=== PATIENT | male | born 1935 | race Asian ===

== ENCOUNTER 2017-01-09 18:43 | Inpatient (IN) | payer MEDICARE, MEDICAID ==
[2017-01-09 19:15] LABS: HEMATOCRIT 25.3 % (39.0-49.0); HEMOGLOBIN 8.5 gm/dL (12.6-17.4); MEAN CELL VOLUME 102.9 fl (80-99); MEAN CORPUSCULAR HEMOGLOBIN 34.5 pg (27.0-31.0); MEAN CORPUSCULAR HGB CONC 33.5 pg (28.0-36.0); MEAN PLATELET VOLUME 5.9 fl; PLATELET COUNT 219 Th/cmm (150-400); RED BLOOD COUNT 2.46 Mil/cmm (3.80-5.80); RED CELL DISTRIBUTION WIDTH 12.3 % (11.5-20.0); WHITE BLOOD COUNT 8.8 Th/cmm (4.8-10.8)
--- NOTE | 2017-01-09 19:21 | ED Physician Chart ---
Chief Complaint/HPI - Patient Information Date Seen:: 01/09/17 Time Seen:: 19:00 Chief Complaint:: PSYCHOSIS History of Present Illness:: THIS IS AN 82 YO MALE SENT HERE FROM [facility] FOR A PSYCH EVALUATION BECAUSE HE HAS BEEN TRYING TO LEAVE THE FACILITY. HE HAS HYPERTENSION,ANEMIA, GOUT AND DIABETES MELLITUS. Allergies:: Allergies Allergy/AdvReac Type Severity Reaction Status Date / Time clams Allergy Verified 01/09/17 18:54 cod liver oil Allergy Verified 01/09/17 18:54 corn Allergy Verified 01/09/17 18:53 egg Allergy Verified 01/09/17 18:48 milk Allergy Verified 01/09/17 18:48 peanut Allergy Verified 01/09/17 18:48 sesame seed Allergy Verified 01/09/17 18:53 shrimp Allergy Verified 01/09/17 18:49 soybean Allergy Verified 01/09/17 18:48 walnut Allergy Verified 01/09/17 18:52 wheat Allergy Verified 01/09/17 18:53 Vitals:: Vital Signs - 8 hr 01/09/17 18:58 Temp 98.5 F HR 85 RR 16 BP 126/68 O2 Sat % 98 Historian:: EMS, Medical Records Review:: Nurse's Note Reviewed, Transfer documents Reviewed, Patient unable to respond Review of Systems - Review of Systems General/Constitutional: No fever, No chills, No weight loss, No weakness, No diaphoresis, No edema, No loss of appetite, Other (PATIENT CANNOT GIVE A REVIEW OF SYSTEMS.) Skin: No skin lesions, No rash, No bruising Head: No headache, No light-headedness Eyes: No loss of vision, No pain, No diplopia ENT: No earache, No nasal drainage, No sore throat, No tinnitus Neck: No neck pain, No swelling, No thyromegaly, No stiffness, No mass noted Cardio Vascular: No chest pain, No palpitations, No PND, No orthopnea, No edema Pulmonary: No SOB, No cough, No sputum, No wheezing GI: No nausea, No vomiting, No diarrhea, No pain, No melena, No hematochezia, No constipation, No hematemesis G/U: No dysuria, No frequency, No hematuria Musculoskeletal: No bone or joint pain, No back pain, No muscle pain Endocrine: No polyuria, No polydipsia Psychiatric: No prior psych history, No depression, No anxiety, No suicidal ideation Hematopoietic: No bruising, No lymphadenopathy Allergic/Immuno: No urticaria, No angioedema Neurological: No syncope, No focal symptoms, No weakness, No paresthesia, No headache, No seizure, No dizziness, Confusion, No vertigo Past Medical History - Past Medical History Obtainable: Yes Past Medical History: HTN, DM, CAD, Dyslipidemia, Arthritis, Dementia Family History: None Social History: Non Smoker, No Alcohol, No Drug Use, Care Facility Surgical History: None Psychiatricy History: Schizophrenia Family Medical History - Family Member Mother History Unknown: Yes Physical Exam - Physical Examination General/Constitutional: Awake, Well-developed, well-nourished, Alert, No distress, GCS 15, Non-toxic appearing, Ambulatory Other Gen/Cons comments:: CONFUSED Head: Atraumatic Eyes: Lids, conjuctiva normal, PERRL, EOMI Skin: Nl inspection, No rash, No skin lesions, No ecchymosis, Well hydrated, No lymphadenopathy ENMT: External ears, nose nl, Nasal exam nl, Lips, teeth, gums nl Neck: Nontender, Full ROM w/o pain, No JVD, No nuchal rigidity, No bruit, No mass, No stridor Respiratory: Nl effort/Exclusion, Clear to Auscultation, No Wheeze/Rhonchi/Rales Cardio Vascular: RRR, No murmur, gallop, rubs, NL S1 S2 GI: No tenderness/rebounding/guarding, No organomegaly, No hernia, Normal BS's, Nondistended, No mass/bruits, No McBurney tenderness : No CVA tenderness Extremities: No tenderness or effusion, Full ROM, normal strength in all extremities, No edema, Normal digits & nails Neuro/Psych: Alert/oriented, DTR's symmetric, Normal sensory exam, Normal motor strength, Normal gait, No focal deficits Other Neuro/Psych comments:: THIS PATIENT IS CONFUSED AND RESTLESS WITH DISORIENTATION. Misc: normal gait, Normal back, No paraspinal tenderness Labs/Radiology/EKG Results - EKG Interpretations EKG Time:: 18:58 Rate & Rhythm: RATE=85, SINUS [place]: RIGHT AXIS Assessment - Assessment General Assessment: PSYCHOSIS ED Septic Shock - . Is Septic Shock (SBP<90, OR Lactate>4 mmol\L) present?: No - <6hrs of presentation: Vital Signs: Vital Signs - 8 hr 01/09/17 18:58 Temp 98.5 F HR 85 RR 16 BP 126/68 O2 Sat % 98 Reassessment (Disposition) - Reassessment Reassessment Condition:: Unchanged - Diagnosis Diagnosis:: PSYCHOSIS - Patient Disposition Discharge/Transfer:: Acute Care w/in this hosp Admitting Medical Physician:: Renee Ballard Admitting Psych Physician:: [place] Condition at Disposition:: Unchanged ED Discharge Plan - Patient Disposition Admit/Discharge/Transfer: Acute Care w/in this hosp Condition at Disposition: Unchanged Instructions: Psychosis
[2017-01-09 19:29] LABS: INR 0.88 (0.5-1.4)
[2017-01-09 19:31] LABS: ALB/GLOB RATIO 1.2 (1.0-1.8); ALKALINE PHOSPHATASE 51 U/L (34-104); BILIRUBIN,TOTAL 0.3 mg/dL (0.3-1.0); BUN - UREA NITROGEN 56 mg/dL (7-25); BUN/CREATININE RATIO 18.1; CALCIUM SERUM 9.2 mg/dL (8.6-10.3); CARBON DIOXIDE 24.1 mEq/L (21.0-31.0); CHLORIDE 108 mEq/L (98-107); CREATININE - SERUM 3.1 mg/dL (0.7-1.3); GLUCOSE 132 mg/dL (70-105); POTASSIUM SERUM 5.1 mEq/L (3.5-5.1); SGOT 23 U/L (13-39); SGPT/ALT 11 U/L (7-52); SODIUM SERUM 135 mEq/L (136-145)
[2017-01-09 19:32] LABS: CHOLESTEROL 126 mg/dL (<200); TRIGLYCERIDES 99 mg/dL (<150)
[2017-01-09 20:20] LABS: BASOPHIL 3 % (0-3); EOSINOPHIL 37 % (0-5); NEUTROPHILS 45 % (40-80); TOTAL CELLS COUNTED 100
[2017-01-09 20:21] LABS: PLATELET ESTIMATE ADEQUATE (NORMAL); PLATELET MORPHOLOGY NORMAL (NORMAL)
[2017-01-09] MEDS ORDERED: Fleet Enema 135 mL RC PRN (20:57)
[2017-01-09] MEDS ORDERED: Magnesium Hydroxide (MOM) 30 mL UDC PO PRN (20:57)
[2017-01-09] MEDS ORDERED: DIMETHICONE TP SCH (21:00)
[2017-01-09 21:18] VITALS: BP 154/75
[2017-01-10] MEDS ORDERED: Non-Formulary Item 1 EA (Amino Acids/Protein Hydrolys [Pro-Stat Sugar Free Liquid] 30 ML) PO SCH (09:00)
[2017-01-10] MEDS ORDERED: FEBUXOSTAT 40 MG PO SCH (09:00)
--- NOTE | 2017-01-10 09:38 | Diagnostic Imaging Report ---
Portable chest x-ray Time: 1853 History: Shortness of breath Allowing for portable technique the heart size is normal. No focal pulmonary parenchymal processes. No hilar or mediastinal abnormalities. COPD changes are noted bilaterally. Bony thorax remarkable for degenerative osteopenia. Aortic arch calcified. Impression: No acute abnormalities.
[2017-01-10] MEDS: INSULIN HUMAN REGULAR 100 UNITS/ML UNIT SUBQ SCH (09:58)
--- NOTE | 2017-01-10 10:44 | Psychosocial Evaluation ---
DATE OF SERVICE: 01/10/2017 JUSTIFICATION FOR HOSPITALIZATION: Agitation, striking out, aggressive behaviors at the [facility], trying to leave. CHIEF COMPLAINT: "I don't know why I am here." HISTORY OF PRESENT ILLNESS: An 82-year-old male brought in from a [facility], does not know why he is here, generally confused, disoriented, agitated, trying to leave the facility, states that he is confused as to why he is here. PAST PSYCHIATRIC HISTORY: It is unclear if he has a diagnosis of dementia or not. FAMILY HISTORY: Unknown. SOCIAL HISTORY: Born in the [facility]. He states he is . He has 2 children who are adults. No alcohol, drugs, or tobacco. Nonsmoker. MEDICATIONS: Noted. MENTAL STATUS EXAMINATION: Stated age. Fair eye contact. Speech within normal limits. Mood "okay." Affect flat. Thought processes were somewhat disoriented. No overt SI or HI. No overt psychotic symptoms, poor insight, poor judgment, poor impulse control. PROVISIONAL DIAGNOSES: Rule out dementia, also mood, unspecified; anxiety, unspecified. MEDICAL: Please see full H and P. ESTIMATED LENGTH OF STAY: 5-7 days. ASSESSMENT: The patient requiring inpatient hospitalization, agitated, striking out behaviors, unable to be cared for at a lower level of care. PLAN: We will restart medications. Treatment plan includes group, as well as milieu therapy. CONDITIONS FOR DISCHARGE: Improved mood, improved affect, cessation of any SI or HI, better control of his mood symptoms and agitation. [facility]# [id number]
--- NOTE | 2017-01-10 16:21 | History & Physical ---
ADMIT DATE: 01/10/2017 CHIEF COMPLAINT: Confusion and wandering. HISTORY OF PRESENT ILLNESS: An 82-year-old male with past medical history significant for diabetes and hypertension, [facility] from [facility] after being noted to be confused and often wandering around, sometimes outside the facility. He was sent for further evaluation and care. In the Emergency Room, the patient was ____ and sent for further psychiatric evaluation to the Geropsych Unit. The patient is awake and cooperative, however, poor historian given his underlying dementia. PAST MEDICAL HISTORY: The patient has history of diabetes mellitus, hypertension, anemia, chronic kidney disease. MEDICATIONS: As per reconciliation. ALLERGIES: THE PATIENT HAS MULTIPLE ALLERGIES, MOSTLY TO FOOD. Please refer to list. SOCIAL HISTORY: No known tobacco, alcohol or illicit drug use. FAMILY HISTORY: Noncontributory. REVIEW OF SYSTEMS: IMMUNOLOGIC: No recurrent infections. CARDIOVASCULAR: The patient has hypertension. No known heart disease. GASTROINTESTINAL: No nausea, vomiting or diarrhea. ENDOCRINE: The patient is diabetic. No thyroid disorder. NEUROLOGIC: No seizure. The patient may have had a previous stroke as per records. HEMATOLOGIC: No bleeding or clotting disorder. PHYSICAL EXAMINATION: GENERAL: The patient is awake and alert, pleasantly confused. VITAL SIGNS: Temperature 97.9, pulse 86, respiration 20, blood pressure 154/75. HEENT: Pupils are equally round. Anicteric sclerae. NECK: Supple, no JVD, mass or bruit. LUNGS: Clear to auscultation. HEART: S1, S2, regular rate and rhythm. ABDOMEN: Soft and nontender. Positive bowel sounds. EXTREMITIES: No clubbing, cyanosis, or edema. NEUROLOGIC: Moves all extremities equally, but appears generally weak. LABORATORY DATA: WBC is 8.8, hemoglobin 8.5. Sodium is 135, BUN 56, creatinine 3.1, albumin is 2.7. IMPRESSION: 1. Dementia. 2. Diabetes mellitus. 3. Hypertension. 4. Anemia. 5. Chronic kidney disease. PLAN: Admit to Geropsych Unit. Continue patient's usual medications. The patient is ____ activities. We will continue to monitor the patient's renal function and cell count. JOB# [id number]
--- NOTE | 2017-01-10 22:42 | Admit Criteria Form ---
Admit Criteria Forms - Admit Criteria Diagnosis: PSYCHIATRIC DISORDERS (Place 'X' for any and all applicable criteria): Ongoing inpatient care may be needed for 1 or more of the following(1)(2)(3)(4)( 6)(7)(8): [ ]I. Danger to self or others not manageable at lower level of care. [ ]II. Grave disability (eg, inability to perform self care necessary at lower level of care) [ ]III. Agitation or inappropriate behavior interfering with care for primary condition (eg, attempting to discontinue lines or drains prematurely, unable to cooperate with respiratory care) [X ]IV. Severe disability or disorder indicated by ALL of the following: [ X]a) Severe behavioral health disorder-related symptoms or condition indicated by 1 or more of the following: [ ]i) Severe problem with cognition, memory, judgment, or impulse control [X ]ii) Severe clinical manifestations (eg, hallucinations , delusions, other acute psychotic symptoms, leeanna, extreme agitation or anxiety) [X ]b) Patient management at lower level of care is not feasible until acute intervention or modification is initiated. Extended stay beyond goal length of stay for the primary condition may be needed until ALLof the following are present(1)(2)(3)(4)(7)95)(23): [ ]a) Danger to self or others is absent or manageable at lower level of care [ ]b) Behavior crisis management, including physical or chemical restraints, is required and is not available at a lower level of care. [ ]c) Behavioral symptoms (e.g., agitation, somnolence, inappropriate behavior) are present, and are not manageable at a lower level of care. [ ]d) Patient cannot understand follow-up treatment and crisis plan. [ ]e) Provider and supports are sufficiently available at lower level of care. [ ]f) Patient can participate (e.g., verify absence of plan for harm) and is in needed of monitoring. The original [facility] content created by [facility] has been revised. The portions of the content which have been revised are identified through the use of italic text or in bold, and [facility] has neither reviewed nor approved the modified material. All other unmodified content is copyright [facility]. Please see references footnoted in the original [facility] edition 2017 Admit Criteria Met?: Yes
[2017-01-11] MEDS: INSULIN HUMAN REGULAR 100 UNITS/ML UNIT SUBQ SCH (11:36)
--- NOTE | 2017-01-11 18:28 | General Progress Note ---
Subjective - Review of Systems Service Date: 01/11/17 Subjective: resting comfortably no distress Objective - Results Result Diagrams: 01/09/17 19:09 01/09/17 19:09 Recent Labs: Laboratory Last Values WBC 8.8 Th/cmm (4.8-10.8) 01/09/17 19:09 RBC 2.46 Mil/cmm (3.80-5.80) L 01/09/17 19:09 Hgb 8.5 gm/dL (12.6-17.4) L 01/09/17 19:09 Hct 25.3 % (39.0-49.0) L 01/09/17 19:09 MCV 102.9 fl (80-99) H 01/09/17 19:09 MCH 34.5 pg (27.0-31.0) H 01/09/17 19:09 MCHC Differential 33.5 pg (28.0-36.0) 01/09/17 19:09 RDW 12.3 % (11.5-20.0) 01/09/17 19:09 Plt Count 219 Th/cmm (150-400) 01/09/17 19:09 MPV 5.9 fl 01/09/17 19:09 Neutrophils (Manual) 45 % (40-80) 01/09/17 19:09 Lymphocytes 12 % (20-50) L 01/09/17 19:09 Monocytes 3 % (2-10) 01/09/17 19:09 Eosinophils 37 % (0-5) H 01/09/17 19:09 Basophils 3 % (0-3) 01/09/17 19:09 Platelet Estimate ADEQUATE (NORMAL) 01/09/17 19:09 Platelet Morphology NORMAL (NORMAL) 01/09/17 19:09 RBC Morph Micro Appear NORMAL (NORMAL) 01/09/17 19:09 PT 9.0 SECONDS (9.5-11.5) L 01/09/17 19:09 INR 0.88 (0.5-1.4) 01/09/17 19:09 PTT (Actin FS) 28.2 SECONDS (26.0-38.0) 01/09/17 19:09 Sodium 135 mEq/L (136-145) L 01/09/17 19:09 Potassium 5.1 mEq/L (3.5-5.1) 01/09/17 19:09 Chloride 108 mEq/L (98-107) H 01/09/17 19:09 Carbon Dioxide 24.1 mEq/L (21.0-31.0) 01/09/17 19:09 Anion Gap 8.0 (7.0-16.0) 01/09/17 19:09 BUN 56 mg/dL (7-25) H 01/09/17 19:09 Creatinine 3.1 mg/dL (0.7-1.3) H 01/09/17 19:09 Est GFR ( Amer) TNP 01/09/17 19:09 Est GFR (Non-Af Amer) TNP 01/09/17 19:09 BUN/Creatinine Ratio 18.1 01/09/17 19:09 Glucose 132 mg/dL (70-105) H 01/09/17 19:09 POC Glucose 128 MG/DL (70 - 105) H 01/11/17 09:47 Calcium 9.2 mg/dL (8.6-10.3) 01/09/17 19:09 Total Bilirubin 0.3 mg/dL (0.3-1.0) 01/09/17 19:09 AST 23 U/L (13-39) 01/09/17 19:09 ALT 11 U/L (7-52) 01/09/17 19:09 Alkaline Phosphatase 51 U/L (34-104) 01/09/17 19:09 Troponin I 0.02 ng/mL (0.01-0.05) 01/09/17 19:09 Total Protein 6.7 gm/dL (6.0-8.3) 01/09/17 19:09 Albumin 3.7 gm/dL (4.2-5.5) L 01/09/17 19:09 Globulin 3.0 gm/dL 01/09/17 19:09 Albumin/Globulin Ratio 1.2 (1.0-1.8) 01/09/17 19:09 Triglycerides 99 mg/dL (<150) 01/09/17 19:09 Cholesterol 126 mg/dL (<200) 01/09/17 19:09 LDL Cholesterol Direct 66 mg/dL (75-193) L 01/09/17 19:09 HDL Cholesterol 55 mg/dL (23-92) 01/09/17 19:09 TSH 1.01 uIU/ml (0.34-5.60) 01/09/17 19:09 RPR NONREACTIVE (NONREACTIVE) 01/09/17 19:09 - Physical Exam Vitals and I&O: Vital Signs Temp 98 F 01/10/17 20:31 Pulse 81 01/11/17 11:36 Resp 20 01/11/17 08:00 BP 123/59 01/11/17 11:36 Pulse Ox 96 01/10/17 20:31 Intake & Output 01/10/17 01/11/17 01/11/17 18:59 06:59 18:59 Intake Total 480 Balance 480 Intake: Oral 480 Other: # Voids 1 Active Medications: Current Medications Acetaminophen (Tylenol) 650 mg PO Q6HR PRN PRN Reason: PAIN OR TEMP >100.4 Stop: 03/10/17 20:56 Aspirin (Ecotrin) 81 mg PO DAILY [facility] Stop: 03/11/17 08:59 Last Admin: 01/11/17 09:00 Dose: 81 mg Bisacodyl (Dulcolax 10 Mg Supp) 10 mg RC DAILY PRN PRN Reason: IF MOM INEFFECTIVE FOR CONSTIP Stop: 03/10/17 20:56 Docusate Sodium (Colace) 100 mg PO DAILY [facility] Stop: 03/11/17 08:59 Last Admin: 01/11/17 09:00 Dose: 100 mg Dorzolamide HCl (Trusopt 2% Ophth Soln) 1 drop EACH EYE BID [facility] Stop: 03/11/17 08:59 Last Admin: 01/11/17 16:41 Dose: 1 drop Fluocinonide (Lidex 0.05%) 1 appl TP BID [facility] Stop: 03/11/17 08:59 Last Admin: 01/11/17 16:40 Dose: 1 appl Insulin Human Regular (Novolin R) 2 - 10 units SUBQ DAILY [facility] PRN Reason: Protocol Stop: 03/11/17 08:59 Last Admin: 01/11/17 11:36 Dose: Not Given Latanoprost (Xalatan 0.005% Ophth Soln) 1 drop EACH EYE HS [facility] Stop: 03/10/17 20:59 Last Admin: 01/10/17 20:19 Dose: 1 drop Lorazepam (Ativan) 0.5 mg PO Q6H PRN; Protocol PRN Reason: Anxiety/Agitation Stop: 03/10/17 20:55 Last Admin: 01/11/17 16:43 Dose: 0.5 mg Losartan Potassium (Cozaar) 50 mg PO DAILY [facility] Stop: 03/11/17 08:59 Last Admin: 01/11/17 11:34 Dose: 50 mg Magnesium Hydroxide (Milk Of Magnesia) 30 ml PO DAILY PRN PRN Reason: Constipation Stop: 03/10/17 20:56 Memantine (Namenda) 5 mg PO DAILY [facility] Stop: 03/12/17 08:59 Last Admin: 01/11/17 08:00 Dose: 5 mg Metoprolol Succinate (Toprol Xl) 25 mg PO DAILY [facility] Stop: 03/11/17 08:59 Last Admin: 01/11/17 11:36 Dose: 25 mg Miscellaneous (Dimethicone [Cerave]) 237 ml TP TID [facility] Stop: 03/10/17 20:59 Miscellaneous (Febuxostat [Uloric]) 40 mg PO DAILY [facility] Stop: 03/11/17 08:59 Miscellaneous (Vit B Cmplx 3/Fa/Vit C/Biotin [Nephro-King Rx Tablet]) 1 tab PO DAILY [facility] Stop: 03/11/17 08:59 Simvastatin (Zocor) 10 mg PO QPM [facility] PRN Reason: Protocol Stop: 03/11/17 16:59 Last Admin: 01/11/17 16:40 Dose: 10 mg Sodium Phosphate (Fleet Enema) 135 ml RC DAILY PRN PRN Reason: IF DULCOLAX INEFFECTIVE FOR CO Stop: 03/10/17 20:56 Zolpidem Tartrate (Ambien) 5 mg PO HS PRN PRN Reason: Insomnia Stop: 03/10/17 20:55 General: Alert, No acute distress HEENT: Atraumatic, PERRLA Neck: Supple Cardiovascular: Regular rate, Normal S1, Normal S2 Lungs: Clear to auscultation Abdomen: Bowel sounds, Soft Neurological: Normal gait, Normal speech Assessment/Plan - Problem List Patient Problems: All Active Problems WANDERS FROM FACILITY; ELOPEMENT RISK (Acute) - Assessment Assessment: dementia dm anemia htn - Plan Plan: cont current treatment Nutritional Asmnt/Malnutr-PDOC - Dietary Evaluation Malnutrition Findings (Please click <Entered> for more info): Nutritional Asmnt/Malnutrition Start: 01/10/17 10: 01 Text: Status: Active Freq: Document 01/10/17 10:01 ROD (Rec: 01/10/17 10:33 ROD FERNÁNDEZ- FNS1) Nutritional Asmnt/Malnutrition Patient General Information Nutritional Screening High Risk Screening Diagnosis Agitation, Psychosis (Reason for Visit) Pertinent Medical Hx/Surgical Hx Hypertension, glaucoma, hyperlipidemia, gout, anemia, hyperuricemia, unilateral inguinal hernia, cyst of kidney, diabetes type II, generalized muscle weakness. Subjective Information Patient was admitted from [facility] with reported increased agitation and agressive behavior at facility. Per medical record, patient has many food allergies including peanut, cod liver oil, corn, egg, soybean, milk, wheat, walnut, sesame seed, shrimp, clams. Patient walking in [facility] unit, unable to weigh. Current Diet Order/ Nutrition Support Mechanical Soft Ground, NCS pot diet, 2 Tyree HN one can TID with med pass. Patient / S.O Can't verbalize diet edu Pertinent Medications dulcolax, colace, novolin, cozaar, MOM, fleet enema Pertinent Labs BUN 56, Cr3.1, Albumin 3.7 Nutritional Hx/Data Height 1.63 m Height (Calculated Centimeters) 162.6 Current Weight (lbs) 61.235 kg Weight (Calculated Kilograms) 61.2 Weight (Calculated Grams) 11195.0 [place] Body Weight 130 % [place] Body Weight 103 Recent Weight Change No Weight Status Approriate GI Symptoms GI Symptoms None Food Allergies Yes Cultural/Ethnic/Spiritism Belief None indicated Usual diet at home Mechanical soft, ground Skin Integrity/Comment: Dwight 20, intact Current %PO Good (75-100%) Estimated Nutritional Goals BEE in Kcals: Using Current wt Calories/Kcals/Kg 25-30kcal/kg Kcals Calculated 1846-1144 kcal/day Protein: Using Current wt Protein g/k gm/kg Protein Calculated ~60gm/day Fluid: ml 4409-5082 ml/day (1 ml/kcal) Nutritional Problem 1. Problem Problem No nutrition diagnosis at this time Intervention/Recommendation Comments 1. Continue Mechanical soft, ground diet as tolerated by patient. Will provide meals free of food allergens. 2. Consider HgA1C lab. Switch diet to 60 gm CCHO if necessary. 3. Switch dietary supplement to Boost Glucose Control TID with meals. Expected Outcomes/Goals Expected Outcomes/Goals Oral intake to meet >75% of nutrient needs, nutrition related labs normalize, weight remains stable. F/U MR 01/13-
--- NOTE | 2017-01-11 20:16 | Progress Notes ---
DATE: 01/11/2017 SUBJECTIVE: The patient seen, chart reviewed, discussed with staff. The patient continues to present with some confusion, irritable, selectively mute. This morning, he is not talking to me, currently sitting in the position. He only tells me that he does feel that someone may be trying to harm him, remains somewhat delusional that he is presenting due to psychiatric decompensation, noted to be confused, wandering around trying to leave the facility at times, also noted to be agitated, disoriented, striking out at staff. ASSESSMENT: The patient remains symptomatic, disoriented striking out behaviors, not safe for a lower level of care, seems paranoid, making some delusional statements, which are concerned. PLAN: ____Will try to increase_ collateral, currently waiting for collateral, but we will start the patient on a low-dose Aricept. We will monitor closely for any overt side effects. Given the severity of the patient is ongoing symptoms, he is not safe for discharge at this time. JOB# [id number] RANDOLPH
[2017-01-12] MEDS: Vitamin B Complex w/Vitamin C Tab PO SCH (11:27)
[2017-01-12] MEDS: INSULIN HUMAN REGULAR 100 UNITS/ML UNIT SUBQ SCH (11:28)
--- NOTE | 2017-01-12 19:53 | Internal Medicine Prog Note ---
Internal Medicine Subjective - Subjective Service Date: 01/12/17 Patient seen and examined:: without staff Patient is:: awake, confused Per staff patient has:: no adverse event Internal Medicine Objective - Results Result Diagrams: 01/09/17 19:09 01/09/17 19:09 Recent Labs: Laboratory Last Values WBC 8.8 Th/cmm (4.8-10.8) 01/09/17 19:09 RBC 2.46 Mil/cmm (3.80-5.80) L 01/09/17 19:09 Hgb 8.5 gm/dL (12.6-17.4) L 01/09/17 19:09 Hct 25.3 % (39.0-49.0) L 01/09/17 19:09 MCV 102.9 fl (80-99) H 01/09/17 19:09 MCH 34.5 pg (27.0-31.0) H 01/09/17 19:09 MCHC Differential 33.5 pg (28.0-36.0) 01/09/17 19:09 RDW 12.3 % (11.5-20.0) 01/09/17 19:09 Plt Count 219 Th/cmm (150-400) 01/09/17 19:09 MPV 5.9 fl 01/09/17 19:09 Neutrophils (Manual) 45 % (40-80) 01/09/17 19:09 Lymphocytes 12 % (20-50) L 01/09/17 19:09 Monocytes 3 % (2-10) 01/09/17 19:09 Eosinophils 37 % (0-5) H 01/09/17 19:09 Basophils 3 % (0-3) 01/09/17 19:09 Platelet Estimate ADEQUATE (NORMAL) 01/09/17 19:09 Platelet Morphology NORMAL (NORMAL) 01/09/17 19:09 RBC Morph Micro Appear NORMAL (NORMAL) 01/09/17 19:09 PT 9.0 SECONDS (9.5-11.5) L 01/09/17 19:09 INR 0.88 (0.5-1.4) 01/09/17 19:09 PTT (Actin FS) 28.2 SECONDS (26.0-38.0) 01/09/17 19:09 Sodium 135 mEq/L (136-145) L 01/09/17 19:09 Potassium 5.1 mEq/L (3.5-5.1) 01/09/17 19:09 Chloride 108 mEq/L (98-107) H 01/09/17 19:09 Carbon Dioxide 24.1 mEq/L (21.0-31.0) 01/09/17 19:09 Anion Gap 8.0 (7.0-16.0) 01/09/17 19:09 BUN 56 mg/dL (7-25) H 01/09/17 19:09 Creatinine 3.1 mg/dL (0.7-1.3) H 01/09/17 19:09 Est GFR ( Amer) TNP 01/09/17 19:09 Est GFR (Non-Af Amer) TNP 01/09/17 19:09 BUN/Creatinine Ratio 18.1 01/09/17 19:09 Glucose 132 mg/dL (70-105) H 01/09/17 19:09 POC Glucose 128 MG/DL (70 - 105) H 01/11/17 09:47 Calcium 9.2 mg/dL (8.6-10.3) 01/09/17 19:09 Total Bilirubin 0.3 mg/dL (0.3-1.0) 01/09/17 19:09 AST 23 U/L (13-39) 01/09/17 19:09 ALT 11 U/L (7-52) 01/09/17 19:09 Alkaline Phosphatase 51 U/L (34-104) 01/09/17 19:09 Troponin I 0.02 ng/mL (0.01-0.05) 01/09/17 19:09 Total Protein 6.7 gm/dL (6.0-8.3) 01/09/17 19:09 Albumin 3.7 gm/dL (4.2-5.5) L 01/09/17 19:09 Globulin 3.0 gm/dL 01/09/17 19:09 Albumin/Globulin Ratio 1.2 (1.0-1.8) 01/09/17 19:09 Triglycerides 99 mg/dL (<150) 01/09/17 19:09 Cholesterol 126 mg/dL (<200) 01/09/17 19:09 LDL Cholesterol Direct 66 mg/dL (75-193) L 01/09/17 19:09 HDL Cholesterol 55 mg/dL (23-92) 01/09/17 19:09 TSH 1.01 uIU/ml (0.34-5.60) 01/09/17 19:09 RPR NONREACTIVE (NONREACTIVE) 01/09/17 19:09 - Physical Exam Vitals and I&O: Vital Signs Temp 97.4 F 01/12/17 15:12 Pulse 81 01/12/17 15:12 Resp 20 01/12/17 15:12 BP 132/54 01/12/17 15:12 Pulse Ox 95 01/12/17 15:12 Intake & Output 01/12/17 01/12/17 01/13/17 06:59 18:59 06:59 Intake Total 940 Balance 940 Intake: Oral 940 Other: # Voids 3 # Bowel Movements 0 Active Medications: Current Medications Acetaminophen (Tylenol) 650 mg PO Q6HR PRN PRN Reason: PAIN OR TEMP >100.4 Stop: 03/10/17 20:56 Aspirin (Ecotrin) 81 mg PO DAILY [facility] Stop: 03/11/17 08:59 Last Admin: 01/12/17 11:27 Dose: Not Given Bisacodyl (Dulcolax 10 Mg Supp) 10 mg RC DAILY PRN PRN Reason: IF MOM INEFFECTIVE FOR CONSTIP Stop: 03/10/17 20:56 Docusate Sodium (Colace) 100 mg PO DAILY [facility] Stop: 03/11/17 08:59 Last Admin: 01/12/17 11:27 Dose: Not Given Dorzolamide HCl (Trusopt 2% Oph Soln) 1 drop EACH EYE BID [facility] Stop: 03/11/17 08:59 Last Admin: 01/12/17 18:50 Dose: Not Given Fluocinonide (Lidex 0.05%) 1 appl TP BID [facility] Stop: 03/11/17 08:59 Last Admin: 01/12/17 18:50 Dose: Not Given Insulin Human Regular (Novolin R) 2 - 10 units SUBQ DAILY [facility] PRN Reason: Protocol Stop: 03/11/17 08:59 Last Admin: 01/12/17 11:28 Dose: Not Given Latanoprost (Xalatan 0.005% Oph Soln) 1 drop EACH EYE HS [facility] Stop: 03/10/17 20:59 Last Admin: 01/11/17 20:36 Dose: 1 drop Lorazepam (Ativan) 0.5 mg PO Q6H PRN; Protocol PRN Reason: Anxiety/Agitation Stop: 03/10/17 20:55 Last Admin: 01/12/17 11:32 Dose: 0.5 mg Losartan Potassium (Cozaar) 50 mg PO DAILY [facility] Stop: 03/11/17 08:59 Last Admin: 01/12/17 11:28 Dose: Not Given Magnesium Hydroxide (Milk Of Magnesia) 30 ml PO DAILY PRN PRN Reason: Constipation Stop: 03/10/17 20:56 Memantine (Namenda) 5 mg PO DAILY [facility] Stop: 03/12/17 08:59 Last Admin: 01/12/17 11:28 Dose: Not Given Metoprolol Succinate (Toprol Xl) 25 mg PO DAILY [facility] Stop: 03/11/17 08:59 Last Admin: 01/12/17 11:28 Dose: Not Given Miscellaneous (Dimethicone [Cerave]) 237 ml TP TID [facility] Stop: 03/10/17 20:59 Miscellaneous (Febuxostat [Uloric]) 40 mg PO DAILY [facility] Stop: 03/11/17 08:59 Simvastatin (Zocor) 10 mg PO QPM [facility] PRN Reason: Protocol Stop: 03/11/17 16:59 Last Admin: 01/12/17 18:50 Dose: Not Given Sodium Phosphate (Fleet Enema) 135 ml RC DAILY PRN PRN Reason: IF DULCOLAX INEFFECTIVE FOR CO Stop: 03/10/17 20:56 Vitamin B Complex/Vit C/Folic Acid (Vitamin B Complex W/Vitamin C) 1 tab PO DAILY [facility] Stop: 03/11/17 08:59 Last Admin: 01/12/17 11:27 Dose: Not Given Zolpidem Tartrate (Ambien) 5 mg PO HS PRN PRN Reason: Insomnia Stop: 03/10/17 20:55 General: demented, thin HEENT: NC/AT, PERRLA, EOMI Neck: Supple, No JVD, No thyromegaly, No LAD Lungs: CTAB Cardiovascular: RRR, Normal S1, Normal S2, without murmur Abdomen: soft, non-tender Extremities: clear Neurological: no change Internal Medicine Assmt/Plan - Assessment Assessment: 1.DM. 2.HTN. 3.ANEMIA. 4.DEMENTIA. - Plan Plan: CONTINUE ON CURRENT MEDICATION AND DIET. Nutritional Asmnt/Malnutr-PDOC - Dietary Evaluation Malnutrition Findings (Please click <Entered> for more info): Nutritional Asmnt/Malnutrition Start: 01/10/17 10: 01 Text: Status: Active Freq: Document 01/10/17 10:01 ROD (Rec: 01/10/17 10:33 MMERIC FERNÁNDEZ- FNS1) Nutritional Asmnt/Malnutrition Patient General Information Nutritional Screening High Risk Screening Diagnosis Agitation, Psychosis (Reason for Visit) Pertinent Medical Hx/Surgical Hx Hypertension, glaucoma, hyperlipidemia, gout, anemia, hyperuricemia, unilateral inguinal hernia, cyst of kidney, diabetes type II, generalized muscle weakness. Subjective Information Patient was admitted from [facility] with reported increased agitation and agressive behavior at facility. Per medical record, patient has many food allergies including peanut, cod liver oil, corn, egg, soybean, milk, wheat, walnut, sesame seed, shrimp, clams. Patient walking in [facility] unit, unable to weigh. Current Diet Order/ Nutrition Support Mechanical Soft Ground, NCS pot diet, 2 Tyree HN one can TID with med pass. Patient / S.O Can't verbalize diet edu Pertinent Medications dulcolax, colace, novolin, cozaar, MOM, fleet enema Pertinent Labs BUN 56, Cr3.1, Albumin 3.7 Nutritional Hx/Data Height 1.63 m Height (Calculated Centimeters) 162.6 Current Weight (lbs) 61.235 kg Weight (Calculated Kilograms) 61.2 Weight (Calculated Grams) 48479.0 Hardy Body Weight 130 % Hardy Body Weight 103 Recent Weight Change No Weight Status Approriate GI Symptoms GI Symptoms None Food Allergies Yes Cultural/Ethnic/Yazdanism Belief None indicated Usual diet at home Mechanical soft, ground Skin Integrity/Comment: Dwight 20, intact Current %PO Good (75-100%) Estimated Nutritional Goals BEE in Kcals: Using Current wt Calories/Kcals/Kg 25-30kcal/kg Kcals Calculated 9726-7374 kcal/day Protein: Using Current wt Protein g/k gm/kg Protein Calculated ~60gm/day Fluid: ml 1747-2912 ml/day (1 ml/kcal) Nutritional Problem 1. Problem Problem No nutrition diagnosis at this time Intervention/Recommendation Comments 1. Continue Mechanical soft, ground diet as tolerated by patient. Will provide meals free of food allergens. 2. Consider HgA1C lab. Switch diet to 60 gm CCHO if necessary. 3. Switch dietary supplement to Boost Glucose Control TID with meals. Expected Outcomes/Goals Expected Outcomes/Goals Oral intake to meet >75% of nutrient needs, nutrition related labs normalize, weight remains stable. F/U MR
--- NOTE | 2017-01-12 23:20 | Progress Notes ---
DATE: 01/12/2017 Case was discussed with staff of the patient, reviewed records. This is an 82-year-old male who was admitted to my services on 11/09/2016 because of agitation and psychosis. The patient was initially seen by Dr. Mcclelland and apparently the patient was unable to tell me why he is here. [facility] a [facility]. He was confused, disoriented, agitated, and trying to leave the facility, says he is confused that is why he is here. He has a diagnosis of dementia. He is a [place]. He does speak Malagasy. He is , has 2 children who are adults. DIAGNOSIS: Dementia, unspecified mood disorder. The patient's medication that was started by Dr. Mcclelland include Namenda 5 mg daily. He is confused, unpredictable, impulsive, unable to make safe plan for self-care or participate in meaningful conversation. He is compliant with the medication with no side effects and we will continue to work with the patient in group therapy, milieu therapy, and adjust the medication as needed. JOB# [id number]
[2017-01-13] MEDS: Vitamin B Complex w/Vitamin C Tab PO SCH ×3 (09:44→11:04)
[2017-01-13] MEDS: INSULIN HUMAN REGULAR 100 UNITS/ML UNIT SUBQ SCH (09:50)
--- NOTE | 2017-01-13 20:36 | Internal Medicine Prog Note ---
Internal Medicine Subjective - Subjective Service Date: 01/13/17 Patient seen and examined:: with staff Patient is:: awake, confused Per staff patient has:: no adverse event Internal Medicine Objective - Results Result Diagrams: 01/09/17 19:09 01/09/17 19:09 Recent Labs: Laboratory Last Values WBC 8.8 Th/cmm (4.8-10.8) 01/09/17 19:09 RBC 2.46 Mil/cmm (3.80-5.80) L 01/09/17 19:09 Hgb 8.5 gm/dL (12.6-17.4) L 01/09/17 19:09 Hct 25.3 % (39.0-49.0) L 01/09/17 19:09 MCV 102.9 fl (80-99) H 01/09/17 19:09 MCH 34.5 pg (27.0-31.0) H 01/09/17 19:09 MCHC Differential 33.5 pg (28.0-36.0) 01/09/17 19:09 RDW 12.3 % (11.5-20.0) 01/09/17 19:09 Plt Count 219 Th/cmm (150-400) 01/09/17 19:09 MPV 5.9 fl 01/09/17 19:09 Neutrophils (Manual) 45 % (40-80) 01/09/17 19:09 Lymphocytes 12 % (20-50) L 01/09/17 19:09 Monocytes 3 % (2-10) 01/09/17 19:09 Eosinophils 37 % (0-5) H 01/09/17 19:09 Basophils 3 % (0-3) 01/09/17 19:09 Platelet Estimate ADEQUATE (NORMAL) 01/09/17 19:09 Platelet Morphology NORMAL (NORMAL) 01/09/17 19:09 RBC Morph Micro Appear NORMAL (NORMAL) 01/09/17 19:09 PT 9.0 SECONDS (9.5-11.5) L 01/09/17 19:09 INR 0.88 (0.5-1.4) 01/09/17 19:09 PTT (Actin FS) 28.2 SECONDS (26.0-38.0) 01/09/17 19:09 Sodium 135 mEq/L (136-145) L 01/09/17 19:09 Potassium 5.1 mEq/L (3.5-5.1) 01/09/17 19:09 Chloride 108 mEq/L (98-107) H 01/09/17 19:09 Carbon Dioxide 24.1 mEq/L (21.0-31.0) 01/09/17 19:09 Anion Gap 8.0 (7.0-16.0) 01/09/17 19:09 BUN 56 mg/dL (7-25) H 01/09/17 19:09 Creatinine 3.1 mg/dL (0.7-1.3) H 01/09/17 19:09 Est GFR ( Amer) TNP 01/09/17 19:09 Est GFR (Non-Af Amer) TNP 01/09/17 19:09 BUN/Creatinine Ratio 18.1 01/09/17 19:09 Glucose 132 mg/dL (70-105) H 01/09/17 19:09 POC Glucose 159 MG/DL (70 - 105) H 01/13/17 09:50 Calcium 9.2 mg/dL (8.6-10.3) 01/09/17 19:09 Total Bilirubin 0.3 mg/dL (0.3-1.0) 01/09/17 19:09 AST 23 U/L (13-39) 01/09/17 19:09 ALT 11 U/L (7-52) 01/09/17 19:09 Alkaline Phosphatase 51 U/L (34-104) 01/09/17 19:09 Troponin I 0.02 ng/mL (0.01-0.05) 01/09/17 19:09 Total Protein 6.7 gm/dL (6.0-8.3) 01/09/17 19:09 Albumin 3.7 gm/dL (4.2-5.5) L 01/09/17 19:09 Globulin 3.0 gm/dL 01/09/17 19:09 Albumin/Globulin Ratio 1.2 (1.0-1.8) 01/09/17 19:09 Triglycerides 99 mg/dL (<150) 01/09/17 19:09 Cholesterol 126 mg/dL (<200) 01/09/17 19:09 LDL Cholesterol Direct 66 mg/dL (75-193) L 01/09/17 19:09 HDL Cholesterol 55 mg/dL (23-92) 01/09/17 19:09 TSH 1.01 uIU/ml (0.34-5.60) 01/09/17 19:09 RPR NONREACTIVE (NONREACTIVE) 01/09/17 19:09 - Physical Exam Vitals and I&O: Vital Signs Temp 98 F 01/13/17 14:00 Pulse 85 01/13/17 14:00 Resp 18 01/13/17 14:00 BP 118/87 01/13/17 14:00 Pulse Ox 99 01/13/17 14:00 Intake & Output 01/13/17 01/13/17 01/14/17 06:59 18:59 06:59 Intake Total 480 1800 Balance 480 1800 Intake: Oral 480 1800 Other: # Voids 2 4 # Bowel Movements 1 Active Medications: Current Medications Acetaminophen (Tylenol) 650 mg PO Q6HR PRN PRN Reason: PAIN OR TEMP >100.4 Stop: 03/10/17 20:56 Aspirin (Ecotrin) 81 mg PO DAILY [facility] Stop: 03/11/17 08:59 Last Admin: 01/13/17 09:47 Dose: 81 mg Bisacodyl (Dulcolax 10 Mg Supp) 10 mg RC DAILY PRN PRN Reason: IF MOM INEFFECTIVE FOR CONSTIP Stop: 03/10/17 20:56 Docusate Sodium (Colace) 100 mg PO DAILY [facility] Stop: 03/11/17 08:59 Last Admin: 01/13/17 09:46 Dose: 100 mg Donepezil HCl (Aricept) 5 mg PO HS [facility] Stop: 03/14/17 20:59 Last Admin: 01/13/17 20:29 Dose: 5 mg Dorzolamide HCl (Trusopt 2% Oph Soln) 1 drop EACH EYE BID [facility] Stop: 03/11/17 08:59 Last Admin: 01/13/17 18:14 Dose: Not Given Fluocinonide (Lidex 0.05%) 1 appl TP BID [facility] Stop: 03/11/17 08:59 Last Admin: 01/13/17 18:15 Dose: Not Given Insulin Human Regular (Novolin R) 2 - 10 units SUBQ DAILY [facility] PRN Reason: Protocol Stop: 03/11/17 08:59 Last Admin: 01/13/17 09:50 Dose: Not Given Latanoprost (Xalatan 0.005% Ophth Soln) 1 drop EACH EYE HS [facility] Stop: 03/10/17 20:59 Last Admin: 01/13/17 20:29 Dose: 1 drop Lorazepam (Ativan) 0.5 mg PO Q6H PRN PRN Reason: Anxiety/Agitaion Stop: 03/14/17 13:36 Losartan Potassium (Cozaar) 50 mg PO DAILY [facility] Stop: 03/11/17 08:59 Last Admin: 01/13/17 09:50 Dose: 50 mg Magnesium Hydroxide (Milk Of Magnesia) 30 ml PO DAILY PRN PRN Reason: Constipation Stop: 03/10/17 20:56 Memantine (Namenda) 5 mg PO DAILY [facility] Stop: 03/12/17 08:59 Last Admin: 01/13/17 09:47 Dose: 5 mg Metoprolol Succinate (Toprol Xl) 25 mg PO DAILY [facility] Stop: 03/11/17 08:59 Last Admin: 01/13/17 09:45 Dose: 25 mg Miscellaneous (Dimethicone [Cerave]) 237 ml TP TID [facility] Stop: 03/10/17 20:59 Miscellaneous (Febuxostat [Uloric]) 40 mg PO DAILY [facility] Stop: 03/11/17 08:59 Simvastatin (Zocor) 10 mg PO QPM [facility] PRN Reason: Protocol Stop: 03/11/17 16:59 Last Admin: 01/13/17 18:17 Dose: 10 mg Sodium Phosphate (Fleet Enema) 135 ml RC DAILY PRN PRN Reason: IF DULCOLAX INEFFECTIVE FOR CO Stop: 03/10/17 20:56 Vitamin B Complex/Vit C/Folic Acid (Vitamin B Complex W/Vitamin C) 1 tab PO DAILY [facility] Stop: 03/11/17 08:59 Last Admin: 01/13/17 11:04 Dose: 1 tab Zolpidem Tartrate (Ambien) 5 mg PO HS PRN PRN Reason: Insomnia Stop: 03/10/17 20:55 General: demented, thin HEENT: NC/AT, PERRLA, EOMI Neck: Supple, No JVD, No thyromegaly, No LAD Lungs: CTAB Cardiovascular: RRR, Normal S1, Normal S2, without murmur Abdomen: soft, non-tender Extremities: clear Neurological: no change Internal Medicine Assmt/Plan - Assessment Assessment: 1.DM. 2.HTN. 3.ANEMIA. 4.DEMENTIA. - Plan Plan: CONTINUE ON CURRENT MEDICATION AND DIET. Nutritional Asmnt/Malnutr-PDOC - Dietary Evaluation Malnutrition Findings (Please click <Entered> for more info): Nutritional Asmnt/Malnutrition Start: 01/10/17 10: 01 Text: Status: Active Freq: Document 01/10/17 10:01 ROD (Rec: 01/10/17 10:33 MMULNELLY FERNÁNDEZ- FNS1) Nutritional Asmnt/Malnutrition Patient General Information Nutritional Screening High Risk Screening Diagnosis Agitation, Psychosis (Reason for Visit) Pertinent Medical Hx/Surgical Hx Hypertension, glaucoma, hyperlipidemia, gout, anemia, hyperuricemia, unilateral inguinal hernia, cyst of kidney, diabetes type II, generalized muscle weakness. Subjective Information Patient was admitted from [facility] with reported increased agitation and agressive behavior at facility. Per medical record, patient has many food allergies including peanut, cod liver oil, corn, egg, soybean, milk, wheat, walnut, sesame seed, shrimp, clams. Patient walking in [facility] unit, unable to weigh. Current Diet Order/ Nutrition Support Mechanical Soft Ground, NCS pot diet, 2 Tyree HN one can TID with med pass. Patient / S.O Can't verbalize diet edu Pertinent Medications dulcolax, colace, novolin, cozaar, MOM, fleet enema Pertinent Labs BUN 56, Cr3.1, Albumin 3.7 Nutritional Hx/Data Height 1.63 m Height (Calculated Centimeters) 162.6 Current Weight (lbs) 61.235 kg Weight (Calculated Kilograms) 61.2 Weight (Calculated Grams) 83946.0 White Body Weight 130 % White Body Weight 103 Recent Weight Change No Weight Status Approriate GI Symptoms GI Symptoms None Food Allergies Yes Cultural/Ethnic/Sikhism Belief None indicated Usual diet at home Mechanical soft, ground Skin Integrity/Comment: Dwight 20, intact Current %PO Good (75-100%) Estimated Nutritional Goals BEE in Kcals: Using Current wt Calories/Kcals/Kg 25-30kcal/kg Kcals Calculated 5002-1982 kcal/day Protein: Using Current wt Protein g/k gm/kg Protein Calculated ~60gm/day Fluid: ml 8303-2736 ml/day (1 ml/kcal) Nutritional Problem 1. Problem Problem No nutrition diagnosis at this time Intervention/Recommendation Comments 1. Continue Mechanical soft, ground diet as tolerated by patient. Will provide meals free of food allergens. 2. Consider HgA1C lab. Switch diet to 60 gm CCHO if necessary. 3. Switch dietary supplement to Boost Glucose Control TID with meals. Expected Outcomes/Goals Expected Outcomes/Goals Oral intake to meet >75% of nutrient needs, nutrition related labs normalize, weight remains stable. F/U MR
--- NOTE | 2017-01-13 23:27 | Progress Notes ---
DATE: 01/13/2017 Case was discussed with staff of the patient, reviewed records. The patient continues to be irritable, unpredictable, impulsive, and needing redirection. Continues to have poor insight. Unable to make safe plan for self-care or participate in a meaningful conversation. He has been compliant with the medication with no side effects, no sedation, and no nausea. He is on Namenda. I will be adding Aricept for him to help with his confusion, dementia. Discussed side effects. We will continue to work with the patient in group therapy, milieu therapy, and adjust the medication as needed. JOB# [id number]
[2017-01-14] MEDS: Vitamin B Complex w/Vitamin C Tab PO SCH (09:06)
[2017-01-14] MEDS: INSULIN HUMAN REGULAR 100 UNITS/ML UNIT SUBQ SCH (09:08)
--- NOTE | 2017-01-14 21:51 | Progress Notes ---
DATE: 01/14/2017 SUBJECTIVE: Case was discussed with staff of the patient, reviewed records. The patient is alert, yet he is uncooperative. He continues to have episodes of irritability. He did not answer any questions whether he is speaking in Swazi or Japanese, so I was told he does speak Japanese. He is unpredictable, impulsive. He has been compliant with the medication with no side effects, no sedation, no nausea, no extrapyramidal symptoms. He was on Aricept 5 mg that was added yesterday as well as Namenda, and no side effects with the medications so far. We will continue to work with the patient in group therapy, milieu therapy, and adjust medication as needed. JOB# [id number]
--- NOTE | 2017-01-14 21:51 | Internal Medicine Prog Note ---
Internal Medicine Subjective - Subjective Service Date: 01/14/17 Patient seen and examined:: with staff Patient is:: awake, confused Per staff patient has:: no adverse event Internal Medicine Objective - Results Result Diagrams: 01/09/17 19:09 01/09/17 19:09 Recent Labs: Laboratory Last Values WBC 8.8 Th/cmm (4.8-10.8) 01/09/17 19:09 RBC 2.46 Mil/cmm (3.80-5.80) L 01/09/17 19:09 Hgb 8.5 gm/dL (12.6-17.4) L 01/09/17 19:09 Hct 25.3 % (39.0-49.0) L 01/09/17 19:09 MCV 102.9 fl (80-99) H 01/09/17 19:09 MCH 34.5 pg (27.0-31.0) H 01/09/17 19:09 MCHC Differential 33.5 pg (28.0-36.0) 01/09/17 19:09 RDW 12.3 % (11.5-20.0) 01/09/17 19:09 Plt Count 219 Th/cmm (150-400) 01/09/17 19:09 MPV 5.9 fl 01/09/17 19:09 Neutrophils (Manual) 45 % (40-80) 01/09/17 19:09 Lymphocytes 12 % (20-50) L 01/09/17 19:09 Monocytes 3 % (2-10) 01/09/17 19:09 Eosinophils 37 % (0-5) H 01/09/17 19:09 Basophils 3 % (0-3) 01/09/17 19:09 Platelet Estimate ADEQUATE (NORMAL) 01/09/17 19:09 Platelet Morphology NORMAL (NORMAL) 01/09/17 19:09 RBC Morph Micro Appear NORMAL (NORMAL) 01/09/17 19:09 PT 9.0 SECONDS (9.5-11.5) L 01/09/17 19:09 INR 0.88 (0.5-1.4) 01/09/17 19:09 PTT (Actin FS) 28.2 SECONDS (26.0-38.0) 01/09/17 19:09 Sodium 135 mEq/L (136-145) L 01/09/17 19:09 Potassium 5.1 mEq/L (3.5-5.1) 01/09/17 19:09 Chloride 108 mEq/L (98-107) H 01/09/17 19:09 Carbon Dioxide 24.1 mEq/L (21.0-31.0) 01/09/17 19:09 Anion Gap 8.0 (7.0-16.0) 01/09/17 19:09 BUN 56 mg/dL (7-25) H 01/09/17 19:09 Creatinine 3.1 mg/dL (0.7-1.3) H 01/09/17 19:09 Est GFR ( Amer) TNP 01/09/17 19:09 Est GFR (Non-Af Amer) TNP 01/09/17 19:09 BUN/Creatinine Ratio 18.1 01/09/17 19:09 Glucose 132 mg/dL (70-105) H 01/09/17 19:09 POC Glucose 81 MG/DL (70 - 105) 01/14/17 08:13 Calcium 9.2 mg/dL (8.6-10.3) 01/09/17 19:09 Total Bilirubin 0.3 mg/dL (0.3-1.0) 01/09/17 19:09 AST 23 U/L (13-39) 01/09/17 19:09 ALT 11 U/L (7-52) 01/09/17 19:09 Alkaline Phosphatase 51 U/L (34-104) 01/09/17 19:09 Troponin I 0.02 ng/mL (0.01-0.05) 01/09/17 19:09 Total Protein 6.7 gm/dL (6.0-8.3) 01/09/17 19:09 Albumin 3.7 gm/dL (4.2-5.5) L 01/09/17 19:09 Globulin 3.0 gm/dL 01/09/17 19:09 Albumin/Globulin Ratio 1.2 (1.0-1.8) 01/09/17 19:09 Triglycerides 99 mg/dL (<150) 01/09/17 19:09 Cholesterol 126 mg/dL (<200) 01/09/17 19:09 LDL Cholesterol Direct 66 mg/dL (75-193) L 08/04/17 19:09 HDL Cholesterol 55 mg/dL (23-92) 01/09/17 19:09 TSH 1.01 uIU/ml (0.34-5.60) 01/09/17 19:09 RPR NONREACTIVE (NONREACTIVE) 01/09/17 19:09 - Physical Exam Vitals and I&O: Vital Signs Temp 98.2 F 01/14/17 14:00 Pulse 100 01/14/17 20:00 Resp 19 01/14/17 20:00 BP 108/56 01/14/17 14:00 Pulse Ox 96 01/14/17 14:00 Intake & Output 01/14/17 01/14/17 01/15/17 06:59 18:59 06:59 Intake Total 240 1200 Balance 240 1200 Intake: Oral 240 1200 Other: # Voids 2 # Bowel Movements 0 Active Medications: Current Medications Acetaminophen (Tylenol) 650 mg PO Q6HR PRN PRN Reason: PAIN OR TEMP >100.4 Stop: 03/10/17 20:56 Aspirin (Ecotrin) 81 mg PO DAILY [facility] Stop: 03/11/17 08:59 Last Admin: 01/14/17 09:06 Dose: 81 mg Bisacodyl (Dulcolax 10 Mg Supp) 10 mg RC DAILY PRN PRN Reason: IF MOM INEFFECTIVE FOR CONSTIP Stop: 03/10/17 20:56 Docusate Sodium (Colace) 100 mg PO DAILY [facility] Stop: 03/11/17 08:59 Last Admin: 01/14/17 09:07 Dose: 100 mg Donepezil HCl (Aricept) 5 mg PO HS [facility] Stop: 03/14/17 20:59 Last Admin: 01/14/17 20:21 Dose: 5 mg Dorzolamide HCl (Trusopt 2% Ophth Soln) 1 drop EACH EYE BID [facility] Stop: 03/11/17 08:59 Last Admin: 01/14/17 16:34 Dose: 1 drop Fluocinonide (Lidex 0.05%) 1 appl TP BID [facility] Stop: 03/11/17 08:59 Last Admin: 01/14/17 16:34 Dose: 1 appl Insulin Aspart (Novolog Insulin Sliding Scale) 0 units SUBQ QDAC [facility] PRN Reason: Protocol Stop: 03/16/17 06:29 Latanoprost (Xalatan 0.005% Ophth Soln) 1 drop EACH EYE HS [facility] Stop: 03/10/17 20:59 Last Admin: 01/14/17 20:21 Dose: 1 drop Lorazepam (Ativan) 0.5 mg PO Q6H PRN PRN Reason: Anxiety/Agitaion Stop: 03/14/17 13:36 Last Admin: 01/14/17 09:10 Dose: 0.5 mg Losartan Potassium (Cozaar) 50 mg PO DAILY [facility] Stop: 03/11/17 08:59 Last Admin: 01/14/17 09:06 Dose: 50 mg Magnesium Hydroxide (Milk Of Magnesia) 30 ml PO DAILY PRN PRN Reason: Constipation Stop: 03/10/17 20:56 Memantine (Namenda) 5 mg PO DAILY [facility] Stop: 03/12/17 08:59 Last Admin: 01/14/17 09:06 Dose: 5 mg Metoprolol Succinate (Toprol Xl) 25 mg PO DAILY [facility] Stop: 03/11/17 08:59 Last Admin: 01/14/17 09:09 Dose: 25 mg Miscellaneous (Dimethicone [Cerave]) 237 ml TP TID [facility] Stop: 03/10/17 20:59 Miscellaneous (Febuxostat [Uloric]) 40 mg PO DAILY [facility] Stop: 03/11/17 08:59 Simvastatin (Zocor) 10 mg PO QPM [facility] PRN Reason: Protocol Stop: 03/11/17 16:59 Last Admin: 01/14/17 16:35 Dose: 10 mg Sodium Phosphate (Fleet Enema) 135 ml RC DAILY PRN PRN Reason: IF DULCOLAX INEFFECTIVE FOR CO Stop: 03/10/17 20:56 Vitamin B Complex/Vit C/Folic Acid (Vitamin B Complex W/Vitamin C) 1 tab PO DAILY [facility] Stop: 03/11/17 08:59 Last Admin: 01/14/17 09:06 Dose: 1 tab Zolpidem Tartrate (Ambien) 5 mg PO HS PRN PRN Reason: Insomnia Stop: 03/10/17 20:55 General: demented, thin HEENT: NC/AT, PERRLA, EOMI Neck: Supple, No JVD, No thyromegaly, No LAD Lungs: CTAB Cardiovascular: RRR, Normal S1, Normal S2, without murmur Abdomen: soft, non-tender Extremities: clear Neurological: no change Internal Medicine Assmt/Plan - Assessment Assessment: 1.DM. 2.HTN. 3.ANEMIA. 4.DEMENTIA. - Plan Plan: CONTINUE ON CURRENT MEDICATION AND DIET. Nutritional Asmnt/Malnutr-PDOC - Dietary Evaluation Malnutrition Findings (Please click <Entered> for more info): Nutritional Asmnt/Malnutrition Start: 01/10/17 10: 01 Text: Status: Active Freq: Document 01/10/17 10:01 ROD (Rec: 01/10/17 10:33 MMULNELLY FERNÁNDEZ- [email or web address]) Nutritional Asmnt/Malnutrition Patient General Information Nutritional Screening High Risk Screening Diagnosis Agitation, Psychosis (Reason for Visit) Pertinent Medical Hx/Surgical Hx Hypertension, glaucoma, hyperlipidemia, gout, anemia, hyperuricemia, unilateral inguinal hernia, cyst of kidney, diabetes type II, generalized muscle weakness. Subjective Information Patient was admitted from [facility] with reported increased agitation and agressive behavior at facility. Per medical record, patient has many food allergies including peanut, cod liver oil, corn, egg, soybean, milk, wheat, walnut, sesame seed, shrimp, clams. Patient walking in [facility] unit, unable to weigh. Current Diet Order/ Nutrition Support Mechanical Soft Ground, NCS pot diet, 2 Tyree HN one can TID with med pass. Patient / S.O Can't verbalize diet edu Pertinent Medications dulcolax, colace, novolin, cozaar, MOM, fleet enema Pertinent Labs BUN 56, Cr3.1, Albumin 3.7 Nutritional Hx/Data Height 1.63 m Height (Calculated Centimeters) 162.6 Current Weight (lbs) 61.235 kg Weight (Calculated Kilograms) 61.2 Weight (Calculated Grams) 86790.0 Magnet Body Weight 130 % Magnet Body Weight 103 Recent Weight Change No Weight Status Approriate GI Symptoms GI Symptoms None Food Allergies Yes Cultural/Ethnic/Moravian Belief None indicated Usual diet at home Mechanical soft, ground Skin Integrity/Comment: Dwight 20, intact Current %PO Good (75-100%) Estimated Nutritional Goals BEE in Kcals: Using Current wt Calories/Kcals/Kg 25-30kcal/kg Kcals Calculated 3665-3120 kcal/day Protein: Using Current wt Protein g/k gm/kg Protein Calculated ~60gm/day Fluid: ml 4542-5778 ml/day (1 ml/kcal) Nutritional Problem 1. Problem Problem No nutrition diagnosis at this time Intervention/Recommendation Comments 1. Continue Mechanical soft, ground diet as tolerated by patient. Will provide meals free of food allergens. 2. Consider HgA1C lab. Switch diet to 60 gm CCHO if necessary. 3. Switch dietary supplement to Boost Glucose Control TID with meals. Expected Outcomes/Goals Expected Outcomes/Goals Oral intake to meet >75% of nutrient needs, nutrition related labs normalize, weight remains stable. F/U MR 01/13-
[2017-01-15] MEDS: INSULIN ASPART SLIDING SCALE 100 UNITS/ML UNIT SUBQ SCH (07:17)
[2017-01-15] MEDS: Vitamin B Complex w/Vitamin C Tab PO SCH (09:03)
--- NOTE | 2017-01-15 18:12 | Internal Medicine Prog Note ---
Internal Medicine Subjective - Subjective Service Date: 01/15/17 Patient seen and examined:: without staff (HE FEELS BETTER,NO PAIN.) Patient is:: awake, confused Per staff patient has:: no adverse event Internal Medicine Objective - Results Result Diagrams: 01/09/17 19:09 01/09/17 19:09 Recent Labs: Laboratory Last Values WBC 8.8 Th/cmm (4.8-10.8) 01/09/17 19:09 RBC 2.46 Mil/cmm (3.80-5.80) L 01/09/17 19:09 Hgb 8.5 gm/dL (12.6-17.4) L 01/09/17 19:09 Hct 25.3 % (39.0-49.0) L 01/09/17 19:09 MCV 102.9 fl (80-99) H 01/09/17 19:09 MCH 34.5 pg (27.0-31.0) H 01/09/17 19:09 MCHC Differential 33.5 pg (28.0-36.0) 01/09/17 19:09 RDW 12.3 % (11.5-20.0) 01/09/17 19:09 Plt Count 219 Th/cmm (150-400) 01/09/17 19:09 MPV 5.9 fl 01/09/17 19:09 Neutrophils (Manual) 45 % (40-80) 01/09/17 19:09 Lymphocytes 12 % (20-50) L 01/09/17 19:09 Monocytes 3 % (2-10) 01/09/17 19:09 Eosinophils 37 % (0-5) H 01/09/17 19:09 Basophils 3 % (0-3) 01/09/17 19:09 Platelet Estimate ADEQUATE (NORMAL) 01/09/17 19:09 Platelet Morphology NORMAL (NORMAL) 01/09/17 19:09 RBC Morph Micro Appear NORMAL (NORMAL) 01/09/17 19:09 PT 9.0 SECONDS (9.5-11.5) L 01/09/17 19:09 INR 0.88 (0.5-1.4) 01/09/17 19:09 PTT (Actin FS) 28.2 SECONDS (26.0-38.0) 01/09/17 19:09 Sodium 135 mEq/L (136-145) L 01/09/17 19:09 Potassium 5.1 mEq/L (3.5-5.1) 01/09/17 19:09 Chloride 108 mEq/L (98-107) H 01/09/17 19:09 Carbon Dioxide 24.1 mEq/L (21.0-31.0) 01/09/17 19:09 Anion Gap 8.0 (7.0-16.0) 01/09/17 19:09 BUN 56 mg/dL (7-25) H 01/09/17 19:09 Creatinine 3.1 mg/dL (0.7-1.3) H 01/09/17 19:09 Est GFR ( Amer) TNP 01/09/17 19:09 Est GFR (Non-Af Amer) TNP 01/09/17 19:09 BUN/Creatinine Ratio 18.1 01/09/17 19:09 Glucose 132 mg/dL (70-105) H 01/09/17 19:09 POC Glucose 85 MG/DL (70 - 105) 01/15/17 05:59 Calcium 9.2 mg/dL (8.6-10.3) 01/09/17 19:09 Total Bilirubin 0.3 mg/dL (0.3-1.0) 01/09/17 19:09 AST 23 U/L (13-39) 01/09/17 19:09 ALT 11 U/L (7-52) 01/09/17 19:09 Alkaline Phosphatase 51 U/L (34-104) 01/09/17 19:09 Troponin I 0.02 ng/mL (0.01-0.05) 01/09/17 19:09 Total Protein 6.7 gm/dL (6.0-8.3) 01/09/17 19:09 Albumin 3.7 gm/dL (4.2-5.5) L 01/09/17 19:09 Globulin 3.0 gm/dL 01/09/17 19:09 Albumin/Globulin Ratio 1.2 (1.0-1.8) 01/09/17 19:09 Triglycerides 99 mg/dL (<150) 01/09/17 19:09 Cholesterol 126 mg/dL (<200) 01/09/17 19:09 LDL Cholesterol Direct 66 mg/dL (75-193) L 01/09/17 19:09 HDL Cholesterol 55 mg/dL (23-92) 01/09/17 19:09 TSH 1.01 uIU/ml (0.34-5.60) 01/09/17 19:09 RPR NONREACTIVE (NONREACTIVE) 01/09/17 19:09 - Physical Exam Vitals and I&O: Vital Signs Temp 97.2 F 01/15/17 06:40 Pulse 76 01/15/17 16:09 Resp 20 01/15/17 16:09 BP 111/66 01/15/17 16:09 Pulse Ox 96 01/15/17 16:09 Intake & Output 01/14/17 01/15/17 01/15/17 18:59 06:59 18:59 Intake Total 1200 120 Balance 1200 120 Intake: Oral 1200 120 Other: # Voids 3 Active Medications: Current Medications Acetaminophen (Tylenol) 650 mg PO Q6HR PRN PRN Reason: PAIN OR TEMP >100.4 Stop: 03/10/17 20:56 Allopurinol (Zyloprim) 300 mg PO HS [facility] Stop: 03/16/17 20:59 Aspirin (Ecotrin) 81 mg PO DAILY [facility] Stop: 03/11/17 08:59 Last Admin: 01/15/17 09:03 Dose: 81 mg Bisacodyl (Dulcolax 10 Mg Supp) 10 mg RC DAILY PRN PRN Reason: IF MOM INEFFECTIVE FOR CONSTIP Stop: 03/10/17 20:56 Docusate Sodium (Colace) 100 mg PO DAILY [facility] Stop: 03/11/17 08:59 Last Admin: 01/15/17 09:03 Dose: 100 mg Donepezil HCl (Aricept) 5 mg PO HS [facility] Stop: 03/14/17 20:59 Last Admin: 01/14/17 20:21 Dose: 5 mg Dorzolamide HCl (Trusopt 2% Ophth Soln) 1 drop EACH EYE BID [facility] Stop: 03/11/17 08:59 Last Admin: 01/15/17 16:15 Dose: 1 drop Fluocinonide (Lidex 0.05%) 1 appl TP BID [facility] Stop: 03/11/17 08:59 Last Admin: 01/15/17 16:15 Dose: 1 appl Insulin Aspart (Novolog Insulin Sliding Scale) 0 units SUBQ QDAC [facility] PRN Reason: Protocol Stop: 03/16/17 06:29 Last Admin: 01/15/17 07:17 Dose: Not Given Latanoprost (Xalatan 0.005% Ophth Soln) 1 drop EACH EYE HS [facility] Stop: 03/10/17 20:59 Last Admin: 01/14/17 20:21 Dose: 1 drop Lorazepam (Ativan) 0.5 mg PO Q6H PRN PRN Reason: Anxiety/Agitaion Stop: 03/14/17 13:36 Last Admin: 01/14/17 09:10 Dose: 0.5 mg Losartan Potassium (Cozaar) 50 mg PO DAILY [facility] Stop: 03/11/17 08:59 Last Admin: 01/15/17 09:04 Dose: Not Given Magnesium Hydroxide (Milk Of Magnesia) 30 ml PO DAILY PRN PRN Reason: Constipation Stop: 03/10/17 20:56 Last Admin: 01/15/17 16:19 Dose: 30 ml Memantine (Namenda) 5 mg PO DAILY [facility] Stop: 03/12/17 08:59 Last Admin: 01/15/17 09:03 Dose: 5 mg Metoprolol Succinate (Toprol Xl) 25 mg PO DAILY [facility] Stop: 03/11/17 08:59 Last Admin: 01/15/17 09:05 Dose: 25 mg Risperidone (Risperdal) 0.25 mg PO BID [facility] PRN Reason: Protocol Stop: 03/16/17 16:59 Last Admin: 01/15/17 16:15 Dose: 0.25 mg Simvastatin (Zocor) 10 mg PO QPM [facility] PRN Reason: Protocol Stop: 03/11/17 16:59 Last Admin: 01/15/17 16:14 Dose: 10 mg Sodium Phosphate (Fleet Enema) 135 ml RC DAILY PRN PRN Reason: IF DULCOLAX INEFFECTIVE FOR CO Stop: 03/10/17 20:56 Vitamin B Complex/Vit C/Folic Acid (Vitamin B Complex W/Vitamin C) 1 tab PO DAILY [facility] Stop: 03/11/17 08:59 Last Admin: 01/15/17 09:03 Dose: 1 tab Zolpidem Tartrate (Ambien) 5 mg PO HS PRN PRN Reason: Insomnia Stop: 03/10/17 20:55 General: demented, thin HEENT: NC/AT, PERRLA, EOMI Neck: Supple, No JVD, No thyromegaly, No LAD Lungs: CTAB Cardiovascular: RRR, Normal S1, Normal S2, without murmur Abdomen: soft, non-tender Extremities: clear Neurological: no change Internal Medicine Assmt/Plan - Assessment Assessment: 1.DM. 2.HTN. 3.ANEMIA. 4.DEMENTIA. 5.GOUTY ARTHRITIS. - Plan Plan: CONTINUE ON CURRENT MEDICATION AND DIET.RESUME HIS ALLOPURINOL. Nutritional Asmnt/Malnutr-PDOC - Dietary Evaluation Malnutrition Findings (Please click <Entered> for more info): Nutritional Asmnt/Malnutrition Start: 01/10/17 10: 01 Text: Status: Active Freq: Document 01/10/17 10:01 ROD (Rec: 01/10/17 10:33 MMULNELLY FERNÁNDEZ- [email or web address]) Nutritional Asmnt/Malnutrition Patient General Information Nutritional Screening High Risk Screening Diagnosis Agitation, Psychosis (Reason for Visit) Pertinent Medical Hx/Surgical Hx Hypertension, glaucoma, hyperlipidemia, gout, anemia, hyperuricemia, unilateral inguinal hernia, cyst of kidney, diabetes type II, generalized muscle weakness. Subjective Information Patient was admitted from [facility] with reported increased agitation and agressive behavior at facility. Per medical record, patient has many food allergies including peanut, cod liver oil, corn, egg, soybean, milk, wheat, walnut, sesame seed, shrimp, clams. Patient [facility], unable to weigh. Current Diet Order/ Nutrition Support Mechanical Soft Ground, NCS pot diet, 2 Tyree HN one can TID with med pass. Patient / S.O Can't verbalize diet edu Pertinent Medications dulcolax, colace, novolin, cozaar, MOM, fleet enema Pertinent Labs BUN 56, Cr3.1, Albumin 3.7 Nutritional Hx/Data Height 1.63 m Height (Calculated Centimeters) 162.6 Current Weight (lbs) 61.235 kg Weight (Calculated Kilograms) 61.2 Weight (Calculated Grams) 78529.0 Stacy Body Weight 130 % Stacy Body Weight 103 Recent Weight Change No Weight Status Approriate GI Symptoms GI Symptoms None Food Allergies Yes Cultural/Ethnic/Catholic Belief None indicated Usual diet at home Mechanical soft, ground Skin Integrity/Comment: Dwight 20, intact Current %PO Good (75-100%) Estimated Nutritional Goals BEE in Kcals: Using Current wt Calories/Kcals/Kg 25-30kcal/kg Kcals Calculated 9929-2862 kcal/day Protein: Using Current wt Protein g/k gm/kg Protein Calculated ~60gm/day Fluid: ml 7724-2003 ml/day (1 ml/kcal) Nutritional Problem 1. Problem Problem No nutrition diagnosis at this time Intervention/Recommendation Comments 1. Continue Mechanical soft, ground diet as tolerated by patient. Will provide meals free of food allergens. 2. Consider HgA1C lab. Switch diet to 60 gm CCHO if necessary. 3. Switch dietary supplement to Boost Glucose Control TID with meals. Expected Outcomes/Goals Expected Outcomes/Goals Oral intake to meet >75% of nutrient needs, nutrition related labs normalize, weight remains stable. F/U MR 01/13-
--- NOTE | 2017-01-16 01:31 | Progress Notes ---
DATE: 01/15/2017 Case was discussed with staff of the patient, reviewed records. The patient continues to be confused. He is still unpredictable and impulsive. Unable to participate in a meaningful conversation either language, delusional, believes he needs to go to work. I will be initiating Risperdal on him and so far no side effects, no sedation, no nausea, and no extrapyramidal symptoms. We will continue to work with the patient in group therapy, milieu therapy, and adjust medications as needed. MRSA was negative. Chemistry panel with low sodium, high chloride, high BUN, high creatinine that will be deferred to the discretion of Dr. Ballard and his CBC shows low hemoglobin and low hematocrit for which we will be consulting with Dr. Ballard about. Lipid profile shows low LDL cholesterol and we will continue to work with the patient in group therapy, milieu therapy, and adjust the medication as needed. JOB# [id number]
[2017-01-16] MEDS: Vitamin B Complex w/Vitamin C Tab PO SCH (08:12)
[2017-01-16] MEDS: INSULIN ASPART SLIDING SCALE 100 UNITS/ML UNIT SUBQ SCH (08:14)
--- NOTE | 2017-01-16 15:01 | Internal Medicine Prog Note ---
Internal Medicine Subjective - Subjective Service Date: 01/16/17 Patient seen and examined:: without staff Patient is:: awake, confused Per staff patient has:: no adverse event Internal Medicine Objective - Results Result Diagrams: 01/09/17 19:09 01/09/17 19:09 Recent Labs: Laboratory Last Values WBC 8.8 Th/cmm (4.8-10.8) 01/09/17 19:09 RBC 2.46 Mil/cmm (3.80-5.80) L 01/09/17 19:09 Hgb 8.5 gm/dL (12.6-17.4) L 01/09/17 19:09 Hct 25.3 % (39.0-49.0) L 01/09/17 19:09 MCV 102.9 fl (80-99) H 01/09/17 19:09 MCH 34.5 pg (27.0-31.0) H 01/09/17 19:09 MCHC Differential 33.5 pg (28.0-36.0) 01/09/17 19:09 RDW 12.3 % (11.5-20.0) 01/09/17 19:09 Plt Count 219 Th/cmm (150-400) 01/09/17 19:09 MPV 5.9 fl 01/09/17 19:09 Neutrophils (Manual) 45 % (40-80) 01/09/17 19:09 Lymphocytes 12 % (20-50) L 01/09/17 19:09 Monocytes 3 % (2-10) 01/09/17 19:09 Eosinophils 37 % (0-5) H 01/09/17 19:09 Basophils 3 % (0-3) 01/09/17 19:09 Platelet Estimate ADEQUATE (NORMAL) 01/09/17 19:09 Platelet Morphology NORMAL (NORMAL) 01/09/17 19:09 RBC Morph Micro Appear NORMAL (NORMAL) 01/09/17 19:09 PT 9.0 SECONDS (9.5-11.5) L 01/09/17 19:09 INR 0.88 (0.5-1.4) 01/09/17 19:09 PTT (Actin FS) 28.2 SECONDS (26.0-38.0) 01/09/17 19:09 Sodium 135 mEq/L (136-145) L 01/09/17 19:09 Potassium 5.1 mEq/L (3.5-5.1) 01/09/17 19:09 Chloride 108 mEq/L (98-107) H 01/09/17 19:09 Carbon Dioxide 24.1 mEq/L (21.0-31.0) 01/09/17 19:09 Anion Gap 8.0 (7.0-16.0) 01/09/17 19:09 BUN 56 mg/dL (7-25) H 01/09/17 19:09 Creatinine 3.1 mg/dL (0.7-1.3) H 01/09/17 19:09 Est GFR ( Amer) TNP 01/09/17 19:09 Est GFR (Non-Af Amer) TNP 01/09/17 19:09 BUN/Creatinine Ratio 18.1 01/09/17 19:09 Glucose 132 mg/dL (70-105) H 01/09/17 19:09 POC Glucose 104 MG/DL (70 - 105) 01/16/17 06:38 Calcium 9.2 mg/dL (8.6-10.3) 01/09/17 19:09 Total Bilirubin 0.3 mg/dL (0.3-1.0) 01/09/17 19:09 AST 23 U/L (13-39) 01/09/17 19:09 ALT 11 U/L (7-52) 01/09/17 19:09 Alkaline Phosphatase 51 U/L (34-104) 01/09/17 19:09 Troponin I 0.02 ng/mL (0.01-0.05) 01/09/17 19:09 Total Protein 6.7 gm/dL (6.0-8.3) 01/09/17 19:09 Albumin 3.7 gm/dL (4.2-5.5) L 01/09/17 19:09 Globulin 3.0 gm/dL 01/09/17 19:09 Albumin/Globulin Ratio 1.2 (1.0-1.8) 01/09/17 19:09 Triglycerides 99 mg/dL (<150) 01/09/17 19:09 Cholesterol 126 mg/dL (<200) 01/09/17 19:09 LDL Cholesterol Direct 66 mg/dL (75-193) L 08/04/17 19:09 HDL Cholesterol 55 mg/dL (23-92) 01/09/17 19:09 TSH 1.01 uIU/ml (0.34-5.60) 01/09/17 19:09 RPR NONREACTIVE (NONREACTIVE) 01/09/17 19:09 - Physical Exam Vitals and I&O: Vital Signs Temp 97.2 F 01/15/17 06:40 Pulse 87 01/16/17 08:16 Resp 19 01/15/17 20:00 BP 127/69 01/16/17 08:16 Pulse Ox 96 01/15/17 16:09 Intake & Output 01/15/17 01/16/17 01/16/17 18:59 06:59 18:59 Intake Total 1200 Balance 1200 Intake: Oral 1200 Other: # Voids 2 # Bowel Movements 0 Active Medications: Current Medications Acetaminophen (Tylenol) 650 mg PO Q6HR PRN PRN Reason: PAIN OR TEMP >100.4 Stop: 03/10/17 20:56 Allopurinol (Zyloprim) 300 mg PO HS [facility] Stop: 03/16/17 20:59 Last Admin: 01/15/17 20:08 Dose: 300 mg Aspirin (Ecotrin) 81 mg PO DAILY [facility] Stop: 03/11/17 08:59 Last Admin: 01/16/17 08:12 Dose: 81 mg Bisacodyl (Dulcolax 10 Mg Supp) 10 mg RC DAILY PRN PRN Reason: IF MOM INEFFECTIVE FOR CONSTIP Stop: 03/10/17 20:56 Docusate Sodium (Colace) 100 mg PO DAILY [facility] Stop: 03/11/17 08:59 Last Admin: 01/16/17 08:13 Dose: 100 mg Donepezil HCl (Aricept) 5 mg PO HS [facility] Stop: 03/14/17 20:59 Last Admin: 01/15/17 20:08 Dose: 5 mg Dorzolamide HCl (Trusopt 2% Ophth Soln) 1 drop EACH EYE BID [facility] Stop: 03/11/17 08:59 Last Admin: 01/16/17 08:25 Dose: 1 drop Fluocinonide (Lidex 0.05%) 1 appl TP BID [facility] Stop: 03/11/17 08:59 Last Admin: 01/16/17 08:26 Dose: Not Given Insulin Aspart (Novolog Insulin Sliding Scale) 0 units SUBQ QDAC [facility] PRN Reason: Protocol Stop: 03/16/17 06:29 Last Admin: 01/16/17 08:14 Dose: Not Given Latanoprost (Xalatan 0.005% Ophth Soln) 1 drop EACH EYE HS [facility] Stop: 03/10/17 20:59 Last Admin: 01/15/17 20:08 Dose: 1 drop Lorazepam (Ativan) 0.5 mg PO Q6H PRN PRN Reason: Anxiety/Agitaion Stop: 03/14/17 13:36 Last Admin: 01/14/17 09:10 Dose: 0.5 mg Losartan Potassium (Cozaar) 50 mg PO DAILY [facility] Stop: 03/11/17 08:59 Last Admin: 01/16/17 08:13 Dose: 50 mg Magnesium Hydroxide (Milk Of Magnesia) 30 ml PO DAILY PRN PRN Reason: Constipation Stop: 03/10/17 20:56 Last Admin: 01/15/17 16:19 Dose: 30 ml Memantine (Namenda) 5 mg PO DAILY [facility] Stop: 03/12/17 08:59 Last Admin: 01/16/17 08:12 Dose: 5 mg Metoprolol Succinate (Toprol Xl) 25 mg PO DAILY [facility] Stop: 03/11/17 08:59 Last Admin: 01/16/17 08:16 Dose: 25 mg Risperidone (Risperdal) 0.25 mg PO BID [facility] PRN Reason: Protocol Stop: 03/16/17 16:59 Last Admin: 01/16/17 08:17 Dose: 0.25 mg Simvastatin (Zocor) 10 mg PO QPM [facility] PRN Reason: Protocol Stop: 03/11/17 16:59 Last Admin: 01/15/17 16:14 Dose: 10 mg Sodium Phosphate (Fleet Enema) 135 ml RC DAILY PRN PRN Reason: IF DULCOLAX INEFFECTIVE FOR CO Stop: 03/10/17 20:56 Vitamin B Complex/Vit C/Folic Acid (Vitamin B Complex W/Vitamin C) 1 tab PO DAILY [facility] Stop: 03/11/17 08:59 Last Admin: 01/16/17 08:12 Dose: 1 tab Zolpidem Tartrate (Ambien) 5 mg PO HS PRN PRN Reason: Insomnia Stop: 03/10/17 20:55 General: demented, thin HEENT: NC/AT, PERRLA, EOMI Neck: Supple, No JVD, No thyromegaly, No LAD Lungs: CTAB Cardiovascular: RRR, Normal S1, Normal S2, without murmur Abdomen: soft, non-tender Extremities: clear Neurological: no change Internal Medicine Assmt/Plan - Assessment Assessment: 1.DM. 2.HTN. 3.ANEMIA. 4.DEMENTIA. 5.GOUTY ARTHRITIS. - Plan Plan: CONTINUE ON CURRENT MEDICATION AND DIET. Nutritional Asmnt/Malnutr-PDOC - Dietary Evaluation Malnutrition Findings (Please click <Entered> for more info): Nutritional Asmnt/Malnutrition Start: 01/10/17 10: 01 Text: Status: Active Freq: Document 01/10/17 10:01 ROD (Rec: 01/10/17 10:33 MMULNELLY FERNÁNDEZ- FNS1) Nutritional Asmnt/Malnutrition Patient General Information Nutritional Screening High Risk Screening Diagnosis Agitation, Psychosis (Reason for Visit) Pertinent Medical Hx/Surgical Hx Hypertension, glaucoma, hyperlipidemia, gout, anemia, hyperuricemia, unilateral inguinal hernia, cyst of kidney, diabetes type II, generalized muscle weakness. Subjective Information Patient was admitted from [facility] with reported increased agitation and agressive behavior at facility. Per medical record, patient has many food allergies including peanut, cod liver oil, corn, egg, soybean, milk, wheat, walnut, sesame seed, shrimp, clams. Patient walking in [facility] unit, unable to weigh. Current Diet Order/ Nutrition Support Mechanical Soft Ground, NCS pot diet, 2 Tyree HN one can TID with med pass. Patient / S.O Can't verbalize diet edu Pertinent Medications dulcolax, colace, novolin, cozaar, MOM, fleet enema Pertinent Labs BUN 56, Cr3.1, Albumin 3.7 Nutritional Hx/Data Height 1.63 m Height (Calculated Centimeters) 162.6 Current Weight (lbs) 61.235 kg Weight (Calculated Kilograms) 61.2 Weight (Calculated Grams) 10125.0 [place] Body Weight 130 % [place] Body Weight 103 Recent Weight Change No Weight Status Approriate GI Symptoms GI Symptoms None Food Allergies Yes Cultural/Ethnic/[employer] Belief None indicated Usual diet at home Mechanical soft, ground Skin Integrity/Comment: Dwight 20, intact Current %PO Good (75-100%) Estimated Nutritional Goals BEE in Kcals: Using Current wt Calories/Kcals/Kg 25-30kcal/kg Kcals Calculated 0272-3160 kcal/day Protein: Using Current wt Protein g/k gm/kg Protein Calculated ~60gm/day Fluid: ml 6851-8693 ml/day (1 ml/kcal) Nutritional Problem 1. Problem Problem No nutrition diagnosis at this time Intervention/Recommendation Comments 1. Continue Mechanical soft, ground diet as tolerated by patient. Will provide meals free of food allergens. 2. Consider HgA1C lab. Switch diet to 60 gm CCHO if necessary. 3. Switch dietary supplement to Boost Glucose Control TID with meals. Expected Outcomes/Goals Expected Outcomes/Goals Oral intake to meet >75% of nutrient needs, nutrition related labs normalize, weight remains stable. F/U MR
--- NOTE | 2017-01-16 23:58 | Progress Notes ---
DATE: 01/16/2017 Case was discussed with staff of the patient, reviewed records. The patient continues to be unpredictable, impulsive, needing redirection. Continues to have poor insight. Continues to have episodes of delusions. He is unpredictable, impulsive. He is compliant with the medication with no side effects, no sedation, no nausea, no extrapyramidal symptoms. I did initiate Risperdal yesterday with no side effects. It is too early to make further changes and we will continue to work with the patient in group therapy, milieu therapy, adjust medication as needed. JOB# [id number]
[2017-01-17] MEDS: INSULIN ASPART SLIDING SCALE 100 UNITS/ML UNIT SUBQ SCH (06:41)
[2017-01-17] MEDS: Vitamin B Complex w/Vitamin C Tab PO SCH (08:40)
--- NOTE | 2017-01-17 15:32 | Internal Medicine Prog Note ---
Internal Medicine Subjective - Subjective Service Date: 01/17/17 Patient seen and examined:: without staff Patient is:: awake, confused Per staff patient has:: no adverse event Internal Medicine Objective - Results Result Diagrams: 01/09/17 19:09 01/09/17 19:09 Recent Labs: Laboratory Last Values WBC 8.8 Th/cmm (4.8-10.8) 01/09/17 19:09 RBC 2.46 Mil/cmm (3.80-5.80) L 01/09/17 19:09 Hgb 8.5 gm/dL (12.6-17.4) L 01/09/17 19:09 Hct 25.3 % (39.0-49.0) L 01/09/17 19:09 MCV 102.9 fl (80-99) H 01/09/17 19:09 MCH 34.5 pg (27.0-31.0) H 01/09/17 19:09 MCHC Differential 33.5 pg (28.0-36.0) 01/09/17 19:09 RDW 12.3 % (11.5-20.0) 01/09/17 19:09 Plt Count 219 Th/cmm (150-400) 01/09/17 19:09 MPV 5.9 fl 01/09/17 19:09 Neutrophils (Manual) 45 % (40-80) 01/09/17 19:09 Lymphocytes 12 % (20-50) L 01/09/17 19:09 Monocytes 3 % (2-10) 01/09/17 19:09 Eosinophils 37 % (0-5) H 01/09/17 19:09 Basophils 3 % (0-3) 01/09/17 19:09 Platelet Estimate ADEQUATE (NORMAL) 01/09/17 19:09 Platelet Morphology NORMAL (NORMAL) 01/09/17 19:09 RBC Morph Micro Appear NORMAL (NORMAL) 01/09/17 19:09 PT 9.0 SECONDS (9.5-11.5) L 01/09/17 19:09 INR 0.88 (0.5-1.4) 01/09/17 19:09 PTT (Actin FS) 28.2 SECONDS (26.0-38.0) 01/09/17 19:09 Sodium 135 mEq/L (136-145) L 01/09/17 19:09 Potassium 5.1 mEq/L (3.5-5.1) 01/09/17 19:09 Chloride 108 mEq/L (98-107) H 01/09/17 19:09 Carbon Dioxide 24.1 mEq/L (21.0-31.0) 01/09/17 19:09 Anion Gap 8.0 (7.0-16.0) 01/09/17 19:09 BUN 56 mg/dL (7-25) H 01/09/17 19:09 Creatinine 3.1 mg/dL (0.7-1.3) H 01/09/17 19:09 Est GFR ( Amer) TNP 01/09/17 19:09 Est GFR (Non-Af Amer) TNP 01/09/17 19:09 BUN/Creatinine Ratio 18.1 01/09/17 19:09 Glucose 132 mg/dL (70-105) H 01/09/17 19:09 POC Glucose 104 MG/DL (70 - 105) 01/16/17 06:38 Calcium 9.2 mg/dL (8.6-10.3) 01/09/17 19:09 Total Bilirubin 0.3 mg/dL (0.3-1.0) 01/09/17 19:09 AST 23 U/L (13-39) 01/09/17 19:09 ALT 11 U/L (7-52) 01/09/17 19:09 Alkaline Phosphatase 51 U/L (34-104) 01/09/17 19:09 Troponin I 0.02 ng/mL (0.01-0.05) 01/09/17 19:09 Total Protein 6.7 gm/dL (6.0-8.3) 01/09/17 19:09 Albumin 3.7 gm/dL (4.2-5.5) L 01/09/17 19:09 Globulin 3.0 gm/dL 01/09/17 19:09 Albumin/Globulin Ratio 1.2 (1.0-1.8) 01/09/17 19:09 Triglycerides 99 mg/dL (<150) 01/09/17 19:09 Cholesterol 126 mg/dL (<200) 01/09/17 19:09 LDL Cholesterol Direct 66 mg/dL (75-193) L 08/04/17 19:09 HDL Cholesterol 55 mg/dL (23-92) 01/09/17 19:09 TSH 1.01 uIU/ml (0.34-5.60) 01/09/17 19:09 RPR NONREACTIVE (NONREACTIVE) 01/09/17 19:09 - Physical Exam Vitals and I&O: Vital Signs Temp 97.3 F 01/17/17 05:40 Pulse 75 01/17/17 08:42 Resp 20 01/17/17 05:40 BP 144/77 01/17/17 08:42 Pulse Ox 99 01/17/17 05:40 Intake & Output 01/16/17 01/17/17 01/17/17 18:59 06:59 18:59 Intake Total 1200 480 Balance 1200 480 Weight (lbs) 41.005 kg Intake: Oral 1200 480 Other: # Voids 2 1 Active Medications: Current Medications Acetaminophen (Tylenol) 650 mg PO Q6HR PRN PRN Reason: PAIN OR TEMP >100.4 Stop: 03/10/17 20:56 Allopurinol (Zyloprim) 300 mg PO HS [facility] Stop: 03/16/17 20:59 Last Admin: 01/16/17 20:54 Dose: 300 mg Aspirin (Ecotrin) 81 mg PO DAILY [facility] Stop: 03/11/17 08:59 Last Admin: 01/17/17 08:39 Dose: 81 mg Bisacodyl (Dulcolax 10 Mg Supp) 10 mg RC DAILY PRN PRN Reason: IF MOM INEFFECTIVE FOR CONSTIP Stop: 03/10/17 20:56 Docusate Sodium (Colace) 100 mg PO DAILY [facility] Stop: 03/11/17 08:59 Last Admin: 01/17/17 08:40 Dose: 100 mg Donepezil HCl (Aricept) 5 mg PO HS [facility] Stop: 03/14/17 20:59 Last Admin: 01/16/17 20:54 Dose: 5 mg Dorzolamide [facility] ([facility] 1 drop EACH EYE BID [facility] Stop: 03/11/17 08:59 Last Admin: 01/17/17 08:47 Dose: 1 drop Fluocinonide (Lidex 0.05%) 1 appl TP BID [facility] Stop: 03/11/17 08:59 Last Admin: 01/17/17 08:45 Dose: 1 appl Insulin Aspart (Novolog Insulin Sliding Scale) 0 units SUBQ QDAC [facility] PRN Reason: Protocol Stop: 03/16/17 06:29 Last Admin: 01/17/17 06:41 Dose: Not Given Latanoprost (Xalatan 0.005% Ophth Soln) 1 drop EACH EYE HS [facility] Stop: 03/10/17 20:59 Last Admin: 01/16/17 20:54 Dose: 1 drop Lorazepam (Ativan) 0.5 mg PO Q6H PRN PRN Reason: Anxiety/Agitaion Stop: 03/14/17 13:36 Last Admin: 01/14/17 09:10 Dose: 0.5 mg Losartan Potassium (Cozaar) 50 mg PO DAILY [facility] Stop: 03/11/17 08:59 Last Admin: 01/17/17 08:39 Dose: 50 mg Magnesium Hydroxide (Milk Of Magnesia) 30 ml PO DAILY PRN PRN Reason: Constipation Stop: 03/10/17 20:56 Last Admin: 01/15/17 16:19 Dose: 30 ml Memantine (Namenda) 5 mg PO DAILY [facility] Stop: 03/12/17 08:59 Last Admin: 01/17/17 08:39 Dose: 5 mg Metoprolol Succinate (Toprol Xl) 25 mg PO DAILY [facility] Stop: 03/11/17 08:59 Last Admin: 01/17/17 08:42 Dose: 25 mg Risperidone (Risperdal) 0.25 mg PO BID [facility] PRN Reason: Protocol Stop: 03/16/17 16:59 Last Admin: 01/17/17 08:40 Dose: 0.25 mg Simvastatin (Zocor) 10 mg PO QPM [facility] PRN Reason: Protocol Stop: 03/11/17 16:59 Last Admin: 01/16/17 16:59 Dose: 10 mg Sodium Phosphate (Fleet Enema) 135 ml RC DAILY PRN PRN Reason: IF DULCOLAX INEFFECTIVE FOR CO Stop: 03/10/17 20:56 Vitamin B Complex/Vit C/Folic Acid (Vitamin B Complex W/Vitamin C) 1 tab PO DAILY [facility] Stop: 03/11/17 08:59 Last Admin: 01/17/17 08:40 Dose: 1 tab Zolpidem Tartrate (Ambien) 5 mg PO HS PRN PRN Reason: Insomnia Stop: 03/10/17 20:55 General: demented, thin HEENT: NC/AT, PERRLA, EOMI Neck: Supple, No JVD, No thyromegaly, No LAD Lungs: CTAB Cardiovascular: RRR, Normal S1, Normal S2, without murmur Abdomen: soft, non-tender Extremities: clear Neurological: no change Internal Medicine Assmt/Plan - Assessment Assessment: 1.DM. 2.HTN. 3.ANEMIA. 4.DEMENTIA. 5.GOUTY ARTHRITIS. - Plan Plan: CONTINUE ON CURRENT MEDICATION AND DIET. Nutritional Asmnt/Malnutr-PDOC - Dietary Evaluation Malnutrition Findings (Please click <Entered> for more info): Nutritional Asmnt/Malnutrition Start: 01/10/17 10: 01 Text: Status: Active Freq: Document 01/10/17 10:01 MMERIC (Rec: 01/10/17 10:33 MMULNELLY FERNÁNDEZ- FNS1) Nutritional Asmnt/Malnutrition Patient General Information Nutritional Screening High Risk Screening Diagnosis Agitation, Psychosis (Reason for Visit) Pertinent Medical Hx/Surgical Hx Hypertension, glaucoma, hyperlipidemia, gout, anemia, hyperuricemia, unilateral inguinal hernia, cyst of kidney, diabetes type II, generalized muscle weakness. Subjective Information Patient was admitted from [facility] with reported increased agitation and agressive behavior at facility. Per medical record, patient has many food allergies including peanut, cod liver oil, corn, egg, soybean, milk, wheat, walnut, sesame seed, shrimp, clams. Patient walking in [facility] unit, unable to weigh. Current Diet Order/ Nutrition Support Mechanical Soft Ground, NCS pot diet, 2 Tyree HN one can TID with med pass. Patient / S.O Can't verbalize diet edu Pertinent Medications dulcolax, colace, novolin, cozaar, MOM, fleet enema Pertinent Labs BUN 56, Cr3.1, Albumin 3.7 Nutritional Hx/Data Height 1.63 m Height (Calculated Centimeters) 162.6 Current Weight (lbs) 61.235 kg Weight (Calculated Kilograms) 61.2 Weight (Calculated Grams) 95580.0 [place] Body Weight 130 % [place] Body Weight 103 Recent Weight Change No Weight Status Approriate GI Symptoms GI Symptoms None Food Allergies Yes Cultural/Ethnic/[employer] Belief None indicated Usual diet at home Mechanical soft, ground Skin Integrity/Comment: Dwight 20, intact Current %PO Good (75-100%) Estimated Nutritional Goals BEE in Kcals: Using Current wt Calories/Kcals/Kg 25-30kcal/kg Kcals Calculated 6507-0140 kcal/day Protein: Using Current wt Protein g/k gm/kg Protein Calculated ~60gm/day Fluid: ml 2065-5361 ml/day (1 ml/kcal) Nutritional Problem 1. Problem Problem No nutrition diagnosis at this time Intervention/Recommendation Comments 1. Continue Mechanical soft, ground diet as tolerated by patient. Will provide meals free of food allergens. 2. Consider HgA1C lab. Switch diet to 60 gm CCHO if necessary. 3. Switch dietary supplement to Boost Glucose Control TID with meals. Expected Outcomes/Goals Expected Outcomes/Goals Oral intake to meet >75% of nutrient needs, nutrition related labs normalize, weight remains stable. F/U MR 01/13-
--- NOTE | 2017-01-17 20:48 | Progress Notes ---
DATE: 01/17/2017 The patient was seen, chart reviewed and discussed with staff. The patient continues to be very confused, disoriented, unpredictable and impulsive, requiring numerous redirections. The patient continues to have a very poor insight. Unable to answer questions in a coherent manner. He has however, been compliant with his medications, denying any undue side effects. We will continue patient in group and milieu therapy and the adjust medications as needed. JOB# [id number]
[2017-01-18] MEDS: INSULIN ASPART SLIDING SCALE 100 UNITS/ML UNIT SUBQ SCH (06:39)
[2017-01-18] MEDS: Vitamin B Complex w/Vitamin C Tab PO SCH (09:55)
--- NOTE | 2017-01-18 17:05 | Internal Medicine Prog Note ---
Internal Medicine Subjective - Subjective Service Date: 01/18/17 Patient seen and examined:: without staff Patient is:: awake, confused Per staff patient has:: no adverse event Internal Medicine Objective - Results Result Diagrams: 01/09/17 19:09 01/09/17 19:09 Recent Labs: Laboratory Last Values WBC 8.8 Th/cmm (4.8-10.8) 01/09/17 19:09 RBC 2.46 Mil/cmm (3.80-5.80) L 01/09/17 19:09 Hgb 8.5 gm/dL (12.6-17.4) L 01/09/17 19:09 Hct 25.3 % (39.0-49.0) L 01/09/17 19:09 MCV 102.9 fl (80-99) H 01/09/17 19:09 MCH 34.5 pg (27.0-31.0) H 01/09/17 19:09 MCHC Differential 33.5 pg (28.0-36.0) 01/09/17 19:09 RDW 12.3 % (11.5-20.0) 01/09/17 19:09 Plt Count 219 Th/cmm (150-400) 01/09/17 19:09 MPV 5.9 fl 01/09/17 19:09 Neutrophils (Manual) 45 % (40-80) 01/09/17 19:09 Lymphocytes 12 % (20-50) L 01/09/17 19:09 Monocytes 3 % (2-10) 01/09/17 19:09 Eosinophils 37 % (0-5) H 01/09/17 19:09 Basophils 3 % (0-3) 01/09/17 19:09 Platelet Estimate ADEQUATE (NORMAL) 01/09/17 19:09 Platelet Morphology NORMAL (NORMAL) 01/09/17 19:09 RBC Morph Micro Appear NORMAL (NORMAL) 01/09/17 19:09 PT 9.0 SECONDS (9.5-11.5) L 01/09/17 19:09 INR 0.88 (0.5-1.4) 01/09/17 19:09 PTT (Actin FS) 28.2 SECONDS (26.0-38.0) 01/09/17 19:09 Sodium 135 mEq/L (136-145) L 01/09/17 19:09 Potassium 5.1 mEq/L (3.5-5.1) 01/09/17 19:09 Chloride 108 mEq/L (98-107) H 01/09/17 19:09 Carbon Dioxide 24.1 mEq/L (21.0-31.0) 01/09/17 19:09 Anion Gap 8.0 (7.0-16.0) 01/09/17 19:09 BUN 56 mg/dL (7-25) H 01/09/17 19:09 Creatinine 3.1 mg/dL (0.7-1.3) H 01/09/17 19:09 Est GFR ( Amer) TNP 01/09/17 19:09 Est GFR (Non-Af Amer) TNP 01/09/17 19:09 BUN/Creatinine Ratio 18.1 01/09/17 19:09 Glucose 132 mg/dL (70-105) H 01/09/17 19:09 POC Glucose 80 MG/DL (70 - 105) 01/18/17 06:26 Calcium 9.2 mg/dL (8.6-10.3) 01/09/17 19:09 Total Bilirubin 0.3 mg/dL (0.3-1.0) 01/09/17 19:09 AST 23 U/L (13-39) 01/09/17 19:09 ALT 11 U/L (7-52) 01/09/17 19:09 Alkaline Phosphatase 51 U/L (34-104) 01/09/17 19:09 Troponin I 0.02 ng/mL (0.01-0.05) 01/09/17 19:09 Total Protein 6.7 gm/dL (6.0-8.3) 01/09/17 19:09 Albumin 3.7 gm/dL (4.2-5.5) L 01/09/17 19:09 Globulin 3.0 gm/dL 01/09/17 19:09 Albumin/Globulin Ratio 1.2 (1.0-1.8) 01/09/17 19:09 Triglycerides 99 mg/dL (<150) 01/09/17 19:09 Cholesterol 126 mg/dL (<200) 01/09/17 19:09 LDL Cholesterol Direct 66 mg/dL (75-193) L 08/04/17 19:09 HDL Cholesterol 55 mg/dL (23-92) 01/09/17 19:09 TSH 1.01 uIU/ml (0.34-5.60) 01/09/17 19:09 RPR NONREACTIVE (NONREACTIVE) 01/09/17 19:09 - Physical Exam Vitals and I&O: Vital Signs Temp 97.4 F 01/18/17 15:26 Pulse 82 01/18/17 15:26 Resp 20 01/18/17 15:26 BP 131/63 01/18/17 15:26 Pulse Ox 98 01/18/17 15:26 Intake & Output 01/17/17 01/18/17 01/18/17 18:59 06:59 18:59 Intake Total 120 Balance 120 Intake: Oral 120 Other: # Voids 3 Active Medications: Current Medications Acetaminophen (Tylenol) 650 mg PO Q6HR PRN PRN Reason: PAIN OR TEMP >100.4 Stop: 03/10/17 20:56 Allopurinol (Zyloprim) 300 mg PO HS GINETTE Stop: 03/16/17 20:59 Last Admin: 01/17/17 20:46 Dose: 300 mg Aspirin (Ecotrin) 81 mg PO DAILY GINETTE Stop: 03/11/17 08:59 Last Admin: 01/18/17 09:55 Dose: 81 mg Bisacodyl (Dulcolax 10 Mg Supp) 10 mg RC DAILY PRN PRN Reason: IF MOM INEFFECTIVE FOR CONSTIP Stop: 03/10/17 20:56 Docusate Sodium (Colace) 100 mg PO DAILY GINETTE Stop: 03/11/17 08:59 Last Admin: 01/18/17 09:55 Dose: 100 mg Donepezil HCl (Aricept) 5 mg PO HS GINETTE Stop: 03/14/17 20:59 Last Admin: 01/17/17 20:46 Dose: 5 mg Dorzolamide HCl (Trusopt 2% Ophth Soln) 1 drop EACH EYE BID GINETTE Stop: 03/11/17 08:59 Last Admin: 01/18/17 16:47 Dose: 1 drop Fluocinonide (Lidex 0.05%) 1 appl TP BID GINETTE Stop: 03/11/17 08:59 Last Admin: 01/18/17 16:47 Dose: 1 appl Insulin Aspart (Novolog Insulin Sliding Scale) 0 units SUBQ QDAC GINETTE PRN Reason: Protocol Stop: 03/16/17 06:29 Last Admin: 01/18/17 06:39 Dose: Not Given Latanoprost (Xalatan 0.005% Ophth Soln) 1 drop EACH EYE HS GINETTE Stop: 03/10/17 20:59 Last Admin: 01/17/17 20:46 Dose: 1 drop Lorazepam (Ativan) 0.5 mg PO Q6H PRN PRN Reason: Anxiety/Agitaion Stop: 03/14/17 13:36 Last Admin: 01/18/17 16:48 Dose: 0.5 mg Losartan Potassium (Cozaar) 50 mg PO DAILY GINETTE Stop: 03/11/17 08:59 Last Admin: 01/18/17 10:08 Dose: 50 mg Magnesium Hydroxide (Milk Of Magnesia) 30 ml PO DAILY PRN PRN Reason: Constipation Stop: 03/10/17 20:56 Last Admin: 01/15/17 16:19 Dose: 30 ml Memantine (Namenda) 5 mg PO DAILY GINETTE Stop: 03/12/17 08:59 Last Admin: 01/18/17 09:55 Dose: 5 mg Metoprolol Succinate (Toprol Xl) 25 mg PO DAILY GINETTE Stop: 03/11/17 08:59 Last Admin: 01/18/17 09:55 Dose: 25 mg Risperidone (Risperdal) 0.25 mg PO BID GINETTE PRN Reason: Protocol Stop: 03/16/17 16:59 Last Admin: 01/18/17 16:47 Dose: 0.25 mg Simvastatin (Zocor) 10 mg PO QPM GINETTE PRN Reason: Protocol Stop: 03/11/17 16:59 Last Admin: 01/18/17 16:47 Dose: 10 mg Sodium Phosphate (Fleet Enema) 135 ml RC DAILY PRN PRN Reason: IF DULCOLAX INEFFECTIVE FOR CO Stop: 03/10/17 20:56 Vitamin B Complex/Vit C/Folic Acid (Vitamin B Complex W/Vitamin C) 1 tab PO DAILY GINETTE Stop: 03/11/17 08:59 Last Admin: 01/18/17 09:55 Dose: 1 tab Zolpidem Tartrate (Ambien) 5 mg PO HS PRN PRN Reason: Insomnia Stop: 03/10/17 20:55 General: demented, thin HEENT: NC/AT, PERRLA, EOMI Neck: Supple, No JVD, No thyromegaly, No LAD Lungs: CTAB Cardiovascular: RRR, Normal S1, Normal S2, without murmur Abdomen: soft, non-tender Extremities: clear Neurological: no change Internal Medicine Assmt/Plan - Assessment Assessment: 1.DM. 2.HTN. 3.ANEMIA. 4.DEMENTIA. 5.GOUTY ARTHRITIS. - Plan Plan: CONTINUE ON CURRENT MEDICATION AND DIET. Nutritional Asmnt/Malnutr-PDOC - Dietary Evaluation Malnutrition Findings (Please click <Entered> for more info): Nutritional Asmnt/Malnutrition Start: 01/10/17 10: 01 Text: Status: Active Freq: Document 01/10/17 10:01 ROD (Rec: 01/10/17 10:33 MMULNELLY FERNÁNDEZ- [email or web address]) Nutritional Asmnt/Malnutrition Patient General Information Nutritional Screening High Risk Screening Diagnosis Agitation, Psychosis (Reason for Visit) Pertinent Medical Hx/Surgical Hx Hypertension, glaucoma, hyperlipidemia, gout, anemia, hyperuricemia, unilateral inguinal hernia, cyst of kidney, diabetes type II, generalized muscle weakness. Subjective Information Patient was admitted from [facility] with reported increased agitation and agressive behavior at facility. Per medical record, patient has many food allergies including peanut, cod liver oil, corn, egg, soybean, milk, wheat, walnut, sesame seed, shrimp, clams. Patient walking in [facility] unit, unable to weigh. Current Diet Order/ Nutrition Support Mechanical Soft Ground, NCS pot diet, 2 Tyree HN one can TID with med pass. Patient / S.O Can't verbalize diet edu Pertinent Medications dulcolax, colace, novolin, cozaar, MOM, fleet enema Pertinent Labs BUN 56, Cr3.1, Albumin 3.7 Nutritional Hx/Data Height 1.63 m Height (Calculated Centimeters) 162.6 Current Weight (lbs) 61.235 kg Weight (Calculated Kilograms) 61.2 Weight (Calculated Grams) 37962.0 [place] Body Weight 130 % [place] Body Weight 103 Recent Weight Change No Weight Status Approriate GI Symptoms GI Symptoms None Food Allergies Yes Cultural/Ethnic/Gnosticism Belief None indicated Usual diet at home Mechanical soft, ground Skin Integrity/Comment: Dwight 20, intact Current %PO Good (75-100%) Estimated Nutritional Goals BEE in Kcals: Using Current wt Calories/Kcals/Kg 25-30kcal/kg Kcals Calculated 9037-8088 kcal/day Protein: Using Current wt Protein g/k gm/kg Protein Calculated ~60gm/day Fluid: ml 8213-0838 ml/day (1 ml/kcal) Nutritional Problem 1. Problem Problem No nutrition diagnosis at this time Intervention/Recommendation Comments 1. Continue Mechanical soft, ground diet as tolerated by patient. Will provide meals free of food allergens. 2. Consider HgA1C lab. Switch diet to 60 gm CCHO if necessary. 3. Switch dietary supplement to Boost Glucose Control TID with meals. Expected Outcomes/Goals Expected Outcomes/Goals Oral intake to meet >75% of nutrient needs, nutrition related labs normalize, weight remains stable. F/U MR
--- NOTE | 2017-01-18 21:50 | Progress Notes ---
DATE: 01/18/2017 SUBJECTIVE: The patient seen, chart reviewed, discussed with staff. The patient remains confused, disoriented, unpredictable. I tried to talk to him, but he is not responding back. He is eating on his known, but appears very disoriented. The patient is taking his medications, still has no idea why he is here. Continued concerns for grave disability. ASSESSMENT: The patient remains symptomatic, withdrawn, confused, disoriented concerns for delusions. He has been medication compliant, recent dose adjustments were made. We will continue to monitor closely for any undue side effects, coordinate care with renal social worker. JOB# [id number]
[2017-01-19] MEDS: INSULIN ASPART SLIDING SCALE 100 UNITS/ML UNIT SUBQ SCH (06:45)
[2017-01-19] MEDS: Vitamin B Complex w/Vitamin C Tab PO SCH (09:59)
--- NOTE | 2017-01-19 18:20 | Internal Medicine Prog Note ---
Internal Medicine Subjective - Subjective Service Date: 01/19/17 Patient seen and examined:: without staff Patient is:: awake, confused Per staff patient has:: no adverse event Internal Medicine Objective - Results Result Diagrams: 01/09/17 19:09 01/09/17 19:09 Recent Labs: Laboratory Last Values WBC 8.8 Th/cmm (4.8-10.8) 01/09/17 19:09 RBC 2.46 Mil/cmm (3.80-5.80) L 01/09/17 19:09 Hgb 8.5 gm/dL (12.6-17.4) L 01/09/17 19:09 Hct 25.3 % (39.0-49.0) L 01/09/17 19:09 MCV 102.9 fl (80-99) H 01/09/17 19:09 MCH 34.5 pg (27.0-31.0) H 01/09/17 19:09 MCHC Differential 33.5 pg (28.0-36.0) 01/09/17 19:09 RDW 12.3 % (11.5-20.0) 01/09/17 19:09 Plt Count 219 Th/cmm (150-400) 01/09/17 19:09 MPV 5.9 fl 01/09/17 19:09 Neutrophils (Manual) 45 % (40-80) 01/09/17 19:09 Lymphocytes 12 % (20-50) L 01/09/17 19:09 Monocytes 3 % (2-10) 01/09/17 19:09 Eosinophils 37 % (0-5) H 01/09/17 19:09 Basophils 3 % (0-3) 01/09/17 19:09 Platelet Estimate ADEQUATE (NORMAL) 01/09/17 19:09 Platelet Morphology NORMAL (NORMAL) 01/09/17 19:09 RBC Morph Micro Appear NORMAL (NORMAL) 01/09/17 19:09 PT 9.0 SECONDS (9.5-11.5) L 01/09/17 19:09 INR 0.88 (0.5-1.4) 01/09/17 19:09 PTT (Actin FS) 28.2 SECONDS (26.0-38.0) 01/09/17 19:09 Sodium 135 mEq/L (136-145) L 01/09/17 19:09 Potassium 5.1 mEq/L (3.5-5.1) 01/09/17 19:09 Chloride 108 mEq/L (98-107) H 01/09/17 19:09 Carbon Dioxide 24.1 mEq/L (21.0-31.0) 01/09/17 19:09 Anion Gap 8.0 (7.0-16.0) 01/09/17 19:09 BUN 56 mg/dL (7-25) H 01/09/17 19:09 Creatinine 3.1 mg/dL (0.7-1.3) H 01/09/17 19:09 Est GFR ( Amer) TNP 01/09/17 19:09 Est GFR (Non-Af Amer) TNP 01/09/17 19:09 BUN/Creatinine Ratio 18.1 01/09/17 19:09 Glucose 132 mg/dL (70-105) H 01/09/17 19:09 POC Glucose 97 MG/DL (70 - 105) 01/19/17 06:34 Calcium 9.2 mg/dL (8.6-10.3) 01/09/17 19:09 Total Bilirubin 0.3 mg/dL (0.3-1.0) 01/09/17 19:09 AST 23 U/L (13-39) 01/09/17 19:09 ALT 11 U/L (7-52) 01/09/17 19:09 Alkaline Phosphatase 51 U/L (34-104) 01/09/17 19:09 Troponin I 0.02 ng/mL (0.01-0.05) 01/09/17 19:09 Total Protein 6.7 gm/dL (6.0-8.3) 01/09/17 19:09 Albumin 3.7 gm/dL (4.2-5.5) L 01/09/17 19:09 Globulin 3.0 gm/dL 01/09/17 19:09 Albumin/Globulin Ratio 1.2 (1.0-1.8) 01/09/17 19:09 Triglycerides 99 mg/dL (<150) 01/09/17 19:09 Cholesterol 126 mg/dL (<200) 01/09/17 19:09 LDL Cholesterol Direct 66 mg/dL (75-193) L 08/04/17 19:09 HDL Cholesterol 55 mg/dL (23-92) 01/09/17 19:09 TSH 1.01 uIU/ml (0.34-5.60) 01/09/17 19:09 RPR NONREACTIVE (NONREACTIVE) 01/09/17 19:09 - Physical Exam Vitals and I&O: Vital Signs Temp 98.1 F 01/19/17 15:33 Pulse 70 01/19/17 15:33 Resp 20 01/19/17 15:33 BP 106/59 01/19/17 10:06 Pulse Ox 95 01/19/17 15:33 Intake & Output 01/18/17 01/19/17 01/19/17 18:59 06:59 18:59 Intake Total 650 Balance 650 Intake: Oral 650 Other: # Voids 3 1 # Bowel Movements 1 0 Active Medications: Current Medications Acetaminophen (Tylenol) 650 mg PO Q6HR PRN PRN Reason: PAIN OR TEMP >100.4 Stop: 03/10/17 20:56 Allopurinol (Zyloprim) 300 mg PO HS GINETTE Stop: 03/16/17 20:59 Last Admin: 01/18/17 20:49 Dose: 300 mg Aspirin (Ecotrin) 81 mg PO DAILY GINETTE Stop: 03/11/17 08:59 Last Admin: 01/19/17 09:59 Dose: 81 mg Bisacodyl (Dulcolax 10 Mg Supp) 10 mg RC DAILY PRN PRN Reason: IF MOM INEFFECTIVE FOR CONSTIP Stop: 03/10/17 20:56 Docusate Sodium (Colace) 100 mg PO DAILY GINETTE Stop: 03/11/17 08:59 Last Admin: 01/19/17 10:00 Dose: 100 mg Donepezil HCl (Aricept) 5 mg PO HS GINETTE Stop: 03/14/17 20:59 Last Admin: 01/18/17 20:49 Dose: 5 mg Dorzolamide HCl (Trusopt 2% Ophth Soln) 1 drop EACH EYE BID GINETTE Stop: 03/11/17 08:59 Last Admin: 01/19/17 17:32 Dose: 1 drop Fluocinonide (Lidex 0.05%) 1 appl TP BID GINETTE Stop: 03/11/17 08:59 Last Admin: 01/19/17 17:33 Dose: 1 appl Insulin Aspart (Novolog Insulin Sliding Scale) 0 units SUBQ QDAC GINETTE PRN Reason: Protocol Stop: 03/16/17 06:29 Last Admin: 01/19/17 06:45 Dose: Not Given Latanoprost (Xalatan 0.005% Ophth Soln) 1 drop EACH EYE HS [facility] Stop: 03/10/17 20:59 Last Admin: 01/18/17 20:49 Dose: 1 drop Lorazepam (Ativan) 0.5 mg PO Q6H PRN PRN Reason: Anxiety/Agitaion Stop: 03/14/17 13:36 Last Admin: 01/18/17 16:48 Dose: 0.5 mg Losartan Potassium (Cozaar) 50 mg PO DAILY GINETTE Stop: 03/11/17 08:59 Last Admin: 01/19/17 10:06 Dose: Not Given Magnesium Hydroxide (Milk Of Magnesia) 30 ml PO DAILY PRN PRN Reason: Constipation Stop: 03/10/17 20:56 Last Admin: 01/15/17 16:19 Dose: 30 ml Memantine (Namenda) 5 mg PO DAILY [facility] Stop: 03/12/17 08:59 Last Admin: 01/19/17 09:58 Dose: 5 mg Metoprolol Succinate (Toprol Xl) 25 mg PO DAILY [facility] Stop: 03/11/17 08:59 Last Admin: 01/19/17 10:00 Dose: Not Given Risperidone (Risperdal) 0.25 mg PO BID GINETTE PRN Reason: Protocol Stop: 03/16/17 16:59 Last Admin: 01/19/17 17:30 Dose: 0.25 mg Simvastatin (Zocor) 10 mg PO QPM GINETTE PRN Reason: Protocol Stop: 03/11/17 16:59 Last Admin: 01/19/17 17:30 Dose: 10 mg Sodium Phosphate (Fleet Enema) 135 ml RC DAILY PRN PRN Reason: IF DULCOLAX INEFFECTIVE FOR CO Stop: 03/10/17 20:56 Vitamin B Complex/Vit C/Folic Acid (Vitamin B Complex W/Vitamin C) 1 tab PO DAILY [facility] Stop: 03/11/17 08:59 Last Admin: 01/19/17 09:59 Dose: 1 tab Zolpidem Tartrate (Ambien) 5 mg PO HS PRN PRN Reason: Insomnia Stop: 03/10/17 20:55 General: demented, thin HEENT: NC/AT, PERRLA, EOMI Neck: Supple, No JVD, No thyromegaly, No LAD Lungs: CTAB Cardiovascular: RRR, Normal S1, Normal S2, without murmur Abdomen: soft, non-tender Extremities: clear Neurological: no change Internal Medicine Assmt/Plan - Assessment Assessment: 1.DM. 2.HTN. 3.ANEMIA. 4.DEMENTIA. 5.GOUTY ARTHRITIS. - Plan Plan: CONTINUE ON CURRENT MEDICATION AND DIET. Nutritional Asmnt/Malnutr-PDOC - Dietary Evaluation Malnutrition Findings (Please click <Entered> for more info): Nutritional Asmnt/Malnutrition Start: 01/10/17 10: 01 Text: Status: Active Freq: Document 01/10/17 10:01 ROD (Rec: 01/10/17 10:33 MMULNELLY FERNÁNDEZ- FNS1) Nutritional Asmnt/Malnutrition Patient General Information Nutritional Screening High Risk Screening Diagnosis Agitation, Psychosis (Reason for Visit) Pertinent Medical Hx/Surgical Hx Hypertension, glaucoma, hyperlipidemia, gout, anemia, hyperuricemia, unilateral inguinal hernia, cyst of kidney, diabetes type II, generalized muscle weakness. Subjective Information Patient was admitted from [facility] with reported increased agitation and agressive behavior at facility. Per medical record, patient has many food allergies including peanut, cod liver oil, corn, egg, soybean, milk, wheat, walnut, sesame seed, shrimp, clams. Patient walking in [facility] unit, unable to weigh. Current Diet Order/ Nutrition Support Mechanical Soft Ground, NCS pot diet, 2 Tyree HN one can TID with med pass. Patient / S.O Can't verbalize diet edu Pertinent Medications dulcolax, colace, novolin, cozaar, MOM, fleet enema Pertinent Labs BUN 56, Cr3.1, Albumin 3.7 Nutritional Hx/Data Height 1.63 m Height (Calculated Centimeters) 162.6 Current Weight (lbs) 61.235 kg Weight (Calculated Kilograms) 61.2 Weight (Calculated Grams) 61411.0 [place] Body Weight 130 % [place] Body Weight 103 Recent Weight Change No Weight Status Approriate GI Symptoms GI Symptoms None Food Allergies Yes Cultural/Ethnic/Gnosticist Belief None indicated Usual diet at home Mechanical soft, ground Skin Integrity/Comment: Dwight 20, intact Current %PO Good (75-100%) Estimated Nutritional Goals BEE in Kcals: Using Current wt Calories/Kcals/Kg 25-30kcal/kg Kcals Calculated 7530-5437 kcal/day Protein: Using Current wt Protein g/k gm/kg Protein Calculated ~60gm/day Fluid: ml 4977-7091 ml/day (1 ml/kcal) Nutritional Problem 1. Problem Problem No nutrition diagnosis at this time Intervention/Recommendation Comments 1. Continue Mechanical soft, ground diet as tolerated by patient. Will provide meals free of food allergens. 2. Consider HgA1C lab. Switch diet to 60 gm CCHO if necessary. 3. Switch dietary supplement to Boost Glucose Control TID with meals. Expected Outcomes/Goals Expected Outcomes/Goals Oral intake to meet >75% of nutrient needs, nutrition related labs normalize, weight remains stable. F/U MR 01/13-
--- NOTE | 2017-01-19 21:11 | Progress Notes ---
DATE: 01/19/2017 SUBJECTIVE: Case was discussed with staff of the patient, reviewed records. The patient continues to be demented, confused, continues to have episodes of agitation, irritability, unpredictable, impulsive, needing redirection, sleeping well, eating well. No side effects with the medication, no sedation, no nausea, no extrapyramidal symptoms. We will continue to work with the patient in group therapy, milieu therapy, and adjust medication as needed. JOB# [id number]
[2017-01-20] MEDS: INSULIN ASPART SLIDING SCALE 100 UNITS/ML UNIT SUBQ SCH (06:36)
[2017-01-20] MEDS: Vitamin B Complex w/Vitamin C Tab PO SCH (09:01)
--- NOTE | 2017-01-20 20:55 | Internal Medicine Prog Note ---
Internal Medicine Subjective - Subjective Service Date: 01/20/17 Patient seen and examined:: without staff Patient is:: awake, confused Per staff patient has:: no adverse event Internal Medicine Objective - Results Result Diagrams: 01/09/17 19:09 01/09/17 19:09 Recent Labs: Laboratory Last Values WBC 8.8 Th/cmm (4.8-10.8) 01/09/17 19:09 RBC 2.46 Mil/cmm (3.80-5.80) L 01/09/17 19:09 Hgb 8.5 gm/dL (12.6-17.4) L 01/09/17 19:09 Hct 25.3 % (39.0-49.0) L 01/09/17 19:09 MCV 102.9 fl (80-99) H 01/09/17 19:09 MCH 34.5 pg (27.0-31.0) H 01/09/17 19:09 MCHC Differential 33.5 pg (28.0-36.0) 01/09/17 19:09 RDW 12.3 % (11.5-20.0) 01/09/17 19:09 Plt Count 219 Th/cmm (150-400) 01/09/17 19:09 MPV 5.9 fl 01/09/17 19:09 Neutrophils (Manual) 45 % (40-80) 01/09/17 19:09 Lymphocytes 12 % (20-50) L 01/09/17 19:09 Monocytes 3 % (2-10) 01/09/17 19:09 Eosinophils 37 % (0-5) H 01/09/17 19:09 Basophils 3 % (0-3) 01/09/17 19:09 Platelet Estimate ADEQUATE (NORMAL) 01/09/17 19:09 Platelet Morphology NORMAL (NORMAL) 01/09/17 19:09 RBC Morph Micro Appear NORMAL (NORMAL) 01/09/17 19:09 PT 9.0 SECONDS (9.5-11.5) L 01/09/17 19:09 INR 0.88 (0.5-1.4) 01/09/17 19:09 PTT (Actin FS) 28.2 SECONDS (26.0-38.0) 01/09/17 19:09 Sodium 135 mEq/L (136-145) L 01/09/17 19:09 Potassium 5.1 mEq/L (3.5-5.1) 01/09/17 19:09 Chloride 108 mEq/L (98-107) H 01/09/17 19:09 Carbon Dioxide 24.1 mEq/L (21.0-31.0) 01/09/17 19:09 Anion Gap 8.0 (7.0-16.0) 01/09/17 19:09 BUN 56 mg/dL (7-25) H 01/09/17 19:09 Creatinine 3.1 mg/dL (0.7-1.3) H 01/09/17 19:09 Est GFR ( Amer) TNP 01/09/17 19:09 Est GFR (Non-Af Amer) TNP 01/09/17 19:09 BUN/Creatinine Ratio 18.1 01/09/17 19:09 Glucose 132 mg/dL (70-105) H 01/09/17 19:09 POC Glucose 103 MG/DL (70 - 105) 01/20/17 17:15 Calcium 9.2 mg/dL (8.6-10.3) 01/09/17 19:09 Total Bilirubin 0.3 mg/dL (0.3-1.0) 01/09/17 19:09 AST 23 U/L (13-39) 01/09/17 19:09 ALT 11 U/L (7-52) 01/09/17 19:09 Alkaline Phosphatase 51 U/L (34-104) 01/09/17 19:09 Troponin I 0.02 ng/mL (0.01-0.05) 01/09/17 19:09 Total Protein 6.7 gm/dL (6.0-8.3) 01/09/17 19:09 Albumin 3.7 gm/dL (4.2-5.5) L 01/09/17 19:09 Globulin 3.0 gm/dL 01/09/17 19:09 Albumin/Globulin Ratio 1.2 (1.0-1.8) 01/09/17 19:09 Triglycerides 99 mg/dL (<150) 01/09/17 19:09 Cholesterol 126 mg/dL (<200) 01/09/17 19:09 LDL Cholesterol Direct 66 mg/dL (75-193) L 08/04/17 19:09 HDL Cholesterol 55 mg/dL (23-92) 01/09/17 19:09 TSH 1.01 uIU/ml (0.34-5.60) 01/09/17 19:09 RPR NONREACTIVE (NONREACTIVE) 01/09/17 19:09 - Physical Exam Vitals and I&O: Vital Signs Temp 97.3 F 01/20/17 20:27 Pulse 70 01/20/17 20:27 Resp 19 01/20/17 20:27 BP 129/73 01/20/17 20:27 Pulse Ox 95 01/20/17 20:27 Intake & Output 01/20/17 01/20/17 01/21/17 06:59 18:59 06:59 Intake Total 240 850 240 Balance 240 850 240 Intake: Oral 240 850 240 Other: # Voids 1 4 1 # Bowel Movements 0 1 Active Medications: Current Medications Acetaminophen (Tylenol) 650 mg PO Q6HR PRN PRN Reason: PAIN OR TEMP >100.4 Stop: 03/10/17 20:56 Allopurinol (Zyloprim) 300 mg PO HS GINETTE Stop: 03/16/17 20:59 Last Admin: 01/20/17 20:22 Dose: 300 mg Aspirin (Ecotrin) 81 mg PO DAILY GINETTE Stop: 03/11/17 08:59 Last Admin: 01/20/17 09:01 Dose: 81 mg Bisacodyl (Dulcolax 10 Mg Supp) 10 mg RC DAILY PRN PRN Reason: IF MOM INEFFECTIVE FOR CONSTIP Stop: 03/10/17 20:56 Docusate Sodium (Colace) 100 mg PO DAILY GINETTE Stop: 03/11/17 08:59 Last Admin: 01/20/17 09:01 Dose: 100 mg Donepezil HCl (Aricept) 5 mg PO HS GINETTE Stop: 03/14/17 20:59 Last Admin: 01/20/17 20:23 Dose: 5 mg Dorzolamide [facility] ([facility]) 1 drop EACH EYE BID GINETTE Stop: 03/11/17 08:59 Last Admin: 01/20/17 16:42 Dose: 1 drop Fluocinonide (Lidex 0.05%) 1 appl TP BID GINETTE Stop: 03/11/17 08:59 Last Admin: 01/20/17 16:42 Dose: 1 appl Insulin Aspart (Novolog Insulin Sliding Scale) 0 units SUBQ QDAC GINETTE PRN Reason: Protocol Stop: 03/16/17 06:29 Last Admin: 01/20/17 06:36 Dose: Not Given Latanoprost (Xalatan 0.005% Ophth Soln) 1 drop EACH EYE HS GINETTE Stop: 03/10/17 20:59 Last Admin: 01/20/17 20:22 Dose: 1 drop Lorazepam (Ativan) 0.5 mg PO Q6H PRN PRN Reason: Anxiety/Agitaion Stop: 03/14/17 13:36 Last Admin: 01/18/17 16:48 Dose: 0.5 mg Losartan Potassium (Cozaar) 50 mg PO DAILY GINETTE Stop: 03/11/17 08:59 Last Admin: 01/20/17 09:03 Dose: Not Given Magnesium Hydroxide (Milk Of Magnesia) 30 ml PO DAILY PRN PRN Reason: Constipation Stop: 03/10/17 20:56 Last Admin: 01/15/17 16:19 Dose: 30 ml Memantine (Namenda) 5 mg PO DAILY GINETTE Stop: 03/12/17 08:59 Last Admin: 01/20/17 09:01 Dose: 5 mg Metoprolol Succinate (Toprol Xl) 25 mg PO DAILY GINETTE Stop: 03/11/17 08:59 Last Admin: 01/20/17 09:04 Dose: Not Given Risperidone (Risperdal) 0.25 mg PO BID GINETTE PRN Reason: Protocol Stop: 03/16/17 16:59 Last Admin: 01/20/17 16:42 Dose: 0.25 mg Simvastatin (Zocor) 10 mg PO QPM GINETTE PRN Reason: Protocol Stop: 03/11/17 16:59 Last Admin: 01/20/17 16:42 Dose: 10 mg Sodium Phosphate (Fleet Enema) 135 ml RC DAILY PRN PRN Reason: IF DULCOLAX INEFFECTIVE FOR CO Stop: 03/10/17 20:56 Vitamin B Complex/Vit C/Folic Acid (Vitamin B Complex W/Vitamin C) 1 tab PO DAILY GINETTE Stop: 03/11/17 08:59 Last Admin: 01/20/17 09:01 Dose: 1 tab Zolpidem Tartrate (Ambien) 5 mg PO HS PRN PRN Reason: Insomnia Stop: 03/10/17 20:55 General: demented, thin HEENT: NC/AT, PERRLA, EOMI Neck: Supple, No JVD, No thyromegaly, No LAD Lungs: CTAB Cardiovascular: RRR, Normal S1, Normal S2, without murmur Abdomen: soft, non-tender Extremities: clear Neurological: no change Internal Medicine Assmt/Plan - Assessment Assessment: 1.DM. 2.HTN. 3.ANEMIA. 4.DEMENTIA. 5.GOUTY ARTHRITIS. - Plan Plan: CONTINUE ON CURRENT MEDICATION AND DIET. Nutritional Asmnt/Malnutr-PDOC - Dietary Evaluation Malnutrition Findings (Please click <Entered> for more info): Nutritional Asmnt/Malnutrition Start: 01/10/17 10: 01 Text: Status: Active Freq: Document 01/10/17 10:01 MMERIC (Rec: 01/10/17 10:33 MMULNELLY FERNÁNDEZ- FNS1) Nutritional Asmnt/Malnutrition Patient General Information Nutritional Screening High Risk Screening Diagnosis Agitation, Psychosis (Reason for Visit) Pertinent Medical Hx/Surgical Hx Hypertension, glaucoma, hyperlipidemia, gout, anemia, hyperuricemia, unilateral inguinal hernia, cyst of kidney, diabetes type II, generalized muscle weakness. Subjective Information Patient was admitted from [facility] with reported increased agitation and agressive behavior at facility. Per medical record, patient has many food allergies including peanut, cod liver oil, corn, egg, soybean, milk, wheat, walnut, sesame seed, shrimp, clams. Patient walking in [facility] unit, unable to weigh. Current Diet Order/ Nutrition Support Mechanical Soft Ground, NCS pot diet, 2 Tyree HN one can TID with med pass. Patient / S.O Can't verbalize diet edu Pertinent Medications dulcolax, colace, novolin, cozaar, MOM, fleet enema Pertinent Labs BUN 56, Cr3.1, Albumin 3.7 Nutritional Hx/Data Height 1.63 m Height (Calculated Centimeters) 162.6 Current Weight (lbs) 61.235 kg Weight (Calculated Kilograms) 61.2 Weight (Calculated Grams) 32858.0 [place] Body Weight 130 % [place] Body Weight 103 Recent Weight Change No Weight Status Approriate GI Symptoms GI Symptoms None Food Allergies Yes Cultural/Ethnic/Shinto Belief None indicated Usual diet at home Mechanical soft, ground Skin Integrity/Comment: Dwight 20, intact Current %PO Good (75-100%) Estimated Nutritional Goals BEE in Kcals: Using Current wt Calories/Kcals/Kg 25-30kcal/kg Kcals Calculated 3063-8614 kcal/day Protein: Using Current wt Protein g/k gm/kg Protein Calculated ~60gm/day Fluid: ml 8672-7816 ml/day (1 ml/kcal) Nutritional Problem 1. Problem Problem No nutrition diagnosis at this time Intervention/Recommendation Comments 1. Continue Mechanical soft, ground diet as tolerated by patient. Will provide meals free of food allergens. 2. Consider HgA1C lab. Switch diet to 60 gm CCHO if necessary. 3. Switch dietary supplement to Boost Glucose Control TID with meals. Expected Outcomes/Goals Expected Outcomes/Goals Oral intake to meet >75% of nutrient needs, nutrition related labs normalize, weight remains stable. F/U MR 01/13-
--- NOTE | 2017-01-20 22:39 | Progress Notes ---
DATE: 01/20/2017 Case was discussed with staff of the patient, reviewed records. I also talked to his [id number] yesterday, who reported that she would like for the patient to go back to a locked facility in the area I did discuss this with staff and advised them to do so. The patient is confused, demented, unable to make safe plan for self-care. He is sleeping better, eating better. No side effects with the medication, no sedation, no nausea, no extrapyramidal symptoms. We will continue to work with the patient in group therapy, milieu therapy, adjust medication as needed. JOB# [id number]
[2017-01-21] MEDS: INSULIN ASPART SLIDING SCALE 100 UNITS/ML UNIT SUBQ SCH (06:52)
[2017-01-21] MEDS: Vitamin B Complex w/Vitamin C Tab PO SCH (09:22)
--- NOTE | 2017-01-21 20:38 | Progress Notes ---
DATE: 01/21/2017 Case was discussed with staff of the patient, reviewed records. The patient discussed with staff again that he needs to go to a locked facility in [facility], so his and the family lives in that area, that is what they want. He has many allergies to . The patient continues to be confused and demented. Continues to be unable to make safe plan for self-care. Continues to have episodes of irritability, unpredictable, and I did discuss with his [id number] that the patient will need to be in a locked facility and we are working on this and also I ask Dr. Ballard to review his lab work. We will continue to work with the patient in group therapy, milieu therapy, and adjust medication as needed. JOB# [id number]
--- NOTE | 2017-01-21 20:39 | Internal Medicine Prog Note ---
Internal Medicine Subjective - Subjective Service Date: 01/21/17 Patient seen and examined:: with staff Patient is:: awake, confused Per staff patient has:: no adverse event Internal Medicine Objective - Results Result Diagrams: 01/09/17 19:09 01/09/17 19:09 Recent Labs: Laboratory Last Values WBC 8.8 Th/cmm (4.8-10.8) 01/09/17 19:09 RBC 2.46 Mil/cmm (3.80-5.80) L 01/09/17 19:09 Hgb 8.5 gm/dL (12.6-17.4) L 01/09/17 19:09 Hct 25.3 % (39.0-49.0) L 01/09/17 19:09 MCV 102.9 fl (80-99) H 01/09/17 19:09 MCH 34.5 pg (27.0-31.0) H 01/09/17 19:09 MCHC Differential 33.5 pg (28.0-36.0) 01/09/17 19:09 RDW 12.3 % (11.5-20.0) 01/09/17 19:09 Plt Count 219 Th/cmm (150-400) 01/09/17 19:09 MPV 5.9 fl 01/09/17 19:09 Neutrophils (Manual) 45 % (40-80) 01/09/17 19:09 Lymphocytes 12 % (20-50) L 01/09/17 19:09 Monocytes 3 % (2-10) 01/09/17 19:09 Eosinophils 37 % (0-5) H 01/09/17 19:09 Basophils 3 % (0-3) 01/09/17 19:09 Platelet Estimate ADEQUATE (NORMAL) 01/09/17 19:09 Platelet Morphology NORMAL (NORMAL) 01/09/17 19:09 RBC Morph Micro Appear NORMAL (NORMAL) 01/09/17 19:09 PT 9.0 SECONDS (9.5-11.5) L 01/09/17 19:09 INR 0.88 (0.5-1.4) 01/09/17 19:09 PTT (Actin FS) 28.2 SECONDS (26.0-38.0) 01/09/17 19:09 Sodium 135 mEq/L (136-145) L 01/09/17 19:09 Potassium 5.1 mEq/L (3.5-5.1) 01/09/17 19:09 Chloride 108 mEq/L (98-107) H 01/09/17 19:09 Carbon Dioxide 24.1 mEq/L (21.0-31.0) 01/09/17 19:09 Anion Gap 8.0 (7.0-16.0) 01/09/17 19:09 BUN 56 mg/dL (7-25) H 01/09/17 19:09 Creatinine 3.1 mg/dL (0.7-1.3) H 01/09/17 19:09 Est GFR ( Amer) TNP 01/09/17 19:09 Est GFR (Non-Af Amer) TNP 01/09/17 19:09 BUN/Creatinine Ratio 18.1 01/09/17 19:09 Glucose 132 mg/dL (70-105) H 01/09/17 19:09 POC Glucose 79 MG/DL (70 - 105) 01/21/17 05:58 Calcium 9.2 mg/dL (8.6-10.3) 01/09/17 19:09 Total Bilirubin 0.3 mg/dL (0.3-1.0) 01/09/17 19:09 AST 23 U/L (13-39) 01/09/17 19:09 ALT 11 U/L (7-52) 01/09/17 19:09 Alkaline Phosphatase 51 U/L (34-104) 01/09/17 19:09 Troponin I 0.02 ng/mL (0.01-0.05) 01/09/17 19:09 Total Protein 6.7 gm/dL (6.0-8.3) 01/09/17 19:09 Albumin 3.7 gm/dL (4.2-5.5) L 01/09/17 19:09 Globulin 3.0 gm/dL 01/09/17 19:09 Albumin/Globulin Ratio 1.2 (1.0-1.8) 01/09/17 19:09 Triglycerides 99 mg/dL (<150) 01/09/17 19:09 Cholesterol 126 mg/dL (<200) 01/09/17 19:09 LDL Cholesterol Direct 66 mg/dL (75-193) L 08/04/17 19:09 HDL Cholesterol 55 mg/dL (23-92) 01/09/17 19:09 TSH 1.01 uIU/ml (0.34-5.60) 01/09/17 19:09 RPR NONREACTIVE (NONREACTIVE) 01/09/17 19:09 - Physical Exam Vitals and I&O: Vital Signs Temp 98.2 F 01/21/17 14:00 Pulse 66 01/21/17 14:00 Resp 20 01/21/17 14:00 BP 110/60 01/21/17 14:00 Pulse Ox 96 01/21/17 14:00 Intake & Output 01/21/17 01/21/17 01/22/17 06:59 18:59 06:59 Intake Total 240 700 Balance 240 700 Intake: Oral 240 700 Other: # Voids 3 3 # Bowel Movements 0 1 Active Medications: Current Medications Acetaminophen (Tylenol) 650 mg PO Q6HR PRN PRN Reason: PAIN OR TEMP >100.4 Stop: 03/10/17 20:56 Allopurinol (Zyloprim) 300 mg PO HS GINETTE Stop: 03/16/17 20:59 Last Admin: 01/21/17 20:35 Dose: 300 mg Aspirin (Ecotrin) 81 mg PO DAILY GINETTE Stop: 03/11/17 08:59 Last Admin: 01/21/17 09:22 Dose: 81 mg Bisacodyl (Dulcolax 10 Mg Supp) 10 mg RC DAILY PRN PRN Reason: IF MOM INEFFECTIVE FOR CONSTIP Stop: 03/10/17 20:56 Docusate Sodium (Colace) 100 mg PO DAILY GINETTE Stop: 03/11/17 08:59 Last Admin: 01/21/17 09:22 Dose: Not Given Donepezil HCl (Aricept) 5 mg PO HS GINETTE Stop: 03/14/17 20:59 Last Admin: 01/21/17 20:35 Dose: 5 mg Dorzolamide HCl (Trusopt 2% Oph Soln) 1 drop EACH EYE BID GINETTE Stop: 03/11/17 08:59 Last Admin: 01/21/17 17:52 Dose: Not Given Fluocinonide (Lidex 0.05%) 1 appl TP BID GINETTE Stop: 03/11/17 08:59 Last Admin: 01/21/17 17:52 Dose: Not Given Insulin Aspart (Novolog Insulin Sliding Scale) 0 units SUBQ QDAC GINETTE PRN Reason: Protocol Stop: 03/16/17 06:29 Last Admin: 01/21/17 06:52 Dose: Not Given Latanoprost (Xalatan 0.005% Ophth Soln) 1 drop EACH EYE HS GINETTE Stop: 03/10/17 20:59 Last Admin: 01/20/17 20:22 Dose: 1 drop Lorazepam (Ativan) 0.5 mg PO Q6H PRN PRN Reason: Anxiety/Agitaion Stop: 03/14/17 13:36 Last Admin: 01/18/17 16:48 Dose: 0.5 mg Losartan Potassium (Cozaar) 50 mg PO DAILY GINETTE Stop: 03/11/17 08:59 Last Admin: 01/21/17 09:22 Dose: 50 mg Magnesium Hydroxide (Milk Of Magnesia) 30 ml PO DAILY PRN PRN Reason: Constipation Stop: 03/10/17 20:56 Last Admin: 01/15/17 16:19 Dose: 30 ml Memantine (Namenda) 5 mg PO DAILY GINETTE Stop: 03/12/17 08:59 Last Admin: 01/21/17 09:22 Dose: 5 mg Metoprolol Succinate (Toprol Xl) 25 mg PO DAILY GINETTE Stop: 03/11/17 08:59 Last Admin: 01/21/17 09:23 Dose: 25 mg Risperidone (Risperdal) 0.25 mg PO BID GINETTE PRN Reason: Protocol Stop: 03/16/17 16:59 Last Admin: 01/21/17 17:52 Dose: Not Given Simvastatin (Zocor) 10 mg PO QPM GINETTE PRN Reason: Protocol Stop: 03/11/17 16:59 Last Admin: 01/21/17 17:53 Dose: Not Given Sodium Phosphate (Fleet Enema) 135 ml RC DAILY PRN PRN Reason: IF DULCOLAX INEFFECTIVE FOR CO Stop: 03/10/17 20:56 Vitamin B Complex/Vit C/Folic Acid (Vitamin B Complex W/Vitamin C) 1 tab PO DAILY [facility] Stop: 03/11/17 08:59 Last Admin: 01/21/17 09:22 Dose: 1 tab Zolpidem Tartrate (Ambien) 5 mg PO HS PRN PRN Reason: Insomnia Stop: 03/10/17 20:55 General: demented, thin HEENT: NC/AT, PERRLA, EOMI Neck: Supple, No JVD, No thyromegaly, No LAD Lungs: CTAB Cardiovascular: RRR, Normal S1, Normal S2, without murmur Abdomen: soft, non-tender Extremities: clear Neurological: no change Internal Medicine Assmt/Plan - Assessment Assessment: 1.DM. 2.HTN. 3.ANEMIA. 4.DEMENTIA. 5.GOUTY ARTHRITIS. - Plan Plan: CONTINUE ON CURRENT MEDICATION AND DIET. Nutritional Asmnt/Malnutr-PDOC - Dietary Evaluation Malnutrition Findings (Please click <Entered> for more info): Nutritional Asmnt/Malnutrition Start: 01/10/17 10: 01 Text: Status: Active Freq: Document 01/10/17 10:01 ROD (Rec: 01/10/17 10:33 MMULNELLY FERNÁNDEZ- FNS1) Nutritional Asmnt/Malnutrition Patient General Information Nutritional Screening High Risk Screening Diagnosis Agitation, Psychosis (Reason for Visit) Pertinent Medical Hx/Surgical Hx Hypertension, glaucoma, hyperlipidemia, gout, anemia, hyperuricemia, unilateral inguinal hernia, cyst of kidney, diabetes type II, generalized muscle weakness. Subjective Information Patient was admitted from [facility] with reported increased agitation and agressive behavior at facility. Per medical record, patient has many food allergies including peanut, cod liver oil, corn, egg, soybean, milk, wheat, walnut, sesame seed, shrimp, clams. Patient walking in [facility] unit, unable to weigh. Current Diet Order/ Nutrition Support Mechanical Soft Ground, NCS pot diet, 2 Tyree HN one can TID with med pass. Patient / S.O Can't verbalize diet edu Pertinent Medications dulcolax, colace, novolin, cozaar, MOM, fleet enema Pertinent Labs BUN 56, Cr3.1, Albumin 3.7 Nutritional Hx/Data Height 1.63 m Height (Calculated Centimeters) 162.6 Current Weight (lbs) 61.235 kg Weight (Calculated Kilograms) 61.2 Weight (Calculated Grams) 14662.0 [place] Body Weight 130 % [place] Body Weight 103 Recent Weight Change No Weight Status Approriate GI Symptoms GI Symptoms None Food Allergies Yes Cultural/Ethnic/Confucianism Belief None indicated Usual diet at home Mechanical soft, ground Skin Integrity/Comment: Dwight 20, intact Current %PO Good (75-100%) Estimated Nutritional Goals BEE in Kcals: Using Current wt Calories/Kcals/Kg 25-30kcal/kg Kcals Calculated 6271-8233 kcal/day Protein: Using Current wt Protein g/k gm/kg Protein Calculated ~60gm/day Fluid: ml 6017-2329 ml/day (1 ml/kcal) Nutritional Problem 1. Problem Problem No nutrition diagnosis at this time Intervention/Recommendation Comments 1. Continue Mechanical soft, ground diet as tolerated by patient. Will provide meals free of food allergens. 2. Consider HgA1C lab. Switch diet to 60 gm CCHO if necessary. 3. Switch dietary supplement to Boost Glucose Control TID with meals. Expected Outcomes/Goals Expected Outcomes/Goals Oral intake to meet >75% of nutrient needs, nutrition related labs normalize, weight remains stable. F/U MR 01/13-
[2017-01-22] MEDS: INSULIN ASPART SLIDING SCALE 100 UNITS/ML UNIT SUBQ SCH (06:29)
[2017-01-22] MEDS: Vitamin B Complex w/Vitamin C Tab PO SCH (08:55)
--- NOTE | 2017-01-22 14:22 | Discharge Summary ---
DATE OF DISCHARGE: 01/22/2017 IDENTIFYING INFORMATION: The patient is an 82 years old male. HISTORY OF PRESENT ILLNESS: The patient was seen by Dr. Mcclelland. He came in from a long term at [place] where he was confused. The patient was agitated, trying to leave the facility. He thought that he was confused as to why he was here, unable to participate in meaningful conversations. He came from the [facility]. Unable to make plan for safety. COURSE IN THE HOSPITAL: The patient was continued with medication with Tylenol, allopurinol, aspirin, Dulcolax. Aricept was initiated by me on 01/13/2017 at 5 mg at bedtime. He was on eye drops, insulin sliding scale, losartan. Namenda also was initiated by Dr. Mcclelland 5 mg daily Metoprolol was continued and Risperdal was initiated because of his agitation and irritability 0.25 mg twice a day. He was on simvastatin, vitamin B and Ambien as needed. The patient progressively got better. He was no longer psychotic or agitative. He was easy to redirect. He was sleeping well, eating well. I talked to his [id number] who wanted the patient to go to a locked facility in [facility] and we were able to find [facility] who accepted to take the patient, so patient as his lives at [facility]. He used to live at [place] with him and they wanted place close to their home, so they can visit with the patient and his , so [facility] accepted them. So, at that point, the patient as he was no longer acting psychotic or agitated, we felt he could be discharged to a lesser level of care. CONDITION ON DISCHARGE: The patient was appropriately dressed and groomed. No suicidal ideation, no homicidal ideation, no paranoia. FINAL DIAGNOSES: Mood disorder, not otherwise specified, dementia. The patient will be discharged, will follow up with a psychiatrist and primary care physician. EXPECTED OUTCOME: Stable if the patient complies with the above. JOB# [id number]
--- NOTE | 2017-01-22 17:57 | Internal Medicine Prog Note ---
Internal Medicine Subjective - Subjective Patient seen and examined:: without staff Patient is:: awake, confused Per staff patient has:: no adverse event Internal Medicine Objective - Results Result Diagrams: 01/09/17 19:09 01/09/17 19:09 Recent Labs: Laboratory Last Values WBC 8.8 Th/cmm (4.8-10.8) 01/09/17 19:09 RBC 2.46 Mil/cmm (3.80-5.80) L 01/09/17 19:09 Hgb 8.5 gm/dL (12.6-17.4) L 01/09/17 19:09 Hct 25.3 % (39.0-49.0) L 01/09/17 19:09 MCV 102.9 fl (80-99) H 01/09/17 19:09 MCH 34.5 pg (27.0-31.0) H 01/09/17 19:09 MCHC Differential 33.5 pg (28.0-36.0) 01/09/17 19:09 RDW 12.3 % (11.5-20.0) 01/09/17 19:09 Plt Count 219 Th/cmm (150-400) 01/09/17 19:09 MPV 5.9 fl 01/09/17 19:09 Neutrophils (Manual) 45 % (40-80) 01/09/17 19:09 Lymphocytes 12 % (20-50) L 01/09/17 19:09 Monocytes 3 % (2-10) 01/09/17 19:09 Eosinophils 37 % (0-5) H 01/09/17 19:09 Basophils 3 % (0-3) 01/09/17 19:09 Platelet Estimate ADEQUATE (NORMAL) 01/09/17 19:09 Platelet Morphology NORMAL (NORMAL) 01/09/17 19:09 RBC Morph Micro Appear NORMAL (NORMAL) 01/09/17 19:09 PT 9.0 SECONDS (9.5-11.5) L 01/09/17 19:09 INR 0.88 (0.5-1.4) 01/09/17 19:09 PTT (Actin FS) 28.2 SECONDS (26.0-38.0) 01/09/17 19:09 Sodium 135 mEq/L (136-145) L 01/09/17 19:09 Potassium 5.1 mEq/L (3.5-5.1) 01/09/17 19:09 Chloride 108 mEq/L (98-107) H 01/09/17 19:09 Carbon Dioxide 24.1 mEq/L (21.0-31.0) 01/09/17 19:09 Anion Gap 8.0 (7.0-16.0) 01/09/17 19:09 BUN 56 mg/dL (7-25) H 01/09/17 19:09 Creatinine 3.1 mg/dL (0.7-1.3) H 01/09/17 19:09 Est GFR ( Amer) TNP 01/09/17 19:09 Est GFR (Non-Af Amer) TNP 01/09/17 19:09 BUN/Creatinine Ratio 18.1 01/09/17 19:09 Glucose 132 mg/dL (70-105) H 01/09/17 19:09 POC Glucose 75 MG/DL (70 - 105) 01/22/17 05:56 Calcium 9.2 mg/dL (8.6-10.3) 01/09/17 19:09 Total Bilirubin 0.3 mg/dL (0.3-1.0) 01/09/17 19:09 AST 23 U/L (13-39) 01/09/17 19:09 ALT 11 U/L (7-52) 01/09/17 19:09 Alkaline Phosphatase 51 U/L (34-104) 01/09/17 19:09 Troponin I 0.02 ng/mL (0.01-0.05) 01/09/17 19:09 Total Protein 6.7 gm/dL (6.0-8.3) 01/09/17 19:09 Albumin 3.7 gm/dL (4.2-5.5) L 01/09/17 19:09 Globulin 3.0 gm/dL 01/09/17 19:09 Albumin/Globulin Ratio 1.2 (1.0-1.8) 01/09/17 19:09 Triglycerides 99 mg/dL (<150) 01/09/17 19:09 Cholesterol 126 mg/dL (<200) 01/09/17 19:09 LDL Cholesterol Direct 66 mg/dL (75-193) L 01/09/17 19:09 HDL Cholesterol 55 mg/dL (23-92) 01/09/17 19:09 TSH 1.01 uIU/ml (0.34-5.60) 01/09/17 19:09 RPR NONREACTIVE (NONREACTIVE) 01/09/17 19:09 - Physical Exam Vitals and I&O: Vital Signs Temp 97.9 F 01/22/17 12:56 Pulse 83 01/22/17 12:56 Resp 18 01/22/17 12:56 BP 110/60 01/22/17 12:56 Pulse Ox 99 01/22/17 12:56 Intake & Output 01/21/17 01/22/17 01/22/17 18:59 06:59 18:59 Intake Total 700 Balance 700 Intake: Oral 700 Other: # Voids 3 # Bowel Movements 1 Active Medications: Current Medications Acetaminophen (Tylenol) 650 mg PO Q6HR PRN PRN Reason: PAIN OR TEMP >100.4 Stop: 03/10/17 20:56 Allopurinol (Zyloprim) 300 mg PO HS [facility] Stop: 03/16/17 20:59 Last Admin: 01/21/17 20:35 Dose: 300 mg Aspirin (Ecotrin) 81 mg PO DAILY [facility] Stop: 03/11/17 08:59 Last Admin: 01/22/17 08:55 Dose: 81 mg Bisacodyl (Dulcolax 10 Mg Supp) 10 mg RC DAILY PRN PRN Reason: IF MOM INEFFECTIVE FOR CONSTIP Stop: 03/10/17 20:56 Docusate Sodium (Colace) 100 mg PO DAILY [facility] Stop: 03/11/17 08:59 Last Admin: 01/22/17 08:55 Dose: 100 mg Donepezil HCl (Aricept) 5 mg PO HS [facility] Stop: 03/14/17 20:59 Last Admin: 01/21/17 20:35 Dose: 5 mg Dorzolamide HCl (Trusopt 2% Ophth Soln) 1 drop EACH EYE BID [facility] Stop: 03/11/17 08:59 Last Admin: 01/22/17 16:43 Dose: 1 drop Fluocinonide (Lidex 0.05%) 1 appl TP BID [facility] Stop: 03/11/17 08:59 Last Admin: 01/22/17 16:42 Dose: 1 appl Insulin Aspart (Novolog Insulin Sliding Scale) 0 units SUBQ QDAC [facility] PRN Reason: Protocol Stop: 03/16/17 06:29 Last Admin: 01/22/17 06:29 Dose: Not Given Latanoprost (Xalatan 0.005% Ophth Soln) 1 drop EACH EYE HS [facility] Stop: 03/10/17 20:59 Last Admin: 01/21/17 22:14 Dose: 1 drop Lorazepam (Ativan) 0.5 mg PO Q6H PRN PRN Reason: Anxiety/Agitaion Stop: 03/14/17 13:36 Last Admin: 01/18/17 16:48 Dose: 0.5 mg Losartan Potassium (Cozaar) 50 mg PO DAILY [facility] Stop: 03/11/17 08:59 Last Admin: 01/22/17 08:58 Dose: Not Given Magnesium Hydroxide (Milk Of Magnesia) 30 ml PO DAILY PRN PRN Reason: Constipation Stop: 03/10/17 20:56 Last Admin: 01/15/17 16:19 Dose: 30 ml Memantine (Namenda) 5 mg PO DAILY [facility] Stop: 03/12/17 08:59 Last Admin: 01/22/17 08:55 Dose: 5 mg Metoprolol Succinate (Toprol Xl) 25 mg PO DAILY [facility] Stop: 03/11/17 08:59 Last Admin: 01/22/17 08:59 Dose: Not Given Risperidone (Risperdal) 0.25 mg PO BID [facility] PRN Reason: Protocol Stop: 03/16/17 16:59 Last Admin: 01/22/17 16:39 Dose: 0.25 mg Simvastatin (Zocor) 10 mg PO QPM [facility] PRN Reason: Protocol Stop: 03/11/17 16:59 Last Admin: 01/22/17 16:38 Dose: 10 mg Sodium Phosphate (Fleet Enema) 135 ml RC DAILY PRN PRN Reason: IF DULCOLAX INEFFECTIVE FOR CO Stop: 03/10/17 20:56 Vitamin B Complex/Vit C/Folic Acid (Vitamin B Complex W/Vitamin C) 1 tab PO DAILY [facility] Stop: 03/11/17 08:59 Last Admin: 01/22/17 08:55 Dose: 1 tab Zolpidem Tartrate (Ambien) 5 mg PO HS PRN PRN Reason: Insomnia Stop: 03/10/17 20:55 General: demented, thin HEENT: NC/AT, PERRLA, EOMI Neck: Supple, No JVD, No thyromegaly, No LAD Lungs: CTAB Cardiovascular: RRR, Normal S1, Normal S2, without murmur Abdomen: soft, non-tender Extremities: clear Neurological: no change Internal Medicine Assmt/Plan - Assessment Assessment: 1.DM. 2.HTN. 3.ANEMIA. 4.DEMENTIA. 5.GOUTY ARTHRITIS. - Plan Plan: CONTINUE ON CURRENT MEDICATION AND DIET. Nutritional Asmnt/Malnutr-PDOC - Dietary Evaluation Malnutrition Findings (Please click <Entered> for more info): Nutritional Asmnt/Malnutrition Start: 01/10/17 10: 01 Text: Status: Active Freq: Document 01/10/17 10:01 ROD (Rec: 01/10/17 10:33 MMULNELLY FERNÁNDEZ- [email or web address]) Nutritional Asmnt/Malnutrition Patient General Information Nutritional Screening High Risk Screening Diagnosis Agitation, Psychosis (Reason for Visit) Pertinent Medical Hx/Surgical Hx Hypertension, glaucoma, hyperlipidemia, gout, anemia, hyperuricemia, unilateral inguinal hernia, cyst of kidney, diabetes type II, generalized muscle weakness. Subjective Information Patient was admitted from [facility] with reported increased agitation and agressive behavior at facility. Per medical record, patient has many food allergies including peanut, cod liver oil, corn, egg, soybean, milk, wheat, walnut, sesame seed, shrimp, clams. Patient walking in [facility] unit, unable to weigh. Current Diet Order/ Nutrition Support Mechanical Soft Ground, NCS pot diet, 2 Tyree HN one can TID with med pass. Patient / S.O Can't verbalize diet edu Pertinent Medications dulcolax, colace, novolin, cozaar, MOM, fleet enema Pertinent Labs BUN 56, Cr3.1, Albumin 3.7 Nutritional Hx/Data Height 1.63 m Height (Calculated Centimeters) 162.6 Current Weight (lbs) 61.235 kg Weight (Calculated Kilograms) 61.2 Weight (Calculated Grams) 81352.0 Lutz Body Weight 130 % Lutz Body Weight 103 Recent Weight Change No Weight Status Approriate GI Symptoms GI Symptoms None Food Allergies Yes Cultural/Ethnic/Adventism Belief None indicated Usual diet at home Mechanical soft, ground Skin Integrity/Comment: Dwight 20, intact Current %PO Good (75-100%) Estimated Nutritional Goals BEE in Kcals: Using Current wt Calories/Kcals/Kg 25-30kcal/kg Kcals Calculated 5855-9094 kcal/day Protein: Using Current wt Protein g/k gm/kg Protein Calculated ~60gm/day Fluid: ml 2612-5866 ml/day (1 ml/kcal) Nutritional Problem 1. Problem Problem No nutrition diagnosis at this time Intervention/Recommendation Comments 1. Continue Mechanical soft, ground diet as tolerated by patient. Will provide meals free of food allergens. 2. Consider HgA1C lab. Switch diet to 60 gm CCHO if necessary. 3. Switch dietary supplement to Boost Glucose Control TID with meals. Expected Outcomes/Goals Expected Outcomes/Goals Oral intake to meet >75% of nutrient needs, nutrition related labs normalize, weight remains stable. F/U MR
== END 2017-01-22 23:22 | DRG 884 ==
LOC: ER 18:43 → GERO 20:00
PROVIDERS: ADMIT Psychiatry & Neurology Psychiatry; ATTEND Psychiatry & Neurology Psychiatry
DX: F03.91 Unspecified dementia, unspecified severity, with behavioral disturbance (principal); E11.22 Type 2 diabetes mellitus with diabetic chronic kidney disease; D64.9 Anemia, unspecified; F39 Unspecified mood [affective] disorder; F41.9 Anxiety disorder, unspecified; I12.9 Hypertensive chronic kidney disease with stage 1 through stage 4 chronic kidney disease, or unspecified chronic kidney disease; N18.9 Chronic kidney disease, unspecified; I25.10 Atherosclerotic heart disease of native coronary artery without angina pectoris; E78.5 Hyperlipidemia, unspecified; M19.90 Unspecified osteoarthritis, unspecified site; F20.9 Schizophrenia, unspecified; M10.9 Gout, unspecified; Z91.011 Allergy to milk products; Z91.010 Allergy to peanuts; Z91.018 Allergy to other foods; Z91.012 Allergy to eggs; Z79.4 Long term (current) use of insulin
CPT/HCPCS: 36415-UA; 71010-TC; 80053-TC; 80061-TC; 82948-90; 84443-TC; 84484-TC; 85007-TC; 85027-TC; 85610-TC; 85730-TC; 86592-TC; 90899; 93005; J1200; J1815; J2930; Z7610

== ENCOUNTER 2017-02-14 13:10 | Inpatient (IN) | payer MEDICARE, MEDICAID ==
--- NOTE | 2017-02-14 13:12 | ED Physician Chart ---
ED Chief Complaint/HPI - Patient Information Date Seen:: 02/14/17 Time Seen:: 13:12 Chief Complaint:: abnormal labs History of Present Illness:: 82-year-old male with acute, constant, severe, abnormal labs/elevated BUN that was noticed this morning at the residential facility. BUN reported to be above 80. Patient is averbal due to severe dementia Limited history due to patient's clinical condition with history of severe dementia History provided by EMS and EMS run sheet Allergies:: Allergies Allergy/AdvReac Type Severity Reaction Status Date / Time clams Allergy Verified 01/09/17 18:54 cod liver oil Allergy Verified 01/09/17 18:54 corn Allergy Verified 01/09/17 18:53 egg Allergy Verified 01/09/17 18:48 milk Allergy Verified 01/09/17 18:48 peanut Allergy Verified 01/09/17 18:48 sesame seed Allergy Verified 01/09/17 18:53 shrimp Allergy Verified 01/09/17 18:49 soybean Allergy Verified 01/09/17 18:48 walnut Allergy Verified 01/09/17 18:52 wheat Allergy Verified 01/09/17 18:53 Historian:: EMS Review:: Nurse's Note Reviewed, EMS run form Reviewed, Transfer documents Reviewed ED Review of Systems - Review of Systems Other: Complete system review otherwise unremarkable except as noted in history of present illness. ED Past Medical History - Past Medical History Past Medical History: HTN, DM, Dementia Family History: None Social History: Non Smoker, No Alcohol, No Drug Use, Care Facility Surgical History: other Medication: Reviewed Family Medical History - Family Member Mother History Unknown: Yes Ethnicity: Unknown Living Status: Unknown ED Physical Exam - Physical Examination Other:: INITIAL VITAL SIGNS: Reviewed by ca GENERAL: Patient is lying on gurney HEAD: Head is normocephalic. No evidence of trauma. No scalp or facial swelling EYES: No scleral icterus bilaterally ENT: Oropharynx is clear of exudate and erythema NECK: Supple. No meningismus. No masses. No evidence of trauma. No cervical spine bony step-offs or crepitus to palpation RESPIRATORY: No tachypnea. Clear to auscultation bilaterally. CV: Regular rate and rhythm. No murmurs, rubs, or gallops ABDOMEN: Soft, non-distended. No masses BACK: No ecchymoses. No evidence of trauma EXTREMITIES: Normal to inspection and palpation. No deformity SKIN: Warm and dry. No obvious rash. No jaundice NEUROLOGIC: Face is symmetric. Withdraws to pain in all extremities ED Labs/Radiology/EKG Results - Lab Results Results: Lab Results 02/14/17 02/14/17 02/14/17 Range/Units 13:23 13:23 13:23 WBC 9.2 (4.8-10.8) Th/cmm RBC 2.48 L (3.80-5.80) Mil/cmm Hgb 8.2 L (12.6-17.4) gm/dL Hct 25.4 L (39.0-49.0) % MCV 102.7 H (80-99) fl MCH 33.0 H (27.0-31.0) pg MCHC Differential 32.1 (28.0-36.0) pg RDW 13.7 (11.5-20.0) % Plt Count 72 L D (150-400) Th/cmm MPV 8.1 fl Band Neutrophils % 4 (0-10) % Neutrophils (Manual) 88 H (40-80) % Lymphocytes 2 L (20-50) % Monocytes 2 (2-10) % Eosinophils 3 (0-5) % Basophils 1 (0-3) % Platelet Estimate ADEQUATE (NORMAL) Platelet Morphology NORMAL (NORMAL) RBC Morph Micro Appear NORMAL (NORMAL) PT 9.5 (9.5-11.5) SECONDS INR 0.91 (0.5-1.4) PTT (Actin FS) 31.7 (26.0-38.0) SECONDS Sodium 158 H D (136-145) mEq/L Potassium 7.5 H* (3.5-5.1) mEq/L Chloride 135 H (98-107) mEq/L Carbon Dioxide 21.5 (21.0-31.0) mEq/L Anion Gap 9.0 (7.0-16.0) BUN 83 H* (7-25) mg/dL Creatinine 2.9 H (0.7-1.3) mg/dL Est GFR ( Amer) TNP Est GFR (Non-Af Amer) TNP BUN/Creatinine Ratio 28.6 Glucose 105 (70-105) mg/dL POC Glucose (70 - 105) MG/DL Whole Bld Lactic Acid (0.60-1.99) mmol/L Calcium 10.0 (8.6-10.3) mg/dL Total Bilirubin 0.3 (0.3-1.0) mg/dL AST 179 H (13-39) U/L ALT 307 H (7-52) U/L Alkaline Phosphatase 157 H (34-104) U/L Total Protein 6.9 (6.0-8.3) gm/dL Albumin 3.9 L (4.2-5.5) gm/dL Globulin 3.0 gm/dL Albumin/Globulin Ratio 1.3 (1.0-1.8) Urine Source Urine Color Urine Clarity (CLEAR) Urine pH (4.6 - 8.0) Ur Specific Gary (1.005-1.030) Urine Protein (NEGATIVE) mg/dL Urine Glucose (UA) (NEGATIVE) mg/dL Urine Ketones (NEGATIVE) mg/dL Urine Blood (NEGATIVE) Urine Nitrate (NEGATIVE) Urine Bilirubin (NEGATIVE) Urine Urobilinogen (0.2 - 1.0) E.U./dL Ur Leukocyte Esterase (NEGATIVE) Urine RBC (0-5) /hpf Urine WBC (0-5) /hpf Ur Epithelial Cells (FEW) /lpf Urine Bacteria (NONE SEEN) /hpf 02/14/17 02/14/17 02/14/17 Range/Units 13:23 14:10 14:56 WBC (4.8-10.8) Th/cmm RBC (3.80-5.80) Mil/cmm Hgb (12.6-17.4) gm/dL Hct (39.0-49.0) % MCV (80-99) fl MCH (27.0-31.0) pg MCHC Differential (28.0-36.0) pg RDW (11.5-20.0) % Plt Count (150-400) Th/cmm MPV fl Band Neutrophils % (0-10) % Neutrophils (Manual) (40-80) % Lymphocytes (20-50) % Monocytes (2-10) % Eosinophils (0-5) % Basophils (0-3) % Platelet Estimate (NORMAL) Platelet Morphology (NORMAL) RBC Morph Micro Appear (NORMAL) PT (9.5-11.5) SECONDS INR (0.5-1.4) PTT (Actin FS) (26.0-38.0) SECONDS Sodium (136-145) mEq/L Potassium (3.5-5.1) mEq/L Chloride (98-107) mEq/L Carbon Dioxide (21.0-31.0) mEq/L Anion Gap (7.0-16.0) BUN (7-25) mg/dL Creatinine (0.7-1.3) mg/dL Est GFR ( Amer) Est GFR (Non-Af Amer) BUN/Creatinine Ratio Glucose (70-105) mg/dL POC Glucose 204 H (70 - 105) MG/DL Whole Bld Lactic Acid 1.09 (0.60-1.99) mmol/L Calcium (8.6-10.3) mg/dL Total Bilirubin (0.3-1.0) mg/dL AST (13-39) U/L ALT (7-52) U/L Alkaline Phosphatase (34-104) U/L Total Protein (6.0-8.3) gm/dL Albumin (4.2-5.5) gm/dL Globulin gm/dL Albumin/Globulin Ratio (1.0-1.8) Urine Source CATH Urine Color YELLOW Urine Clarity CLEAR (CLEAR) Urine pH 5.5 (4.6 - 8.0) Ur Specific Gary 1.020 (1.005-1.030) Urine Protein 100 H (NEGATIVE) mg/dL Urine Glucose (UA) NEGATIVE (NEGATIVE) mg/dL Urine Ketones NEGATIVE (NEGATIVE) mg/dL Urine Blood MODERATE H (NEGATIVE) Urine Nitrate NEGATIVE (NEGATIVE) Urine Bilirubin NEGATIVE (NEGATIVE) Urine Urobilinogen 0.2 (0.2 - 1.0) E.U./dL Ur Leukocyte Esterase NEGATIVE (NEGATIVE) Urine RBC 5-10 H (0-5) /hpf Urine WBC 2-5 H (0-5) /hpf Ur Epithelial Cells FEW (FEW) /lpf Urine Bacteria FEW (NONE SEEN) /hpf - EKG Interpretations Comments:: 12-lead EKG Interpretation by Johnnie Petit MD: Normal Sinus Rhythm with ventricular rate of 75 beats per minute Borderline right axis deviation Normal intervals No acute ST or T wave changes. No obvious STEMI ED Assessment - Assessment Critical Care Time: 35 Excludes all billable procedures: Yes This condition life threatening/high prob of deterioration: Yes Assessment/Comments:: Critical Care Time: 35 minutes Treatments/Evaluations: Close monitoring and treatment of unstable vital signs, cardiorespiratory, and neurologic status, while maintaining tight balance of fluid, respiratory, and cardiac interventions. This time includes discussing the case with the patient and the patient's family. This time does not include all procedures stated elsewhere in this record. This time also includes reviewing old records, labs and radiological studies. This time includes examining and re-examining the patient. Additionally, this time also includes arranging care with admitting and consulting physicians. ED Septic Shock - . Is Septic Shock (SBP<90, OR Lactate>4 mmol\L) present?: No - <6hrs of presentation: Assessment of Lungs: Lung CTA bilateral, No Rales, No Wheezing, No Stridor Assessment of Heart: RRR, No thrill, No Gallops EKG Interpretation: Documented in Result Capillary refill evaluation: Capillary refill < 2 secs Skin Exam: Dry, Poor Turgor, No Edema - Peripheral pulse evaluation Brachial Peripheral pulse evaluation-quality: +2 (normal) - Time of Reassessment Time of Reassessment: 16:12 ED Reassessment (Disposition) - Reassessment Reassessment:: Patient arrived with a core temperature of 86F rectal temperature. We placed a bear hugger on the patient immediately. Labs indicate severe hyperkalemia greater than 17. Patient was given D50 and insulin IV. Labs also indicate severe dehydration with BUNs greater than 80. Creatinine above 2. Patient is in acute renal failure with severe hyperkalemia. Patient is a hypothermic shock , acute renal failure, severe hyperkalemia, and with severe dehydration. We gave 2 L of IV fluids. EKG shows sinus rhythm 75. T waves are okay but this is done after receiving the insulin and D50. We have also ordered albuterol nebulizer for the patient. Potassium is improved to 6.1. Patient's body core temperature is now 89F rectal. This patient is critically ill. He is at severe risk of sudden cardiac due to severe hyperkalemia. There is critical care time on this patient. Critical care time 30 minutes. Discussed the case with the admitting physician detail. Patient admitted to the ICU for further workup and treatment. Reassessment Condition:: Improved - Diagnosis Diagnosis:: Hypothermic shock Severe hyperkalemia Severely elevated BUN Severe dehydration Acute renal failure - Patient Disposition Discharge/Transfer:: Acute Care w/in this hosp Admitted to:: ICU Admitting Medical Physician:: Vincent Sanabria Time:: 15:28 Condition at Disposition:: Critical ED Discharge Plan - Patient Disposition Condition at Disposition: Critical
[2017-02-14] MEDS ORDERED: Sodium Chloride 0.9% 1,000 ML IV ONE (13:14)
[2017-02-14 13:30] LABS: HEMATOCRIT 25.4 % (39.0-49.0); HEMOGLOBIN 8.2 gm/dL (12.6-17.4); MEAN CELL VOLUME 102.7 fl (80-99); MEAN CORPUSCULAR HGB CONC 32.1 pg (28.0-36.0); MEAN PLATELET VOLUME 8.1 fl; RED BLOOD COUNT 2.48 Mil/cmm (3.80-5.80); RED CELL DISTRIBUTION WIDTH 13.7 % (11.5-20.0); WHITE BLOOD COUNT 9.2 Th/cmm (4.8-10.8)
[2017-02-14 13:36] LABS: PLATELET COUNT 72 Th/cmm (150-400)
[2017-02-14 13:45] LABS: INR 0.91 (0.5-1.4); PROTHROMBIN TIME (TEST) 9.5 SECONDS (9.5-11.5)
[2017-02-14 13:49] LABS: ALB/GLOB RATIO 1.3 (1.0-1.8); ALKALINE PHOSPHATASE 157 U/L (34-104); BILIRUBIN,TOTAL 0.3 mg/dL (0.3-1.0); BUN/CREATININE RATIO 28.6; CARBON DIOXIDE 21.5 mEq/L (21.0-31.0); CHLORIDE 135 mEq/L (98-107); CREATININE - SERUM 2.9 mg/dL (0.7-1.3); GLUCOSE 105 mg/dL (70-105); SGOT 179 U/L (13-39); SGPT/ALT 307 U/L (7-52)
[2017-02-14 13:56] LABS: BUN - UREA NITROGEN 83 mg/dL (7-25); SODIUM SERUM 158 mEq/L (136-145)
[2017-02-14 13:57] LABS: POTASSIUM SERUM 7.5 mEq/L (3.5-5.1)
[2017-02-14 14:02] LABS: BAND NEUTROPHILE 4 % (0-10); BASOPHIL 1 % (0-3); EOSINOPHIL 3 % (0-5); NEUTROPHILS 88 % (40-80); TOTAL CELLS COUNTED 100
[2017-02-14 14:03] LABS: PLATELET ESTIMATE ADEQUATE (NORMAL); PLATELET MORPHOLOGY NORMAL (NORMAL)
[2017-02-14] MEDS ORDERED: Lactated Ringer 1,000 ML IV ONE (14:17)
[2017-02-14] MEDS ORDERED: Dextrose 50% 50 mL Abboject IVP STA (14:20)
[2017-02-14] MEDS ORDERED: INSULIN HUMAN REGULAR 100 UNITS/ML UNIT IVP ONE (14:20)
[2017-02-14] MEDS ORDERED: Dextrose 50% 50 mL Abboject IVP ONE (14:27)
[2017-02-14] MEDS ORDERED: INSULIN HUMAN REGULAR 100 UNITS/ML UNIT ONE (14:27)
[2017-02-14 14:41] LABS: URINE BILIRUBIN NEGATIVE (NEGATIVE); URINE BLOOD MODERATE (NEGATIVE); URINE GLUCOSE (UA) NEGATIVE (NEGATIVE); URINE KETONE NEGATIVE (NEGATIVE); URINE PH 5.5 (4.6 - 8.0); URINE PROTEIN 100 mg/dL (NEGATIVE); URINE UROBILINOGEN 0.2 E.U./dL (0.2 - 1.0)
[2017-02-14 14:45] LABS: URINE COLOR YELLOW
[2017-02-14 14:46] LABS: URINE BACTERIA FEW /hpf (NONE SEEN); URINE EPITHELIAL CELLS FEW /lpf (FEW)
[2017-02-14] MEDS ORDERED: Albuterol Nebulizer 2.5mg/3mL HHN STA (14:52)
[2017-02-14 15:39] LABS: ANION GAP 9.5 (7.0-16.0); BUN - UREA NITROGEN 79 mg/dL (7-25); BUN/CREATININE RATIO 30.4; CALCIUM SERUM 8.8 mg/dL (8.6-10.3); CARBON DIOXIDE 18.6 mEq/L (21.0-31.0); CHLORIDE 136 mEq/L (98-107); CREATININE - SERUM 2.6 mg/dL (0.7-1.3); GLUCOSE 169 mg/dL (70-105)
[2017-02-14] MEDS ORDERED: Albuterol Nebulizer 2.5mg/3mL HHN ONE (15:41)
[2017-02-14 15:42] LABS: SODIUM SERUM 158 mEq/L (136-145)
[2017-02-14 15:43] LABS: POTASSIUM SERUM 6.1 mEq/L (3.5-5.1)
[2017-02-14] MEDS ORDERED: Sodium Chloride 0.9% 1,000 ML IV SCH (16:59)
[2017-02-14 17:25] VITALS: BP 108/44
[2017-02-14] MEDS: Dextrose 5% 1,000 ML IV SCH (17:56)
--- NOTE | 2017-02-14 20:43 | History & Physical ---
ADMIT DATE: 02/14/2017 HISTORY OF PRESENT ILLNESS: I got a call from the group home stating that the patient is little more lethargic and also his laboratory data showed high BUN and creatinine. I asked them to have the patient evaluated in the Emergency Room. The patient was seen in the [facility] Emergency Room, found to have the patient in dementia status, found to have severe hyperkalemia and renal failure, hypothermia, and possible sepsis, septic shock. The patient was given fluids. He was given D15 insulin. Hyperkalemia. He was also started on albuterol treatment. The patient's potassium came down to 6.1. The patient still is lethargic, is moved to the ICU for further treatment. PAST MEDICAL HISTORY: Obtained from the chart. The patient known to have history of dementia, history of psychosis, history of hypertension, and history of diabetes. PHYSICAL EXAMINATION: GENERAL: The patient lying in the gurney. He is not responding too well. He is hypothermic. HEAD: Normal. ENT: Normal. LUNGS: No rales. CARDIOVASCULAR SYSTEM: S1, S2 heard. ABDOMEN: Soft. CENTRAL NERVOUS SYSTEM: Grossly normal. LABORATORY DATA: White count was 9.2, hemoglobin was low 8.2, and the MCV was 102 indicating some folate deficiency, B12 deficiency, and BUN and creatinine were high. His potassium was very high. Initially, his sodium was 158. Potassium was 7.5. Chloride was 135 indicating severe dehydration. BUN 83 and creatinine 2.9. He also had evidence of protein in the urine and moderate blood, and nitrite was negative, and leukocyte esterase was negative. EKG shows sinus rhythm, no acute ST changes. DIAGNOSES: Septic shock, severe dehydration, hyperkalemia, hypernatremia, hyperchloremia, sepsis, hypothermia, history of dementia, history of hypertension, history of diabetes, anemia and macrocytic anemia as well. The patient has been admitted to the ICU. I will go ahead and treat further potassium with Kayexalate. I have already talked to Dr. Rdz who will be seeing the patient. I talked to Dr. Gabriel Lambert who will be seeing the patient and we will also have the psychiatric doctor, Dr. Richardson, to see the patient, and we will start him on some ____. PLAN: The patient is going to be treated as I stated earlier. The patient is going to have multiple consultants including renal and neurology. I will call Dr. Joy and I will follow the patient. JOB# [id number]
--- NOTE | 2017-02-14 21:52 | Consultation ---
DATE OF CONSULTATION: 02/14/2017 ATTENDING: Isis Sanabria M.D. KITCHEN HAND: Lee Rdz M.D. REASON FOR CONSULTATION: Worsening kidney function, electrolyte imbalance, and fluid management. HISTORY OF PRESENT ILLNESS: This is an 82-year-old [place]ian with past medical history of chronic kidney disease, who was brought in because of abnormal labs. A few days prior to admission, the patient was noted to have progressive lethargy. His oral intake also deteriorated. A few hours prior to admission, labs drawn revealed severe electrolyte abnormalities. Thus, he was brought to the Emergency Room. His white count was 9.2 with a temperature of 88.2 degrees. His sodium level was 158, potassium was 7.1, and a BUN/creatinine of 83/2.9. The patient received D50 with insulin. He had no peak T-waves on EKG. There was no history of any nausea and vomiting as well as diarrhea. PAST MEDICAL HISTORY: 1. Chronic kidney disease. 2. Type 2 diabetes mellitus. 3. Essential hypertension. 4. History of gout. 5. Glaucoma. 6. Dyslipidemia. 7. Psychosis. 8. Anxiety. 9. Dementia with behavioral disturbance. 10. Anemia of chronic kidney disease. CURRENT MEDICATIONS: He is currently on albuterol, regular insulin, vancomycin, and Zosyn. ALLERGIES: No known drug allergies. SOCIAL AND FAMILY HISTORY: I was not able to obtain from the patient because of his depressed mental status. REVIEW OF SYSTEMS: CONSTITUTIONAL: Again, I was not able to decipher directly from the patient because of his current clinical condition. PHYSICAL EXAMINATION: GENERAL: The patient is very stuporous, not in any form of distress. VITAL SIGNS: His blood pressure is 104/44, pulse 77, and temperature 89 degrees. SKIN: Poor turgor, warm. No rash, no jaundice appreciated. HEENT: Head is normocephalic and atraumatic. Eyes: Unable to assess his extraocular muscles. Pupils are equal, round, and reactive to light and accommodates. Anicteric sclerae, pale conjunctivae. Nose, midline nasal septum. Mouth very dry mucosa with poor dentition. NECK: Supple. No adenopathy, no thyromegaly, no bruits. Trachea palpated in the midline. CHEST AND CVS: S1, S2. No rub, murmur, nor gallop appreciated. Point of maximal impulse fifth intercostal space, left midclavicular line. No abdominal or femoral bruits appreciated. LUNGS: Equal expansion. No use of accessory muscles. No supraclavicular retractions. Decreased breath sounds, a few rhonchi, but no rales nor wheezes appreciated. ABDOMEN: Scaphoid, soft. Positive for bowel sounds. No bruits either diastolic or systolic. RECTAL: Lax sphincter tone. GENITOURINARY: Normal appearing male genitalia. MUSCULOSKELETAL: No effusions present in his joints, but unable to assess his range of motion. EXTREMITIES: No evidence of any edema, cyanosis, nor clubbing. He has a palpable femoral, but poorly palpable popliteal and dorsalis pedis pulses. NEUROLOGIC: The patient remains stuporous, unable to follow my neuro commands, so I was not able to pursue further my neuro exam. LABORATORY DATA: Did reveal sodium 158, potassium 6.1, chloride 136, bicarb 18, BUN 79, creatinine 2.6, glucose 169, lactic acid 1.09, AST is 179, ALT is 107, alkaline phosphatase is 157, and albumin 3.9. IMPRESSION: 1. Acute kidney injury on chronic kidney disease. 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 Acute kidney injury is initially prerenal in nature. He became stuporous with markedly diminished oral intake. He possibly had failure to thrive. He developed dehydration, which led to a decrease in effective circulating volume. This was supported by physical exam with poor skin turgor, dry oral mucosa, , hypotension, as well as very concentrated urine. His prerenal azotemia may have progressed to acute tubular injury. He also came in hypothermic with the possibility of underlying sepsis and UA suggestive of UTI. Thus, he may also have ongoing acute interstitial nephritis. 2. Hypothermia, possibly due to severe sepsis and consider underlying hypothyroidism. 3. Hyperkalemia secondary to his acute kidney injury, intake of losartan and history of diabetes. 4. Non-gap hyperchloremic metabolic acidosis, which may be due to underlying renal tubular acidosis. He had no history of any ongoing diarrhea at this point. 5. Hypernatremia due to his dehydration. 6. Type 2 diabetes mellitus. 7. Encephalopathy, likely hepatic encephalopathy due to elevated liver enzymes. 8. Acute liver failure, possibly secondary to shock, consider effects of medications. 9. Essential hypertension with chronic kidney disease. 10. History of gout. 11. History of glaucoma. 12. Dyslipidemia. 13. History of psychosis. 14. History of anxiety. 15. Dementia with behavioral disturbance. 16. Anemia of chronic kidney disease. PLAN: 1. Switch IV fluids with D5W. 2. Administer another dose of Kayexalate via NG tube. 3. Follow up electrolytes and TSH as well as CBC. 4. Urinalysis. 5. Urine spot sodium, eosinophils, and creatinine. 6. Renal ultrasound. Thank you Dr. Sanabria for this consult. I will follow the patient closely with you. JOB# [id number]
[2017-02-15] MEDS: Dextrose 5% 1,000 ML IV SCH ×2 (04:44→18:22)
[2017-02-15 06:06] LABS: ALB/GLOB RATIO 1.3 (1.0-1.8); ALKALINE PHOSPHATASE 138 U/L (34-104); ANION GAP 8.6 (7.0-16.0); BILIRUBIN,TOTAL 0.3 mg/dL (0.3-1.0); BUN - UREA NITROGEN 73 mg/dL (7-25); CALCIUM SERUM 8.5 mg/dL (8.6-10.3); CARBON DIOXIDE 21.8 mEq/L (21.0-31.0); CHLORIDE 128 mEq/L (98-107); CREATININE - SERUM 2.7 mg/dL (0.7-1.3); GLUCOSE 137 mg/dL (70-105); MAGNESIUM 2.7 mg/dL (1.9-2.7); PHOSPHOROUS 5.7 mg/dL (2.5-5.0); POTASSIUM SERUM 5.4 mEq/L (3.5-5.1); SGOT 274 U/L (13-39); SGPT/ALT 315 U/L (7-52); SODIUM SERUM 153 mEq/L (136-145); URIC ACID 2.7 mg/dL (4.4-7.6)
[2017-02-15 06:45] LABS: MEAN CELL VOLUME 103.1 fl (80-99); MEAN CORPUSCULAR HEMOGLOBIN 34.3 pg (27.0-31.0); MEAN CORPUSCULAR HGB CONC 33.3 pg (28.0-36.0); MEAN PLATELET VOLUME 7.9 fl; RED BLOOD COUNT 1.88 Mil/cmm (3.80-5.80); RED CELL DISTRIBUTION WIDTH 14.4 % (11.5-20.0); WHITE BLOOD COUNT 8.4 Th/cmm (4.8-10.8)
[2017-02-15 06:50] LABS: HEMATOCRIT 19.4 % (39.0-49.0); HEMOGLOBIN 6.4 gm/dL (12.6-17.4)
[2017-02-15 06:51] LABS: PLATELET COUNT 49 Th/cmm (150-400)
--- NOTE | 2017-02-15 08:14 | Diagnostic Imaging Report ---
Exam: Portable chest x-ray HISTORY: NG tube placement. Findings: Portable examination of the chest at 1938 hours was reviewed. The study demonstrates NG tube with the tip in stomach. IMPRESSION NG tube in stomach.
[2017-02-15] MEDS ORDERED: Vancomycin HCl 500 MG in Sodium Chloride 0.9% 100 ML IV SCH (09:00)
[2017-02-15 10:09] LABS: ANISOCYTOSIS 1+; BAND NEUTROPHILE 11 % (0-10); EOSINOPHIL 2 % (0-5); NEUTROPHILS 81 % (40-80); PLATELET ESTIMATE DECREASED PLATELETS (NORMAL); PLATELET MORPHOLOGY NORMAL (NORMAL); TOTAL CELLS COUNTED 100
--- NOTE | 2017-02-15 13:37 | General Progress Note ---
Subjective - Review of Systems Service Date: 02/15/17 Subjective: stuporous, comfortable Objective - Results Result Diagrams: 02/15/17 06:30 02/15/17 04:25 Recent Labs: Laboratory Last Values WBC 8.4 Th/cmm (4.8-10.8) 02/15/17 06:30 RBC 1.88 Mil/cmm (3.80-5.80) L 02/15/17 06:30 Hgb 6.4 gm/dL (12.6-17.4) L* D 02/15/17 06:30 Hct 19.4 % (39.0-49.0) L* D 02/15/17 06:30 MCV 103.1 fl (80-99) H 02/15/17 06:30 MCH 34.3 pg (27.0-31.0) H 02/15/17 06:30 MCHC Differential 33.3 pg (28.0-36.0) 02/15/17 06:30 RDW 14.4 % (11.5-20.0) 02/15/17 06:30 Plt Count 49 Th/cmm (150-400) L D 02/15/17 06:30 MPV 7.9 fl 02/15/17 06:30 Band Neutrophils % 11 % (0-10) H 02/15/17 06:30 Neutrophils (Manual) 81 % (40-80) H 02/15/17 06:30 Lymphocytes 1 % (20-50) L 02/15/17 06:30 Monocytes 5 % (2-10) 02/15/17 06:30 Eosinophils 2 % (0-5) 02/15/17 06:30 Basophils 1 % (0-3) 02/14/17 13:23 Platelet Estimate DECREASED PLATELETS (NORMAL) 02/15/17 06:30 Platelet Morphology NORMAL (NORMAL) 02/15/17 06:30 Anisocytosis 1+ 02/15/17 06:30 RBC Morph Micro Appear ABNORMAL (NORMAL) 02/15/17 06:30 Eos Smear Source URINE 02/14/17 20:05 Eos Smear Total Cells NONE SEEN (NONE SEEN) 02/14/17 20:05 PT 9.5 SECONDS (9.5-11.5) 02/14/17 13:23 INR 0.91 (0.5-1.4) 02/14/17 13:23 PTT (Actin FS) 31.7 SECONDS (26.0-38.0) 02/14/17 13:23 Sodium 153 mEq/L (136-145) H 02/15/17 04:25 Potassium 5.4 mEq/L (3.5-5.1) H 02/15/17 04:25 Chloride 128 mEq/L (98-107) H 02/15/17 04:25 Carbon Dioxide 21.8 mEq/L (21.0-31.0) 02/15/17 04:25 Anion Gap 8.6 (7.0-16.0) 02/15/17 04:25 BUN 73 mg/dL (7-25) H 02/15/17 04:25 Creatinine 2.7 mg/dL (0.7-1.3) H 02/15/17 04:25 Est GFR ( Amer) TNP 02/15/17 04:25 Est GFR (Non-Af Amer) TNP 02/15/17 04:25 BUN/Creatinine Ratio 27.0 02/15/17 04:25 Glucose 137 mg/dL (70-105) H 02/15/17 04:25 POC Glucose 204 MG/DL (70 - 105) H 02/14/17 14:56 Hemoglobin A1c % 5.9 % (4.0-6.0) 02/14/17 13:23 Whole Bld Lactic Acid 1.09 mmol/L (0.60-1.99) 02/14/17 13:23 Uric Acid 2.7 mg/dL (4.4-7.6) L 02/15/17 04:25 Calcium 8.5 mg/dL (8.6-10.3) L 02/15/17 04:25 Phosphorus 5.7 mg/dL (2.5-5.0) H 02/15/17 04:25 Magnesium 2.7 mg/dL (1.9-2.7) 02/15/17 04:25 Total Bilirubin 0.3 mg/dL (0.3-1.0) 02/15/17 04:25 AST 274 U/L (13-39) H 02/15/17 04:25 ALT 315 U/L (7-52) H 02/15/17 04:25 Alkaline Phosphatase 138 U/L (34-104) H 02/15/17 04:25 Total Protein 5.2 gm/dL (6.0-8.3) L 02/15/17 04:25 Albumin 2.9 gm/dL (4.2-5.5) L 02/15/17 04:25 Globulin 2.3 gm/dL 02/15/17 04:25 Albumin/Globulin Ratio 1.3 (1.0-1.8) 02/15/17 04:25 TSH 4.19 uIU/ml (0.34-5.60) 02/15/17 04:25 Urine Source CATH 02/14/17 14:10 Urine Color YELLOW 02/14/17 14:10 Urine Clarity CLEAR (CLEAR) 02/14/17 14:10 Urine pH 5.5 (4.6 - 8.0) 02/14/17 14:10 Ur Specific [place] 1.020 (1.005-1.030) 02/14/17 14:10 Urine Protein 100 mg/dL (NEGATIVE) H 02/14/17 14:10 Urine Glucose (UA) NEGATIVE mg/dL (NEGATIVE) 02/14/17 14:10 Urine Ketones NEGATIVE mg/dL (NEGATIVE) 02/14/17 14:10 Urine Blood MODERATE (NEGATIVE) H 02/14/17 14:10 Urine Nitrate NEGATIVE (NEGATIVE) 02/14/17 14:10 Urine Bilirubin NEGATIVE (NEGATIVE) 02/14/17 14:10 Urine Urobilinogen 0.2 E.U./dL (0.2 - 1.0) 02/14/17 14:10 Ur Leukocyte Esterase NEGATIVE (NEGATIVE) 02/14/17 14:10 Urine RBC 5-10 /hpf (0-5) H 02/14/17 14:10 Urine WBC 2-5 /hpf (0-5) H 02/14/17 14:10 Ur Epithelial Cells FEW /lpf (FEW) 02/14/17 14:10 Urine Bacteria FEW /hpf (NONE SEEN) 02/14/17 14:10 Urine Creatinine 93.0 mg/dl (39.0-259.0) 02/14/17 20:05 Random Vancomycin 13.1 ug/mL (5.0-40.0) 02/15/17 04:25 Blood Type O POSITIVE 02/15/17 05:20 Antibody Screen NEGATIVE 02/15/17 05:20 Crossmatch See Detail 02/15/17 05:20 - Physical Exam Vitals and I&O: Vital Signs Temp 96.4 F 02/15/17 12:00 Pulse 81 02/15/17 12:00 Resp 20 02/15/17 12:00 BP 106/49 02/15/17 12:00 Pulse Ox 96 02/15/17 12:00 Intake & Output 02/14/17 02/15/17 02/15/17 18:59 06:59 18:59 Intake Total 1100 100 Output Total 700 Balance 400 100 Weight (lbs) 45.359 kg Intake: Intake, IV Amount 1100 100 Dextrose 5% 1,000 ml @ 1000 125 mls/hr IV .Q8H [facility] Rx #:[id number] Piperacillin Sodium/ 100 Tazobact 2.25 gm In Sodium Chloride 0.9% 50 ml @ 100 mls/hr IV Q8HR [facility] Rx#:[id number] Vancomycin HCl 500 mg In 100 Sodium Chloride 0.9% 100 ml @ 100 mls/hr IV 0900 [facility] Rx#:[id number] Oral 0 Output: Urine 700 Other: # Bowel Movements 2 Stool Characteristics Liquid Brown Active Medications: Current Medications Piperacillin Sod/Tazobactam (Sod 2.25 gm/ Sodium Chloride) 50 mls @ 100 mls/hr IV Q8HR [facility] Stop: 04/15/17 20:59 Last Infusion: 02/15/17 05:15 Dose: Infused Dextrose (D5w) 1,000 mls @ 125 mls/hr IV .Q8H [facility] Stop: 04/15/17 17:05 Last Admin: 02/15/17 04:44 Dose: 125 mls/hr Miscellaneous (Vancomycin Iv Per Pharmacy) 1 ea PRN PRN PRN Reason: PROTOCOL Stop: 04/15/17 15:55 Pneumococcal Polyvalent Vaccine (Pneumovax) 0.5 ml IM .ONCE ONE Stop: 02/15/17 17:34 General: No acute distress HEENT: Atraumatic, Mucous membr. moist/pink Neck: Supple, +2 carotid pulse wo bruit Cardiovascular: Regular rate, Normal S1, Normal S2 Lungs: Other (few rhonchi) Abdomen: Soft, Other (diminished BS) Extremities: no Edema Neurological: Sensation intact Skin: no Rash Psych/Mental Status: Mood NL Assessment/Plan - Problem List Patient Problems: All Active Problems WANDERS FROM FACILITY; ELOPEMENT RISK (Acute) - Assessment Assessment: RUEL on CKD Hypothermic NG Hyperchloremic Met Acid Hypernatremia Type 2 DM Hepatic Enceph Anemia acute on ckd Acute liver failure Hyperkalemia 2nd RUEL, DM, losartan - Plan Plan: Lab - Result Diagrams 02/15/17 06:30 02/15/17 04:25 Current Medications Piperacillin Sod/Tazobactam (Sod 2.25 gm/ Sodium Chloride) 50 mls @ 100 mls/hr IV Q8HR [facility] Stop: 04/15/17 20:59 Last Infusion: 02/15/17 05:15 Dose: Infused Dextrose (D5w) 1,000 mls @ 125 mls/hr IV .Q8H [facility] Stop: 04/15/17 17:05 Last Admin: 02/15/17 04:44 Dose: 125 mls/hr Miscellaneous (Vancomycin Iv Per Pharmacy) 1 ea MC PRN PRN PRN Reason: PROTOCOL Stop: 04/15/17 15:55 Pneumococcal Polyvalent Vaccine (Pneumovax) 0.5 ml IM .ONCE ONE Stop: 02/15/17 17:34 Na down to 153, continue D5W acute anemia possible GI bleed? BUN down to 73 agree w/ BT F/u renal/abd US, CXR, stool OB, electrolytes, cbc, NH3 level
--- NOTE | 2017-02-15 13:50 | General Progress Note ---
Subjective - Review of Systems Events since last encounter: no distress patient comfortable Objective - Results Result Diagrams: 02/15/17 06:30 02/15/17 04:25 Recent Labs: Laboratory Last Values WBC 8.4 Th/cmm (4.8-10.8) 02/15/17 06:30 RBC 1.88 Mil/cmm (3.80-5.80) L 02/15/17 06:30 Hgb 6.4 gm/dL (12.6-17.4) L* D 02/15/17 06:30 Hct 19.4 % (39.0-49.0) L* D 02/15/17 06:30 MCV 103.1 fl (80-99) H 02/15/17 06:30 MCH 34.3 pg (27.0-31.0) H 02/15/17 06:30 MCHC Differential 33.3 pg (28.0-36.0) 02/15/17 06:30 RDW 14.4 % (11.5-20.0) 02/15/17 06:30 Plt Count 49 Th/cmm (150-400) L D 02/15/17 06:30 MPV 7.9 fl 02/15/17 06:30 Band Neutrophils % 11 % (0-10) H 02/15/17 06:30 Neutrophils (Manual) 81 % (40-80) H 02/15/17 06:30 Lymphocytes 1 % (20-50) L 02/15/17 06:30 Monocytes 5 % (2-10) 02/15/17 06:30 Eosinophils 2 % (0-5) 02/15/17 06:30 Basophils 1 % (0-3) 02/14/17 13:23 Platelet Estimate DECREASED PLATELETS (NORMAL) 02/15/17 06:30 Platelet Morphology NORMAL (NORMAL) 02/15/17 06:30 Anisocytosis 1+ 02/15/17 06:30 RBC Morph Micro Appear ABNORMAL (NORMAL) 02/15/17 06:30 Eos Smear Source URINE 02/14/17 20:05 Eos Smear Total Cells NONE SEEN (NONE SEEN) 02/14/17 20:05 PT 9.5 SECONDS (9.5-11.5) 02/14/17 13:23 INR 0.91 (0.5-1.4) 02/14/17 13:23 PTT (Actin FS) 31.7 SECONDS (26.0-38.0) 02/14/17 13:23 Sodium 153 mEq/L (136-145) H 02/15/17 04:25 Potassium 5.4 mEq/L (3.5-5.1) H 02/15/17 04:25 Chloride 128 mEq/L (98-107) H 02/15/17 04:25 Carbon Dioxide 21.8 mEq/L (21.0-31.0) 02/15/17 04:25 Anion Gap 8.6 (7.0-16.0) 02/15/17 04:25 BUN 73 mg/dL (7-25) H 02/15/17 04:25 Creatinine 2.7 mg/dL (0.7-1.3) H 02/15/17 04:25 Est GFR ( Amer) TNP 02/15/17 04:25 Est GFR (Non-Af Amer) TNP 02/15/17 04:25 BUN/Creatinine Ratio 27.0 02/15/17 04:25 Glucose 137 mg/dL (70-105) H 02/15/17 04:25 POC Glucose 204 MG/DL (70 - 105) H 02/14/17 14:56 Hemoglobin A1c % 5.9 % (4.0-6.0) 02/14/17 13:23 Whole Bld Lactic Acid 1.09 mmol/L (0.60-1.99) 02/14/17 13:23 Uric Acid 2.7 mg/dL (4.4-7.6) L 02/15/17 04:25 Calcium 8.5 mg/dL (8.6-10.3) L 02/15/17 04:25 Phosphorus 5.7 mg/dL (2.5-5.0) H 02/15/17 04:25 Magnesium 2.7 mg/dL (1.9-2.7) 02/15/17 04:25 Total Bilirubin 0.3 mg/dL (0.3-1.0) 02/15/17 04:25 AST 274 U/L (13-39) H 02/15/17 04:25 ALT 315 U/L (7-52) H 02/15/17 04:25 Alkaline Phosphatase 138 U/L (34-104) H 02/15/17 04:25 Total Protein 5.2 gm/dL (6.0-8.3) L 02/15/17 04:25 Albumin 2.9 gm/dL (4.2-5.5) L 02/15/17 04:25 Globulin 2.3 gm/dL 02/15/17 04:25 Albumin/Globulin Ratio 1.3 (1.0-1.8) 02/15/17 04:25 TSH 4.19 uIU/ml (0.34-5.60) 02/15/17 04:25 Urine Source CATH 02/14/17 14:10 Urine Color YELLOW 02/14/17 14:10 Urine Clarity CLEAR (CLEAR) 02/14/17 14:10 Urine pH 5.5 (4.6 - 8.0) 02/14/17 14:10 Ur Specific [place] 1.020 (1.005-1.030) 02/14/17 14:10 Urine Protein 100 mg/dL (NEGATIVE) H 02/14/17 14:10 Urine Glucose (UA) NEGATIVE mg/dL (NEGATIVE) 02/14/17 14:10 Urine Ketones NEGATIVE mg/dL (NEGATIVE) 02/14/17 14:10 Urine Blood MODERATE (NEGATIVE) H 02/14/17 14:10 Urine Nitrate NEGATIVE (NEGATIVE) 02/14/17 14:10 Urine Bilirubin NEGATIVE (NEGATIVE) 02/14/17 14:10 Urine Urobilinogen 0.2 E.U./dL (0.2 - 1.0) 02/14/17 14:10 Ur Leukocyte Esterase NEGATIVE (NEGATIVE) 02/14/17 14:10 Urine RBC 5-10 /hpf (0-5) H 02/14/17 14:10 Urine WBC 2-5 /hpf (0-5) H 02/14/17 14:10 Ur Epithelial Cells FEW /lpf (FEW) 02/14/17 14:10 Urine Bacteria FEW /hpf (NONE SEEN) 02/14/17 14:10 Urine Creatinine 93.0 mg/dl (39.0-259.0) 02/14/17 20:05 Random Vancomycin 13.1 ug/mL (5.0-40.0) 02/15/17 04:25 Blood Type O POSITIVE 02/15/17 05:20 Antibody Screen NEGATIVE 02/15/17 05:20 Crossmatch See Detail 02/15/17 05:20 - Physical Exam Vitals and I&O: Vital Signs Temp 96.5 F 02/15/17 13:00 Pulse 81 02/15/17 13:00 Resp 19 02/15/17 13:00 BP 117/59 02/15/17 13:00 Pulse Ox 98 02/15/17 13:00 Intake & Output 02/14/17 02/15/17 02/15/17 18:59 06:59 18:59 Intake Total 1100 100 Output Total 700 Balance 400 100 Weight (lbs) 45.359 kg Intake: Intake, IV Amount 1100 100 Dextrose 5% 1,000 ml @ 1000 125 mls/hr IV .Q8H [facility] Rx #:[id number] Piperacillin Sodium/ 100 Tazobact 2.25 gm In Sodium Chloride 0.9% 50 ml @ 100 mls/hr IV Q8HR [facility] Rx#:[id number] Vancomycin HCl 500 mg In 100 Sodium Chloride 0.9% 100 ml @ 100 mls/hr IV 0900 [facility] Rx#:[id number] Oral 0 Output: Urine 700 Other: # Bowel Movements 2 Stool Characteristics Liquid Brown Active Medications: Current Medications Piperacillin Sod/Tazobactam (Sod 2.25 gm/ Sodium Chloride) 50 mls @ 100 mls/hr IV Q8HR [facility] Stop: 04/15/17 20:59 Last Infusion: 02/15/17 05:15 Dose: Infused Dextrose (D5w) 1,000 mls @ 125 mls/hr IV .Q8H [facility] Stop: 04/15/17 17:05 Last Admin: 02/15/17 04:44 Dose: 125 mls/hr Miscellaneous (Vancomycin Iv Per Pharmacy) 1 ea MC PRN PRN PRN Reason: PROTOCOL Stop: 04/15/17 15:55 Pantoprazole Sodium (Protonix) 40 mg PO DAILY [facility] Stop: 04/16/17 13:44 Pneumococcal Polyvalent Vaccine (Pneumovax) 0.5 ml IM .ONCE ONE Stop: 02/15/17 17:34 General: No acute distress HEENT: Atraumatic, Mucous membr. moist/pink Neck: Supple, +2 carotid pulse wo bruit Cardiovascular: Regular rate, Normal S1, Normal S2 Lungs: Other (few rhonchi) Abdomen: Soft, Other (diminished BS) Extremities: no Edema Neurological: Sensation intact Skin: no Rash Psych/Mental Status: Mood NL Assessment/Plan - Problem List Patient Problems: All Active Problems WANDERS FROM FACILITY; ELOPEMENT RISK (Acute)
[2017-02-15] MEDS ORDERED: Probiotic Screen MC PRN (14:14)
[2017-02-15] MEDS: Pantoprazole 40 mg/Packet PO SCH (15:14)
--- NOTE | 2017-02-15 16:52 | Consultation ---
Consult Note - Consult Note Service Date: 02/15/17 Referring Physician: Vincent Sanabria Consult Note: PHYSICIAN Consultation Note: Date of Admission: 02/14/17 Purpose of Consultation: Sepsis. Chief Complaint: Patient DAVID RUBIO was admitted to location Intensive Care Unit with HYPOTHERMIC SHOCK,ARF,SEVERE HYPERKALEMIA. History of Present Illness: This is a 82-year-old male with a past medical history of dementia, hypertension , hyperlipidemia, psych disorder brought in from skilled nursing for altered mental status. As per the record and from the patient on was able to walk and communicate one to 2 months prior to the admission. He was also admitted to geropsychiatric unit recently. On initial evaluation he was hypothermic and remained hypothermic till now. ID consult was called and I have started Zosyn. Patient's mentation has been improving a little bit. Still it is not to his baseline. Past Medical History: Dementia, hypertension, hyperlipidemia. Allergies Allergy/AdvReac Type Severity Reaction Status Date / Time clams Allergy Verified 02/14/17 13:38 cod liver oil Allergy Verified 02/14/17 13:38 corn Allergy Verified 02/14/17 13:38 egg Allergy Verified 02/14/17 13:38 milk Allergy Verified 02/14/17 13:38 peanut Allergy Verified 02/14/17 13:38 sesame seed Allergy Verified 02/14/17 13:38 shrimp Allergy Verified 02/14/17 13:38 soybean Allergy Verified 02/14/17 13:38 walnut Allergy Verified 02/14/17 13:38 wheat Allergy Verified 02/14/17 13:38 Vital Signs Temp 97.4 F 02/15/17 16:00 Pulse 95 02/15/17 16:00 Resp 22 02/15/17 16:00 BP 130/70 02/15/17 16:00 Pulse Ox 99 02/15/17 16:00 Intake & Output 02/14/17 02/15/17 02/15/17 18:59 06:59 18:59 Intake Total 1100 150 Output Total 700 Balance 400 150 Weight (lbs) 45.359 kg Intake: Intake, IV Amount 1100 150 Dextrose 5% 1,000 ml @ 1000 125 mls/hr IV .Q8H [facility] Rx #:[id number] Piperacillin Sodium/ 100 50 Tazobact 2.25 gm In Sodium Chloride 0.9% 50 ml @ 100 mls/hr IV Q8HR [facility] Rx#:[id number] Vancomycin HCl 500 mg In 100 Sodium Chloride 0.9% 100 ml @ 100 mls/hr IV 0900 [facility] Rx#:[id number] Oral 0 Output: Urine 700 Other: # Bowel Movements 2 Stool Characteristics Soft Liquid Brown Laboratory Results - last 24 hr 02/14/17 02/14/17 02/15/17 20:05 20:05 04:25 WBC RBC Hgb Hct MCV MCH MCHC Differential RDW Plt Count MPV Band Neutrophils % Neutrophils (Manual) Lymphocytes Monocytes Eosinophils Platelet Estimate Platelet Morphology Anisocytosis RBC Morph Micro Appear Eos Smear Source URINE Eos Smear Total Cells NONE SEEN Sodium Potassium Chloride Carbon Dioxide Anion Gap BUN Creatinine Est GFR ( Amer) Est GFR (Non-Af Amer) BUN/Creatinine Ratio Glucose Uric Acid Calcium Phosphorus Magnesium Total Bilirubin AST ALT Alkaline Phosphatase Total Protein Albumin Globulin Albumin/Globulin Ratio TSH Ur Random Sodium Urine Creatinine 93.0 Random Vancomycin 13.1 Blood Type Antibody Screen Crossmatch 02/15/17 02/15/17 02/15/17 04:25 04:25 05:20 WBC RBC Hgb Hct MCV MCH MCHC Differential RDW Plt Count MPV Band Neutrophils % Neutrophils (Manual) Lymphocytes Monocytes Eosinophils Platelet Estimate Platelet Morphology Anisocytosis RBC Morph Micro Appear Eos Smear Source Eos Smear Total Cells Sodium 153 H Potassium 5.4 H Chloride 128 H Carbon Dioxide 21.8 Anion Gap 8.6 BUN 73 H Creatinine 2.7 H Est GFR ( Amer) TNP Est GFR (Non-Af Amer) TNP BUN/Creatinine Ratio 27.0 Glucose 137 H Uric Acid 2.7 L Calcium 8.5 L Phosphorus 5.7 H Magnesium 2.7 Total Bilirubin 0.3 AST 274 H ALT 315 H Alkaline Phosphatase 138 H Total Protein 5.2 L Albumin 2.9 L Globulin 2.3 Albumin/Globulin Ratio 1.3 TSH 4.19 Ur Random Sodium Urine Creatinine Random Vancomycin Blood Type O POSITIVE Antibody Screen NEGATIVE Crossmatch See Detail 02/15/17 02/15/17 06:30 12:46 WBC 8.4 RBC 1.88 L Hgb 6.4 L* D Hct 19.4 L* D MCV 103.1 H MCH 34.3 H MCHC Differential 33.3 RDW 14.4 Plt Count 49 L D MPV 7.9 Band Neutrophils % 11 H Neutrophils (Manual) 81 H Lymphocytes 1 L Monocytes 5 Eosinophils 2 Platelet Estimate DECREASED PLATELETS Platelet Morphology NORMAL Anisocytosis 1+ RBC Morph Micro Appear ABNORMAL Eos Smear Source Eos Smear Total Cells Sodium Potassium Chloride Carbon Dioxide Anion Gap BUN Creatinine Est GFR ( Amer) Est GFR (Non-Af Amer) BUN/Creatinine Ratio Glucose Uric Acid Calcium Phosphorus Magnesium Total Bilirubin AST ALT Alkaline Phosphatase Total Protein Albumin Globulin Albumin/Globulin Ratio TSH Ur Random Sodium 61 Urine Creatinine Random Vancomycin Blood Type Antibody Screen Crossmatch Home Medication Medication Instructions Recorded Type Bisacodyl [Dulcolax 10 Mg Supp] 10 mg RC DAILY PRN 01/09/17 History Fleet Enema 135 ml RC DAILY PRN 01/09/17 History Magnesium Hydroxide [Milk of 30 ml PO HS PRN 01/09/17 History Magnesia] Allopurinol [Zyloprim*] 300 mg PO HS tab 01/22/17 Rx Aspirin EC [Ecotrin] 81 mg PO DAILY #0 01/22/17 Rx Docusate Sodium [Colace] 100 mg PO DAILY #0 01/22/17 Rx Donepezil Hcl [Aricept] 5 mg PO HS tab 01/22/17 Rx Dorzolamide 2% Ophth Soln [Trusopt 1 drop EACH EYE BID #0 01/22/17 Rx 2% Ophth Soln] Fluocinonide 0.05% Cream [Lidex 1 appl TP BID #0 01/22/17 Rx 0.05%] Latanoprost 0.005% Ophth Soln 1 drop EACH EYE HS #0 01/22/17 Rx [Xalatan 0.005% Ophth Soln] Losartan Potassium [Cozaar] 50 mg PO DAILY #0 01/22/17 Rx Memantine [Namenda] 5 mg PO DAILY tab 01/22/17 Rx Metoprolol Succinate [Toprol Xl] 25 mg PO DAILY #0 01/22/17 Rx Simvastatin [Zocor] 10 mg PO QPM #0 01/22/17 Rx Vit B Cmplx 3/FA/Vit C/Biotin 1 tab PO DAILY #0 01/22/17 Rx [Nephro-King Rx Tablet] risperiDONE [RisperDAL] 0.25 mg PO BID tab 01/22/17 Rx Acetaminophen [Pain Relief Extra 1,000 mg PO Q4H PRN 02/14/17 History Strength] Acetaminophen [Tylenol] 325 mg PO Q4HR PRN 02/14/17 History Current Medications Generic Name Dose Route Start Last Admin Trade Name Ravinderq PRN Reason Stop Dose Admin Piperacillin Sod/Tazobactam 50 mls @ 100 mls/hr 02/14/17 21:00 02/15/17 14:50 Sod 2.25 gm/ Sodium Chloride IV 04/15/17 20:59 Infused Q8HR [facility] Infusion Dextrose 1,000 mls @ 125 mls/hr 02/14/17 17:06 02/15/17 04:44 D5w IV 04/15/17 17:05 125 mls/hr .Q8H [facility] Administration Miscellaneous 1 02/14/17 15:56 Vancomycin Iv Per Pharmacy 04/15/17 15:55 PRN PRN PROTOCOL Miscellaneous 1 02/15/17 14:14 Probiotic Screen 04/16/17 14:13 PRN PRN PROTOCOL Pantoprazole Sodium 40 mg 02/15/17 13:45 02/15/17 15:14 Protonix PO 04/16/17 13:44 40 mg DAILY [facility] Administration Pneumococcal Polyvalent Vaccine 0.5 ml 02/15/17 17:33 Pneumovax IM 02/15/17 17:34 .ONCE ONE Review of Systems: A 12 point ROS was reviewed with the pertinent positive and negatives noted in the HPI. Social History Smoking Status Unknown if ever smoked Drug Use No Alcohol Use No Family Medical History Unknown Physical Exam: General: Cachectic, not in acute distress. Unresponsive. Barely open his eyes. HEENT: At: Normocephalic, atraumatic. Oral cavity: Moist, pink tongue. No thrush. Eyes: Pupil PERRLA, EOMI. Pallor is present, no icterus. Neck: Supple, no JVD, no use of X his neck muscles. Cardio: S1 and S2 within normal limits regular rhythm no murmur or gallop. Respiratory: Vesicular breath sound crackles no wheezing. Abdominal: Soft, nontender nondistended bowel sounds present. No hepatosplenomegaly appreciated. Genital/Urinary: Deferred. Extremities: No cyanosis, no clubbing, no edema. Neurological: Unresponsive, barely opens his eyes. Assessment: 1. Hypothermia suspect sepsis. 2. Dementia. 3. Hypertension. 4. Hyperlipidemia. 5. Protein calorie malnutrition. 6. CKD. Plan: Continue Zosyn and vancomycin. Thank you, Dr. Sanabria, for involving me taking care of this patient. Signed, Gabriel Lambert M.D. [id number]
[2017-02-15] MEDS ORDERED: Pneumococcal Vaccine 0.5 mL Vial IM ONE (17:33)
--- NOTE | 2017-02-15 20:52 | Consultation ---
DATE OF CONSULTATION: 02/15/2017 REASON FOR CONSULT: Anemia, abnormal LFTs. HISTORY OF PRESENT ILLNESS: This is an 82-year-old male with past medical history significant for hypertension, diabetes, dementia, and psychosis, who presents with altered mental status with increasing lethargy and acute kidney injury with electrolyte abnormalities. The patient also had been diagnosed with possible sepsis. Of note, the patient was noted to have dropped 2 g while hospitalized to become severely anemic with a hemoglobin of 6. The patient also noted to have elevation of the AST and ALT on laboratory. PAST MEDICAL HISTORY: As per HPI. PAST SURGICAL HISTORY: As per HPI. SOCIAL HISTORY: No recent tobacco, alcohol, or drugs. FAMILY HISTORY: Unable to obtain right now. MEDICATIONS: Please see medication reconciliation form. ALLERGIES: No known drug allergies. The patient has many food allergies. REVIEW OF SYSTEMS: Unable to obtain given the patient's mental status. PHYSICAL EXAMINATION: VITAL SIGNS: Temperature 97.2, pulse 93, respirations 19, blood pressure 125/69. GENERAL: No acute distress. CARDIOVASCULAR: Regular rhythm. HEENT: An NG tube is in place. ABDOMEN: Soft. LABORATORY DATA: White count 8.4, hemoglobin 6.4, platelets are 49. Sodium 153, BUN 73, creatinine 2.7. ASSESSMENT AND PLAN: An 82-year-old male with history of diabetes, hypertension, psychosis, dementia, with increasing lethargy and possible sepsis with severe anemia, elevated LFTs. Would recommend based on abdominal ultrasound to evaluate for evidence of chronic liver disease as the patient does have thrombocytopenia, as well as may be possible portal hypertension. The patient had a fecal occult blood sent. We will follow up on these results. Unclear if the patient has had any previous endoscopy or colonoscopy. We will check labs for other possible causes or abnormalities including hepatic panel, labs to rule out hepatitis. Thank you for this consult and allowing me to participate in care of this patient. JOB# [id number]
[2017-02-15 22:40] LABS: HEMATOCRIT 26.2 % (39.0-49.0); HEMOGLOBIN 8.8 gm/dL (12.6-17.4)
[2017-02-16] MEDS: Dextrose 5% 1,000 ML IV SCH ×3 (03:09→14:45)
--- NOTE | 2017-02-16 03:29 | Consultation ---
DATE OF CONSULTATION: 02/15/2017 IDENTIFYING INFORMATION: The patient is an 82 years old male. REASON FOR CONSULTATION: I was asked to see this patient who came in apparently with ___ shock dehydration, confused. The patient himself was unable to give any information. The patient apparently was very dehydrated according to the staff. He is not in a septic shock, unable to carry on a conversation; however, earlier today he was yelling and screaming. The patient, however, is calmer now, but unable to participate in a meaningful conversation with a history of dementia and psychosis. PAST PSYCHIATRIC HISTORY: Psychosis, dementia. The patient has a history of being on Risperdal. FAMILY AND SOCIAL HISTORY: Unobtainable. He came from a prison. MENTAL STATUS EXAMINATION: The patient was somewhat sedated, unable to participate in a meaningful conversation, open his eyes. The staff was taking care of him. He was in treatment earlier today, unable to test his memory, no auditory hallucination or having any problems. He is unable to test his memory, concentration, unable to answer questions about any suicide, homicide or hallucinations. His insight and judgment is impaired. IMPRESSION: AXIS I: Psychosis, not otherwise specified, history of dementia and psychosis. MEDICAL DIAGNOSES: Deferred to the medical doctors. Recommend to restart his Risperdal. He used to be on Risperdal, the staff report. He becomes agitated again and he is not doing well. However, for the time being, I do not see the need after talking to the staff and we are in agreement that we do need to put him on a regular basis as he is very dehydrated and not himself yet. Thank you very much for allowing me to participate in the care of this most interesting gentleman. He needs to follow up with the psychiatrist. Covering for Dr. Richardson. JOB# [id number]
[2017-02-16 05:01] LABS: MEAN CORPUSCULAR HEMOGLOBIN 32.2 pg (27.0-31.0); WHITE BLOOD COUNT 8.1 Th/cmm (4.8-10.8)
[2017-02-16 05:11] LABS: HEMATOCRIT 26.3 % (39.0-49.0); HEMOGLOBIN 8.7 gm/dL (12.6-17.4); INR 0.93 (0.5-1.4); MEAN CELL VOLUME 97.1 fl (80-99); MEAN CORPUSCULAR HGB CONC 33.2 pg (28.0-36.0); PLATELET COUNT 39 Th/cmm (150-400); PROTHROMBIN TIME (TEST) 9.7 SECONDS (9.5-11.5); RED BLOOD COUNT 2.71 Mil/cmm (3.80-5.80); RED CELL DISTRIBUTION WIDTH 16.8 % (11.5-20.0)
[2017-02-16 05:23] LABS: MEAN PLATELET VOLUME 8.4 fl
[2017-02-16 05:37] LABS: ALB/GLOB RATIO 1.2 (1.0-1.8); ALKALINE PHOSPHATASE 129 U/L (34-104); ANION GAP 9.1 (7.0-16.0); BILIRUBIN,TOTAL 0.7 mg/dL (0.3-1.0); BUN - UREA NITROGEN 67 mg/dL (7-25); BUN/CREATININE RATIO 23.1; CARBON DIOXIDE 21.9 mEq/L (21.0-31.0); CHLORIDE 125 mEq/L (98-107); CREATININE - SERUM 2.9 mg/dL (0.7-1.3); GLUCOSE 90 mg/dL (70-105); SGOT 193 U/L (13-39); SGPT/ALT 281 U/L (7-52); SODIUM SERUM 152 mEq/L (136-145)
[2017-02-16 06:06] LABS: TOTAL CELLS COUNTED 100
[2017-02-16 06:07] LABS: BAND NEUTROPHILE 3 % (0-10); EOSINOPHIL 5 % (0-5); NEUTROPHILS 80 % (40-80)
[2017-02-16 06:08] LABS: PLATELET ESTIMATE DECREASED PLATELETS (NORMAL)
[2017-02-16 07:11] LABS: MICROALBUMIN RANDOM RUINE 662.5 ug/mL (Not Estab.)
--- NOTE | 2017-02-16 08:00 | Diagnostic Imaging Report ---
Ultrasound abdomen HISTORY: Liver disease COMPARISON: None Technique: Sonography of the abdomen was performed in multiple planes. FINDINGS: The liver demonstrates normal echogenicity with no evidence of focal lesions. The liver measures 13.1 cm. No evidence of gallstones or gallbladder wall thickening. The common bile duct measures 6 mm. Small amount of free fluid is seen along the perihepatic region. There is a probable small right effusion. Evaluation of the pancreas is limited due to bowel gas. The right kidney measures 7.7 x 4.4 cm. Multiple Right renal cysts are noted the largest measuring 3.8 cm. No hydronephrosis. The left kidney measures 7.7 x 4.3 cm. 2 left renal cysts are noted largest measuring 1.7 cm. No hydronephrosis. The spleen measures 8.2 cm. IMPRESSION: No evidence of hepatomegaly or focal hepatic abnormalities. No evidence of gallstones. Small amount of fluid seen along the perihepatic region. There may also be a small right pleural effusion. Bilateral renal cysts. Slight decrease renal sizes are also noted. No evidence of hydronephrosis.
--- NOTE | 2017-02-16 08:01 | Diagnostic Imaging Report ---
Renal ultrasound HISTORY: Renal failure COMPARISON: None Technique: Sonography of the kidneys and urinary bladder was performed in multiple planes. FINDINGS: The right kidney measures 7.7 x 3.9 cm. 4 right renal cysts are noted the largest within the superior pole measuring 3.8 x 3.6 cm. No evidence of hydronephrosis. The left kidney measures 7.5 x 4.5 cm. 2 left inferior pole renal cysts are noted largest measuring 1.7 x 2 cm. No hydronephrosis. The urinary bladder is collapsed containing a Cash catheter, limiting its evaluation. IMPRESSION: Bilateral renal cysts. No evidence of hydronephrosis. Slightly decreased bilateral renal sizes.
--- NOTE | 2017-02-16 08:08 | Diagnostic Imaging Report ---
Head CT without intravenous contrast Indication: Altered mental status Comparison: None Technique: Axial images were obtained from the vertex to the skull base without IV contrast. Coronal reconstructions were made. Total DLP: [id number], [id number] FINDINGS: Images of the brain obtained without contrast demonstrate no evidence of an acute hemorrhage. Atrophy is noted. Moderate white matter disease is noted. The ventricles and basal cisterns are patent. No mass effect or midline shift. No evidence of a skull fracture or focal soft tissue swelling. Atherosclerosis is noted. The visualized paranasal sinuses are clear. IMPRESSION: No evidence of acute intracranial hemorrhage. Atrophy. Moderate supratentorial white matter disease which is nonspecific and may be due to chronic microvessel ischemia. Atherosclerotic vascular disease.
[2017-02-16] MEDS: Pantoprazole 40 mg/Packet PO SCH (08:22)
--- NOTE | 2017-02-16 08:28 | Diagnostic Imaging Report ---
CHEST X-RAY: AP view INDICATION: Infiltrates COMPARISON: 02/14/2017 FINDINGS: NG tube is seen visualized the stomach. COPD changes are seen with multifocal hazy infiltrates. Left apical pleural thickening is noted. Heart size is normal. Ectatic aorta is seen with atherosclerosis. IMPRESSION: COPD changes with multifocal hazy infiltrates. Ectatic aorta with atherosclerosis.
--- NOTE | 2017-02-16 14:26 | General Progress Note ---
Subjective - Review of Systems Events since last encounter: no distress Objective - Results Result Diagrams: 02/16/17 04:17 02/16/17 04:17 Recent Labs: Laboratory Last Values WBC 8.1 Th/cmm (4.8-10.8) 02/16/17 04:17 RBC 2.71 Mil/cmm (3.80-5.80) L 02/16/17 04:17 Hgb 8.7 gm/dL (12.6-17.4) L 02/16/17 04:17 Hct 26.3 % (39.0-49.0) L 02/16/17 04:17 MCV 97.1 fl (80-99) 02/16/17 04:17 MCH 32.2 pg (27.0-31.0) H 02/16/17 04:17 MCHC Differential 33.2 pg (28.0-36.0) 02/16/17 04:17 RDW 16.8 % (11.5-20.0) 02/16/17 04:17 Plt Count 39 Th/cmm (150-400) L D 02/16/17 04:17 MPV 8.4 fl 02/16/17 04:17 Band Neutrophils % 3 % (0-10) 02/16/17 04:17 Neutrophils (Manual) 80 % (40-80) 02/16/17 04:17 Lymphocytes 6 % (20-50) L 02/16/17 04:17 Monocytes 6 % (2-10) 02/16/17 04:17 Eosinophils 5 % (0-5) 02/16/17 04:17 Basophils 1 % (0-3) 02/14/17 13:23 Platelet Estimate DECREASED PLATELETS (NORMAL) 02/16/17 04:17 Platelet Morphology NORMAL (NORMAL) 02/15/17 06:30 Anisocytosis 1+ 02/15/17 06:30 RBC Morph Micro Appear ABNORMAL (NORMAL) 02/15/17 06:30 Eos Smear Source URINE 02/14/17 20:05 Eos Smear Total Cells NONE SEEN (NONE SEEN) 02/14/17 20:05 Plt Count 39 Th/cmm (150-750) L 02/16/17 04:17 PT 9.7 SECONDS (9.5-11.5) 02/16/17 04:17 INR 0.93 (0.5-1.4) 02/16/17 04:17 PTT (Actin FS) 35.1 SECONDS (26.0-38.0) 02/16/17 04:17 Fibrinogen 500.0 mg/dL (200.0-400.0) H 02/16/17 04:17 D-Dimer 745 ng/mL (100-400) H 02/16/17 04:17 Sodium 152 mEq/L (136-145) H 02/16/17 04:17 Potassium 4.0 mEq/L (3.5-5.1) 02/16/17 04:17 Chloride 125 mEq/L (98-107) H 02/16/17 04:17 Carbon Dioxide 21.9 mEq/L (21.0-31.0) 02/16/17 04:17 Anion Gap 9.1 (7.0-16.0) 02/16/17 04:17 BUN 67 mg/dL (7-25) H 02/16/17 04:17 Creatinine 2.9 mg/dL (0.7-1.3) H 02/16/17 04:17 Est GFR ( Amer) TNP 02/16/17 04:17 Est GFR (Non-Af Amer) TN 02/16/17 04:17 BUN/Creatinine Ratio 23.1 02/16/17 04:17 Glucose 90 mg/dL (70-105) 02/16/17 04:17 POC Glucose 204 MG/DL (70 - 105) H 02/14/17 14:56 Hemoglobin A1c % 5.9 % (4.0-6.0) 02/14/17 13:23 Whole Bld Lactic Acid 1.09 mmol/L (0.60-1.99) 02/14/17 13:23 Uric Acid 2.7 mg/dL (4.4-7.6) L 02/15/17 04:25 Calcium 8.0 mg/dL (8.6-10.3) L 02/16/17 04:17 Phosphorus 5.7 mg/dL (2.5-5.0) H 02/15/17 04:25 Magnesium 2.7 mg/dL (1.9-2.7) 02/15/17 04:25 Total Bilirubin 0.7 mg/dL (0.3-1.0) 02/16/17 04:17 AST 193 U/L (13-39) H 02/16/17 04:17 ALT 281 U/L (7-52) H 02/16/17 04:17 Alkaline Phosphatase 129 U/L (34-104) H 02/16/17 04:17 Ammonia 51 umol/L (16-53) 02/16/17 04:17 Lactate Dehydrogenase 210 U/L (140-271) 02/16/17 04:17 Total Protein 5.1 gm/dL (6.0-8.3) L 02/16/17 04:17 Albumin 2.8 gm/dL (4.2-5.5) L 02/16/17 04:17 Globulin 2.3 gm/dL 02/16/17 04:17 Albumin/Globulin Ratio 1.2 (1.0-1.8) 02/16/17 04:17 TSH 4.19 uIU/ml (0.34-5.60) 02/15/17 04:25 Urine Source CATH 02/14/17 14:10 Urine Color YELLOW 02/14/17 14:10 Urine Clarity CLEAR (CLEAR) 02/14/17 14:10 Urine pH 5.5 (4.6 - 8.0) 02/14/17 14:10 Ur Specific [place] 1.020 (1.005-1.030) 02/14/17 14:10 Urine Protein 100 mg/dL (NEGATIVE) H 02/14/17 14:10 Urine Glucose (UA) NEGATIVE mg/dL (NEGATIVE) 02/14/17 14:10 Urine Ketones NEGATIVE mg/dL (NEGATIVE) 02/14/17 14:10 Urine Blood MODERATE (NEGATIVE) H 02/14/17 14:10 Urine Nitrate NEGATIVE (NEGATIVE) 02/14/17 14:10 Urine Bilirubin NEGATIVE (NEGATIVE) 02/14/17 14:10 Urine Urobilinogen 0.2 E.U./dL (0.2 - 1.0) 02/14/17 14:10 Ur Leukocyte Esterase NEGATIVE (NEGATIVE) 02/14/17 14:10 Urine RBC 5-10 /hpf (0-5) H 02/14/17 14:10 Urine WBC 2-5 /hpf (0-5) H 02/14/17 14:10 Ur Epithelial Cells FEW /lpf (FEW) 02/14/17 14:10 Urine Bacteria FEW /hpf (NONE SEEN) 02/14/17 14:10 Ur Random Sodium 61 mmol/L 02/15/17 12:46 Urine Creatinine 93.0 mg/dl (39.0-259.0) 02/14/17 20:05 Urine Microalbumin 662.5 ug/mL (Not Estab.) 02/14/17 14:10 Microalb/Creat Ratio 851.5 mg/g creat (0.0-30.0) H 02/14/17 14:10 Stool Occult Blood POSITIVE (NEGATIVE) 02/15/17 18:35 Random Vancomycin 14.5 ug/mL (5.0-40.0) 02/16/17 04:17 Blood Type O POSITIVE 02/15/17 05:20 Antibody Screen NEGATIVE 02/15/17 05:20 Crossmatch See Detail 02/15/17 05:20 - Physical Exam Vitals and I&O: Vital Signs Temp 97.1 F 02/16/17 12:00 Pulse 72 02/16/17 13:00 Resp 19 02/16/17 13:00 BP 106/54 02/16/17 13:00 Pulse Ox 98 02/16/17 13:00 Intake & Output 02/15/17 02/16/17 02/16/17 18:59 06:59 18:59 Intake Total 1150 1700 1000 Output Total 750 Balance 6939 451 7025 Weight (lbs) 46.312 kg Intake: Intake, IV Amount 1150 1100 1000 Dextrose 5% 1,000 ml @ 1000 1000 1000 125 mls/hr IV .Q8H [facility] Rx #:[id number] Piperacillin Sodium/ 50 100 Tazobact 2.25 gm In Sodium Chloride 0.9% 50 ml @ 100 mls/hr IV Q8HR [facility] Rx#:[id number] Vancomycin HCl 500 mg In 100 Sodium Chloride 0.9% 100 ml @ 100 mls/hr IV 0900 [facility] Rx#:[id number] Oral 0 Blood Product 500 Other 100 Output: Urine 750 Other: # Bowel Movements 4 Stool Characteristics Soft Liquid Brown Active Medications: Current Medications Piperacillin Sod/Tazobactam (Sod 2.25 gm/ Sodium Chloride) 50 mls @ 100 mls/hr IV Q8HR [facility] Stop: 04/15/17 20:59 Last Admin: 02/16/17 13:47 Dose: 100 mls/hr Dextrose (D5w) 1,000 mls @ 125 mls/hr IV .Q8H [facility] Stop: 04/15/17 17:05 Last Admin: 02/16/17 11:10 Dose: 125 mls/hr Miscellaneous (Vancomycin Iv Per Pharmacy) 1 ea PRN PRN PRN Reason: PROTOCOL Stop: 04/15/17 15:55 Miscellaneous (Probiotic Screen) 1 ea PRN PRN PRN Reason: PROTOCOL Stop: 04/16/17 14:13 Pantoprazole Sodium (Protonix) 40 mg PO DAILY [facility] Stop: 04/16/17 13:44 Last Admin: 02/16/17 08:22 Dose: 40 mg Pneumococcal Polyvalent Vaccine (Pneumovax) 0.5 ml IM .ONCE ONE Stop: 02/18/17 18:24 General: No acute distress HEENT: Atraumatic, Mucous membr. moist/pink Neck: Supple, +2 carotid pulse wo bruit Cardiovascular: Regular rate, Normal S1, Normal S2 Lungs: Other (few rhonchi) Abdomen: Soft, Other (diminished BS) Extremities: no Edema Neurological: Sensation intact Skin: no Rash Psych/Mental Status: Mood NL - Procedures Procedures: Procedures Procedure Code Date BLOOD TRANSFUSION SERVICE 46912 02/14/17 TRANSFUSE NONAUT RED BLOOD CELLS IN PERIPH VEIN, [facility] 17746N9 02/14/17 Assessment/Plan - Problem List Patient Problems: All Active Problems WANDERS FROM FACILITY; ELOPEMENT RISK (Acute) Nutritional Asmnt/Malnutr-PDOC - Dietary Evaluation Malnutrition Findings (Please click <Entered> for more info): Nutritional Asmnt/Malnutrition Start: 02/16/17 13: 29 Text: Status: Complete Freq: Document 02/16/17 13:29 GSUN (Rec: 02/16/17 13:57 [email or web address] [email or web address]) Nutritional Asmnt/Malnutrition Patient General Information Nutritional Screening High Risk Screening Diagnosis Septic shock, severe dehydration, 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 RD consult for elevated BG. NPO since adm, day 2. Spoke to RN Valencia RN stated per family, pt noted with poor PO intake this past month. Pt was lethargic during visit, made eye contact , responded yes when asked if he was hungry. Limited physical assessment due to heavy blanket for low temp, observed moderate to severe muscle fat wasting to chest and clavicles, with BMI 16.5. RN ordered swallow eval, pending. Ngt in place, RN suggested enteral feeding if needed. Pt is edentulous with upper denture at bedside. Current Diet Order/ Nutrition Support NPO Pertinent Medications D5w, Vancomycin, Protonix Pertinent Labs 02/14: A1c 5.9 02/15: phosphorus 5.7H 02/16: BUN 67H, creatinine 2.9H , glucose 90 (trended down), AST 193H, alkaline phosphatase 129H, ALT 281H, calcium 8L Nutritional Hx/Data Height 1.68 m Height (Calculated Centimeters) 167.6 Current Weight (lbs) 46.312 kg Weight (Calculated Kilograms) 46.3 Weight (Calculated Grams) 95113.8 [place] Body Weight 142 Weight Status Underweight GI Symptoms Usual diet at home [place] [facility]: [facility] soft, finely chopped, thin liquid Skin Integrity/Comment: Dwight 10. Right eye scab. Estimated Nutritional Goals Calories/Kcals/Kg IBW 142lb/64.5kg Kcals Calculated 1613-1935kcal (25-30kcal/kg) Protein Calculated 52-66g (0.8-1g/kg, monitor renal vs underweight) Fluid: ml Per MD Nutritional Problem 2. Problem Problem Impaired nutrient utilization related to Etiology RUEL on CKD aeb Signs/Symptoms: 02/16: BUN 67H, creatinine 2.9H , calcium 8L. 02/15: phosphorus 5.7H 1. Problem Problem (possible) difficulty chewing/ swallowing related to Etiology likely lethargy aeb Signs/Symptoms: swallow eval pending Malnutrition Alert Body Fat Depletion (Severe) Mod to Severe Depletion Muscle Mass (Severe) Mod to Severe Depletion Intervention/Recommendation Comments 1. Recommend renal diet, dx RUEL on CKD, elevated BUN color tester phos. Diet texture per swallow eval (pending). Pt is edentulous with upper denture at bedside. 2. Recommend Novasource Renal TID, BMI 16.5 underweight, moderate to severe muscle fat wasting to chest and clavicles , family report poor PO intake for 1 month. 3. Ngt in place. If enteral nutrition suggested, recommend Novasource Renal 38ml/hr x 24hrs, providing 912ml total volume, 1824kcal, 83g protein. Expected Outcomes/Goals Expected Outcomes/Goals 1. Pt to resume oral diet and meet at least 75% of estimated nutritional needs.
--- NOTE | 2017-02-16 14:37 | General Progress Note ---
Subjective - Review of Systems Service Date: 02/16/17 Subjective: more awake, comfortable Objective - Results Result Diagrams: 02/16/17 04:17 02/16/17 04:17 Recent Labs: Laboratory Last Values WBC 8.1 Th/cmm (4.8-10.8) 02/16/17 04:17 RBC 2.71 Mil/cmm (3.80-5.80) L 02/16/17 04:17 Hgb 8.7 gm/dL (12.6-17.4) L 02/16/17 04:17 Hct 26.3 % (39.0-49.0) L 02/16/17 04:17 MCV 97.1 fl (80-99) 02/16/17 04:17 MCH 32.2 pg (27.0-31.0) H 02/16/17 04:17 MCHC Differential 33.2 pg (28.0-36.0) 02/16/17 04:17 RDW 16.8 % (11.5-20.0) 02/16/17 04:17 Plt Count 39 Th/cmm (150-400) L D 02/16/17 04:17 MPV 8.4 fl 02/16/17 04:17 Band Neutrophils % 3 % (0-10) 02/16/17 04:17 Neutrophils (Manual) 80 % (40-80) 02/16/17 04:17 Lymphocytes 6 % (20-50) L 02/16/17 04:17 Monocytes 6 % (2-10) 02/16/17 04:17 Eosinophils 5 % (0-5) 02/16/17 04:17 Basophils 1 % (0-3) 02/14/17 13:23 Platelet Estimate DECREASED PLATELETS (NORMAL) 02/16/17 04:17 Platelet Morphology NORMAL (NORMAL) 02/15/17 06:30 Anisocytosis 1+ 02/15/17 06:30 RBC Morph Micro Appear ABNORMAL (NORMAL) 02/15/17 06:30 Eos Smear Source URINE 02/14/17 20:05 Eos Smear Total Cells NONE SEEN (NONE SEEN) 02/14/17 20:05 Plt Count 39 Th/cmm (150-750) L 02/16/17 04:17 PT 9.7 SECONDS (9.5-11.5) 02/16/17 04:17 INR 0.93 (0.5-1.4) 02/16/17 04:17 PTT (Actin FS) 35.1 SECONDS (26.0-38.0) 02/16/17 04:17 Fibrinogen 500.0 mg/dL (200.0-400.0) H 02/16/17 04:17 D-Dimer 745 ng/mL (100-400) H 02/16/17 04:17 Sodium 152 mEq/L (136-145) H 02/16/17 04:17 Potassium 4.0 mEq/L (3.5-5.1) 02/16/17 04:17 Chloride 125 mEq/L (98-107) H 02/16/17 04:17 Carbon Dioxide 21.9 mEq/L (21.0-31.0) 02/16/17 04:17 Anion Gap 9.1 (7.0-16.0) 02/16/17 04:17 BUN 67 mg/dL (7-25) H 02/16/17 04:17 Creatinine 2.9 mg/dL (0.7-1.3) H 02/16/17 04:17 Est GFR ( Amer) TNP 02/16/17 04:17 Est GFR (Non-Af Amer) TNP 02/16/17 04:17 BUN/Creatinine Ratio 23.1 02/16/17 04:17 Glucose 90 mg/dL (70-105) 02/16/17 04:17 POC Glucose 204 MG/DL (70 - 105) H 02/14/17 14:56 Hemoglobin A1c % 5.9 % (4.0-6.0) 02/14/17 13:23 Whole Bld Lactic Acid 1.09 mmol/L (0.60-1.99) 02/14/17 13:23 Uric Acid 2.7 mg/dL (4.4-7.6) L 02/15/17 04:25 Calcium 8.0 mg/dL (8.6-10.3) L 02/16/17 04:17 Phosphorus 5.7 mg/dL (2.5-5.0) H 02/15/17 04:25 Magnesium 2.7 mg/dL (1.9-2.7) 02/15/17 04:25 Total Bilirubin 0.7 mg/dL (0.3-1.0) 02/16/17 04:17 AST 193 U/L (13-39) H 02/16/17 04:17 ALT 281 U/L (7-52) H 02/16/17 04:17 Alkaline Phosphatase 129 U/L (34-104) H 02/16/17 04:17 Ammonia 51 umol/L (16-53) 02/16/17 04:17 Lactate Dehydrogenase 210 U/L (140-271) 02/16/17 04:17 Total Protein 5.1 gm/dL (6.0-8.3) L 02/16/17 04:17 Albumin 2.8 gm/dL (4.2-5.5) L 02/16/17 04:17 Globulin 2.3 gm/dL 02/16/17 04:17 Albumin/Globulin Ratio 1.2 (1.0-1.8) 02/16/17 04:17 TSH 4.19 uIU/ml (0.34-5.60) 02/15/17 04:25 Urine Source CATH 02/14/17 14:10 Urine Color YELLOW 02/14/17 14:10 Urine Clarity CLEAR (CLEAR) 02/14/17 14:10 Urine pH 5.5 (4.6 - 8.0) 02/14/17 14:10 Ur Specific [place] 1.020 (1.005-1.030) 02/14/17 14:10 Urine Protein 100 mg/dL (NEGATIVE) H 02/14/17 14:10 Urine Glucose (UA) NEGATIVE mg/dL (NEGATIVE) 02/14/17 14:10 Urine Ketones NEGATIVE mg/dL (NEGATIVE) 02/14/17 14:10 Urine Blood MODERATE (NEGATIVE) H 02/14/17 14:10 Urine Nitrate NEGATIVE (NEGATIVE) 02/14/17 14:10 Urine Bilirubin NEGATIVE (NEGATIVE) 02/14/17 14:10 Urine Urobilinogen 0.2 E.U./dL (0.2 - 1.0) 02/14/17 14:10 Ur Leukocyte Esterase NEGATIVE (NEGATIVE) 02/14/17 14:10 Urine RBC 5-10 /hpf (0-5) H 02/14/17 14:10 Urine WBC 2-5 /hpf (0-5) H 02/14/17 14:10 Ur Epithelial Cells FEW /lpf (FEW) 02/14/17 14:10 Urine Bacteria FEW /hpf (NONE SEEN) 02/14/17 14:10 Ur Random Sodium 61 mmol/L 02/15/17 12:46 Urine Creatinine 93.0 mg/dl (39.0-259.0) 02/14/17 20:05 Urine Microalbumin 662.5 ug/mL (Not Estab.) 02/14/17 14:10 Microalb/Creat Ratio 851.5 mg/g creat (0.0-30.0) H 02/14/17 14:10 Stool Occult Blood POSITIVE (NEGATIVE) 02/15/17 18:35 Random Vancomycin 14.5 ug/mL (5.0-40.0) 02/16/17 04:17 Blood Type O POSITIVE 02/15/17 05:20 Antibody Screen NEGATIVE 02/15/17 05:20 Crossmatch See Detail 02/15/17 05:20 - Physical Exam Vitals and I&O: Vital Signs Temp 97.1 F 02/16/17 12:00 Pulse 72 02/16/17 13:00 Resp 19 02/16/17 13:00 BP 106/54 02/16/17 13:00 Pulse Ox 98 02/16/17 13:00 Intake & Output 02/15/17 02/16/17 02/16/17 18:59 06:59 18:59 Intake Total 1150 1700 1000 Output Total 750 Balance 5243 398 5389 Weight (lbs) 46.312 kg Intake: Intake, IV Amount 1150 1100 1000 Dextrose 5% 1,000 ml @ 1000 1000 1000 125 mls/hr IV .Q8H [facility] Rx #:[id number] Piperacillin Sodium/ 50 100 Tazobact 2.25 gm In Sodium Chloride 0.9% 50 ml @ 100 mls/hr IV Q8HR [facility] Rx#:[id number] Vancomycin HCl 500 mg In 100 Sodium Chloride 0.9% 100 ml @ 100 mls/hr IV 0900 [facility] Rx#:[id number] Oral 0 Blood Product 500 Other 100 Output: Urine 750 Other: # Bowel Movements 4 Stool Characteristics Soft Liquid Brown Active Medications: Current Medications Piperacillin Sod/Tazobactam (Sod 2.25 gm/ Sodium Chloride) 50 mls @ 100 mls/hr IV Q8HR [facility] Stop: 04/15/17 20:59 Last Admin: 02/16/17 13:47 Dose: 100 mls/hr Dextrose (D5w) 1,000 mls @ 125 mls/hr IV .Q8H [facility] Stop: 04/15/17 17:05 Last Admin: 02/16/17 11:10 Dose: 125 mls/hr Miscellaneous (Vancomycin Iv Per Pharmacy) 1 ea PRN PRN PRN Reason: PROTOCOL Stop: 04/15/17 15:55 Miscellaneous (Probiotic Screen) 1 ea PRN PRN PRN Reason: PROTOCOL Stop: 04/16/17 14:13 Pantoprazole Sodium (Protonix) 40 mg PO DAILY [facility] Stop: 04/16/17 13:44 Last Admin: 02/16/17 08:22 Dose: 40 mg Pneumococcal Polyvalent Vaccine (Pneumovax) 0.5 ml IM .ONCE ONE Stop: 02/18/17 18:24 General: No acute distress HEENT: Atraumatic, Mucous membr. moist/pink Neck: Supple, +2 carotid pulse wo bruit Cardiovascular: Regular rate, Normal S1, Normal S2 Lungs: Other (few rhonchi) Abdomen: Soft, Other (diminished BS) Extremities: no Edema Neurological: Sensation intact Skin: no Rash Psych/Mental Status: Mood NL - Procedures Procedures: Procedures Procedure Code Date BLOOD TRANSFUSION SERVICE 43634 02/14/17 TRANSFUSE NONAUT RED BLOOD CELLS IN PERIPH VEIN, [facility] [id number] 02/14/17 Assessment/Plan - Problem List Patient Problems: All Active Problems WANDERS FROM FACILITY; ELOPEMENT RISK (Acute) - Assessment Assessment: RUEL on CKD Hypothermic NG Hyperchloremic Met Acid Hypernatremia Type 2 DM Hepatic Enceph Anemia acute on ckd Acute liver failure Hyperkalemia 2nd RUEL, DM, losartan bicytopenia - Plan Plan: Lab - Result Diagrams 02/16/17 04:17 02/16/17 04:17 Lab - Result Diagrams 02/16/17 04:17 02/16/17 04:17 Current Medications Piperacillin Sod/Tazobactam (Sod 2.25 gm/ Sodium Chloride) 50 mls @ 100 mls/hr IV Q8HR [facility] Stop: 04/15/17 20:59 Last Infusion: 02/15/17 05:15 Dose: Infused Dextrose (D5w) 1,000 mls @ 125 mls/hr IV .Q8H [facility] Stop: 04/15/17 17:05 Last Admin: 02/15/17 04:44 Dose: 125 mls/hr Miscellaneous (Vancomycin Iv Per Pharmacy) 1 ea MC PRN PRN PRN Reason: PROTOCOL Stop: 04/15/17 15:55 Pneumococcal Polyvalent Vaccine (Pneumovax) 0.5 ml IM .ONCE ONE Stop: 02/15/17 17:34 Na down to 152, continue D5W acute anemia possible slow GI bleed (stool OB +) BUN/CR down to 67/2.9 Hgb/Hct up to 8.7/26.3 F/u renal/abd US, CXR, stool OB, electrolytes, cbc, NH3 level Nutritional Asmnt/Malnutr-PDOC - Dietary Evaluation Malnutrition Findings (Please click <Entered> for more info): Nutritional Asmnt/Malnutrition Start: 02/16/17 13: 29 Text: Status: Complete Freq: Document 02/16/17 13:29 GSUN (Rec: 02/16/17 13:57 [email or web address] [email or web address]) Nutritional Asmnt/Malnutrition Patient General Information Nutritional Screening High Risk Screening Diagnosis Septic shock, severe dehydration, 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 RD consult for elevated BG. NPO since adm, day 2. Spoke to RN Valencia RN stated per family, pt noted with poor PO intake this past month. Pt was lethargic during visit, made eye contact , responded yes when asked if he was hungry. Limited physical assessment due to heavy blanket for low temp, observed moderate to severe muscle fat wasting to chest and clavicles, with BMI 16.5. RN ordered swallow eval, pending. Ngt in place, RN suggested enteral feeding if needed. Pt is edentulous with upper denture at bedside. Current Diet Order/ Nutrition Support NPO Pertinent Medications D5w, Vancomycin, Protonix Pertinent Labs 02/14: A1c 5.9 02/15: phosphorus 5.7H 02/16: BUN 67H, creatinine 2.9H , glucose 90 (trended down), AST 193H, alkaline phosphatase 129H, ALT 281H, calcium 8L Nutritional Hx/Data Height 1.68 m Height (Calculated Centimeters) 167.6 Current Weight (lbs) 46.312 kg Weight (Calculated Kilograms) 46.3 Weight (Calculated Grams) 29455.8 [place] Body Weight 142 Weight Status Underweight GI Symptoms Usual diet at home [place] [facility]F: [facility] soft, finely chopped, thin liquid Skin Integrity/Comment: Dwight 10. Right eye scab. Estimated Nutritional Goals Calories/Kcals/Kg IBW 142lb/64.5kg Kcals Calculated 1613-1935kcal (25-30kcal/kg) Protein Calculated 52-66g (0.8-1g/kg, monitor renal vs underweight) Fluid: ml Per MD Nutritional Problem 2. Problem Problem Impaired nutrient utilization related to Etiology RUEL on CKD aeb Signs/Symptoms: 02/16: BUN 67H, creatinine 2.9H , calcium 8L. 02/15: phosphorus 5.7H 1. Problem Problem (possible) difficulty chewing/ swallowing related to Etiology likely lethargy aeb Signs/Symptoms: swallow eval pending Malnutrition Alert Body Fat Depletion (Severe) Mod to Severe Depletion Muscle Mass (Severe) Mod to Severe Depletion Intervention/Recommendation Comments 1. 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 Diet texture per swallow eval (pending). Pt is edentulous with upper denture at bedside. 2. Recommend Novasource Renal TID, BMI 16.5 underweight, moderate to severe muscle fat wasting to chest and clavicles , family report poor PO intake for 1 month. 3[address] Ngt in place. If enteral nutrition suggested, recommend Novasource Renal 38ml/hr x 24hrs, providing 912ml total volume, 1824kcal, 83g protein. Expected Outcomes/Goals Expected Outcomes/Goals 1. Pt to resume oral diet and meet at least 75% of estimated nutritional needs.
--- NOTE | 2017-02-16 15:27 | Infectious Disease Prog Note ---
Infectious Disease Subjective - Review of Systems Service Date: 02/16/17 Events since last encounter: None. Subjective: Unresponsive. Barely opens his eyes. Hypothermic. On the warming blanket. Infectious Disease Objective - Results Result Diagrams: 02/16/17 04:17 02/16/17 04:17 Recent Labs: Laboratory Last Values WBC 8.1 Th/cmm (4.8-10.8) 02/16/17 04:17 RBC 2.71 Mil/cmm (3.80-5.80) L 02/16/17 04:17 Hgb 8.7 gm/dL (12.6-17.4) L 02/16/17 04:17 Hct 26.3 % (39.0-49.0) L 02/16/17 04:17 MCV 97.1 fl (80-99) 02/16/17 04:17 MCH 32.2 pg (27.0-31.0) H 02/16/17 04:17 MCHC Differential 33.2 pg (28.0-36.0) 02/16/17 04:17 RDW 16.8 % (11.5-20.0) 02/16/17 04:17 Plt Count 39 Th/cmm (150-400) L D 02/16/17 04:17 MPV 8.4 fl 02/16/17 04:17 Band Neutrophils % 3 % (0-10) 02/16/17 04:17 Neutrophils (Manual) 80 % (40-80) 02/16/17 04:17 Lymphocytes 6 % (20-50) L 02/16/17 04:17 Monocytes 6 % (2-10) 02/16/17 04:17 Eosinophils 5 % (0-5) 02/16/17 04:17 Basophils 1 % (0-3) 02/14/17 13:23 Platelet Estimate DECREASED PLATELETS (NORMAL) 02/16/17 04:17 Platelet Morphology NORMAL (NORMAL) 02/15/17 06:30 Anisocytosis 1+ 02/15/17 06:30 RBC Morph Micro Appear ABNORMAL (NORMAL) 02/15/17 06:30 Eos Smear Source URINE 02/14/17 20:05 Eos Smear Total Cells NONE SEEN (NONE SEEN) 02/14/17 20:05 Plt Count 39 Th/cmm (150-750) L 02/16/17 04:17 PT 9.7 SECONDS (9.5-11.5) 02/16/17 04:17 INR 0.93 (0.5-1.4) 02/16/17 04:17 PTT (Actin FS) 35.1 SECONDS (26.0-38.0) 02/16/17 04:17 Fibrinogen 500.0 mg/dL (200.0-400.0) H 02/16/17 04:17 D-Dimer 745 ng/mL (100-400) H 02/16/17 04:17 Sodium 152 mEq/L (136-145) H 02/16/17 04:17 Potassium 4.0 mEq/L (3.5-5.1) 02/16/17 04:17 Chloride 125 mEq/L (98-107) H 02/16/17 04:17 Carbon Dioxide 21.9 mEq/L (21.0-31.0) 02/16/17 04:17 Anion Gap 9.1 (7.0-16.0) 02/16/17 04:17 BUN 67 mg/dL (7-25) H 02/16/17 04:17 Creatinine 2.9 mg/dL (0.7-1.3) H 02/16/17 04:17 Est GFR ( Amer) TNP 02/16/17 04:17 Est GFR (Non-Af Amer) TNP 02/16/17 04:17 BUN/Creatinine Ratio 23.1 02/16/17 04:17 Glucose 90 mg/dL (70-105) 02/16/17 04:17 POC Glucose 204 MG/DL (70 - 105) H 02/14/17 14:56 Hemoglobin A1c % 5.9 % (4.0-6.0) 02/14/17 13:23 Whole Bld Lactic Acid 1.09 mmol/L (0.60-1.99) 02/14/17 13:23 Uric Acid 2.7 mg/dL (4.4-7.6) L 02/15/17 04:25 Calcium 8.0 mg/dL (8.6-10.3) L 02/16/17 04:17 Phosphorus 5.7 mg/dL (2.5-5.0) H 02/15/17 04:25 Magnesium 2.7 mg/dL (1.9-2.7) 02/15/17 04:25 Total Bilirubin 0.7 mg/dL (0.3-1.0) 02/16/17 04:17 AST 193 U/L (13-39) H 02/16/17 04:17 ALT 281 U/L (7-52) H 02/16/17 04:17 Alkaline Phosphatase 129 U/L (34-104) H 02/16/17 04:17 Ammonia 51 umol/L (16-53) 02/16/17 04:17 Lactate Dehydrogenase 210 U/L (140-271) 02/16/17 04:17 Total Protein 5.1 gm/dL (6.0-8.3) L 02/16/17 04:17 Albumin 2.8 gm/dL (4.2-5.5) L 02/16/17 04:17 Globulin 2.3 gm/dL 02/16/17 04:17 Albumin/Globulin Ratio 1.2 (1.0-1.8) 02/16/17 04:17 TSH 4.19 uIU/ml (0.34-5.60) 02/15/17 04:25 Urine Source CATH 02/14/17 14:10 Urine Color YELLOW 02/14/17 14:10 Urine Clarity CLEAR (CLEAR) 02/14/17 14:10 Urine pH 5.5 (4.6 - 8.0) 02/14/17 14:10 Ur Specific [place] 1.020 (1.005-1.030) 02/14/17 14:10 Urine Protein 100 mg/dL (NEGATIVE) H 02/14/17 14:10 Urine Glucose (UA) NEGATIVE mg/dL (NEGATIVE) 02/14/17 14:10 Urine Ketones NEGATIVE mg/dL (NEGATIVE) 02/14/17 14:10 Urine Blood MODERATE (NEGATIVE) H 02/14/17 14:10 Urine Nitrate NEGATIVE (NEGATIVE) 02/14/17 14:10 Urine Bilirubin NEGATIVE (NEGATIVE) 02/14/17 14:10 Urine Urobilinogen 0.2 E.U./dL (0.2 - 1.0) 02/14/17 14:10 Ur Leukocyte Esterase NEGATIVE (NEGATIVE) 02/14/17 14:10 Urine RBC 5-10 /hpf (0-5) H 02/14/17 14:10 Urine WBC 2-5 /hpf (0-5) H 02/14/17 14:10 Ur Epithelial Cells FEW /lpf (FEW) 02/14/17 14:10 Urine Bacteria FEW /hpf (NONE SEEN) 02/14/17 14:10 Ur Random Sodium 61 mmol/L 02/15/17 12:46 Urine Creatinine 93.0 mg/dl (39.0-259.0) 02/14/17 20:05 Urine Microalbumin 662.5 ug/mL (Not Estab.) 02/14/17 14:10 Microalb/Creat Ratio 851.5 mg/g creat (0.0-30.0) H 02/14/17 14:10 Stool Occult Blood POSITIVE (NEGATIVE) 02/15/17 18:35 Random Vancomycin 14.5 ug/mL (5.0-40.0) 02/16/17 04:17 Blood Type O POSITIVE 02/15/17 05:20 Antibody Screen NEGATIVE 02/15/17 05:20 Crossmatch See Detail 02/15/17 05:20 - Physical Exam Vitals and I&O: Vital Signs Temp 97.1 F 02/16/17 12:00 Pulse 87 02/16/17 15:00 Resp 23 02/16/17 15:00 BP 120/55 02/16/17 15:00 Pulse Ox 97 02/16/17 15:00 Intake & Output 02/15/17 02/16/17 02/16/17 18:59 06:59 18:59 Intake Total 1150 1700 1050 Output Total 750 Balance 7142 858 0206 Weight (lbs) 46.312 kg Intake: Intake, IV Amount 1150 1100 1050 Dextrose 5% 1,000 ml @ 1000 1000 1000 125 mls/hr IV .Q8H [facility] Rx #:[id number] Piperacillin Sodium/ 50 100 50 Tazobact 2.25 gm In Sodium Chloride 0.9% 50 ml @ 100 mls/hr IV Q8HR [facility] Rx#:[id number] Vancomycin HCl 500 mg In 100 Sodium Chloride 0.9% 100 ml @ 100 mls/hr IV 0900 [facility] Rx#:[id number] Oral 0 Blood Product 500 Other 100 Output: Urine 750 Other: # Bowel Movements 4 Stool Characteristics Soft Liquid Brown Active Medications: Current Medications Piperacillin Sod/Tazobactam (Sod 2.25 gm/ Sodium Chloride) 50 mls @ 100 mls/hr IV Q8HR [facility] Stop: 04/15/17 20:59 Last Infusion: 02/16/17 14:20 Dose: Infused Dextrose (D5w) 1,000 mls @ 75 mls/hr IV .[id number] [facility] Stop: 04/15/17 17:05 Miscellaneous (Vancomycin Iv Per Pharmacy) 1 [facility] PRN PRN PRN Reason: PROTOCOL Stop: 04/15/17 15:55 Miscellaneous (Probiotic Screen) 1 [facility] PRN PRN PRN Reason: PROTOCOL Stop: 04/16/17 14:13 Pantoprazole Sodium (Protonix) 40 mg PO DAILY [facility] Stop: 04/16/17 13:44 Last Admin: 02/16/17 08:22 Dose: 40 mg Pneumococcal Polyvalent Vaccine (Pneumovax) 0.5 ml IM .ONCE ONE Stop: 02/18/17 18:24 General: no acute distress, cachectic HEENT: atraumatic, normocephalic, PERRLA, EOMI, moist mucous membrane Neck: supple, no thyromegaly Cardiovascular: S1S2, regular Lungs: clear to auscultation bilaterally, clear to percussion, crackles Abdomen: soft, bowel sounds, no tender, no distended, no hepatomegaly Extremities: no cyanosis, no clubbing, no edema Neurological: awake, other (unresponsive. responds verbally.) - Procedures Procedures: Procedures Procedure Code Date BLOOD TRANSFUSION SERVICE 68498 02/14/17 TRANSFUSE NONAUT RED BLOOD CELLS IN PERIPH VEIN, PERC 33629F5 02/14/17 Infectious Disease Assmt/Plan - Problem List Patient Problems: All Active Problems WANDERS FROM FACILITY; ELOPEMENT RISK (Acute) - Assessment Assessment: 1. Hypothermia suspect sepsis. 2. Dementia. 3. Hypertension. 4. Hyperlipidemia. 5. Protein calorie malnutrition. 6. CKD. - Plan Plan: Continue Zosyn and vancomycin. Nutritional Asmnt/Malnutr-PDOC - Dietary Evaluation Malnutrition Findings (Please click <Entered> for more info): Nutritional Asmnt/Malnutrition Start: 02/16/17 13: 29 Text: Status: Complete Freq: Document 02/16/17 13:29 GSUN (Rec: 02/16/17 13:57 [facility]UN [facility]) Nutritional Asmnt/Malnutrition Patient General Information Nutritional Screening High Risk Screening Diagnosis Septic shock, severe dehydration, 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 RD consult for elevated BG. NPO since adm, day 2. Spoke to RN Valencia, RN stated per family, pt noted with poor PO intake this past month. Pt was lethargic during visit, made eye contact , responded yes when asked if he was hungry. Limited physical assessment due to heavy blanket for low temp, observed moderate to severe muscle fat wasting to chest and clavicles, with BMI 16.5. RN ordered swallow eval, pending. Ngt in place, RN suggested enteral feeding if needed. Pt is edentulous with upper denture at bedside. Current Diet Order/ Nutrition Support NPO Pertinent Medications D5w, Vancomycin, Protonix Pertinent Labs 02/14: A1c 5.9 02/15: phosphorus 5.7H 02/16: BUN 67H, creatinine 2.9H , glucose 90 (trended down), AST 193H, alkaline phosphatase 129H, ALT 281H, calcium 8L Nutritional Hx/Data Height 1.68 m Height (Calculated Centimeters) 167.6 Current Weight (lbs) 46.312 kg Weight (Calculated Kilograms) 46.3 Weight (Calculated Grams) 65562.8 [place] Body Weight 142 Weight Status Underweight GI Symptoms Usual diet at home [facility]: [facility] soft, finely chopped, thin liquid Skin Integrity/Comment: Dwight 10. Right eye scab. Estimated Nutritional Goals Calories/Kcals/Kg IBW 142lb/64.5kg Kcals Calculated 1613-1935kcal (25-30kcal/kg) Protein Calculated 52-66g (0.8-1g/kg, monitor renal vs underweight) Fluid: ml Per MD Nutritional Problem 2. Problem Problem Impaired nutrient utilization related to Etiology RUEL on CKD aeb Signs/Symptoms: 02/16: BUN 67H, creatinine 2.9H , calcium 8L. 02/15: phosphorus 5.7H 1. Problem Problem (possible) difficulty chewing/ swallowing related to Etiology likely lethargy aeb Signs/Symptoms: swallow eval pending Malnutrition Alert Body Fat Depletion (Severe) Mod to Severe Depletion Muscle Mass (Severe) Mod to Severe Depletion Intervention/Recommendation Comments 1. 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 Diet texture per swallow eval (pending). Pt is edentulous with upper denture at bedside. 2. Recommend Novasource Renal TID, BMI 16.5 underweight, moderate to severe muscle fat wasting to chest and clavicles , family report poor PO intake for 1 month. 3. Ngt in place. If enteral nutrition suggested, recommend Novasource Renal 38ml/hr x 24hrs, providing 912ml total volume, 1824kcal, 83g protein. Expected Outcomes/Goals Expected Outcomes/Goals 1. Pt to resume oral diet and meet at least 75% of estimated nutritional needs.
[2017-02-16 20:17] LABS: HEMATOCRIT 24.7 % (39.0-49.0); HEMOGLOBIN 8.4 gm/dL (12.6-17.4); MEAN CELL VOLUME 97.1 fl (80-99); MEAN CORPUSCULAR HEMOGLOBIN 32.8 pg (27.0-31.0); MEAN CORPUSCULAR HGB CONC 33.8 pg (28.0-36.0); MEAN PLATELET VOLUME 7.6 fl; RED BLOOD COUNT 2.55 Mil/cmm (3.80-5.80); RED CELL DISTRIBUTION WIDTH 16.1 % (11.5-20.0); WHITE BLOOD COUNT 7.8 Th/cmm (4.8-10.8)
[2017-02-16 20:20] LABS: PLATELET COUNT 122 Th/cmm (150-400)
[2017-02-16 22:21] LABS: BAND NEUTROPHILE 5 % (0-10); EOSINOPHIL 2 % (0-5); NEUTROPHILS 80 % (40-80); PLATELET ESTIMATE ADEQUATE (NORMAL); TOTAL CELLS COUNTED 100
--- NOTE | 2017-02-17 03:03 | Consultation ---
DATE OF CONSULTATION: 02/16/2017 Case was discussed with staff of the patient, reviewed records. The staff reports the patient is more alert today. He can talk, but he is a little bit sleepy. He is not on any psychotropic medications. I would prefer not to give him any psychotropic medication until he is full awake and we can see how he is behaving. He apparently has abnormal serum electrolytes. He is dehydrated very badly. The staff has to take care of his ADLs. Thank you very much for allowing me to participate in the care of this most interesting gentleman. JOB# [id number]
[2017-02-17 06:04] LABS: HEMATOCRIT 24.1 % (39.0-49.0); HEMOGLOBIN 8.2 gm/dL (12.6-17.4); MEAN CELL VOLUME 96.7 fl (80-99); MEAN CORPUSCULAR HEMOGLOBIN 32.8 pg (27.0-31.0); MEAN CORPUSCULAR HGB CONC 33.9 pg (28.0-36.0); MEAN PLATELET VOLUME 8.5 fl; PLATELET COUNT 107 Th/cmm (150-400); RED CELL DISTRIBUTION WIDTH 16.1 % (11.5-20.0); WHITE BLOOD COUNT 6.4 Th/cmm (4.8-10.8)
[2017-02-17 06:05] LABS: NEUTROPHILS 77 % (40-80); TOTAL CELLS COUNTED 100
[2017-02-17 06:06] LABS: EOSINOPHIL 7 % (0-5)
[2017-02-17 06:07] LABS: BAND NEUTROPHILE 2 % (0-10)
[2017-02-17 06:47] LABS: SODIUM SERUM 147 mEq/L (136-145)
[2017-02-17 06:48] LABS: ANION GAP 8.8 (7.0-16.0); BUN - UREA NITROGEN 63 mg/dL (7-25); BUN/CREATININE RATIO 20.3; CALCIUM SERUM 8.1 mg/dL (8.6-10.3); CHLORIDE 120 mEq/L (98-107); CREATININE - SERUM 3.1 mg/dL (0.7-1.3); GLUCOSE 85 mg/dL (70-105); POTASSIUM SERUM 3.8 mEq/L (3.5-5.1)
[2017-02-17] MEDS: Pantoprazole 40 mg/Packet PO SCH (09:03)
[2017-02-17 11:10] LABS: HEP B CORE IGM Negative (Negative); HEP C ANTIBODY <0.1 s/co ratio (0.0-0.9)
--- NOTE | 2017-02-17 12:39 | Infectious Disease Prog Note ---
Infectious Disease Subjective - Review of Systems Service Date: 02/17/17 Subjective: doing better, no fever. Infectious Disease Objective - Results Result Diagrams: 02/17/17 04:45 02/17/17 04:45 Recent Labs: Laboratory Last Values WBC 6.4 Th/cmm (4.8-10.8) 02/17/17 04:45 RBC 2.50 Mil/cmm (3.80-5.80) L 02/17/17 04:45 Hgb 8.2 gm/dL (12.6-17.4) L 02/17/17 04:45 Hct 24.1 % (39.0-49.0) L 02/17/17 04:45 MCV 96.7 fl (80-99) 02/17/17 04:45 MCH 32.8 pg (27.0-31.0) H 02/17/17 04:45 MCHC Differential 33.9 pg (28.0-36.0) 02/17/17 04:45 RDW 16.1 % (11.5-20.0) 02/17/17 04:45 Plt Count 107 Th/cmm (150-400) L 02/17/17 04:45 MPV 8.5 fl 02/17/17 04:45 Band Neutrophils % 2 % (0-10) 02/17/17 04:45 Neutrophils (Manual) 77 % (40-80) 02/17/17 04:45 Lymphocytes 9 % (20-50) L 02/17/17 04:45 Monocytes 5 % (2-10) 02/17/17 04:45 Eosinophils 7 % (0-5) H 02/17/17 04:45 Basophils 1 % (0-3) 02/14/17 13:23 Platelet Estimate ADEQUATE (NORMAL) 02/16/17 20:05 Platelet Morphology NORMAL (NORMAL) 02/15/17 06:30 Anisocytosis 1+ 02/15/17 06:30 RBC Morph Micro Appear ABNORMAL (NORMAL) 02/15/17 06:30 Eos Smear Source URINE 02/14/17 20:05 Eos Smear Total Cells NONE SEEN (NONE SEEN) 02/14/17 20:05 Plt Count 39 Th/cmm (150-750) L 02/16/17 04:17 PT 9.7 SECONDS (9.5-11.5) 02/16/17 04:17 INR 0.93 (0.5-1.4) 02/16/17 04:17 PTT (Actin FS) 35.1 SECONDS (26.0-38.0) 02/16/17 04:17 Fibrinogen 500.0 mg/dL (200.0-400.0) H 02/16/17 04:17 D-Dimer 745 ng/mL (100-400) H 02/16/17 04:17 Sodium 147 mEq/L (136-145) H 02/17/17 04:45 Potassium 3.8 mEq/L (3.5-5.1) 02/17/17 04:45 Chloride 120 mEq/L (98-107) H 02/17/17 04:45 Carbon Dioxide 22.0 mEq/L (21.0-31.0) 02/17/17 04:45 Anion Gap 8.8 (7.0-16.0) 02/17/17 04:45 BUN 63 mg/dL (7-25) H 02/17/17 04:45 Creatinine 3.1 mg/dL (0.7-1.3) H 02/17/17 04:45 Est GFR ( Amer) TNP 02/17/17 04:45 Est GFR (Non-Af Amer) TNP 02/17/17 04:45 BUN/Creatinine Ratio 20.3 02/17/17 04:45 Glucose 85 mg/dL (70-105) 02/17/17 04:45 POC Glucose 204 MG/DL (70 - 105) H 02/14/17 14:56 Hemoglobin A1c % 5.9 % (4.0-6.0) 02/14/17 13:23 Whole Bld Lactic Acid 1.09 mmol/L (0.60-1.99) 02/14/17 13:23 Uric Acid 2.7 mg/dL (4.4-7.6) L 02/15/17 04:25 Calcium 8.1 mg/dL (8.6-10.3) L 02/17/17 04:45 Phosphorus 5.7 mg/dL (2.5-5.0) H 02/15/17 04:25 Magnesium 2.7 mg/dL (1.9-2.7) 02/15/17 04:25 Total Bilirubin 0.7 mg/dL (0.3-1.0) 02/16/17 04:17 AST 193 U/L (13-39) H 02/16/17 04:17 ALT 281 U/L (7-52) H 02/16/17 04:17 Alkaline Phosphatase 129 U/L (34-104) H 02/16/17 04:17 Ammonia 51 umol/L (16-53) 02/16/17 04:17 Lactate Dehydrogenase 210 U/L (140-271) 02/16/17 04:17 Total Protein 5.1 gm/dL (6.0-8.3) L 02/16/17 04:17 Albumin 2.8 gm/dL (4.2-5.5) L 02/16/17 04:17 Globulin 2.3 gm/dL 02/16/17 04:17 Albumin/Globulin Ratio 1.2 (1.0-1.8) 02/16/17 04:17 TSH 4.19 uIU/ml (0.34-5.60) 02/15/17 04:25 Urine Source CATH 02/14/17 14:10 Urine Color YELLOW 02/14/17 14:10 Urine Clarity CLEAR (CLEAR) 02/14/17 14:10 Urine pH 5.5 (4.6 - 8.0) 02/14/17 14:10 Ur Specific [place] 1.020 (1.005-1.030) 02/14/17 14:10 Urine Protein 100 mg/dL (NEGATIVE) H 02/14/17 14:10 Urine Glucose (UA) NEGATIVE mg/dL (NEGATIVE) 02/14/17 14:10 Urine Ketones NEGATIVE mg/dL (NEGATIVE) 02/14/17 14:10 Urine Blood MODERATE (NEGATIVE) H 02/14/17 14:10 Urine Nitrate NEGATIVE (NEGATIVE) 02/14/17 14:10 Urine Bilirubin NEGATIVE (NEGATIVE) 02/14/17 14:10 Urine Urobilinogen 0.2 E.U./dL (0.2 - 1.0) 02/14/17 14:10 Ur Leukocyte Esterase NEGATIVE (NEGATIVE) 02/14/17 14:10 Urine RBC 5-10 /hpf (0-5) H 02/14/17 14:10 Urine WBC 2-5 /hpf (0-5) H 02/14/17 14:10 Ur Epithelial Cells FEW /lpf (FEW) 02/14/17 14:10 Urine Bacteria FEW /hpf (NONE SEEN) 02/14/17 14:10 Urine Osmolality 434 mOsmol/kg 02/14/17 20:05 Ur Random Sodium 61 mmol/L 02/15/17 12:46 Urine Creatinine 93.0 mg/dl (39.0-259.0) 02/14/17 20:05 Urine Microalbumin 662.5 ug/mL (Not Estab.) 02/14/17 14:10 Microalb/Creat Ratio 851.5 mg/g creat (0.0-30.0) H 02/14/17 14:10 Stool Occult Blood POSITIVE (NEGATIVE) 02/15/17 18:35 Random Vancomycin 14.5 ug/mL (5.0-40.0) 02/16/17 04:17 Hepatitis A IgM Ab Negative (Negative) 02/16/17 04:17 Hep Bs Antigen Negative (Negative) 02/16/17 04:17 Hep B Core IgM Ab Negative (Negative) 02/16/17 04:17 Hepatitis C Antibody <0.1 s/co ratio (0.0-0.9) 02/16/17 04:17 Blood Type O POSITIVE 02/15/17 05:20 Antibody Screen NEGATIVE 02/15/17 05:20 Crossmatch See Detail 02/15/17 05:20 - Physical Exam Vitals and I&O: Vital Signs Temp 96.4 F 02/17/17 08:00 Pulse 65 02/17/17 08:00 Resp 16 02/17/17 08:00 BP 115/52 02/17/17 08:00 Pulse Ox 99 02/17/17 08:00 Intake & Output 02/16/17 02/17/17 02/17/17 18:59 06:59 18:59 Intake Total 1430 793.75 Output Total 600 800 Balance 830 -6.25 Weight (lbs) 46.312 kg 52.889 kg Intake: Intake, IV Amount 1050 793.75 Dextrose 5% 1,000 ml @ 1000 125 mls/hr IV .Q8H [facility] Rx #:[id number] Dextrose 5% 1,000 ml @ 75 693.75 mls/hr IV .[id number] [facility] Rx#:[id number] Piperacillin Sodium/ 50 100 Tazobact 2.25 gm In Sodium Chloride 0.9% 50 ml @ 100 mls/hr IV Q8HR [facility] Rx#:[id number] Oral 100 0 Blood Product 280 Output: Urine 600 800 Active Medications: Current Medications Piperacillin Sod/Tazobactam (Sod 2.25 gm/ Sodium Chloride) 50 mls @ 100 mls/hr IV Q8HR [facility] Stop: 04/15/17 20:59 Last Admin: 02/17/17 12:22 Dose: 100 mls/hr Dextrose (D5w) 1,000 mls @ 75 mls/hr IV .[id number] [facility] Stop: 04/15/17 17:05 Last Admin: 02/17/17 00:00 Dose: 75 mls/hr Vancomycin HCl 1 gm/ Sodium (Chloride) 250 mls @ 165 mls/hr IV ONCE ONE Stop: 02/17/17 15:30 Miscellaneous (Vancomycin Iv Per Pharmacy) 1 [facility] PRN PRN PRN Reason: PROTOCOL Stop: 04/15/17 15:55 Miscellaneous (Probiotic Screen) 1 [facility] PRN PRN PRN Reason: PROTOCOL Stop: 04/16/17 14:13 Pantoprazole Sodium (Protonix) 40 mg PO DAILY [facility] Stop: 04/16/17 13:44 Last Admin: 02/17/17 09:03 Dose: 40 mg Pneumococcal Polyvalent Vaccine (Pneumovax) 0.5 ml IM .ONCE ONE Stop: 02/18/17 18:24 General: no acute distress, cachectic HEENT: atraumatic, normocephalic, PERRLA, EOMI, moist mucous membrane Neck: supple, no thyromegaly Cardiovascular: S1S2, regular Lungs: clear to auscultation bilaterally, clear to percussion Abdomen: soft, bowel sounds, no tender, no distended Extremities: no cyanosis, no clubbing, no edema Neurological: awake, alert, other (limited communication.) Skin: intact - Procedures Procedures: Procedures Procedure Code Date BLOOD TRANSFUSION SERVICE 68755 02/14/17 TRANSFUSE NONAUT RED BLOOD CELLS IN PERIPH VEIN, PERC 05604V4 02/14/17 Infectious Disease Assmt/Plan - Problem List Patient Problems: All Active Problems WANDERS FROM FACILITY; ELOPEMENT RISK (Acute) - Assessment Assessment: 1. Hypothermia suspect sepsis, resolved. 2. UTI. 3. Hypertension. 4. Hyperlipidemia. 5. Protein calorie malnutrition. 6. CKD. 7. Dementia. - Plan Plan: Continue Zosyn and dc vancomycin. Nutritional Asmnt/Malnutr-PDOC - Dietary Evaluation Malnutrition Findings (Please click <Entered> for more info): Nutritional Asmnt/Malnutrition Start: 02/16/17 13: 29 Text: Status: Complete Freq: Document 02/16/17 13:29 GSUN (Rec: 02/16/17 13:57 GSUN [email or web address]) Nutritional Asmnt/Malnutrition Patient General Information Nutritional Screening High Risk Screening Diagnosis Septic shock, severe dehydration, 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 RD consult for elevated BG. NPO since adm, day 2. Spoke to RN Valencia, RN stated per family, pt noted with poor PO intake this past month. Pt was lethargic during visit, made eye contact , responded yes when asked if he was hungry. Limited physical assessment due to heavy blanket for low temp, observed moderate to severe muscle fat wasting to chest and clavicles, with BMI 16.5. RN ordered swallow eval, pending. Ngt in place, RN suggested enteral feeding if needed. Pt is edentulous with upper denture at bedside. Current Diet Order/ Nutrition Support NPO Pertinent Medications D5w, Vancomycin, Protonix Pertinent Labs 02/14: A1c 5.9 02/15: phosphorus 5.7H 02/16: BUN 67H, creatinine 2.9H , glucose 90 (trended down), AST 193H, alkaline phosphatase 129H, ALT 281H, calcium 8L Nutritional Hx/Data Height 1.68 m Height (Calculated Centimeters) 167.6 Current Weight (lbs) 46.312 kg Weight (Calculated Kilograms) 46.3 Weight (Calculated Grams) 49810.8 [place] Body Weight 142 Weight Status Underweight GI Symptoms Usual diet at home [facility]: [facility] soft, finely chopped, thin liquid Skin Integrity/Comment: Dwight 10. Right eye scab. Estimated Nutritional Goals Calories/Kcals/Kg IBW 142lb/64.5kg Kcals Calculated 1613-1935kcal (25-30kcal/kg) Protein Calculated 52-66g (0.8-1g/kg, monitor renal vs underweight) Fluid: ml Per MD Nutritional Problem 2. Problem Problem Impaired nutrient utilization related to Etiology RUEL on CKD aeb Signs/Symptoms: 02/16: BUN 67H, creatinine 2.9H , calcium 8L. 02/15: phosphorus 5.7H 1. Problem Problem (possible) difficulty chewing/ swallowing related to Etiology likely lethargy aeb Signs/Symptoms: swallow eval pending Malnutrition Alert Body Fat Depletion (Severe) Mod to Severe Depletion Muscle Mass (Severe) Mod to Severe Depletion Intervention/Recommendation Comments 1. 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 Diet texture per swallow eval (pending). Pt is edentulous with upper denture at bedside. 2. Recommend Novasource Renal TID, BMI 16.5 underweight, moderate to severe muscle fat wasting to chest and clavicles , family report poor PO intake for 1 month. 3[address] Ngt in place. If enteral nutrition suggested, recommend Novasource Renal 38ml/hr x 24hrs, providing 912ml total volume, 1824kcal, 83g protein. Expected Outcomes/Goals Expected Outcomes/Goals 1. Pt to resume oral diet and meet at least 75% of estimated nutritional needs.
--- NOTE | 2017-02-17 13:16 | GI Progress Note ---
Subjective - Review of Systems Service Date: 02/17/17 Subjective: Pt is non communicative at this time, no obvious distress. NG in place Objective - Results Result Diagrams: 02/17/17 04:45 02/17/17 04:45 Recent Labs: Laboratory Last Values WBC 6.4 Th/cmm (4.8-10.8) 02/17/17 04:45 RBC 2.50 Mil/cmm (3.80-5.80) L 02/17/17 04:45 Hgb 8.2 gm/dL (12.6-17.4) L 02/17/17 04:45 Hct 24.1 % (39.0-49.0) L 02/17/17 04:45 MCV 96.7 fl (80-99) 02/17/17 04:45 MCH 32.8 pg (27.0-31.0) H 02/17/17 04:45 MCHC Differential 33.9 pg (28.0-36.0) 02/17/17 04:45 RDW 16.1 % (11.5-20.0) 02/17/17 04:45 Plt Count 107 Th/cmm (150-400) L 02/17/17 04:45 MPV 8.5 fl 02/17/17 04:45 Band Neutrophils % 2 % (0-10) 02/17/17 04:45 Neutrophils (Manual) 77 % (40-80) 02/17/17 04:45 Lymphocytes 9 % (20-50) L 02/17/17 04:45 Monocytes 5 % (2-10) 02/17/17 04:45 Eosinophils 7 % (0-5) H 02/17/17 04:45 Basophils 1 % (0-3) 02/14/17 13:23 Platelet Estimate ADEQUATE (NORMAL) 02/16/17 20:05 Platelet Morphology NORMAL (NORMAL) 02/15/17 06:30 Anisocytosis 1+ 02/15/17 06:30 RBC Morph Micro Appear ABNORMAL (NORMAL) 02/15/17 06:30 Eos Smear Source URINE 02/14/17 20:05 Eos Smear Total Cells NONE SEEN (NONE SEEN) 02/14/17 20:05 Plt Count 39 Th/cmm (150-750) L 02/16/17 04:17 PT 9.7 SECONDS (9.5-11.5) 02/16/17 04:17 INR 0.93 (0.5-1.4) 02/16/17 04:17 PTT (Actin FS) 35.1 SECONDS (26.0-38.0) 02/16/17 04:17 Fibrinogen 500.0 mg/dL (200.0-400.0) H 02/16/17 04:17 D-Dimer 745 ng/mL (100-400) H 02/16/17 04:17 Sodium 147 mEq/L (136-145) H 02/17/17 04:45 Potassium 3.8 mEq/L (3.5-5.1) 02/17/17 04:45 Chloride 120 mEq/L (98-107) H 02/17/17 04:45 Carbon Dioxide 22.0 mEq/L (21.0-31.0) 02/17/17 04:45 Anion Gap 8.8 (7.0-16.0) 02/17/17 04:45 BUN 63 mg/dL (7-25) H 02/17/17 04:45 Creatinine 3.1 mg/dL (0.7-1.3) H 02/17/17 04:45 Est GFR ( Amer) TNP 02/17/17 04:45 Est GFR (Non-Af Amer) TNP 02/17/17 04:45 BUN/Creatinine Ratio 20.3 02/17/17 04:45 Glucose 85 mg/dL (70-105) 02/17/17 04:45 POC Glucose 204 MG/DL (70 - 105) H 02/14/17 14:56 Hemoglobin A1c % 5.9 % (4.0-6.0) 02/14/17 13:23 Whole Bld Lactic Acid 1.09 mmol/L (0.60-1.99) 02/14/17 13:23 Uric Acid 2.7 mg/dL (4.4-7.6) L 02/15/17 04:25 Calcium 8.1 mg/dL (8.6-10.3) L 02/17/17 04:45 Phosphorus 5.7 mg/dL (2.5-5.0) H 02/15/17 04:25 Magnesium 2.7 mg/dL (1.9-2.7) 02/15/17 04:25 Total Bilirubin 0.7 mg/dL (0.3-1.0) 02/16/17 04:17 AST 193 U/L (13-39) H 02/16/17 04:17 ALT 281 U/L (7-52) H 02/16/17 04:17 Alkaline Phosphatase 129 U/L (34-104) H 02/16/17 04:17 Ammonia 51 umol/L (16-53) 02/16/17 04:17 Lactate Dehydrogenase 210 U/L (140-271) 02/16/17 04:17 Total Protein 5.1 gm/dL (6.0-8.3) L 02/16/17 04:17 Albumin 2.8 gm/dL (4.2-5.5) L 02/16/17 04:17 Globulin 2.3 gm/dL 02/16/17 04:17 Albumin/Globulin Ratio 1.2 (1.0-1.8) 02/16/17 04:17 TSH 4.19 uIU/ml (0.34-5.60) 02/15/17 04:25 Urine Source CATH 02/14/17 14:10 Urine Color YELLOW 02/14/17 14:10 Urine Clarity CLEAR (CLEAR) 02/14/17 14:10 Urine pH 5.5 (4.6 - 8.0) 02/14/17 14:10 Ur Specific [place] 1.020 (1.005-1.030) 02/14/17 14:10 Urine Protein 100 mg/dL (NEGATIVE) H 02/14/17 14:10 Urine Glucose (UA) NEGATIVE mg/dL (NEGATIVE) 02/14/17 14:10 Urine Ketones NEGATIVE mg/dL (NEGATIVE) 02/14/17 14:10 Urine Blood MODERATE (NEGATIVE) H 02/14/17 14:10 Urine Nitrate NEGATIVE (NEGATIVE) 02/14/17 14:10 Urine Bilirubin NEGATIVE (NEGATIVE) 02/14/17 14:10 Urine Urobilinogen 0.2 E.U./dL (0.2 - 1.0) 02/14/17 14:10 Ur Leukocyte Esterase NEGATIVE (NEGATIVE) 02/14/17 14:10 Urine RBC 5-10 /hpf (0-5) H 02/14/17 14:10 Urine WBC 2-5 /hpf (0-5) H 02/14/17 14:10 Ur Epithelial Cells FEW /lpf (FEW) 02/14/17 14:10 Urine Bacteria FEW /hpf (NONE SEEN) 02/14/17 14:10 Urine Osmolality 434 mOsmol/kg 02/14/17 20:05 Ur Random Sodium 61 mmol/L 02/15/17 12:46 Urine Creatinine 93.0 mg/dl (39.0-259.0) 02/14/17 20:05 Urine Microalbumin 662.5 ug/mL (Not Estab.) 02/14/17 14:10 Microalb/Creat Ratio 851.5 mg/g creat (0.0-30.0) H 02/14/17 14:10 Stool Occult Blood POSITIVE (NEGATIVE) 02/15/17 18:35 Random Vancomycin 14.5 ug/mL (5.0-40.0) 02/16/17 04:17 Hepatitis A IgM Ab Negative (Negative) 02/16/17 04:17 Hep Bs Antigen Negative (Negative) 02/16/17 04:17 Hep B Core IgM Ab Negative (Negative) 02/16/17 04:17 Hepatitis C Antibody <0.1 s/co ratio (0.0-0.9) 02/16/17 04:17 Blood Type O POSITIVE 02/15/17 05:20 Antibody Screen NEGATIVE 02/15/17 05:20 Crossmatch See Detail 02/15/17 05:20 - Physical Exam Vitals and I&O: Vital Signs Temp 96.4 F 02/17/17 08:00 Pulse 65 02/17/17 08:00 Resp 16 02/17/17 08:00 BP 115/52 02/17/17 08:00 Pulse Ox 99 02/17/17 08:00 Intake & Output 02/16/17 02/17/17 02/17/17 18:59 06:59 18:59 Intake Total 1430 793.75 Output Total 600 800 Balance 830 -6.25 Weight (lbs) 46.312 kg 52.889 kg Intake: Intake, IV Amount 1050 793.75 Dextrose 5% 1,000 ml @ 1000 125 mls/hr IV .Q8H [facility] Rx #:[id number] Dextrose 5% 1,000 ml @ 75 693.75 mls/hr IV .[id number] [facility] Rx#:[id number] Piperacillin Sodium/ 50 100 Tazobact 2.25 gm In Sodium Chloride 0.9% 50 ml @ 100 mls/hr IV Q8HR [facility] Rx#:[id number] Oral 100 0 Blood Product 280 Output: Urine 600 800 Active Medications: Current Medications Piperacillin Sod/Tazobactam (Sod 2.25 gm/ Sodium Chloride) 50 mls @ 100 mls/hr IV Q8HR [facility] Stop: 04/15/17 20:59 Last Admin: 02/17/17 12:22 Dose: 100 mls/hr Dextrose (D5w) 1,000 mls @ 75 mls/hr IV .[id number] [facility] Stop: 04/15/17 17:05 Last Admin: 02/17/17 00:00 Dose: 75 mls/hr Miscellaneous (Probiotic Screen) 1 ea MC PRN PRN PRN Reason: PROTOCOL Stop: 04/16/17 14:13 Pantoprazole Sodium (Protonix) 40 mg PO DAILY [facility] Stop: 04/16/17 13:44 Last Admin: 02/17/17 09:03 Dose: 40 mg Pneumococcal Polyvalent Vaccine (Pneumovax) 0.5 ml IM .ONCE ONE Stop: 02/18/17 18:24 General: No acute distress HEENT: Atraumatic, Mucous membr. moist/pink Neck: Supple Cardiovascular: Regular rate, Normal S1, Normal S2 Lungs: Other (few rhonchi) Abdomen: Soft, Other (diminished BS) Extremities: no Edema Neurological: Sensation intact Skin: no Rash - Procedures Procedures: Procedures Procedure Code Date BLOOD TRANSFUSION SERVICE 09438 02/14/17 TRANSFUSE NONAUT RED BLOOD CELLS IN PERIPH VEIN, [facility] 25297B7 02/14/17 Assessment/Plan - Problem List Patient Problems: All Active Problems WANDERS FROM FACILITY; ELOPEMENT RISK (Acute) - Assessment Assessment: # Elevated liver function tests # UTI # Severe sepsis with hypothermia Suspect ischemic liver injury secondary to severe sepsis. This is supported by the fact his LFTs have quickly improved, although awaiting today's value. US negative for biliary obstruction or other obvious liver pathology. Viral hepatitis serologies negative. Plan: - cont supportive care and treatment of sepsis process - LFTs today to ensure trending in right direction
--- NOTE | 2017-02-17 13:36 | Infectious Disease Prog Note ---
Infectious Disease Subjective - Review of Systems Service Date: 02/17/17 Subjective: doing better, no fever. patient's HR went down to 30, and 40's. Otherwise there is no new change, he is not on any oral meds/ NPO. Infectious Disease Objective - Results Result Diagrams: 02/17/17 04:45 02/17/17 04:45 Recent Labs: Laboratory Last Values WBC 6.4 Th/cmm (4.8-10.8) 02/17/17 04:45 RBC 2.50 Mil/cmm (3.80-5.80) L 02/17/17 04:45 Hgb 8.2 gm/dL (12.6-17.4) L 02/17/17 04:45 Hct 24.1 % (39.0-49.0) L 02/17/17 04:45 MCV 96.7 fl (80-99) 02/17/17 04:45 MCH 32.8 pg (27.0-31.0) H 02/17/17 04:45 MCHC Differential 33.9 pg (28.0-36.0) 02/17/17 04:45 RDW 16.1 % (11.5-20.0) 02/17/17 04:45 Plt Count 107 Th/cmm (150-400) L 02/17/17 04:45 MPV 8.5 fl 02/17/17 04:45 Band Neutrophils % 2 % (0-10) 02/17/17 04:45 Neutrophils (Manual) 77 % (40-80) 02/17/17 04:45 Lymphocytes 9 % (20-50) L 02/17/17 04:45 Monocytes 5 % (2-10) 02/17/17 04:45 Eosinophils 7 % (0-5) H 02/17/17 04:45 Basophils 1 % (0-3) 02/14/17 13:23 Platelet Estimate ADEQUATE (NORMAL) 02/16/17 20:05 Platelet Morphology NORMAL (NORMAL) 02/15/17 06:30 Anisocytosis 1+ 02/15/17 06:30 RBC Morph Micro Appear ABNORMAL (NORMAL) 02/15/17 06:30 Eos Smear Source URINE 02/14/17 20:05 Eos Smear Total Cells NONE SEEN (NONE SEEN) 02/14/17 20:05 Plt Count 39 Th/cmm (150-750) L 02/16/17 04:17 PT 9.7 SECONDS (9.5-11.5) 02/16/17 04:17 INR 0.93 (0.5-1.4) 02/16/17 04:17 PTT (Actin FS) 35.1 SECONDS (26.0-38.0) 02/16/17 04:17 Fibrinogen 500.0 mg/dL (200.0-400.0) H 02/16/17 04:17 D-Dimer 745 ng/mL (100-400) H 02/16/17 04:17 Sodium 147 mEq/L (136-145) H 02/17/17 04:45 Potassium 3.8 mEq/L (3.5-5.1) 02/17/17 04:45 Chloride 120 mEq/L (98-107) H 02/17/17 04:45 Carbon Dioxide 22.0 mEq/L (21.0-31.0) 02/17/17 04:45 Anion Gap 8.8 (7.0-16.0) 02/17/17 04:45 BUN 63 mg/dL (7-25) H 02/17/17 04:45 Creatinine 3.1 mg/dL (0.7-1.3) H 02/17/17 04:45 Est GFR ( Amer) TNP 02/17/17 04:45 Est GFR (Non-Af Amer) TNP 02/17/17 04:45 BUN/Creatinine Ratio 20.3 02/17/17 04:45 Glucose 85 mg/dL (70-105) 02/17/17 04:45 POC Glucose 204 MG/DL (70 - 105) H 02/14/17 14:56 Hemoglobin A1c % 5.9 % (4.0-6.0) 02/14/17 13:23 Whole Bld Lactic Acid 1.09 mmol/L (0.60-1.99) 02/14/17 13:23 Uric Acid 2.7 mg/dL (4.4-7.6) L 02/15/17 04:25 Calcium 8.1 mg/dL (8.6-10.3) L 02/17/17 04:45 Phosphorus 5.7 mg/dL (2.5-5.0) H 02/15/17 04:25 Magnesium 2.7 mg/dL (1.9-2.7) 02/15/17 04:25 Total Bilirubin 0.7 mg/dL (0.3-1.0) 02/16/17 04:17 AST 193 U/L (13-39) H 02/16/17 04:17 ALT 281 U/L (7-52) H 02/16/17 04:17 Alkaline Phosphatase 129 U/L (34-104) H 02/16/17 04:17 Ammonia 51 umol/L (16-53) 02/16/17 04:17 Lactate Dehydrogenase 210 U/L (140-271) 02/16/17 04:17 Total Protein 5.1 gm/dL (6.0-8.3) L 02/16/17 04:17 Albumin 2.8 gm/dL (4.2-5.5) L 02/16/17 04:17 Globulin 2.3 gm/dL 02/16/17 04:17 Albumin/Globulin Ratio 1.2 (1.0-1.8) 02/16/17 04:17 TSH 4.19 uIU/ml (0.34-5.60) 02/15/17 04:25 Urine Source CATH 02/14/17 14:10 Urine Color YELLOW 02/14/17 14:10 Urine Clarity CLEAR (CLEAR) 02/14/17 14:10 Urine pH 5.5 (4.6 - 8.0) 02/14/17 14:10 Ur Specific [place] 1.020 (1.005-1.030) 02/14/17 14:10 Urine Protein 100 mg/dL (NEGATIVE) H 02/14/17 14:10 Urine Glucose (UA) NEGATIVE mg/dL (NEGATIVE) 02/14/17 14:10 Urine Ketones NEGATIVE mg/dL (NEGATIVE) 02/14/17 14:10 Urine Blood MODERATE (NEGATIVE) H 02/14/17 14:10 Urine Nitrate NEGATIVE (NEGATIVE) 02/14/17 14:10 Urine Bilirubin NEGATIVE (NEGATIVE) 02/14/17 14:10 Urine Urobilinogen 0.2 E.U./dL (0.2 - 1.0) 02/14/17 14:10 Ur Leukocyte Esterase NEGATIVE (NEGATIVE) 02/14/17 14:10 Urine RBC 5-10 /hpf (0-5) H 02/14/17 14:10 Urine WBC 2-5 /hpf (0-5) H 02/14/17 14:10 Ur Epithelial Cells FEW /lpf (FEW) 02/14/17 14:10 Urine Bacteria FEW /hpf (NONE SEEN) 02/14/17 14:10 Urine Osmolality 434 mOsmol/kg 02/14/17 20:05 Ur Random Sodium 61 mmol/L 02/15/17 12:46 Urine Creatinine 93.0 mg/dl (39.0-259.0) 02/14/17 20:05 Urine Microalbumin 662.5 ug/mL (Not Estab.) 02/14/17 14:10 Microalb/Creat Ratio 851.5 mg/g creat (0.0-30.0) H 02/14/17 14:10 Stool Occult Blood POSITIVE (NEGATIVE) 02/15/17 18:35 Random Vancomycin 14.5 ug/mL (5.0-40.0) 02/16/17 04:17 Hepatitis A IgM Ab Negative (Negative) 02/16/17 04:17 Hep Bs Antigen Negative (Negative) 02/16/17 04:17 Hep B Core IgM Ab Negative (Negative) 02/16/17 04:17 Hepatitis C Antibody <0.1 s/co ratio (0.0-0.9) 02/16/17 04:17 Blood Type O POSITIVE 02/15/17 05:20 Antibody Screen NEGATIVE 02/15/17 05:20 Crossmatch See Detail 02/15/17 05:20 - Physical Exam Vitals and I&O: Vital Signs Temp 96.8 F 02/17/17 12:00 Pulse 50 02/17/17 12:00 Resp 20 02/17/17 12:00 BP 118/53 02/17/17 12:00 Pulse Ox 100 02/17/17 12:00 Intake & Output 02/16/17 02/17/17 02/17/17 18:59 06:59 18:59 Intake Total 1430 793.75 Output Total 600 800 Balance 830 -6.25 Weight (lbs) 46.312 kg 52.889 kg Intake: Intake, IV Amount 1050 793.75 Dextrose 5% 1,000 ml @ 1000 125 mls/hr IV .Q8H [facility] Rx #:[id number] Dextrose 5% 1,000 ml @ 75 693.75 mls/hr IV .[id number] [facility] Rx#:[id number] Piperacillin Sodium/ 50 100 Tazobact 2.25 gm In Sodium Chloride 0.9% 50 ml @ 100 mls/hr IV Q8HR [facility] Rx#:[id number] Oral 100 0 Blood Product 280 Output: Urine 600 800 Active Medications: Current Medications Piperacillin Sod/Tazobactam (Sod 2.25 gm/ Sodium Chloride) 50 mls @ 100 mls/hr IV Q8HR [facility] Stop: 04/15/17 20:59 Last Admin: 02/17/17 12:22 Dose: 100 mls/hr Dextrose (D5w) 1,000 mls @ 75 mls/hr IV .[id number] [facility] Stop: 04/15/17 17:05 Last Admin: 02/17/17 00:00 Dose: 75 mls/hr Miscellaneous (Probiotic Screen) 1 ea MC PRN PRN PRN Reason: PROTOCOL Stop: 04/16/17 14:13 Pantoprazole Sodium (Protonix) 40 mg PO DAILY [facility] Stop: 04/16/17 13:44 Last Admin: 02/17/17 09:03 Dose: 40 mg Pneumococcal Polyvalent Vaccine (Pneumovax) 0.5 ml IM .ONCE ONE Stop: 02/18/17 18:24 General: no acute distress, cachectic HEENT: atraumatic, normocephalic, PERRLA, EOMI, moist mucous membrane Neck: supple, no rigid Cardiovascular: S1S2, regular Lungs: clear to auscultation bilaterally, clear to percussion Abdomen: soft, bowel sounds, no tender, no distended Extremities: no cyanosis, no clubbing, no edema Neurological: awake, other (limited communication, currently, unresponsive.) Skin: intact - Procedures Procedures: Procedures Procedure Code Date BLOOD TRANSFUSION SERVICE 95604 02/14/17 TRANSFUSE NONAUT RED BLOOD CELLS IN PERIPH VEIN, [facility] 41103Q1 02/14/17 Infectious Disease Assmt/Plan - Problem List Patient Problems: All Active Problems WANDERS FROM FACILITY; ELOPEMENT RISK (Acute) - Assessment Assessment: 1. Hypothermia suspect sepsis, resolved. 2. UTI. 3. Hypertension. 4. Hyperlipidemia. 5. Protein calorie malnutrition. 6. CKD. 7. Dementia. 8. Bradycardia. - Plan Plan: Continue Zosyn and dc vancomycin. will ask for cardilogy consult with Dr Idania Lambert. Nutritional Asmnt/Malnutr-PDOC - Dietary Evaluation Malnutrition Findings (Please click <Entered> for more info): Nutritional Asmnt/Malnutrition Start: 02/16/17 13: 29 Text: Status: Complete Freq: Document 02/16/17 13:29 GSUN (Rec: 02/16/17 13:57 GSUN [email or web address]) Nutritional Asmnt/Malnutrition Patient General Information Nutritional Screening High Risk Screening Diagnosis Septic shock, severe dehydration, 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 RD consult for elevated BG. NPO since adm, day 2. Spoke to RN MARYAM [place] stated per family, pt noted with poor PO intake this past month. Pt was lethargic during visit, made eye contact , responded yes when asked if he was hungry. Limited physical assessment due to heavy blanket for low temp, observed moderate to severe muscle fat wasting to chest and clavicles, with BMI 16.5. RN ordered swallow eval, pending. Ngt in place, RN suggested enteral feeding if needed. Pt is edentulous with upper denture at bedside. Current Diet Order/ Nutrition Support NPO Pertinent Medications D5w, Vancomycin, Protonix Pertinent Labs 02/14: A1c 5.9 02/15: phosphorus 5.7H 02/16: BUN 67H, creatinine 2.9H , glucose 90 (trended down), AST 193H, alkaline phosphatase 129H, ALT 281H, calcium 8L Nutritional Hx/Data Height 1.68 m Height (Calculated Centimeters) 167.6 Current Weight (lbs) 46.312 kg Weight (Calculated Kilograms) 46.3 Weight (Calculated Grams) 32943.8 [place] Body Weight 142 Weight Status Underweight GI Symptoms Usual diet at home [place] [facility]: [facility] soft, finely chopped, thin liquid Skin Integrity/Comment: Dwight 10. Right eye scab. Estimated Nutritional Goals Calories/Kcals/Kg IBW 142lb/64.5kg Kcals Calculated 1613-1935kcal (25-30kcal/kg) Protein Calculated 52-66g (0.8-1g/kg, monitor renal vs underweight) Fluid: ml Per MD Nutritional Problem 2. Problem Problem Impaired nutrient utilization related to Etiology RUEL on CKD aeb Signs/Symptoms: 02/16: BUN 67H, creatinine 2.9H , calcium 8L. 02/15: phosphorus 5.7H 1. Problem Problem (possible) difficulty chewing/ swallowing related to Etiology likely lethargy aeb Signs/Symptoms: swallow eval pending Malnutrition Alert Body Fat Depletion (Severe) Mod to Severe Depletion Muscle Mass (Severe) Mod to Severe Depletion Intervention/Recommendation Comments 1. 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 Diet texture per swallow eval (pending). Pt is edentulous with upper denture at bedside. 2. Recommend Novasource Renal TID, BMI 16.5 underweight, moderate to severe muscle fat wasting to chest and clavicles , family report poor PO intake for [address] in [address]. If enteral nutrition suggested, recommend Novasource Renal 38ml/hr x 24hrs, providing 912ml total volume, 1824kcal, 83g protein. Expected Outcomes/Goals Expected Outcomes/Goals 1. Pt to resume oral diet and meet at least 75% of estimated nutritional needs.
[2017-02-17 13:48] LABS: ALB/GLOB RATIO 1.3 (1.0-1.8); BILIRUBIN,TOTAL 0.5 mg/dL (0.3-1.0)
[2017-02-17 13:49] LABS: BILIRUBIN,DIRECT 0.05 mg/dL (0.0-0.2)
--- NOTE | 2017-02-17 14:17 | General Progress Note ---
Subjective - Review of Systems Events since last encounter: patient with no distress Objective - Results Result Diagrams: 02/17/17 04:45 02/17/17 04:45 Recent Labs: Laboratory Last Values WBC 6.4 Th/cmm (4.8-10.8) 02/17/17 04:45 RBC 2.50 Mil/cmm (3.80-5.80) L 02/17/17 04:45 Hgb 8.2 gm/dL (12.6-17.4) L 02/17/17 04:45 Hct 24.1 % (39.0-49.0) L 02/17/17 04:45 MCV 96.7 fl (80-99) 02/17/17 04:45 MCH 32.8 pg (27.0-31.0) H 02/17/17 04:45 MCHC Differential 33.9 pg (28.0-36.0) 02/17/17 04:45 RDW 16.1 % (11.5-20.0) 02/17/17 04:45 Plt Count 107 Th/cmm (150-400) L 02/17/17 04:45 MPV 8.5 fl 02/17/17 04:45 Band Neutrophils % 2 % (0-10) 02/17/17 04:45 Neutrophils (Manual) 77 % (40-80) 02/17/17 04:45 Lymphocytes 9 % (20-50) L 02/17/17 04:45 Monocytes 5 % (2-10) 02/17/17 04:45 Eosinophils 7 % (0-5) H 02/17/17 04:45 Basophils 1 % (0-3) 02/14/17 13:23 Platelet Estimate ADEQUATE (NORMAL) 02/16/17 20:05 Platelet Morphology NORMAL (NORMAL) 02/15/17 06:30 Anisocytosis 1+ 02/15/17 06:30 RBC Morph Micro Appear ABNORMAL (NORMAL) 02/15/17 06:30 Eos Smear Source URINE 02/14/17 20:05 Eos Smear Total Cells NONE SEEN (NONE SEEN) 02/14/17 20:05 Plt Count 39 Th/cmm (150-750) L 02/16/17 04:17 PT 9.7 SECONDS (9.5-11.5) 02/16/17 04:17 INR 0.93 (0.5-1.4) 02/16/17 04:17 PTT (Actin FS) 35.1 SECONDS (26.0-38.0) 02/16/17 04:17 Fibrinogen 500.0 mg/dL (200.0-400.0) H 02/16/17 04:17 D-Dimer 745 ng/mL (100-400) H 02/16/17 04:17 Sodium 147 mEq/L (136-145) H 02/17/17 04:45 Potassium 3.8 mEq/L (3.5-5.1) 02/17/17 04:45 Chloride 120 mEq/L (98-107) H 02/17/17 04:45 Carbon Dioxide 22.0 mEq/L (21.0-31.0) 02/17/17 04:45 Anion Gap 8.8 (7.0-16.0) 02/17/17 04:45 BUN 63 mg/dL (7-25) H 02/17/17 04:45 Creatinine 3.1 mg/dL (0.7-1.3) H 02/17/17 04:45 Est GFR ( Amer) TNP 02/17/17 04:45 Est GFR (Non-Af Amer) TNP 02/17/17 04:45 BUN/Creatinine Ratio 20.3 02/17/17 04:45 Glucose 85 mg/dL (70-105) 02/17/17 04:45 POC Glucose 204 MG/DL (70 - 105) H 02/14/17 14:56 Hemoglobin A1c % 5.9 % (4.0-6.0) 02/14/17 13:23 Whole Bld Lactic Acid 1.09 mmol/L (0.60-1.99) 02/14/17 13:23 Uric Acid 2.7 mg/dL (4.4-7.6) L 02/15/17 04:25 Calcium 8.1 mg/dL (8.6-10.3) L 02/17/17 04:45 Phosphorus 5.7 mg/dL (2.5-5.0) H 02/15/17 04:25 Magnesium 2.7 mg/dL (1.9-2.7) 02/15/17 04:25 Total Bilirubin 0.5 mg/dL (0.3-1.0) 02/17/17 04:45 Direct Bilirubin 0.05 mg/dL (0.0-0.2) 02/17/17 04:45 AST 109 U/L (13-39) H 02/17/17 04:45 ALT 191 U/L (7-52) H 02/17/17 04:45 Alkaline Phosphatase 97 U/L (34-104) 02/17/17 04:45 Ammonia 51 umol/L (16-53) 02/16/17 04:17 Lactate Dehydrogenase 210 U/L (140-271) 02/16/17 04:17 Total Protein 5.0 gm/dL (6.0-8.3) L 02/17/17 04:45 Albumin 2.8 gm/dL (4.2-5.5) L 02/17/17 04:45 Globulin 2.2 gm/dL 02/17/17 04:45 Albumin/Globulin Ratio 1.3 (1.0-1.8) 02/17/17 04:45 TSH 4.19 uIU/ml (0.34-5.60) 02/15/17 04:25 Urine Source CATH 02/14/17 14:10 Urine Color YELLOW 02/14/17 14:10 Urine Clarity CLEAR (CLEAR) 02/14/17 14:10 Urine pH 5.5 (4.6 - 8.0) 02/14/17 14:10 Ur Specific [place] 1.020 (1.005-1.030) 02/14/17 14:10 Urine Protein 100 mg/dL (NEGATIVE) H 02/14/17 14:10 Urine Glucose (UA) NEGATIVE mg/dL (NEGATIVE) 02/14/17 14:10 Urine Ketones NEGATIVE mg/dL (NEGATIVE) 02/14/17 14:10 Urine Blood MODERATE (NEGATIVE) H 02/14/17 14:10 Urine Nitrate NEGATIVE (NEGATIVE) 02/14/17 14:10 Urine Bilirubin NEGATIVE (NEGATIVE) 02/14/17 14:10 Urine Urobilinogen 0.2 E.U./dL (0.2 - 1.0) 02/14/17 14:10 Ur Leukocyte Esterase NEGATIVE (NEGATIVE) 02/14/17 14:10 Urine RBC 5-10 /hpf (0-5) H 02/14/17 14:10 Urine WBC 2-5 /hpf (0-5) H 02/14/17 14:10 Ur Epithelial Cells FEW /lpf (FEW) 02/14/17 14:10 Urine Bacteria FEW /hpf (NONE SEEN) 02/14/17 14:10 Urine Osmolality 434 mOsmol/kg 02/14/17 20:05 Ur Random Sodium 61 mmol/L 02/15/17 12:46 Urine Creatinine 93.0 mg/dl (39.0-259.0) 02/14/17 20:05 Urine Microalbumin 662.5 ug/mL (Not Estab.) 02/14/17 14:10 Microalb/Creat Ratio 851.5 mg/g creat (0.0-30.0) H 02/14/17 14:10 Stool Occult Blood POSITIVE (NEGATIVE) 02/15/17 18:35 Random Vancomycin 14.5 ug/mL (5.0-40.0) 02/16/17 04:17 Hepatitis A IgM Ab Negative (Negative) 02/16/17 04:17 Hep Bs Antigen Negative (Negative) 02/16/17 04:17 Hep B Core IgM Ab Negative (Negative) 02/16/17 04:17 Hepatitis C Antibody <0.1 s/co ratio (0.0-0.9) 02/16/17 04:17 Blood Type O POSITIVE 02/15/17 05:20 Antibody Screen NEGATIVE 02/15/17 05:20 Crossmatch See Detail 02/15/17 05:20 - Physical Exam Vitals and I&O: Vital Signs Temp 96.8 F 02/17/17 12:38 Pulse 41 02/17/17 12:38 Resp 20 02/17/17 12:38 BP 118/53 02/17/17 12:38 Pulse Ox 100 02/17/17 12:38 Intake & Output 02/16/17 02/17/17 02/17/17 18:59 06:59 18:59 Intake Total 1430 793.75 Output Total 600 800 Balance 830 -6.25 Weight (lbs) 46.312 kg 52.889 kg Intake: Intake, IV Amount 1050 793.75 Dextrose 5% 1,000 ml @ 1000 125 mls/hr IV .Q8H [facility] Rx #:[id number] Dextrose 5% 1,000 ml @ 75 693.75 mls/hr IV .[id number] [facility] Rx#:[id number] Piperacillin Sodium/ 50 100 Tazobact 2.25 gm In Sodium Chloride 0.9% 50 ml @ 100 mls/hr IV Q8HR [facility] Rx#:[id number] Oral 100 0 Blood Product 280 Output: Urine 600 800 Active Medications: Current Medications Atropine Sulfate (Atropine Syringe) 1 mg IVP Q4HR PRN PRN Reason: LOW HEART RATE Stop: 04/18/17 13:37 Piperacillin Sod/Tazobactam (Sod 2.25 gm/ Sodium Chloride) 50 mls @ 100 mls/hr IV Q8HR [facility] Stop: 04/15/17 20:59 Last Admin: 02/17/17 12:22 Dose: 100 mls/hr Dextrose (D5w) 1,000 mls @ 75 mls/hr IV .[id number] [facility] Stop: 04/15/17 17:05 Last Admin: 02/17/17 00:00 Dose: 75 mls/hr Miscellaneous (Probiotic Screen) 1 ea MC PRN PRN PRN Reason: PROTOCOL Stop: 04/16/17 14:13 Pantoprazole Sodium (Protonix) 40 mg PO DAILY [facility] Stop: 04/16/17 13:44 Last Admin: 02/17/17 09:03 Dose: 40 mg Pneumococcal Polyvalent Vaccine (Pneumovax) 0.5 ml IM .ONCE ONE Stop: 02/18/17 18:24 General: No acute distress HEENT: Atraumatic, Mucous membr. moist/pink Neck: Supple Cardiovascular: Regular rate, Normal S1, Normal S2 Lungs: Other (few rhonchi) Abdomen: Soft, Other (diminished BS) Extremities: no Edema Neurological: Sensation intact Skin: no Rash Psych/Mental Status: Mood NL - Procedures Procedures: Procedures Procedure Code Date BLOOD TRANSFUSION SERVICE 38941 02/14/17 TRANSFUSE NONAUT RED BLOOD CELLS IN PERIPH VEIN, PERC 64725Z7 02/14/17 Assessment/Plan - Problem List Patient Problems: All Active Problems WANDERS FROM FACILITY; ELOPEMENT RISK (Acute) Nutritional Asmnt/Malnutr-PDOC - Dietary Evaluation Malnutrition Findings (Please click <Entered> for more info): Nutritional Asmnt/Malnutrition Start: 02/16/17 13: 29 Text: Status: Complete Freq: Document 02/16/17 13:29 GSUN (Rec: 02/16/17 13:57 [email or web address] [email or web address]) Nutritional Asmnt/Malnutrition Patient General Information Nutritional Screening High Risk Screening Diagnosis Septic shock, severe dehydration, 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 RD consult for elevated BG. NPO since adm, day 2. Spoke to RN Valencia, RN stated per family, pt noted with poor PO intake this past month. Pt was lethargic during visit, made eye contact , responded yes when asked if he was hungry. Limited physical assessment due to heavy blanket for low temp, observed moderate to severe muscle fat wasting to chest and clavicles, with BMI 16.5. RN ordered swallow eval, pending. Ngt in place, RN suggested enteral feeding if needed. Pt is edentulous with upper denture at bedside. Current Diet Order/ Nutrition Support NPO Pertinent Medications D5w, Vancomycin, Protonix Pertinent Labs 02/14: A1c 5.9 02/15: phosphorus 5.7H 02/16: BUN 67H, creatinine 2.9H , glucose 90 (trended down), AST 193H, alkaline phosphatase 129H, ALT 281H, calcium 8L Nutritional Hx/Data Height 1.68 m Height (Calculated Centimeters) 167.6 Current Weight (lbs) 46.312 kg Weight (Calculated Kilograms) 46.3 Weight (Calculated Grams) 20314.8 [place] Body Weight 142 Weight Status Underweight GI Symptoms Usual diet at home [place] [facility]: [facility] soft, finely chopped, thin liquid Skin Integrity/Comment: Dwight 10. Right eye scab. Estimated Nutritional Goals Calories/Kcals/Kg IBW 142lb/64.5kg Kcals Calculated 1613-1935kcal (25-30kcal/kg) Protein Calculated 52-66g (0.8-1g/kg, monitor renal vs underweight) Fluid: ml Per MD Nutritional Problem 2. Problem Problem Impaired nutrient utilization related to Etiology RUEL on CKD aeb Signs/Symptoms: 02/16: BUN 67H, creatinine 2.9H , calcium 8L. 02/15: phosphorus 5.7H 1. Problem Problem (possible) difficulty chewing/ swallowing related to Etiology likely lethargy aeb Signs/Symptoms: swallow eval pending Malnutrition Alert Body Fat Depletion (Severe) Mod to Severe Depletion Muscle Mass (Severe) Mod to Severe Depletion Intervention/Recommendation Comments 1. 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 Diet texture per swallow eval (pending). Pt is edentulous with upper denture at bedside. 2. Recommend Novasource Renal TID, BMI 16.5 underweight, moderate to severe muscle fat wasting to chest and clavicles , family report poor PO intake for 1 month. 3. Ngt in place. If enteral nutrition suggested, recommend Novasource Renal 38ml/hr x 24hrs, providing 912ml total volume, 1824kcal, 83g protein. Expected Outcomes/Goals Expected Outcomes/Goals 1. Pt to resume oral diet and meet at least 75% of estimated nutritional needs.
[2017-02-17] MEDS: Dextrose 5% 1,000 ML IV SCH ×2 (14:31)
--- NOTE | 2017-02-17 17:43 | General Progress Note ---
Subjective - Review of Systems Service Date: 02/17/17 Subjective: more awake, comfortable Objective - Results Result Diagrams: 02/17/17 04:45 02/17/17 04:45 Recent Labs: Laboratory Last Values WBC 6.4 Th/cmm (4.8-10.8) 02/17/17 04:45 RBC 2.50 Mil/cmm (3.80-5.80) L 02/17/17 04:45 Hgb 8.2 gm/dL (12.6-17.4) L 02/17/17 04:45 Hct 24.1 % (39.0-49.0) L 02/17/17 04:45 MCV 96.7 fl (80-99) 02/17/17 04:45 MCH 32.8 pg (27.0-31.0) H 02/17/17 04:45 MCHC Differential 33.9 pg (28.0-36.0) 02/17/17 04:45 RDW 16.1 % (11.5-20.0) 02/17/17 04:45 Plt Count 107 Th/cmm (150-400) L 02/17/17 04:45 MPV 8.5 fl 02/17/17 04:45 Band Neutrophils % 2 % (0-10) 02/17/17 04:45 Neutrophils (Manual) 77 % (40-80) 02/17/17 04:45 Lymphocytes 9 % (20-50) L 02/17/17 04:45 Monocytes 5 % (2-10) 02/17/17 04:45 Eosinophils 7 % (0-5) H 02/17/17 04:45 Basophils 1 % (0-3) 02/14/17 13:23 Platelet Estimate ADEQUATE (NORMAL) 02/16/17 20:05 Platelet Morphology NORMAL (NORMAL) 02/15/17 06:30 Anisocytosis 1+ 02/15/17 06:30 RBC Morph Micro Appear ABNORMAL (NORMAL) 02/15/17 06:30 Eos Smear Source URINE 02/14/17 20:05 Eos Smear Total Cells NONE SEEN (NONE SEEN) 02/14/17 20:05 Plt Count 39 Th/cmm (150-750) L 02/16/17 04:17 PT 9.7 SECONDS (9.5-11.5) 02/16/17 04:17 INR 0.93 (0.5-1.4) 02/16/17 04:17 PTT (Actin FS) 35.1 SECONDS (26.0-38.0) 02/16/17 04:17 Fibrinogen 500.0 mg/dL (200.0-400.0) H 02/16/17 04:17 D-Dimer 745 ng/mL (100-400) H 02/16/17 04:17 Sodium 147 mEq/L (136-145) H 02/17/17 04:45 Potassium 3.8 mEq/L (3.5-5.1) 02/17/17 04:45 Chloride 120 mEq/L (98-107) H 02/17/17 04:45 Carbon Dioxide 22.0 mEq/L (21.0-31.0) 02/17/17 04:45 Anion Gap 8.8 (7.0-16.0) 02/17/17 04:45 BUN 63 mg/dL (7-25) H 02/17/17 04:45 Creatinine 3.1 mg/dL (0.7-1.3) H 02/17/17 04:45 Est GFR ( Amer) TNP 02/17/17 04:45 Est GFR (Non-Af Amer) TNP 02/17/17 04:45 BUN/Creatinine Ratio 20.3 02/17/17 04:45 Glucose 85 mg/dL (70-105) 02/17/17 04:45 POC Glucose 204 MG/DL (70 - 105) H 02/14/17 14:56 Hemoglobin A1c % 5.9 % (4.0-6.0) 02/14/17 13:23 Whole Bld Lactic Acid 1.09 mmol/L (0.60-1.99) 02/14/17 13:23 Uric Acid 2.7 mg/dL (4.4-7.6) L 02/15/17 04:25 Calcium 8.1 mg/dL (8.6-10.3) L 02/17/17 04:45 Phosphorus 5.7 mg/dL (2.5-5.0) H 02/15/17 04:25 Magnesium 2.7 mg/dL (1.9-2.7) 02/15/17 04:25 Total Bilirubin 0.5 mg/dL (0.3-1.0) 02/17/17 04:45 Direct Bilirubin 0.05 mg/dL (0.0-0.2) 02/17/17 04:45 AST 109 U/L (13-39) H 02/17/17 04:45 ALT 191 U/L (7-52) H 02/17/17 04:45 Alkaline Phosphatase 97 U/L (34-104) 02/17/17 04:45 Ammonia 51 umol/L (16-53) 02/16/17 04:17 Lactate Dehydrogenase 210 U/L (140-271) 02/16/17 04:17 Troponin I 0.08 ng/mL (0.01-0.05) H* D 02/17/17 13:55 Total Protein 5.0 gm/dL (6.0-8.3) L 02/17/17 04:45 Albumin 2.8 gm/dL (4.2-5.5) L 02/17/17 04:45 Globulin 2.2 gm/dL 02/17/17 04:45 Albumin/Globulin Ratio 1.3 (1.0-1.8) 02/17/17 04:45 TSH 4.19 uIU/ml (0.34-5.60) 02/15/17 04:25 Urine Source CATH 02/14/17 14:10 Urine Color YELLOW 02/14/17 14:10 Urine Clarity CLEAR (CLEAR) 02/14/17 14:10 Urine pH 5.5 (4.6 - 8.0) 02/14/17 14:10 Ur Specific [place] 1.020 (1.005-1.030) 02/14/17 14:10 Urine Protein 100 mg/dL (NEGATIVE) H 02/14/17 14:10 Urine Glucose (UA) NEGATIVE mg/dL (NEGATIVE) 02/14/17 14:10 Urine Ketones NEGATIVE mg/dL (NEGATIVE) 02/14/17 14:10 Urine Blood MODERATE (NEGATIVE) H 02/14/17 14:10 Urine Nitrate NEGATIVE (NEGATIVE) 02/14/17 14:10 Urine Bilirubin NEGATIVE (NEGATIVE) 02/14/17 14:10 Urine Urobilinogen 0.2 E.U./dL (0.2 - 1.0) 02/14/17 14:10 Ur Leukocyte Esterase NEGATIVE (NEGATIVE) 02/14/17 14:10 Urine RBC 5-10 /hpf (0-5) H 02/14/17 14:10 Urine WBC 2-5 /hpf (0-5) H 02/14/17 14:10 Ur Epithelial Cells FEW /lpf (FEW) 02/14/17 14:10 Urine Bacteria FEW /hpf (NONE SEEN) 02/14/17 14:10 Urine Osmolality 434 mOsmol/kg 02/14/17 20:05 Ur Random Sodium 61 mmol/L 02/15/17 12:46 Urine Creatinine 93.0 mg/dl (39.0-259.0) 02/14/17 20:05 Urine Microalbumin 662.5 ug/mL (Not Estab.) 02/14/17 14:10 Microalb/Creat Ratio 851.5 mg/g creat (0.0-30.0) H 02/14/17 14:10 Stool Occult Blood POSITIVE (NEGATIVE) 02/15/17 18:35 Random Vancomycin 14.5 ug/mL (5.0-40.0) 02/16/17 04:17 Hepatitis A IgM Ab Negative (Negative) 02/16/17 04:17 Hep Bs Antigen Negative (Negative) 02/16/17 04:17 Hep B Core IgM Ab Negative (Negative) 02/16/17 04:17 Hepatitis C Antibody <0.1 s/co ratio (0.0-0.9) 02/16/17 04:17 Blood Type O POSITIVE 02/15/17 05:20 Antibody Screen NEGATIVE 02/15/17 05:20 Crossmatch See Detail 02/15/17 05:20 - Physical Exam Vitals and I&O: Vital Signs Temp 97.2 F 02/17/17 16:00 Pulse 85 02/17/17 16:00 Resp 19 02/17/17 16:00 BP 107/61 02/17/17 16:00 Pulse Ox 97 02/17/17 16:00 Intake & Output 02/16/17 02/17/17 02/17/17 18:59 06:59 18:59 Intake Total 1430 793.75 1050 Output Total 600 800 Balance 830 -6.25 1050 Weight (lbs) 46.312 kg 52.889 kg Intake: Intake, IV Amount 1050 793.75 1050 Dextrose 5% 1,000 ml @ 1000 125 mls/hr IV .Q8H [facility] Rx #:[id number] Dextrose 5% 1,000 ml @ 75 693.75 1000 mls/hr IV .[id number] [facility] Rx#:[id number] Piperacillin Sodium/ 50 100 50 Tazobact 2.25 gm In Sodium Chloride 0.9% 50 ml @ 100 mls/hr IV Q8HR [facility] Rx#:[id number] Oral 100 0 Blood Product 280 Output: Urine 600 800 Active Medications: Current Medications Atropine Sulfate (Atropine Syringe) 1 mg IVP Q4HR PRN PRN Reason: LOW HEART RATE Stop: 04/18/17 13:37 Last Admin: 02/17/17 14:32 Dose: 1 mg Piperacillin Sod/Tazobactam (Sod 2.25 gm/ Sodium Chloride) 50 mls @ 100 mls/hr IV Q8HR [facility] Stop: 04/15/17 20:59 Last Infusion: 02/17/17 12:52 Dose: Infused Dextrose (D5w) 1,000 mls @ 75 mls/hr IV .[id number] [facility] Stop: 04/15/17 17:05 Last Admin: 02/17/17 14:31 Dose: 75 mls/hr Miscellaneous (Probiotic Screen) 1 ea MC PRN PRN PRN Reason: PROTOCOL Stop: 04/16/17 14:13 Pantoprazole Sodium (Protonix) 40 mg PO DAILY [facility] Stop: 04/16/17 13:44 Last Admin: 02/17/17 09:03 Dose: 40 mg Pneumococcal Polyvalent Vaccine (Pneumovax) 0.5 ml IM .ONCE ONE Stop: 02/18/17 18:24 General: No acute distress HEENT: Atraumatic, Mucous membr. moist/pink Neck: Supple Cardiovascular: Regular rate, Normal S1, Normal S2 Lungs: Other (few rhonchi) Abdomen: Soft, Other (diminished BS) Extremities: no Edema Neurological: Sensation intact Skin: no Rash Psych/Mental Status: Mood NL - Procedures Procedures: Procedures Procedure Code Date BLOOD TRANSFUSION SERVICE 99740 02/14/17 TRANSFUSE NONAUT RED BLOOD CELLS IN PERIPH VEIN, PERC 45230E1 02/14/17 Assessment/Plan - Problem List Patient Problems: All Active Problems WANDERS FROM FACILITY; ELOPEMENT RISK (Acute) - Assessment Assessment: RUEL on CKD Hypothermic NG Hyperchloremic Met Acid Hypernatremia Type 2 DM Hepatic Enceph Anemia acute on ckd Acute liver failure Hyperkalemia 2nd RUEL, DM, losartan bicytopenia - Plan Plan: Current Medications Piperacillin Sod/Tazobactam (Sod 2.25 gm/ Sodium Chloride) 50 mls @ 100 mls/hr IV Q8HR [facility] Stop: 04/15/17 20:59 Last Infusion: 02/15/17 05:15 Dose: Infused Dextrose (D5w) 1,000 mls @ 125 mls/hr IV .Q8H [facility] Stop: 04/15/17 17:05 Last Admin: 02/15/17 04:44 Dose: 125 mls/hr Miscellaneous (Vancomycin Iv Per Pharmacy) 1 ea MC PRN PRN PRN Reason: PROTOCOL Stop: 04/15/17 15:55 Pneumococcal Polyvalent Vaccine (Pneumovax) 0.5 ml IM .ONCE ONE Stop: 02/15/17 17:34 Na down to 147, continue D5W acute anemia possible slow GI bleed (stool OB +) BUN/CR down to 63/3.1 Hgb/Hct now 8.2/24.1 F/u renal/abd US, CXR, stool OB, electrolytes, cbc, NH3 level Lab - Result Diagrams 02/17/17 04:45 02/17/17 04:45 Nutritional Asmnt/Malnutr-PDOC - Dietary Evaluation Malnutrition Findings (Please click <Entered> for more info): Nutritional Asmnt/Malnutrition Start: 02/16/17 13: 29 Text: Status: Complete Freq: Document 02/16/17 13:29 GSUN (Rec: 02/16/17 13:57 [email or web address] [email or web address]) Nutritional Asmnt/Malnutrition Patient General Information Nutritional Screening High Risk Screening Diagnosis Septic shock, severe dehydration, 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 RD consult for elevated BG. NPO since adm, day 2. Spoke to RN Valencia, RN stated per family, pt noted with poor PO intake this past month. Pt was lethargic during visit, made eye contact , responded yes when asked if he was hungry. Limited physical assessment due to heavy blanket for low temp, observed moderate to severe muscle fat wasting to chest and clavicles, with BMI 16.5. RN ordered swallow eval, pending. Ngt in place, RN suggested enteral feeding if needed. Pt is edentulous with upper denture at bedside. Current Diet Order/ Nutrition Support NPO Pertinent Medications D5w, Vancomycin, Protonix Pertinent Labs 02/14: A1c 5.9 02/15: phosphorus 5.7H 02/16: BUN 67H, creatinine 2.9H , glucose 90 (trended down), AST 193H, alkaline phosphatase 129H, ALT 281H, calcium 8L Nutritional Hx/Data Height 1.68 m Height (Calculated Centimeters) 167.6 Current Weight (lbs) 46.312 kg Weight (Calculated Kilograms) 46.3 Weight (Calculated Grams) 92948.8 [place] Body Weight 142 Weight Status Underweight GI Symptoms Usual diet at home [facility]: [facility] soft, finely chopped, thin liquid Skin Integrity/Comment: Dwight 10. Right eye scab. Estimated Nutritional Goals Calories/Kcals/Kg IBW 142lb/64.5kg Kcals Calculated 1613-1935kcal (25-30kcal/kg) Protein Calculated 52-66g (0.8-1g/kg, monitor renal vs underweight) Fluid: ml Per MD Nutritional Problem 2. Problem Problem Impaired nutrient utilization related to Etiology RUEL on CKD aeb Signs/Symptoms: 02/16: BUN 67H, creatinine 2.9H , calcium 8L. 02/15: phosphorus 5.7H 1. Problem Problem (possible) difficulty chewing/ swallowing related to Etiology likely lethargy aeb Signs/Symptoms: swallow eval pending Malnutrition Alert Body Fat Depletion (Severe) Mod to Severe Depletion Muscle Mass (Severe) Mod to Severe Depletion Intervention/Recommendation Comments 1. 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 Diet texture per swallow eval (pending). Pt is edentulous with upper denture at bedside. 2. Recommend Novasource Renal TID, BMI 16.5 underweight, moderate to severe muscle fat wasting to chest and clavicles , family report poor PO intake for 1 month. 3[address] Ngt in [address]. If enteral nutrition suggested, recommend Novasource Renal 38ml/hr x 24hrs, providing 912ml total volume, 1824kcal, 83g protein. Expected Outcomes/Goals Expected Outcomes/Goals 1. Pt to resume oral diet and meet at least 75% of estimated nutritional needs.
--- NOTE | 2017-02-17 20:32 | Consultation ---
DATE OF CONSULTATION: 02/17/2017 NEUROLOGY CONSULT HISTORY OF PRESENT ILLNESS: The patient is an 82-year-old. The patient admitted with altered mentation and more lethargic than usual. The patient is lying in bed, not interacting much. He is awake and alert. He will look at me, mumbles a few words, but not much more. The patient noted to have septic shock and severe hydration. Gradual improvement, but still continues to be lethargic, not responding. PAST MEDICAL HISTORY: Dementia. The patient is essentially mainly in bed. The patient has history of psychosis. History of hypertension and diabetes. MEDICATIONS: As per reconciliation. Here, the patient is on antibiotics. REVIEW OF SYSTEMS: Not obtainable. The patient is kind of look some movement of the arms, but not much. Does not interact much. Does not answer questions. PHYSICAL EXAMINATION: VITAL SIGNS: Temperature 98.0, earlier was 96.4. Blood pressure 111/70 and pulse is 58. NECK: Supple. No bruits. HEART: Normal heart sounds. LUNGS: Clear. NEUROLOGIC: The patient is lying in bed. Eyes open. He does not respond. He mumbles something to when I asked his name, but not much more. Pupil in right is somewhat irregular, but reacts slowly. Left pupil reacts, about 3 mm. Corneal reflex present. The patient kind of looks straight ahead. No significant eye movement. MOTOR: The patient has arms kind of semi-flexed when I lift them up. He is able to hold the left arm somewhat more than the right. The right arm will fall down to the back much faster. Legs are flexed at the hip and at the knees. I really do not get much movement there. There is some withdrawal difficult to straighten, looks like the patient has increased tone. Reflexes is -1 upper extremities, difficult to get the lower extremity. INVESTIGATIONS: WBC 6.4, hemoglobin 8.2, platelets 107,000. Sodium on admission was 152, down to 147. BUN is 63 and creatinine 3.1. LFTs elevated on admission. Ammonia level 51. ASSESSMENT: 1. Encephalopathy. 2. Underlying dementia. 3. Sepsis. 4. Hyponatremia, better. 5. Renal failure. 6. Dehydration. 7. Underlying dementia. 8. Increased weakness on the right, rule out cerebrovascular accident. Neurologic plan for CT scan of the head, continue to treat the sepsis. Continue management of his metabolic abnormalities. JOB# [id number]
--- NOTE | 2017-02-18 02:21 | Progress Notes ---
DATE: 02/17/2017 Case was discussed with staff of the patient. The patient is better, is out of ICU. He is alert. He tried to answer questions, but he has NG tube, cannot answer, he nods his head. He denies any intent to harm himself or anybody. He has been cooperative, but looks very weak. He is not on any medication. I would recommend not to give any medication until he starts acting out in any way aggressive ____ and he needs followup with psychiatrist upon discharge. Thank you very much for allowing me to participate in the care of this most interesting gentleman. JOB# [id number]
[2017-02-18] MEDS: Dextrose 5% 1,000 ML IV SCH ×2 (04:02→20:48)
[2017-02-18 06:19] LABS: HEMATOCRIT 24.9 % (39.0-49.0); HEMOGLOBIN 8.4 gm/dL (12.6-17.4); MEAN CELL VOLUME 97.4 fl (80-99); MEAN CORPUSCULAR HGB CONC 33.8 pg (28.0-36.0); MEAN PLATELET VOLUME 8.4 fl; PLATELET COUNT 93 Th/cmm (150-400); RED BLOOD COUNT 2.56 Mil/cmm (3.80-5.80); RED CELL DISTRIBUTION WIDTH 15.6 % (11.5-20.0)
[2017-02-18 06:40] LABS: BAND NEUTROPHILE 2 % (0-10); EOSINOPHIL 4 % (0-5); NEUTROPHILS 82 % (40-80); TOTAL CELLS COUNTED 100
[2017-02-18 06:41] LABS: PLATELET ESTIMATE SLIGHT DECREASED (NORMAL)
[2017-02-18 06:48] LABS: ANION GAP 11.3 (7.0-16.0); BUN - UREA NITROGEN 59 mg/dL (7-25); BUN/CREATININE RATIO 20.3; CALCIUM SERUM 8.1 mg/dL (8.6-10.3); CARBON DIOXIDE 22.3 mEq/L (21.0-31.0); CHLORIDE 116 mEq/L (98-107); CREATININE - SERUM 2.9 mg/dL (0.7-1.3); GLUCOSE 88 mg/dL (70-105); POTASSIUM SERUM 3.6 mEq/L (3.5-5.1); SODIUM SERUM 146 mEq/L (136-145)
--- NOTE | 2017-02-18 08:26 | Diagnostic Imaging Report ---
CHEST X-RAY: AP view INDICATION: NG tube placement COMPARISON: Chest x-ray 02/16/2017 FINDINGS: Patient's NG tube appears to be along the nasal region which is not visualized.. Bilateral pulmonary infiltrates are again noted with trace effusions. Heart size is normal. IMPRESSION: Patient's NG tube appears to be along the nasal region which is not visualized. Removal is recommended. Persistent bilateral pulmonary infiltrates.
--- NOTE | 2017-02-18 08:27 | Diagnostic Imaging Report ---
KUB single view HISTORY: NG tube placement COMPARISON: Chest x-ray earlier same day FINDINGS: An NG tube is curled along the distal esophagus. Recommend repositioning. Generalized gas-filled loops of bowel are noted. IMPRESSION: NG tube curled along the distal esophagus with tip not seen. Recommend repositioning. Generalized gas-filled loops of bowel, nonspecific.
--- NOTE | 2017-02-18 09:53 | General Progress Note ---
Subjective - Review of Systems Events since last encounter: patient awake no acute distress Objective - Results Result Diagrams: 02/18/17 05:35 02/18/17 05:35 Recent Labs: Laboratory Last Values WBC 6.0 Th/cmm (4.8-10.8) 02/18/17 05:35 RBC 2.56 Mil/cmm (3.80-5.80) L 02/18/17 05:35 Hgb 8.4 gm/dL (12.6-17.4) L 02/18/17 05:35 Hct 24.9 % (39.0-49.0) L 02/18/17 05:35 MCV 97.4 fl (80-99) 02/18/17 05:35 MCH 33.0 pg (27.0-31.0) H 02/18/17 05:35 MCHC Differential 33.8 pg (28.0-36.0) 02/18/17 05:35 RDW 15.6 % (11.5-20.0) 02/18/17 05:35 Plt Count 93 Th/cmm (150-400) L 02/18/17 05:35 MPV 8.4 fl 02/18/17 05:35 Band Neutrophils % 2 % (0-10) 02/18/17 05:35 Neutrophils (Manual) 82 % (40-80) H 02/18/17 05:35 Lymphocytes 9 % (20-50) L 02/18/17 05:35 Monocytes 3 % (2-10) 02/18/17 05:35 Eosinophils 4 % (0-5) 02/18/17 05:35 Basophils 1 % (0-3) 02/14/17 13:23 Platelet Estimate SLIGHT DECREASED (NORMAL) 02/18/17 05:35 Platelet Morphology NORMAL (NORMAL) 02/15/17 06:30 Anisocytosis 1+ 02/15/17 06:30 RBC Morph Micro Appear ABNORMAL (NORMAL) 02/15/17 06:30 Eos Smear Source URINE 02/14/17 20:05 Eos Smear Total Cells NONE SEEN (NONE SEEN) 02/14/17 20:05 Plt Count 39 Th/cmm (150-750) L 02/16/17 04:17 PT 9.7 SECONDS (9.5-11.5) 02/16/17 04:17 INR 0.93 (0.5-1.4) 02/16/17 04:17 PTT (Actin FS) 35.1 SECONDS (26.0-38.0) 02/16/17 04:17 Fibrinogen 500.0 mg/dL (200.0-400.0) H 02/16/17 04:17 D-Dimer 745 ng/mL (100-400) H 02/16/17 04:17 Sodium 146 mEq/L (136-145) H 02/18/17 05:35 Potassium 3.6 mEq/L (3.5-5.1) 02/18/17 05:35 Chloride 116 mEq/L (98-107) H 02/18/17 05:35 Carbon Dioxide 22.3 mEq/L (21.0-31.0) 02/18/17 05:35 Anion Gap 11.3 (7.0-16.0) 02/18/17 05:35 BUN 59 mg/dL (7-25) H 02/18/17 05:35 Creatinine 2.9 mg/dL (0.7-1.3) H 02/18/17 05:35 Est GFR ( Amer) TNP 02/18/17 05:35 Est GFR (Non-Af Amer) TNP 02/18/17 05:35 BUN/Creatinine Ratio 20.3 02/18/17 05:35 Glucose 88 mg/dL (70-105) 02/18/17 05:35 POC Glucose 204 MG/DL (70 - 105) H 02/14/17 14:56 Hemoglobin A1c % 5.9 % (4.0-6.0) 02/14/17 13:23 Whole Bld Lactic Acid 1.09 mmol/L (0.60-1.99) 02/14/17 13:23 Uric Acid 2.7 mg/dL (4.4-7.6) L 02/15/17 04:25 Calcium 8.1 mg/dL (8.6-10.3) L 02/18/17 05:35 Phosphorus 5.7 mg/dL (2.5-5.0) H 02/15/17 04:25 Magnesium 2.7 mg/dL (1.9-2.7) 02/15/17 04:25 Total Bilirubin 0.5 mg/dL (0.3-1.0) 02/17/17 04:45 Direct Bilirubin 0.05 mg/dL (0.0-0.2) 02/17/17 04:45 AST 109 U/L (13-39) H 02/17/17 04:45 ALT 191 U/L (7-52) H 02/17/17 04:45 Alkaline Phosphatase 97 U/L (34-104) 02/17/17 04:45 Ammonia 51 umol/L (16-53) 02/16/17 04:17 Lactate Dehydrogenase 210 U/L (140-271) 02/16/17 04:17 Troponin I 0.08 ng/mL (0.01-0.05) H* D 02/17/17 13:55 Total Protein 5.0 gm/dL (6.0-8.3) L 02/17/17 04:45 Albumin 2.8 gm/dL (4.2-5.5) L 02/17/17 04:45 Globulin 2.2 gm/dL 02/17/17 04:45 Albumin/Globulin Ratio 1.3 (1.0-1.8) 02/17/17 04:45 Vitamin B12 >1999 pg/mL (211-946) H 02/16/17 04:17 Folic Acid 14.8 ng/mL (>3.0) 02/16/17 04:17 TSH 4.74 uIU/ml (0.34-5.60) 02/18/17 05:35 Urine Source CATH 02/14/17 14:10 Urine Color YELLOW 02/14/17 14:10 Urine Clarity CLEAR (CLEAR) 02/14/17 14:10 Urine pH 5.5 (4.6 - 8.0) 02/14/17 14:10 Ur Specific [place] 1.020 (1.005-1.030) 02/14/17 14:10 Urine Protein 100 mg/dL (NEGATIVE) H 02/14/17 14:10 Urine Glucose (UA) NEGATIVE mg/dL (NEGATIVE) 02/14/17 14:10 Urine Ketones NEGATIVE mg/dL (NEGATIVE) 02/14/17 14:10 Urine Blood MODERATE (NEGATIVE) H 02/14/17 14:10 Urine Nitrate NEGATIVE (NEGATIVE) 02/14/17 14:10 Urine Bilirubin NEGATIVE (NEGATIVE) 02/14/17 14:10 Urine Urobilinogen 0.2 E.U./dL (0.2 - 1.0) 02/14/17 14:10 Ur Leukocyte Esterase NEGATIVE (NEGATIVE) 02/14/17 14:10 Urine RBC 5-10 /hpf (0-5) H 02/14/17 14:10 Urine WBC 2-5 /hpf (0-5) H 02/14/17 14:10 Ur Epithelial Cells FEW /lpf (FEW) 02/14/17 14:10 Urine Bacteria FEW /hpf (NONE SEEN) 02/14/17 14:10 Urine Osmolality 434 mOsmol/kg 02/14/17 20:05 Ur Random Sodium 61 mmol/L 02/15/17 12:46 Urine Creatinine 93.0 mg/dl (39.0-259.0) 02/14/17 20:05 Urine Microalbumin 662.5 ug/mL (Not Estab.) 02/14/17 14:10 Microalb/Creat Ratio 851.5 mg/g creat (0.0-30.0) H 02/14/17 14:10 Stool Occult Blood POSITIVE (NEGATIVE) 02/15/17 18:35 Random Vancomycin 14.5 ug/mL (5.0-40.0) 02/16/17 04:17 Hepatitis A IgM Ab Negative (Negative) 02/16/17 04:17 Hep Bs Antigen Negative (Negative) 02/16/17 04:17 Hep B Core IgM Ab Negative (Negative) 02/16/17 04:17 Hepatitis C Antibody <0.1 s/co ratio (0.0-0.9) 02/16/17 04:17 Blood Type O POSITIVE 02/15/17 05:20 Antibody Screen NEGATIVE 02/15/17 05:20 Crossmatch See Detail 02/15/17 05:20 - Physical Exam Vitals and I&O: Vital Signs Temp 97.4 F 02/18/17 04:00 Pulse 59 02/18/17 04:00 Resp 20 02/18/17 04:00 BP 110/60 02/18/17 04:00 Pulse Ox 97 02/18/17 04:00 Intake & Output 02/17/17 02/18/17 02/18/17 18:59 06:59 18:59 Intake Total 1050 1100 Balance 1050 1100 Intake: Intake, IV Amount 1050 1100 Dextrose 5% 1,000 ml @ 75 1000 1000 mls/hr IV .[id number] [facility] Rx#:[id number] Piperacillin Sodium/ 50 100 Tazobact 2.25 gm In Sodium Chloride 0.9% 50 ml @ 100 mls/hr IV Q8HR [facility] Rx#:[id number] Active Medications: Current Medications Atropine Sulfate (Atropine Syringe) 1 mg IVP Q4HR PRN PRN Reason: LOW HEART RATE Stop: 04/18/17 13:37 Last Admin: 02/17/17 14:32 Dose: 1 mg Piperacillin Sod/Tazobactam (Sod 2.25 gm/ Sodium Chloride) 50 mls @ 100 mls/hr IV Q8HR [facility] Stop: 04/15/17 20:59 Last Infusion: 02/18/17 06:30 Dose: Infused Dextrose (D5w) 1,000 mls @ 75 mls/hr IV .[id number] [facility] Stop: 04/15/17 17:05 Last Admin: 02/18/17 04:02 Dose: 75 mls/hr Miscellaneous (Probiotic Screen) 1 ea MC PRN PRN PRN Reason: PROTOCOL Stop: 04/16/17 14:13 Pantoprazole Sodium (Protonix) 40 mg IVP DAILY [facility] Stop: 04/19/17 08:59 Last Admin: 02/18/17 09:15 Dose: 40 mg Pneumococcal Polyvalent Vaccine (Pneumovax) 0.5 ml IM .ONCE ONE Stop: 02/18/17 18:24 General: No acute distress HEENT: Atraumatic, Mucous membr. moist/pink Neck: Supple Cardiovascular: Regular rate, Normal S1, Normal S2 Lungs: Other (few rhonchi) Abdomen: Soft, Other (diminished BS) Extremities: no Edema Neurological: Sensation intact Skin: no Rash Psych/Mental Status: Mood NL - Procedures Procedures: Procedures Procedure Code Date BLOOD TRANSFUSION SERVICE 66646 02/14/17 TRANSFUSE NONAUT RED BLOOD CELLS IN PERIPH VEIN, PERC 66944L0 02/14/17 Assessment/Plan - Problem List Patient Problems: All Active Problems WANDERS FROM FACILITY; ELOPEMENT RISK (Acute) Nutritional Asmnt/Malnutr-PDOC - Dietary Evaluation Malnutrition Findings (Please click <Entered> for more info): Nutritional Asmnt/Malnutrition Start: 02/16/17 13: 29 Text: Status: Complete Freq: Document 02/16/17 13:29 GSUN (Rec: 02/16/17 13:57 [email or web address] [email or web address]) Nutritional Asmnt/Malnutrition Patient General Information Nutritional Screening High Risk Screening Diagnosis Septic shock, severe dehydration, 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 RD consult for elevated BG. NPO since adm, day 2. Spoke to RN MARYAM [place] stated per family, pt noted with poor PO intake this past month. Pt was lethargic during visit, made eye contact , responded yes when asked if he was hungry. Limited physical assessment due to heavy blanket for low temp, observed moderate to severe muscle fat wasting to chest and clavicles, with BMI 16.5. RN ordered swallow eval, pending. Ngt in place, RN suggested enteral feeding if needed. Pt is edentulous with upper denture at bedside. Current Diet Order/ Nutrition Support NPO Pertinent Medications D5w, Vancomycin, Protonix Pertinent Labs 02/14: A1c 5.9 02/15: phosphorus 5.7H 02/16: BUN 67H, creatinine 2.9H , glucose 90 (trended down), AST 193H, alkaline phosphatase 129H, ALT 281H, calcium 8L Nutritional Hx/Data Height 1.68 m Height (Calculated Centimeters) 167.6 Current Weight (lbs) 46.312 kg Weight (Calculated Kilograms) 46.3 Weight (Calculated Grams) 36477.8 [place] Body Weight 142 Weight Status Underweight GI Symptoms Usual diet at home [place] [facility]: [facility] soft, finely chopped, thin liquid Skin Integrity/Comment: [place] 10. Right eye scab. Estimated Nutritional Goals Calories/Kcals/Kg IBW 142lb/64.5kg Kcals Calculated 1613-1935kcal (25-30kcal/kg) Protein Calculated 52-66g (0.8-1g/kg, monitor renal vs underweight) Fluid: ml Per MD Nutritional Problem 2. Problem Problem Impaired nutrient utilization related to Etiology RUEL on CKD aeb Signs/Symptoms: 02/16: BUN 67H, creatinine 2.9H , calcium 8L. 02/15: phosphorus 5.7H 1. Problem Problem (possible) difficulty chewing/ swallowing related to Etiology likely lethargy aeb Signs/Symptoms: swallow eval pending Malnutrition Alert Body Fat Depletion (Severe) Mod to Severe Depletion Muscle Mass (Severe) Mod to Severe Depletion Intervention/Recommendation Comments 1. 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 Diet texture per swallow eval (pending). Pt is edentulous with upper denture at bedside. 2. Recommend Novasource Renal TID, BMI 16.5 underweight, moderate to severe muscle fat wasting to chest and clavicles , family report poor PO intake for 1 month[address] 3[address] Ngt in [address]. If enteral nutrition suggested, recommend Novasource Renal 38ml/hr x 24hrs, providing 912ml total volume, 1824kcal, 83g protein. Expected Outcomes/Goals Expected Outcomes/Goals 1. Pt to resume oral diet and meet at least 75% of estimated nutritional needs.
--- NOTE | 2017-02-18 10:51 | GI Progress Note ---
Subjective - Review of Systems Service Date: 02/18/17 Subjective: Pt is minimally communicative at this time, no obvious distress. Objective - Results Result Diagrams: 02/18/17 05:35 02/18/17 05:35 Recent Labs: Laboratory Last Values WBC 6.0 Th/cmm (4.8-10.8) 02/18/17 05:35 RBC 2.56 Mil/cmm (3.80-5.80) L 02/18/17 05:35 Hgb 8.4 gm/dL (12.6-17.4) L 02/18/17 05:35 Hct 24.9 % (39.0-49.0) L 02/18/17 05:35 MCV 97.4 fl (80-99) 02/18/17 05:35 MCH 33.0 pg (27.0-31.0) H 02/18/17 05:35 MCHC Differential 33.8 pg (28.0-36.0) 02/18/17 05:35 RDW 15.6 % (11.5-20.0) 02/18/17 05:35 Plt Count 93 Th/cmm (150-400) L 02/18/17 05:35 MPV 8.4 fl 02/18/17 05:35 Band Neutrophils % 2 % (0-10) 02/18/17 05:35 Neutrophils (Manual) 82 % (40-80) H 02/18/17 05:35 Lymphocytes 9 % (20-50) L 02/18/17 05:35 Monocytes 3 % (2-10) 02/18/17 05:35 Eosinophils 4 % (0-5) 02/18/17 05:35 Basophils 1 % (0-3) 02/14/17 13:23 Platelet Estimate SLIGHT DECREASED (NORMAL) 02/18/17 05:35 Platelet Morphology NORMAL (NORMAL) 02/15/17 06:30 Anisocytosis 1+ 02/15/17 06:30 RBC Morph Micro Appear ABNORMAL (NORMAL) 02/15/17 06:30 Eos Smear Source URINE 02/14/17 20:05 Eos Smear Total Cells NONE SEEN (NONE SEEN) 02/14/17 20:05 Plt Count 39 Th/cmm (150-750) L 02/16/17 04:17 PT 9.7 SECONDS (9.5-11.5) 02/16/17 04:17 INR 0.93 (0.5-1.4) 02/16/17 04:17 PTT (Actin FS) 35.1 SECONDS (26.0-38.0) 02/16/17 04:17 Fibrinogen 500.0 mg/dL (200.0-400.0) H 02/16/17 04:17 D-Dimer 745 ng/mL (100-400) H 02/16/17 04:17 Sodium 146 mEq/L (136-145) H 02/18/17 05:35 Potassium 3.6 mEq/L (3.5-5.1) 02/18/17 05:35 Chloride 116 mEq/L (98-107) H 02/18/17 05:35 Carbon Dioxide 22.3 mEq/L (21.0-31.0) 02/18/17 05:35 Anion Gap 11.3 (7.0-16.0) 02/18/17 05:35 BUN 59 mg/dL (7-25) H 02/18/17 05:35 Creatinine 2.9 mg/dL (0.7-1.3) H 02/18/17 05:35 Est GFR ( Amer) TNP 02/18/17 05:35 Est GFR (Non-Af Amer) TNP 02/18/17 05:35 BUN/Creatinine Ratio 20.3 02/18/17 05:35 Glucose 88 mg/dL (70-105) 02/18/17 05:35 POC Glucose 204 MG/DL (70 - 105) H 02/14/17 14:56 Hemoglobin A1c % 5.9 % (4.0-6.0) 02/14/17 13:23 Whole Bld Lactic Acid 1.09 mmol/L (0.60-1.99) 02/14/17 13:23 Uric Acid 2.7 mg/dL (4.4-7.6) L 02/15/17 04:25 Calcium 8.1 mg/dL (8.6-10.3) L 02/18/17 05:35 Phosphorus 5.7 mg/dL (2.5-5.0) H 02/15/17 04:25 Magnesium 2.7 mg/dL (1.9-2.7) 02/15/17 04:25 Total Bilirubin 0.5 mg/dL (0.3-1.0) 02/17/17 04:45 Direct Bilirubin 0.05 mg/dL (0.0-0.2) 02/17/17 04:45 AST 109 U/L (13-39) H 02/17/17 04:45 ALT 191 U/L (7-52) H 02/17/17 04:45 Alkaline Phosphatase 97 U/L (34-104) 02/17/17 04:45 Ammonia 51 umol/L (16-53) 02/16/17 04:17 Lactate Dehydrogenase 210 U/L (140-271) 02/16/17 04:17 Troponin I 0.08 ng/mL (0.01-0.05) H* D 02/17/17 13:55 Total Protein 5.0 gm/dL (6.0-8.3) L 02/17/17 04:45 Albumin 2.8 gm/dL (4.2-5.5) L 02/17/17 04:45 Globulin 2.2 gm/dL 02/17/17 04:45 Albumin/Globulin Ratio 1.3 (1.0-1.8) 02/17/17 04:45 Vitamin B12 >1999 pg/mL (211-946) H 02/16/17 04:17 Folic Acid 14.8 ng/mL (>3.0) 02/16/17 04:17 TSH 4.74 uIU/ml (0.34-5.60) 02/18/17 05:35 Urine Source CATH 02/14/17 14:10 Urine Color YELLOW 02/14/17 14:10 Urine Clarity CLEAR (CLEAR) 02/14/17 14:10 Urine pH 5.5 (4.6 - 8.0) 02/14/17 14:10 Ur Specific [place] 1.020 (1.005-1.030) 02/14/17 14:10 Urine Protein 100 mg/dL (NEGATIVE) H 02/14/17 14:10 Urine Glucose (UA) NEGATIVE mg/dL (NEGATIVE) 02/14/17 14:10 Urine Ketones NEGATIVE mg/dL (NEGATIVE) 02/14/17 14:10 Urine Blood MODERATE (NEGATIVE) H 02/14/17 14:10 Urine Nitrate NEGATIVE (NEGATIVE) 02/14/17 14:10 Urine Bilirubin NEGATIVE (NEGATIVE) 02/14/17 14:10 Urine Urobilinogen 0.2 E.U./dL (0.2 - 1.0) 02/14/17 14:10 Ur Leukocyte Esterase NEGATIVE (NEGATIVE) 02/14/17 14:10 Urine RBC 5-10 /hpf (0-5) H 02/14/17 14:10 Urine WBC 2-5 /hpf (0-5) H 02/14/17 14:10 Ur Epithelial Cells FEW /lpf (FEW) 02/14/17 14:10 Urine Bacteria FEW /hpf (NONE SEEN) 02/14/17 14:10 Urine Osmolality 434 mOsmol/kg 02/14/17 20:05 Ur Random Sodium 61 mmol/L 02/15/17 12:46 Urine Creatinine 93.0 mg/dl (39.0-259.0) 02/14/17 20:05 Urine Microalbumin 662.5 ug/mL (Not Estab.) 02/14/17 14:10 Microalb/Creat Ratio 851.5 mg/g creat (0.0-30.0) H 02/14/17 14:10 Stool Occult Blood POSITIVE (NEGATIVE) 02/15/17 18:35 Random Vancomycin 14.5 ug/mL (5.0-40.0) 02/16/17 04:17 Hepatitis A IgM Ab Negative (Negative) 02/16/17 04:17 Hep Bs Antigen Negative (Negative) 02/16/17 04:17 Hep B Core IgM Ab Negative (Negative) 02/16/17 04:17 Hepatitis C Antibody <0.1 s/co ratio (0.0-0.9) 02/16/17 04:17 Blood Type O POSITIVE 02/15/17 05:20 Antibody Screen NEGATIVE 02/15/17 05:20 Crossmatch See Detail 02/15/17 05:20 - Physical Exam Vitals and I&O: Vital Signs Temp 97.4 F 02/18/17 04:00 Pulse 59 02/18/17 04:00 Resp 20 02/18/17 04:00 BP 110/60 02/18/17 04:00 Pulse Ox 97 02/18/17 04:00 Intake & Output 02/17/17 02/18/17 02/18/17 18:59 06:59 18:59 Intake Total 1050 1100 Balance 1050 1100 Intake: Intake, IV Amount 1050 1100 Dextrose 5% 1,000 ml @ 75 1000 1000 mls/hr IV .[id number] [facility] Rx#:[id number] Piperacillin Sodium/ 50 100 Tazobact 2.25 gm In Sodium Chloride 0.9% 50 ml @ 100 mls/hr IV Q8HR [facility] Rx#:[id number] Active Medications: Current Medications Atropine Sulfate (Atropine Syringe) 1 mg IVP Q4HR PRN PRN Reason: LOW HEART RATE Stop: 04/18/17 13:37 Last Admin: 02/17/17 14:32 Dose: 1 mg Piperacillin Sod/Tazobactam (Sod 2.25 gm/ Sodium Chloride) 50 mls @ 100 mls/hr IV Q8HR [facility] Stop: 04/15/17 20:59 Last Infusion: 02/18/17 06:30 Dose: Infused Dextrose (D5w) 1,000 mls @ 75 mls/hr IV .[id number] [facility] Stop: 04/15/17 17:05 Last Admin: 02/18/17 04:02 Dose: 75 mls/hr Miscellaneous (Probiotic Screen) 1 ea MC PRN PRN PRN Reason: PROTOCOL Stop: 04/16/17 14:13 Pantoprazole Sodium (Protonix) 40 mg IVP DAILY [facility] Stop: 04/19/17 08:59 Last Admin: 02/18/17 09:15 Dose: 40 mg Pneumococcal Polyvalent Vaccine (Pneumovax) 0.5 ml IM .ONCE ONE Stop: 02/18/17 18:24 General: No acute distress HEENT: Atraumatic, Mucous membr. moist/pink Neck: Supple Cardiovascular: Regular rate, Normal S1, Normal S2 Lungs: Other (few rhonchi) Abdomen: Soft, Other (diminished BS) Extremities: no Edema Neurological: Sensation intact Skin: no Rash Psych/Mental Status: Mood NL - Procedures Procedures: Procedures Procedure Code Date BLOOD TRANSFUSION SERVICE 99374 02/14/17 TRANSFUSE NONAUT RED BLOOD CELLS IN PERIPH VEIN, PERC 60625B6 02/14/17 Assessment/Plan - Problem List Patient Problems: All Active Problems WANDERS FROM FACILITY; ELOPEMENT RISK (Acute) - Assessment Assessment: # Elevated liver function tests # UTI # Severe sepsis with hypothermia Suspect ischemic liver injury secondary to severe sepsis. This is supported by the fact his LFTs have quickly improved, and cont to improve. US negative for biliary obstruction or other obvious liver pathology. Viral hepatitis serologies negative. Plan: - cont supportive care and treatment of sepsis process - LFTs periodically to ensure resolution - institute diet after swallow evaluation (as appropriate based on results) GI to see as needed, please call with any further questions.
--- NOTE | 2017-02-18 15:11 | General Progress Note ---
Subjective - Review of Systems Service Date: 02/18/17 Subjective: sleeping, comfortable Objective - Results Result Diagrams: 02/18/17 05:35 02/18/17 05:35 Recent Labs: Laboratory Last Values WBC 6.0 Th/cmm (4.8-10.8) 02/18/17 05:35 RBC 2.56 Mil/cmm (3.80-5.80) L 02/18/17 05:35 Hgb 8.4 gm/dL (12.6-17.4) L 02/18/17 05:35 Hct 24.9 % (39.0-49.0) L 02/18/17 05:35 MCV 97.4 fl (80-99) 02/18/17 05:35 MCH 33.0 pg (27.0-31.0) H 02/18/17 05:35 MCHC Differential 33.8 pg (28.0-36.0) 02/18/17 05:35 RDW 15.6 % (11.5-20.0) 02/18/17 05:35 Plt Count 93 Th/cmm (150-400) L 02/18/17 05:35 MPV 8.4 fl 02/18/17 05:35 Band Neutrophils % 2 % (0-10) 02/18/17 05:35 Neutrophils (Manual) 82 % (40-80) H 02/18/17 05:35 Lymphocytes 9 % (20-50) L 02/18/17 05:35 Monocytes 3 % (2-10) 02/18/17 05:35 Eosinophils 4 % (0-5) 02/18/17 05:35 Basophils 1 % (0-3) 02/14/17 13:23 Platelet Estimate SLIGHT DECREASED (NORMAL) 02/18/17 05:35 Platelet Morphology NORMAL (NORMAL) 02/15/17 06:30 Anisocytosis 1+ 02/15/17 06:30 RBC Morph Micro Appear ABNORMAL (NORMAL) 02/15/17 06:30 Eos Smear Source URINE 02/14/17 20:05 Eos Smear Total Cells NONE SEEN (NONE SEEN) 02/14/17 20:05 Plt Count 39 Th/cmm (150-750) L 02/16/17 04:17 PT 9.7 SECONDS (9.5-11.5) 02/16/17 04:17 INR 0.93 (0.5-1.4) 02/16/17 04:17 PTT (Actin FS) 35.1 SECONDS (26.0-38.0) 02/16/17 04:17 Fibrinogen 500.0 mg/dL (200.0-400.0) H 02/16/17 04:17 D-Dimer 745 ng/mL (100-400) H 02/16/17 04:17 Sodium 146 mEq/L (136-145) H 02/18/17 05:35 Potassium 3.6 mEq/L (3.5-5.1) 02/18/17 05:35 Chloride 116 mEq/L (98-107) H 02/18/17 05:35 Carbon Dioxide 22.3 mEq/L (21.0-31.0) 02/18/17 05:35 Anion Gap 11.3 (7.0-16.0) 02/18/17 05:35 BUN 59 mg/dL (7-25) H 02/18/17 05:35 Creatinine 2.9 mg/dL (0.7-1.3) H 02/18/17 05:35 Est GFR ( Amer) TNP 02/18/17 05:35 Est GFR (Non-Af Amer) TNP 02/18/17 05:35 BUN/Creatinine Ratio 20.3 02/18/17 05:35 Glucose 88 mg/dL (70-105) 02/18/17 05:35 POC Glucose 204 MG/DL (70 - 105) H 02/14/17 14:56 Hemoglobin A1c % 5.9 % (4.0-6.0) 02/14/17 13:23 Whole Bld Lactic Acid 1.09 mmol/L (0.60-1.99) 02/14/17 13:23 Uric Acid 2.7 mg/dL (4.4-7.6) L 02/15/17 04:25 Calcium 8.1 mg/dL (8.6-10.3) L 02/18/17 05:35 Phosphorus 5.7 mg/dL (2.5-5.0) H 02/15/17 04:25 Magnesium 2.7 mg/dL (1.9-2.7) 02/15/17 04:25 Total Bilirubin 0.5 mg/dL (0.3-1.0) 02/17/17 04:45 Direct Bilirubin 0.05 mg/dL (0.0-0.2) 02/17/17 04:45 AST 109 U/L (13-39) H 02/17/17 04:45 ALT 191 U/L (7-52) H 02/17/17 04:45 Alkaline Phosphatase 97 U/L (34-104) 02/17/17 04:45 Ammonia 51 umol/L (16-53) 02/16/17 04:17 Lactate Dehydrogenase 210 U/L (140-271) 02/16/17 04:17 Troponin I 0.08 ng/mL (0.01-0.05) H* D 02/17/17 13:55 Total Protein 5.0 gm/dL (6.0-8.3) L 02/17/17 04:45 Albumin 2.8 gm/dL (4.2-5.5) L 02/17/17 04:45 Globulin 2.2 gm/dL 02/17/17 04:45 Albumin/Globulin Ratio 1.3 (1.0-1.8) 02/17/17 04:45 Vitamin B12 >1999 pg/mL (211-946) H 02/16/17 04:17 Folic Acid 14.8 ng/mL (>3.0) 02/16/17 04:17 TSH 4.74 uIU/ml (0.34-5.60) 02/18/17 05:35 Urine Source CATH 02/14/17 14:10 Urine Color YELLOW 02/14/17 14:10 Urine Clarity CLEAR (CLEAR) 02/14/17 14:10 Urine pH 5.5 (4.6 - 8.0) 02/14/17 14:10 Ur Specific [place] 1.020 (1.005-1.030) 02/14/17 14:10 Urine Protein 100 mg/dL (NEGATIVE) H 02/14/17 14:10 Urine Glucose (UA) NEGATIVE mg/dL (NEGATIVE) 02/14/17 14:10 Urine Ketones NEGATIVE mg/dL (NEGATIVE) 02/14/17 14:10 Urine Blood MODERATE (NEGATIVE) H 02/14/17 14:10 Urine Nitrate NEGATIVE (NEGATIVE) 02/14/17 14:10 Urine Bilirubin NEGATIVE (NEGATIVE) 02/14/17 14:10 Urine Urobilinogen 0.2 E.U./dL (0.2 - 1.0) 02/14/17 14:10 Ur Leukocyte Esterase NEGATIVE (NEGATIVE) 02/14/17 14:10 Urine RBC 5-10 /hpf (0-5) H 02/14/17 14:10 Urine WBC 2-5 /hpf (0-5) H 02/14/17 14:10 Ur Epithelial Cells FEW /lpf (FEW) 02/14/17 14:10 Urine Bacteria FEW /hpf (NONE SEEN) 02/14/17 14:10 Urine Osmolality 434 mOsmol/kg 02/14/17 20:05 Ur Random Sodium 61 mmol/L 02/15/17 12:46 Urine Creatinine 93.0 mg/dl (39.0-259.0) 02/14/17 20:05 Urine Microalbumin 662.5 ug/mL (Not Estab.) 02/14/17 14:10 Microalb/Creat Ratio 851.5 mg/g creat (0.0-30.0) H 02/14/17 14:10 Stool Occult Blood POSITIVE (NEGATIVE) 02/15/17 18:35 Random Vancomycin 14.5 ug/mL (5.0-40.0) 02/16/17 04:17 Hepatitis A IgM Ab Negative (Negative) 02/16/17 04:17 Hep Bs Antigen Negative (Negative) 02/16/17 04:17 Hep B Core IgM Ab Negative (Negative) 02/16/17 04:17 Hepatitis C Antibody <0.1 s/co ratio (0.0-0.9) 02/16/17 04:17 Blood Type O POSITIVE 02/15/17 05:20 Antibody Screen NEGATIVE 02/15/17 05:20 Crossmatch See Detail 02/15/17 05:20 - Physical Exam Vitals and I&O: Vital Signs Temp 91.3 F 02/18/17 12:00 Pulse 85 02/18/17 12:00 Resp 18 02/18/17 12:00 BP 116/71 02/18/17 12:00 Pulse Ox 93 02/18/17 12:00 Intake & Output 02/17/17 02/18/17 02/18/17 18:59 06:59 18:59 Intake Total 1050 1100 Balance 1050 1100 Intake: Intake, IV Amount 1050 1100 Dextrose 5% 1,000 ml @ 75 1000 1000 mls/hr IV .[id number] [facility] Rx#:[id number] Piperacillin Sodium/ 50 100 Tazobact 2.25 gm In Sodium Chloride 0.9% 50 ml @ 100 mls/hr IV Q8HR [facility] Rx#:[id number] Active Medications: Current Medications Atropine Sulfate (Atropine Syringe) 1 mg IVP Q4HR PRN PRN Reason: LOW HEART RATE Stop: 04/18/17 13:37 Last Admin: 02/18/17 11:03 Dose: 1 mg Piperacillin Sod/Tazobactam (Sod 2.25 gm/ Sodium Chloride) 50 mls @ 100 mls/hr IV Q8HR [facility] Stop: 04/15/17 20:59 Last Admin: 02/18/17 13:43 Dose: 100 mls/hr Dextrose (D5w) 1,000 mls @ 75 mls/hr IV .[id number] [facility] Stop: 04/15/17 17:05 Last Admin: 02/18/17 04:02 Dose: 75 mls/hr Miscellaneous (Probiotic Screen) 1 ea MC PRN PRN PRN Reason: PROTOCOL Stop: 04/16/17 14:13 Pantoprazole Sodium (Protonix) 40 mg IVP DAILY [facility] Stop: 04/19/17 08:59 Last Admin: 02/18/17 09:15 Dose: 40 mg Pneumococcal Polyvalent Vaccine (Pneumovax) 0.5 ml IM .ONCE ONE Stop: 02/18/17 18:24 General: No acute distress HEENT: Atraumatic, Mucous membr. moist/pink Neck: Supple, +2 carotid pulse wo bruit Cardiovascular: Regular rate, Normal S1, Normal S2 Lungs: Other (few rhonchi) Abdomen: Soft, Other (diminished BS) Extremities: no Edema Neurological: Sensation intact Skin: no Rash Psych/Mental Status: Mood NL - Procedures Procedures: Procedures Procedure Code Date BLOOD TRANSFUSION SERVICE 85729 02/14/17 TRANSFUSE NONAUT RED BLOOD CELLS IN PERIPH VEIN, PERC 39217N0 02/14/17 Assessment/Plan - Problem List Patient Problems: All Active Problems WANDERS FROM FACILITY; ELOPEMENT RISK (Acute) - Assessment Assessment: RUEL on CKD Hypothermic NG Hyperchloremic Met Acid Hypernatremia Type 2 DM Hepatic Enceph Anemia acute on ckd Acute liver failure Hyperkalemia 2nd RUEL, DM, losartan bicytopenia - Plan Plan: Current Medications Piperacillin Sod/Tazobactam (Sod 2.25 gm/ Sodium Chloride) 50 mls @ 100 mls/hr IV Q8HR [facility] Stop: 04/15/17 20:59 Last Infusion: 02/15/17 05:15 Dose: Infused Dextrose (D5w) 1,000 mls @ 125 mls/hr IV .Q8H [facility] Stop: 04/15/17 17:05 Last Admin: 02/15/17 04:44 Dose: 125 mls/hr Miscellaneous (Vancomycin Iv Per Pharmacy) 1 ea MC PRN PRN PRN Reason: PROTOCOL Stop: 04/15/17 15:55 Pneumococcal Polyvalent Vaccine (Pneumovax) 0.5 ml IM .ONCE ONE Stop: 02/15/17 17:34 Na down to 146, continue D5W@ 75ml/hr acute anemia possible slow GI bleed (stool OB +) BUN/CR down to 59/2.9 Hgb/Hct now 8.4/24.9 Lab - Result Diagrams 02/18/17 05:35 02/18/17 05:35 Nutritional Asmnt/Malnutr-PDOC - Dietary Evaluation Malnutrition Findings (Please click <Entered> for more info): Nutritional Asmnt/Malnutrition Start: 02/16/17 13: 29 Text: Status: Complete Freq: Document 02/16/17 13:29 GSUN (Rec: 02/16/17 13:57 [email or web address]) Nutritional Asmnt/Malnutrition Patient General Information Nutritional Screening High Risk Screening Diagnosis Septic shock, severe dehydration, 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 RD consult for elevated BG. NPO since adm, day 2. Spoke to RN Valencia, RN stated per family, pt noted with poor PO intake this past month. Pt was lethargic during visit, made eye contact , responded yes when asked if he was hungry. Limited physical assessment due to heavy blanket for low temp, observed moderate to severe muscle fat wasting to chest and clavicles, with BMI 16.5. RN ordered swallow eval, pending. Ngt in place, RN suggested enteral feeding if needed. Pt is edentulous with upper denture at bedside. Current Diet Order/ Nutrition Support NPO Pertinent Medications D5w, Vancomycin, Protonix Pertinent Labs 02/14: A1c 5.9 02/15: phosphorus 5.7H 02/16: BUN 67H, creatinine 2.9H , glucose 90 (trended down), AST 193H, alkaline phosphatase 129H, ALT 281H, calcium 8L Nutritional Hx/Data Height 1.68 m Height (Calculated Centimeters) 167.6 Current Weight (lbs) 46.312 kg Weight (Calculated Kilograms) 46.3 Weight (Calculated Grams) 18804.8 Divide Body Weight 142 Weight Status Underweight GI Symptoms Usual diet at home [facility]: [facility] soft, finely chopped, thin liquid Skin Integrity/Comment: Dwight 10. Right eye scab. Estimated Nutritional Goals Calories/Kcals/Kg IBW 142lb/64.5kg Kcals Calculated 1613-1935kcal (25-30kcal/kg) Protein Calculated 52-66g (0.8-1g/kg, monitor renal vs underweight) Fluid: ml Per MD Nutritional Problem 2. Problem Problem Impaired nutrient utilization related to Etiology RUEL on CKD aeb Signs/Symptoms: 02/16: BUN 67H, creatinine 2.9H , calcium 8L. 02/15: phosphorus 5.7H 1. Problem Problem (possible) difficulty chewing/ swallowing related to Etiology likely lethargy aeb Signs/Symptoms: swallow eval pending Malnutrition Alert Body Fat Depletion (Severe) Mod to Severe Depletion Muscle Mass (Severe) Mod to Severe Depletion Intervention/Recommendation Comments 1. 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 Diet texture per swallow eval (pending). Pt is edentulous with upper denture at bedside. 2. Recommend Novasource Renal TID, BMI 16.5 underweight, moderate to severe muscle fat wasting to chest and clavicles , family report poor PO intake for 1 month[address] 3[address] Ngt in [address]. If enteral nutrition suggested, recommend Novasource Renal 38ml/hr x 24hrs, providing 912ml total volume, 1824kcal, 83g protein. Expected Outcomes/Goals Expected Outcomes/Goals 1. Pt to resume oral diet and meet at least 75% of estimated nutritional needs.
[2017-02-18] MEDS ORDERED: Pneumococcal Vaccine 0.5 mL Vial IM ONE (18:23)
[2017-02-18] MEDS ORDERED: Diatrizoate Meglumine/Diatri 30 mL Sol ONE (23:02)
--- NOTE | 2017-02-19 00:02 | Progress Notes ---
DATE: 02/17/2017 SUBJECTIVE: The patient is in bed. Will open eyes, but no interaction. Does not talk. No seizures. OBJECTIVE: VITAL SIGNS: Temperature 97.4, blood pressure 130/69, at times the pulse had gone down between the 30s and 40s. HEART: Normal heart sounds. LUNGS: Clear. NEUROLOGICAL: The patient will look at me. Does not follow much instructions. No speech. Withdrawal of the upper extremity. The patient will withdraw the lower extremity. Mainly flexion at the hip and knees, very minimal response. Reflex about -1 in the upper extremity, difficult to get lower extremity. INVESTIGATIONS: CT scan of head is pending. ASSESSMENT AND PLAN: 1. Encephalopathy. 2. Dementia. 3. Sepsis. 4. Hypernatremia. 5. Renal failure. 6. Dehydration. 7. Underlying weakness. Rule out stroke. CT scan of head. JOB# [id number]
--- NOTE | 2017-02-19 01:37 | Consultation ---
DATE OF CONSULTATION: 02/18/[address] Sanabria. HISTORY AND PHYSICAL: This is an 82-year-old male patient who was brought to the hospital because of altered level, congestion, shortness of breath, and hypothermia. The patient had sepsis and urinary tract infection. The patient was admitted to ICU. Now, the patient is transferred to telemetry bed. The patient developed bradycardia when the patient needed atropine, hence Cardiology consult is requested. The patient at the present time is NPO, being evaluated for dysphagia with swallow eval. PAST MEDICAL HISTORY: Sinus bradycardia, sepsis, hypothyroid, urinary tract infection, hypertension, hyperlipidemia, protein-calorie malnutrition, diabetes mellitus type 2, diabetic CKD stage 2, dementia, and viral hepatitis. FAMILY HISTORY: Unremarkable. SOCIAL HISTORY: No history of smoking or alcohol abuse. ALLERGIES: No known allergies. PHYSICAL EXAMINATION: VITAL SIGNS: Blood pressure 120/80, pulse 48, and respirations 28. HEAD: Normocephalic. No lumps or bumps. EYES: Pupils are equal and reactive to light. Fundi show AV nicking, sclerae white, and conjunctivae pink. NECK: Carotid 2+. Normal upstroke. JVD flat. Thyroid not palpable. Lymph nodes not palpable. CHEST: Shows increased AP diameter. No kyphosis or scoliosis. LUNGS: Bilateral bronchovesicular breath sounds. HEART: PMI fifth intercostal space with lateral to midclavicular line. S1 and S2. No S3. Soft S4, sinus bradycardia. EXTREMITIES: Peripheral pulses 1+. No pedal edema. NEUROLOGIC: No focal neurological deficit. CLINICAL IMPRESSION: Sinus bradycardia, rule out hypothyroid, hypothermia, sepsis, urinary tract infection, hypertension, hyperlipidemia, dysphagia, protein-calorie malnutrition, diabetes mellitus type 2, diabetic chronic kidney disease stage II, dementia, and viral hepatitis. PLAN: Admit the patient. We will continue atropine. We will also get TSH level and echocardiogram. JOB# [id number]
[2017-02-19 06:22] LABS: HEMATOCRIT 26.6 % (41.0-60); MEAN CELL VOLUME 98.1 fl (80-99); MEAN CORPUSCULAR HEMOGLOBIN 33.3 pg (27.0-31.0); MEAN PLATELET VOLUME 8.7 fl; PLATELET COUNT 89 Th/cmm (150-400); RED BLOOD COUNT 2.71 Mil/cmm (3.80-5.80); WHITE BLOOD COUNT 5.8 Th/cmm (4.8-10.8)
[2017-02-19 06:43] LABS: ALB/GLOB RATIO 1.1 (1.0-1.8); ALKALINE PHOSPHATASE 83 U/L (34-104); ANION GAP 9.4 (7.0-16.0); BILIRUBIN,TOTAL 0.8 mg/dL (0.3-1.0); BUN - UREA NITROGEN 55 mg/dL (7-25); BUN/CREATININE RATIO 18.3; CALCIUM SERUM 8.4 mg/dL (8.6-10.3); CARBON DIOXIDE 24.1 mEq/L (21.0-31.0); CHLORIDE 113 mEq/L (98-107); GLUCOSE 79 mg/dL (70-105); POTASSIUM SERUM 3.5 mEq/L (3.5-5.1); SGOT 69 U/L (13-39); SGPT/ALT 143 U/L (7-52); SODIUM SERUM 143 mEq/L (136-145)
[2017-02-19 07:07] LABS: NEUTROPHILS 78 % (40-80); TOTAL CELLS COUNTED 100
[2017-02-19 07:08] LABS: EOSINOPHIL 14 % (0-5); PLATELET ESTIMATE DECREASED PLATELETS (NORMAL)
[2017-02-19 07:46] LABS: HEMATOCRIT 26.6 % (40.0-54.0); RBC RETICULOCYTE COUNT 2.71 Mil/cmm
[2017-02-19 07:47] LABS: RETICULOCYTES % COUNTED 0.4 % (0.5-1.5)
--- NOTE | 2017-02-19 08:19 | Diagnostic Imaging Report ---
KUB abdominal film HISTORY: Nasogastric tube placement Exam demonstrates a nasogastric tube projecting over the left upper quadrant over the region of the stomach. There is a nonspecific gas pattern of nondilated bowel. Bilateral infiltrates noted in the visualized lower lungs. IMPRESSION: 1. Nasogastric tube projecting over the region of the stomach.
--- NOTE | 2017-02-19 08:43 | General Progress Note ---
Subjective - Review of Systems Events since last encounter: no distress patient comfortable Objective - Results Result Diagrams: 02/19/17 05:25 02/19/17 05:25 Recent Labs: Laboratory Last Values WBC 5.8 Th/cmm (4.8-10.8) 02/19/17 05:25 RBC 2.71 Mil/cmm (3.80-5.80) L 02/19/17 05:25 Hgb 9.0 gm/dL (12-16) L 02/19/17 05:25 Hct 26.6 % (40.0-54.0) L 02/19/17 05:25 MCV 98.1 fl (80-99) 02/19/17 05:25 MCH 33.3 pg (27.0-31.0) H 02/19/17 05:25 MCHC Differential 34.0 pg (28.0-36.0) 02/19/17 05:25 RDW 15.0 % (11.5-20.0) 02/19/17 05:25 Plt Count 89 Th/cmm (150-400) L 02/19/17 05:25 MPV 8.7 fl 02/19/17 05:25 Band Neutrophils % 2 % (0-10) 02/18/17 05:35 Neutrophils (Manual) 78 % (40-80) 02/19/17 05:25 Lymphocytes 7 % (20-50) L 02/19/17 05:25 Monocytes 1 % (2-10) L 02/19/17 05:25 Eosinophils 14 % (0-5) H 02/19/17 05:25 Basophils 1 % (0-3) 02/14/17 13:23 Platelet Estimate DECREASED PLATELETS (NORMAL) 02/19/17 05:25 Platelet Morphology NORMAL (NORMAL) 02/15/17 06:30 Anisocytosis 1+ 02/15/17 06:30 RBC Morph Micro Appear ABNORMAL (NORMAL) 02/15/17 06:30 Total Retics Counted 0.4 % (0.5-1.5) L 02/19/17 05:25 Absolute Retic 10.8 Th/cmm 02/19/17 05:25 Corrected Retic Count 0.2 % (0.5-1.5) L 02/19/17 05:25 Eos Smear Source URINE 02/14/17 20:05 Eos Smear Total Cells NONE SEEN (NONE SEEN) 02/14/17 20:05 Plt Count 39 Th/cmm (150-750) L 02/16/17 04:17 PT 9.7 SECONDS (9.5-11.5) 02/16/17 04:17 INR 0.93 (0.5-1.4) 02/16/17 04:17 PTT (Actin FS) 35.1 SECONDS (26.0-38.0) 02/16/17 04:17 Fibrinogen 500.0 mg/dL (200.0-400.0) H 02/16/17 04:17 D-Dimer 745 ng/mL (100-400) H 02/16/17 04:17 Sodium 143 mEq/L (136-145) 02/19/17 05:25 Potassium 3.5 mEq/L (3.5-5.1) 02/19/17 05:25 Chloride 113 mEq/L (98-107) H 02/19/17 05:25 Carbon Dioxide 24.1 mEq/L (21.0-31.0) 02/19/17 05:25 Anion Gap 9.4 (7.0-16.0) 02/19/17 05:25 BUN 55 mg/dL (7-25) H 02/19/17 05:25 Creatinine 3.0 mg/dL (0.7-1.3) H 02/19/17 05:25 Est GFR ( Amer) TNP 02/19/17 05:25 Est GFR (Non-Af Amer) TNP 02/19/17 05:25 BUN/Creatinine Ratio 18.3 02/19/17 05:25 Glucose 79 mg/dL (70-105) 02/19/17 05:25 POC Glucose 112 MG/DL (70 - 105) H 02/19/17 06:42 Hemoglobin A1c % 5.9 % (4.0-6.0) 02/14/17 13:23 Whole Bld Lactic Acid 1.09 mmol/L (0.60-1.99) 02/14/17 13:23 Uric Acid 2.7 mg/dL (4.4-7.6) L 02/15/17 04:25 Calcium 8.4 mg/dL (8.6-10.3) L 02/19/17 05:25 Phosphorus 5.7 mg/dL (2.5-5.0) H 02/15/17 04:25 Magnesium 2.7 mg/dL (1.9-2.7) 02/15/17 04:25 Total Bilirubin 0.8 mg/dL (0.3-1.0) 02/19/17 05:25 Direct Bilirubin 0.05 mg/dL (0.0-0.2) 02/17/17 04:45 AST 69 U/L (13-39) H 02/19/17 05:25 ALT 143 U/L (7-52) H 02/19/17 05:25 Alkaline Phosphatase 83 U/L (34-104) 02/19/17 05:25 Ammonia 51 umol/L (16-53) 02/16/17 04:17 Lactate Dehydrogenase 210 U/L (140-271) 02/16/17 04:17 Troponin I 0.08 ng/mL (0.01-0.05) H* D 02/17/17 13:55 Total Protein 5.5 gm/dL (6.0-8.3) L 02/19/17 05:25 Albumin 2.9 gm/dL (4.2-5.5) L 02/19/17 05:25 Globulin 2.6 gm/dL 02/19/17 05:25 Albumin/Globulin Ratio 1.1 (1.0-1.8) 02/19/17 05:25 Vitamin B12 >1999 pg/mL (211-946) H 02/16/17 04:17 Folic Acid 14.8 ng/mL (>3.0) 02/16/17 04:17 TSH 4.79 uIU/ml (0.34-5.60) 02/18/17 05:35 Urine Source CATH 02/14/17 14:10 Urine Color YELLOW 02/14/17 14:10 Urine Clarity CLEAR (CLEAR) 02/14/17 14:10 Urine pH 5.5 (4.6 - 8.0) 02/14/17 14:10 Ur Specific [place] 1.020 (1.005-1.030) 02/14/17 14:10 Urine Protein 100 mg/dL (NEGATIVE) H 02/14/17 14:10 Urine Glucose (UA) NEGATIVE mg/dL (NEGATIVE) 02/14/17 14:10 Urine Ketones NEGATIVE mg/dL (NEGATIVE) 02/14/17 14:10 Urine Blood MODERATE (NEGATIVE) H 02/14/17 14:10 Urine Nitrate NEGATIVE (NEGATIVE) 02/14/17 14:10 Urine Bilirubin NEGATIVE (NEGATIVE) 02/14/17 14:10 Urine Urobilinogen 0.2 E.U./dL (0.2 - 1.0) 02/14/17 14:10 Ur Leukocyte Esterase NEGATIVE (NEGATIVE) 02/14/17 14:10 Urine RBC 5-10 /hpf (0-5) H 02/14/17 14:10 Urine WBC 2-5 /hpf (0-5) H 02/14/17 14:10 Ur Epithelial Cells FEW /lpf (FEW) 02/14/17 14:10 Urine Bacteria FEW /hpf (NONE SEEN) 02/14/17 14:10 Urine Osmolality 434 mOsmol/kg 02/14/17 20:05 Ur Random Sodium 61 mmol/L 02/15/17 12:46 Urine Creatinine 93.0 mg/dl (39.0-259.0) 02/14/17 20:05 Urine Microalbumin 662.5 ug/mL (Not Estab.) 02/14/17 14:10 Microalb/Creat Ratio 851.5 mg/g creat (0.0-30.0) H 02/14/17 14:10 Stool Occult Blood POSITIVE (NEGATIVE) 02/15/17 18:35 Random Vancomycin 14.5 ug/mL (5.0-40.0) 02/16/17 04:17 Hepatitis A IgM Ab Negative (Negative) 02/16/17 04:17 Hep Bs Antigen Negative (Negative) 02/16/17 04:17 Hep B Core IgM Ab Negative (Negative) 02/16/17 04:17 Hepatitis C Antibody <0.1 s/co ratio (0.0-0.9) 02/16/17 04:17 Blood Type O POSITIVE 02/15/17 05:20 Antibody Screen NEGATIVE 02/15/17 05:20 Crossmatch See Detail 02/15/17 05:20 - Physical Exam Vitals and I&O: Vital Signs Temp 96.3 F 02/19/17 04:00 Pulse 62 02/19/17 08:05 Resp 18 02/19/17 08:05 BP 127/67 02/19/17 04:00 Pulse Ox 97 02/19/17 08:05 Intake & Output 02/18/17 02/19/17 02/19/17 18:59 06:59 18:59 Intake Total 1050 50 828.75 Output Total 1000 200 Balance 50 -150 828.75 Weight (lbs) 52.617 kg 54.148 kg Intake: Intake, IV Amount 1050 50 828.75 Dextrose 5% 1,000 ml @ 75 1000 778.75 mls/hr IV .[id number] [facility] Rx#:[id number] Piperacillin Sodium/ 50 50 50 Tazobact 2.25 gm In Sodium Chloride 0.9% 50 ml @ 100 mls/hr IV Q8HR [facility] Rx#:[id number] Oral 0 Output: Urine 1000 200 Other: # Bowel Movements 0 0 Active Medications: Current Medications Atropine Sulfate (Atropine Syringe) 1 mg IVP Q4HR PRN PRN Reason: LOW HEART RATE Stop: 04/18/17 13:37 Last Admin: 02/18/17 11:03 Dose: 1 mg Piperacillin Sod/Tazobactam (Sod 2.25 gm/ Sodium Chloride) 50 mls @ 100 mls/hr IV Q8HR [facility] Stop: 04/15/17 20:59 Last Infusion: 02/19/17 07:11 Dose: Infused Dextrose (D5w) 1,000 mls @ 75 mls/hr IV .[id number] [facility] Stop: 04/15/17 17:05 Last Infusion: 02/19/17 07:11 Dose: 75 mls/hr Miscellaneous (Probiotic Screen) 1 ea MC PRN PRN PRN Reason: PROTOCOL Stop: 04/16/17 14:13 Pantoprazole Sodium (Protonix) 40 mg IVP DAILY [facility] Stop: 04/19/17 08:59 Last Admin: 02/18/17 09:15 Dose: 40 mg General: No acute distress HEENT: Atraumatic, Mucous membr. moist/pink Neck: Supple, +2 carotid pulse wo bruit Cardiovascular: Regular rate, Normal S1, Normal S2 Lungs: Other (few rhonchi) Abdomen: Soft, Other (diminished BS) Extremities: no Edema Neurological: Sensation intact Skin: no Rash Psych/Mental Status: Mood NL - Procedures Procedures: Procedures Procedure Code Date BLOOD TRANSFUSION SERVICE 17003 02/14/17 TRANSFUSE NONAUT RED BLOOD CELLS IN PERIPH VEIN, PERC 21435X3 02/14/17 Assessment/Plan - Problem List Patient Problems: All Active Problems WANDERS FROM FACILITY; ELOPEMENT RISK (Acute) Nutritional Asmnt/Malnutr-PDOC - Dietary Evaluation Malnutrition Findings (Please click <Entered> for more info): Nutritional Asmnt/Malnutrition Start: 02/16/17 13: 29 Text: Status: Complete Freq: Document 02/16/17 13:29 GSUN (Rec: 02/16/17 13:57 [email or web address] [email or web address]) Nutritional Asmnt/Malnutrition Patient General Information Nutritional Screening High Risk Screening Diagnosis Septic shock, severe dehydration, 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 RD consult for elevated BG. NPO since adm, day 2. Spoke to RN MARYAM [place] stated per family, pt noted with poor PO intake this past month. Pt was lethargic during visit, made eye contact , responded yes when asked if he was hungry. Limited physical assessment due to heavy blanket for low temp, observed moderate to severe muscle fat wasting to chest and clavicles, with BMI 16.5. RN ordered swallow eval, pending. Ngt in place, RN suggested enteral feeding if needed. Pt is edentulous with upper denture at bedside. Current Diet Order/ Nutrition Support NPO Pertinent Medications D5w, Vancomycin, Protonix Pertinent Labs 02/14: A1c 5.9 02/15: phosphorus 5.7H 02/16: BUN 67H, creatinine 2.9H , glucose 90 (trended down), AST 193H, alkaline phosphatase 129H, ALT 281H, calcium 8L Nutritional Hx/Data Height 1.68 m Height (Calculated Centimeters) 167.6 Current Weight (lbs) 46.312 kg Weight (Calculated Kilograms) 46.3 Weight (Calculated Grams) 68162.8 [place] Body Weight 142 Weight Status Underweight GI Symptoms Usual diet at home [facility]: [facility] soft, finely chopped, thin liquid Skin Integrity/Comment: Dwight 10. Right eye scab. Estimated Nutritional Goals Calories/Kcals/Kg IBW 142lb/64.5kg Kcals Calculated 1613-1935kcal (25-30kcal/kg) Protein Calculated 52-66g (0.8-1g/kg, monitor renal vs underweight) Fluid: ml Per MD Nutritional Problem 2. Problem Problem Impaired nutrient utilization related to Etiology RUEL on CKD aeb Signs/Symptoms: 02/16: BUN 67H, creatinine 2.9H , calcium 8L. 02/15: phosphorus 5.7H 1. Problem Problem (possible) difficulty chewing/ swallowing related to Etiology likely lethargy aeb Signs/Symptoms: swallow eval pending Malnutrition Alert Body Fat Depletion (Severe) Mod to Severe Depletion Muscle Mass (Severe) Mod to Severe Depletion Intervention/Recommendation Comments 1. 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 Diet texture per swallow eval (pending). Pt is edentulous with upper denture at bedside. 2. Recommend Novasource Renal TID, BMI 16.5 underweight, moderate to severe muscle fat wasting to chest and clavicles , family report poor PO intake for [address] Ngt in [address]. If enteral nutrition suggested, recommend Novasource Renal 38ml/hr x 24hrs, providing 912ml total volume, 1824kcal, 83g protein. Expected Outcomes/Goals Expected Outcomes/Goals 1. Pt to resume oral diet and meet at least 75% of estimated nutritional needs.
--- NOTE | 2017-02-19 10:41 | GI Progress Note ---
Subjective - Review of Systems Service Date: 02/19/17 Subjective: Pt is minimally communicative at this time, no obvious distress. NG in place Objective - Results Result Diagrams: 02/19/17 05:25 02/19/17 05:25 Recent Labs: Laboratory Last Values WBC 5.8 Th/cmm (4.8-10.8) 02/19/17 05:25 RBC 2.71 Mil/cmm (3.80-5.80) L 02/19/17 05:25 Hgb 9.0 gm/dL (12-16) L 02/19/17 05:25 Hct 26.6 % (40.0-54.0) L 02/19/17 05:25 MCV 98.1 fl (80-99) 02/19/17 05:25 MCH 33.3 pg (27.0-31.0) H 02/19/17 05:25 MCHC Differential 34.0 pg (28.0-36.0) 02/19/17 05:25 RDW 15.0 % (11.5-20.0) 02/19/17 05:25 Plt Count 89 Th/cmm (150-400) L 02/19/17 05:25 MPV 8.7 fl 02/19/17 05:25 Band Neutrophils % 2 % (0-10) 02/18/17 05:35 Neutrophils (Manual) 78 % (40-80) 02/19/17 05:25 Lymphocytes 7 % (20-50) L 02/19/17 05:25 Monocytes 1 % (2-10) L 02/19/17 05:25 Eosinophils 14 % (0-5) H 02/19/17 05:25 Basophils 1 % (0-3) 02/14/17 13:23 Platelet Estimate DECREASED PLATELETS (NORMAL) 02/19/17 05:25 Platelet Morphology NORMAL (NORMAL) 02/15/17 06:30 Anisocytosis 1+ 02/15/17 06:30 RBC Morph Micro Appear ABNORMAL (NORMAL) 02/15/17 06:30 Total Retics Counted 0.4 % (0.5-1.5) L 02/19/17 05:25 Absolute Retic 10.8 Th/cmm 02/19/17 05:25 Corrected Retic Count 0.2 % (0.5-1.5) L 02/19/17 05:25 Eos Smear Source URINE 02/14/17 20:05 Eos Smear Total Cells NONE SEEN (NONE SEEN) 02/14/17 20:05 Plt Count 39 Th/cmm (150-750) L 02/16/17 04:17 PT 9.7 SECONDS (9.5-11.5) 02/16/17 04:17 INR 0.93 (0.5-1.4) 02/16/17 04:17 PTT (Actin FS) 35.1 SECONDS (26.0-38.0) 02/16/17 04:17 Fibrinogen 500.0 mg/dL (200.0-400.0) H 02/16/17 04:17 D-Dimer 745 ng/mL (100-400) H 02/16/17 04:17 Sodium 143 mEq/L (136-145) 02/19/17 05:25 Potassium 3.5 mEq/L (3.5-5.1) 02/19/17 05:25 Chloride 113 mEq/L (98-107) H 02/19/17 05:25 Carbon Dioxide 24.1 mEq/L (21.0-31.0) 02/19/17 05:25 Anion Gap 9.4 (7.0-16.0) 02/19/17 05:25 BUN 55 mg/dL (7-25) H 02/19/17 05:25 Creatinine 3.0 mg/dL (0.7-1.3) H 02/19/17 05:25 Est GFR ( Amer) TNP 02/19/17 05:25 Est GFR (Non-Af Amer) TNP 02/19/17 05:25 BUN/Creatinine Ratio 18.3 02/19/17 05:25 Glucose 79 mg/dL (70-105) 02/19/17 05:25 POC Glucose 112 MG/DL (70 - 105) H 02/19/17 06:42 Hemoglobin A1c % 5.9 % (4.0-6.0) 02/14/17 13:23 Whole Bld Lactic Acid 1.09 mmol/L (0.60-1.99) 02/14/17 13:23 Uric Acid 2.7 mg/dL (4.4-7.6) L 02/15/17 04:25 Calcium 8.4 mg/dL (8.6-10.3) L 02/19/17 05:25 Phosphorus 5.7 mg/dL (2.5-5.0) H 02/15/17 04:25 Magnesium 2.7 mg/dL (1.9-2.7) 02/15/17 04:25 Total Bilirubin 0.8 mg/dL (0.3-1.0) 02/19/17 05:25 Direct Bilirubin 0.05 mg/dL (0.0-0.2) 02/17/17 04:45 AST 69 U/L (13-39) H 02/19/17 05:25 ALT 143 U/L (7-52) H 02/19/17 05:25 Alkaline Phosphatase 83 U/L (34-104) 02/19/17 05:25 Ammonia 51 umol/L (16-53) 02/16/17 04:17 Lactate Dehydrogenase 210 U/L (140-271) 02/16/17 04:17 Troponin I 0.08 ng/mL (0.01-0.05) H* D 02/17/17 13:55 Total Protein 5.5 gm/dL (6.0-8.3) L 02/19/17 05:25 Albumin 2.9 gm/dL (4.2-5.5) L 02/19/17 05:25 Globulin 2.6 gm/dL 02/19/17 05:25 Albumin/Globulin Ratio 1.1 (1.0-1.8) 02/19/17 05:25 Vitamin B12 >1999 pg/mL (211-946) H 02/16/17 04:17 Folic Acid 14.8 ng/mL (>3.0) 02/16/17 04:17 TSH 4.79 uIU/ml (0.34-5.60) 02/18/17 05:35 Urine Source CATH 02/14/17 14:10 Urine Color YELLOW 02/14/17 14:10 Urine Clarity CLEAR (CLEAR) 02/14/17 14:10 Urine pH 5.5 (4.6 - 8.0) 02/14/17 14:10 Ur Specific [place] 1.020 (1.005-1.030) 02/14/17 14:10 Urine Protein 100 mg/dL (NEGATIVE) H 02/14/17 14:10 Urine Glucose (UA) NEGATIVE mg/dL (NEGATIVE) 02/14/17 14:10 Urine Ketones NEGATIVE mg/dL (NEGATIVE) 02/14/17 14:10 Urine Blood MODERATE (NEGATIVE) H 02/14/17 14:10 Urine Nitrate NEGATIVE (NEGATIVE) 02/14/17 14:10 Urine Bilirubin NEGATIVE (NEGATIVE) 02/14/17 14:10 Urine Urobilinogen 0.2 E.U./dL (0.2 - 1.0) 02/14/17 14:10 Ur Leukocyte Esterase NEGATIVE (NEGATIVE) 02/14/17 14:10 Urine RBC 5-10 /hpf (0-5) H 02/14/17 14:10 Urine WBC 2-5 /hpf (0-5) H 02/14/17 14:10 Ur Epithelial Cells FEW /lpf (FEW) 02/14/17 14:10 Urine Bacteria FEW /hpf (NONE SEEN) 02/14/17 14:10 Urine Osmolality 434 mOsmol/kg 02/14/17 20:05 Ur Random Sodium 61 mmol/L 02/15/17 12:46 Urine Creatinine 93.0 mg/dl (39.0-259.0) 02/14/17 20:05 Urine Microalbumin 662.5 ug/mL (Not Estab.) 02/14/17 14:10 Microalb/Creat Ratio 851.5 mg/g creat (0.0-30.0) H 02/14/17 14:10 Stool Occult Blood POSITIVE (NEGATIVE) 02/15/17 18:35 Random Vancomycin 14.5 ug/mL (5.0-40.0) 02/16/17 04:17 Hepatitis A IgM Ab Negative (Negative) 02/16/17 04:17 Hep Bs Antigen Negative (Negative) 02/16/17 04:17 Hep B Core IgM Ab Negative (Negative) 02/16/17 04:17 Hepatitis C Antibody <0.1 s/co ratio (0.0-0.9) 02/16/17 04:17 Blood Type O POSITIVE 02/15/17 05:20 Antibody Screen NEGATIVE 02/15/17 05:20 Crossmatch See Detail 02/15/17 05:20 - Physical Exam Vitals and I&O: Vital Signs Temp 96.3 F 02/19/17 04:00 Pulse 62 02/19/17 08:05 Resp 18 02/19/17 08:05 BP 127/67 02/19/17 04:00 Pulse Ox 97 02/19/17 08:05 Intake & Output 02/18/17 02/19/17 02/19/17 18:59 06:59 18:59 Intake Total 1050 50 828.75 Output Total 1000 200 Balance 50 -150 828.75 Weight (lbs) 52.617 kg 54.148 kg Intake: Intake, IV Amount 1050 50 828.75 Dextrose 5% 1,000 ml @ 75 1000 778.75 mls/hr IV .[id number] [facility] Rx#:[id number] Piperacillin Sodium/ 50 50 50 Tazobact 2.25 gm In Sodium Chloride 0.9% 50 ml @ 100 mls/hr IV Q8HR [facility] Rx#:[id number] Oral 0 Output: Urine 1000 200 Other: # Bowel Movements 0 0 Active Medications: Current Medications Atropine Sulfate (Atropine Syringe) 1 mg IVP Q4HR PRN PRN Reason: LOW HEART RATE Stop: 04/18/17 13:37 Last Admin: 02/18/17 11:03 Dose: 1 mg Piperacillin Sod/Tazobactam (Sod 2.25 gm/ Sodium Chloride) 50 mls @ 100 mls/hr IV Q8HR [facility] Stop: 04/15/17 20:59 Last Infusion: 02/19/17 07:11 Dose: Infused Dextrose (D5w) 1,000 mls @ 75 mls/hr IV .[id number] [facility] Stop: 04/15/17 17:05 Last Infusion: 02/19/17 07:11 Dose: 75 mls/hr Miscellaneous (Probiotic Screen) 1 ea MC PRN PRN PRN Reason: PROTOCOL Stop: 04/16/17 14:13 Pantoprazole Sodium (Protonix) 40 mg IVP DAILY [facility] Stop: 04/19/17 08:59 Last Admin: 02/19/17 09:08 Dose: 40 mg General: No acute distress HEENT: Atraumatic, Mucous membr. moist/pink Neck: Supple, +2 carotid pulse wo bruit Cardiovascular: Regular rate, Normal S1, Normal S2 Lungs: Other (few rhonchi) Abdomen: Soft, Other (diminished BS) Extremities: no Edema Neurological: Sensation intact Skin: no Rash Psych/Mental Status: Mood NL - Procedures Procedures: Procedures Procedure Code Date BLOOD TRANSFUSION SERVICE 25695 02/14/17 TRANSFUSE NONAUT RED BLOOD CELLS IN PERIPH VEIN, PERC 92049R6 02/14/17 Assessment/Plan - Problem List Patient Problems: All Active Problems WANDERS FROM FACILITY; ELOPEMENT RISK (Acute) - Assessment Assessment: # Elevated liver function tests # UTI # Severe sepsis with hypothermia Suspect ischemic liver injury secondary to severe sepsis. This is supported by the fact his LFTs have quickly improved, and cont to improve. US negative for biliary obstruction or other obvious liver pathology. Viral hepatitis serologies negative. # Failed swallow evaluation As pt had no apparent swallowing issue prior to his infection last week, I would expect this to resolve once he distances himself a bit further from his infection (just hospitalized last week). Will commence NG feeding now for better nutrition. If still unable to swallow in a few days, we can discuss the option of PEG placement with the pt's daughter Plan: - NG with feeding, this will help his recovery and mentation hopefully to the point he can eat (as he did prior to infection). Pipe [employer]her consult for feed selection - cont supportive care and treatment of sepsis process - LFTs periodically to ensure resolution
--- NOTE | 2017-02-19 11:38 | Infectious Disease Prog Note ---
Infectious Disease Subjective - Review of Systems Service Date: 02/19/17 Subjective: doing better, no fever. patient's HR went down to 30, and 40's. Otherwise there is no new change, he is not on any oral meds/ NPO. Infectious Disease Objective - Results Result Diagrams: 02/19/17 05:25 02/19/17 05:25 Recent Labs: Laboratory Last Values WBC 5.8 Th/cmm (4.8-10.8) 02/19/17 05:25 RBC 2.71 Mil/cmm (3.80-5.80) L 02/19/17 05:25 Hgb 9.0 gm/dL (12-16) L 02/19/17 05:25 Hct 26.6 % (40.0-54.0) L 02/19/17 05:25 MCV 98.1 fl (80-99) 02/19/17 05:25 MCH 33.3 pg (27.0-31.0) H 02/19/17 05:25 MCHC Differential 34.0 pg (28.0-36.0) 02/19/17 05:25 RDW 15.0 % (11.5-20.0) 02/19/17 05:25 Plt Count 89 Th/cmm (150-400) L 02/19/17 05:25 MPV 8.7 fl 02/19/17 05:25 Band Neutrophils % 2 % (0-10) 02/18/17 05:35 Neutrophils (Manual) 78 % (40-80) 02/19/17 05:25 Lymphocytes 7 % (20-50) L 02/19/17 05:25 Monocytes 1 % (2-10) L 02/19/17 05:25 Eosinophils 14 % (0-5) H 02/19/17 05:25 Basophils 1 % (0-3) 02/14/17 13:23 Platelet Estimate DECREASED PLATELETS (NORMAL) 02/19/17 05:25 Platelet Morphology NORMAL (NORMAL) 02/15/17 06:30 Anisocytosis 1+ 02/15/17 06:30 RBC Morph Micro Appear ABNORMAL (NORMAL) 02/15/17 06:30 Total Retics Counted 0.4 % (0.5-1.5) L 02/19/17 05:25 Absolute Retic 10.8 Th/cmm 02/19/17 05:25 Corrected Retic Count 0.2 % (0.5-1.5) L 02/19/17 05:25 Eos Smear Source URINE 02/14/17 20:05 Eos Smear Total Cells NONE SEEN (NONE SEEN) 02/14/17 20:05 Plt Count 39 Th/cmm (150-750) L 02/16/17 04:17 PT 9.7 SECONDS (9.5-11.5) 02/16/17 04:17 INR 0.93 (0.5-1.4) 02/16/17 04:17 PTT (Actin FS) 35.1 SECONDS (26.0-38.0) 02/16/17 04:17 Fibrinogen 500.0 mg/dL (200.0-400.0) H 02/16/17 04:17 D-Dimer 745 ng/mL (100-400) H 02/16/17 04:17 Sodium 143 mEq/L (136-145) 02/19/17 05:25 Potassium 3.5 mEq/L (3.5-5.1) 02/19/17 05:25 Chloride 113 mEq/L (98-107) H 02/19/17 05:25 Carbon Dioxide 24.1 mEq/L (21.0-31.0) 02/19/17 05:25 Anion Gap 9.4 (7.0-16.0) 02/19/17 05:25 BUN 55 mg/dL (7-25) H 02/19/17 05:25 Creatinine 3.0 mg/dL (0.7-1.3) H 02/19/17 05:25 Est GFR ( Amer) TNP 02/19/17 05:25 Est GFR (Non-Af Amer) [facility] 02/19/17 05:25 BUN/Creatinine Ratio 18.3 02/19/17 05:25 Glucose 79 mg/dL (70-105) 02/19/17 05:25 POC Glucose 112 MG/DL (70 - 105) H 02/19/17 06:42 Hemoglobin A1c % 5.9 % (4.0-6.0) 02/14/17 13:23 Whole Bld Lactic Acid 1.09 mmol/L (0.60-1.99) 02/14/17 13:23 Uric Acid 2.7 mg/dL (4.4-7.6) L 02/15/17 04:25 Calcium 8.4 mg/dL (8.6-10.3) L 02/19/17 05:25 Phosphorus 5.7 mg/dL (2.5-5.0) H 02/15/17 04:25 Magnesium 2.7 mg/dL (1.9-2.7) 02/15/17 04:25 Total Bilirubin 0.8 mg/dL (0.3-1.0) 02/19/17 05:25 Direct Bilirubin 0.05 mg/dL (0.0-0.2) 02/17/17 04:45 AST 69 U/L (13-39) H 02/19/17 05:25 ALT 143 U/L (7-52) H 02/19/17 05:25 Alkaline Phosphatase 83 U/L (34-104) 02/19/17 05:25 Ammonia 51 umol/L (16-53) 02/16/17 04:17 Lactate Dehydrogenase 210 U/L (140-271) 02/16/17 04:17 Troponin I 0.08 ng/mL (0.01-0.05) H* D 02/17/17 13:55 Total Protein 5.5 gm/dL (6.0-8.3) L 02/19/17 05:25 Albumin 2.9 gm/dL (4.2-5.5) L 02/19/17 05:25 Globulin 2.6 gm/dL 02/19/17 05:25 Albumin/Globulin Ratio 1.1 (1.0-1.8) 02/19/17 05:25 Vitamin B12 >1999 pg/mL (211-946) H 02/16/17 04:17 Folic Acid 14.8 ng/mL (>3.0) 02/16/17 04:17 TSH 4.79 uIU/ml (0.34-5.60) 02/18/17 05:35 Urine Source CATH 02/14/17 14:10 Urine Color YELLOW 02/14/17 14:10 Urine Clarity CLEAR (CLEAR) 02/14/17 14:10 Urine pH 5.5 (4.6 - 8.0) 02/14/17 14:10 Ur Specific [place] 1.020 (1.005-1.030) 02/14/17 14:10 Urine Protein 100 mg/dL (NEGATIVE) H 02/14/17 14:10 Urine Glucose (UA) NEGATIVE mg/dL (NEGATIVE) 02/14/17 14:10 Urine Ketones NEGATIVE mg/dL (NEGATIVE) 02/14/17 14:10 Urine Blood MODERATE (NEGATIVE) H 02/14/17 14:10 Urine Nitrate NEGATIVE (NEGATIVE) 02/14/17 14:10 Urine Bilirubin NEGATIVE (NEGATIVE) 02/14/17 14:10 Urine Urobilinogen 0.2 E.U./dL (0.2 - 1.0) 02/14/17 14:10 Ur Leukocyte Esterase NEGATIVE (NEGATIVE) 02/14/17 14:10 Urine RBC 5-10 /hpf (0-5) H 02/14/17 14:10 Urine WBC 2-5 /hpf (0-5) H 02/14/17 14:10 Ur Epithelial Cells FEW /lpf (FEW) 02/14/17 14:10 Urine Bacteria FEW /hpf (NONE SEEN) 02/14/17 14:10 Urine Osmolality 434 mOsmol/kg 02/14/17 20:05 Ur Random Sodium 61 mmol/L 02/15/17 12:46 Urine Creatinine 93.0 mg/dl (39.0-259.0) 02/14/17 20:05 Urine Microalbumin 662.5 ug/mL (Not Estab.) 02/14/17 14:10 Microalb/Creat Ratio 851.5 mg/g creat (0.0-30.0) H 02/14/17 14:10 Stool Occult Blood POSITIVE (NEGATIVE) 02/15/17 18:35 Random Vancomycin 14.5 ug/mL (5.0-40.0) 02/16/17 04:17 Hepatitis A IgM Ab Negative (Negative) 02/16/17 04:17 Hep Bs Antigen Negative (Negative) 02/16/17 04:17 Hep B Core IgM Ab Negative (Negative) 02/16/17 04:17 Hepatitis C Antibody <0.1 s/co ratio (0.0-0.9) 02/16/17 04:17 Blood Type O POSITIVE 02/15/17 05:20 Antibody Screen NEGATIVE 02/15/17 05:20 Crossmatch See Detail 02/15/17 05:20 - Physical Exam Vitals and I&O: Vital Signs Temp 96.9 F 02/19/17 08:00 Pulse 62 02/19/17 08:05 Resp 18 02/19/17 08:05 BP 118/66 02/19/17 08:00 Pulse Ox 97 02/19/17 08:05 Intake & Output 02/18/17 02/19/17 02/19/17 18:59 06:59 18:59 Intake Total 1050 50 828.75 Output Total 1000 200 Balance 50 -150 828.75 Weight (lbs) 52.617 kg 54.148 kg Intake: Intake, IV Amount 1050 50 828.75 Dextrose 5% 1,000 ml @ 75 1000 778.75 mls/hr IV .[id number] [facility] Rx#:[id number] Piperacillin Sodium/ 50 50 50 Tazobact 2.25 gm In Sodium Chloride 0.9% 50 ml @ 100 mls/hr IV Q8HR [facility] Rx#:[id number] Oral 0 Output: Urine 1000 200 Other: # Bowel Movements 0 0 Active Medications: Current Medications Atropine Sulfate (Atropine Syringe) 1 mg IVP Q4HR PRN PRN Reason: LOW HEART RATE Stop: 04/18/17 13:37 Last Admin: 02/18/17 11:03 Dose: 1 mg Piperacillin Sod/Tazobactam (Sod 2.25 gm/ Sodium Chloride) 50 mls @ 100 mls/hr IV Q8HR [facility] Stop: 04/15/17 20:59 Last Infusion: 02/19/17 07:11 Dose: Infused Dextrose (D5w) 1,000 mls @ 75 mls/hr IV .[id number] [facility] Stop: 04/15/17 17:05 Last Infusion: 02/19/17 07:11 Dose: 75 mls/hr Miscellaneous (Probiotic Screen) 1 ea MC PRN PRN PRN Reason: PROTOCOL Stop: 04/16/17 14:13 Pantoprazole Sodium (Protonix) 40 mg IVP DAILY [facility] Stop: 04/19/17 08:59 Last Admin: 02/19/17 09:08 Dose: 40 mg General: no acute distress, well developed, well nourished HEENT: atraumatic, normocephalic, PERRLA, EOMI, moist mucous membrane Neck: supple, no thyromegaly, no rigid Cardiovascular: S1S2, regular Lungs: clear to auscultation bilaterally, clear to percussion Abdomen: soft, no tender Extremities: no cyanosis, no clubbing, no edema Neurological: awake, alert - Procedures Procedures: Procedures Procedure Code Date BLOOD TRANSFUSION SERVICE 58613 02/14/17 TRANSFUSE NONAUT RED BLOOD CELLS IN PERIPH VEIN, PERC 64547F8 02/14/17 Infectious Disease Assmt/Plan - Problem List Patient Problems: All Active Problems WANDERS FROM FACILITY; ELOPEMENT RISK (Acute) - Assessment Assessment: 1. Hypothermia suspect sepsis, resolved. 2. UTI. 3. Hypertension. 4. Hyperlipidemia. 5. Protein calorie malnutrition. 6. CKD. 7. Dementia. 8. Bradycardia. - Plan Plan: Continue Zosyn and dc vancomycin. Nutritional Asmnt/Malnutr-PDOC - Dietary Evaluation Malnutrition Findings (Please click <Entered> for more info): Nutritional Asmnt/Malnutrition Start: 02/16/17 13: 29 Text: Status: Complete Freq: Document 02/16/17 13:29 GSUN (Rec: 02/16/17 13:57 GSUN [email or web address]) Nutritional Asmnt/Malnutrition Patient General Information Nutritional Screening High Risk Screening Diagnosis Septic shock, severe dehydration, 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 RD consult for elevated BG. NPO since adm, day 2. Spoke to RN Valencia, RN stated per family, pt noted with poor PO intake this past month. Pt was lethargic during visit, made eye contact , responded yes when asked if he was hungry. Limited physical assessment due to heavy blanket for low temp, observed moderate to severe muscle fat wasting to chest and clavicles, with BMI 16.5. RN ordered swallow eval, pending. Ngt in place, RN suggested enteral feeding if needed. Pt is edentulous with upper denture at bedside. Current Diet Order/ Nutrition Support NPO Pertinent Medications D5w, Vancomycin, Protonix Pertinent Labs 02/14: A1c 5.9 10: phosphorus 5.7H 02/16: BUN 67H, creatinine 2.9H , glucose 90 (trended down), AST 193H, alkaline phosphatase 129H, ALT 281H, calcium 8L Nutritional Hx/Data Height 1.68 m Height (Calculated Centimeters) 167.6 Current Weight (lbs) 46.312 kg Weight (Calculated Kilograms) 46.3 Weight (Calculated Grams) 93467.8 [place] Body Weight 142 Weight Status Underweight GI Symptoms Usual diet at home [place] [facility]: [facility] soft, finely chopped, thin liquid Skin Integrity/Comment: [place] 10. Right eye scab. Estimated Nutritional Goals Calories/Kcals/Kg IBW 142lb/64.5kg Kcals Calculated 1613-1935kcal (25-30kcal/kg) Protein Calculated 52-66g (0.8-1g/kg, monitor renal vs underweight) Fluid: ml Per MD Nutritional Problem 2. Problem Problem Impaired nutrient utilization related to Etiology RUEL on CKD aeb Signs/Symptoms: 02/16: BUN 67H, creatinine 2.9H , calcium 8L. 02/15: phosphorus 5.7H 1. Problem Problem (possible) difficulty chewing/ swallowing related to Etiology likely lethargy aeb Signs/Symptoms: swallow eval pending Malnutrition Alert Body Fat Depletion (Severe) Mod to Severe Depletion Muscle Mass (Severe) Mod to Severe Depletion Intervention/Recommendation Comments 1. 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 Diet texture per swallow eval (pending). Pt is edentulous with upper denture at bedside. 2. Recommend Novasource Renal TID, BMI 16.5 underweight, moderate to severe muscle fat wasting to chest and clavicles , family report poor PO intake for 1 month[address] 3[address] Ngt in [address]. If enteral nutrition suggested, recommend Novasource Renal 38ml/hr x 24hrs, providing 912ml total volume, 1824kcal, 83g protein. Expected Outcomes/Goals Expected Outcomes/Goals 1. Pt to resume oral diet and meet at least 75% of estimated nutritional needs.
[2017-02-19 13:16] LABS: FOLIC ACID 15.1 ng/mL (>3.0)
--- NOTE | 2017-02-19 14:59 | Progress Notes ---
DATE: 02/19/2017 SUBJECTIVE: Chart reviewed and the patient interviewed. Also discussed the patient's condition with the staff and reviewed records and labs. The patient is still slightly confused and he is still withdrawn. He does not interact much with peers or others. The patient also is not answering any of my questions. He also is showing lack of motivation and lack of energy. ASSESSMENT: The patient is still considered to be gravely disabled. TREATMENT PLAN: We will continue monitoring his behavior and his condition. Also, we will monitor behavior without any psychotropic medications at this time. JOB# [id number]
--- NOTE | 2017-02-19 18:00 | General Progress Note ---
Subjective - Review of Systems Service Date: 02/19/17 Subjective: sleeping, comfortable Objective - Results Result Diagrams: 02/19/17 05:25 02/19/17 05:25 Recent Labs: Laboratory Last Values WBC 5.8 Th/cmm (4.8-10.8) 02/19/17 05:25 RBC 2.71 Mil/cmm (3.80-5.80) L 02/19/17 05:25 Hgb 9.0 gm/dL (12-16) L 02/19/17 05:25 Hct 26.6 % (40.0-54.0) L 02/19/17 05:25 MCV 98.1 fl (80-99) 02/19/17 05:25 MCH 33.3 pg (27.0-31.0) H 02/19/17 05:25 MCHC Differential 34.0 pg (28.0-36.0) 02/19/17 05:25 RDW 15.0 % (11.5-20.0) 02/19/17 05:25 Plt Count 89 Th/cmm (150-400) L 02/19/17 05:25 MPV 8.7 fl 02/19/17 05:25 Band Neutrophils % 2 % (0-10) 02/18/17 05:35 Neutrophils (Manual) 78 % (40-80) 02/19/17 05:25 Lymphocytes 7 % (20-50) L 02/19/17 05:25 Monocytes 1 % (2-10) L 02/19/17 05:25 Eosinophils 14 % (0-5) H 02/19/17 05:25 Basophils 1 % (0-3) 02/14/17 13:23 Platelet Estimate DECREASED PLATELETS (NORMAL) 02/19/17 05:25 Platelet Morphology NORMAL (NORMAL) 02/15/17 06:30 Anisocytosis 1+ 02/15/17 06:30 RBC Morph Micro Appear ABNORMAL (NORMAL) 02/15/17 06:30 Total Retics Counted 0.4 % (0.5-1.5) L 02/19/17 05:25 Absolute Retic 10.8 Th/cmm 02/19/17 05:25 Corrected Retic Count 0.2 % (0.5-1.5) L 02/19/17 05:25 Eos Smear Source URINE 02/14/17 20:05 Eos Smear Total Cells NONE SEEN (NONE SEEN) 02/14/17 20:05 Plt Count 39 Th/cmm (150-750) L 02/16/17 04:17 PT 9.7 SECONDS (9.5-11.5) 02/16/17 04:17 INR 0.93 (0.5-1.4) 02/16/17 04:17 PTT (Actin FS) 35.1 SECONDS (26.0-38.0) 02/16/17 04:17 Fibrinogen 500.0 mg/dL (200.0-400.0) H 02/16/17 04:17 D-Dimer 745 ng/mL (100-400) H 02/16/17 04:17 Sodium 143 mEq/L (136-145) 02/19/17 05:25 Potassium 3.5 mEq/L (3.5-5.1) 02/19/17 05:25 Chloride 113 mEq/L (98-107) H 02/19/17 05:25 Carbon Dioxide 24.1 mEq/L (21.0-31.0) 02/19/17 05:25 Anion Gap 9.4 (7.0-16.0) 02/19/17 05:25 BUN 55 mg/dL (7-25) H 02/19/17 05:25 Creatinine 3.0 mg/dL (0.7-1.3) H 02/19/17 05:25 Est GFR ( Amer) TNP 02/19/17 05:25 Est GFR (Non-Af Amer) TNP 02/19/17 05:25 BUN/Creatinine Ratio 18.3 02/19/17 05:25 Glucose 79 mg/dL (70-105) 02/19/17 05:25 POC Glucose 112 MG/DL (70 - 105) H 02/19/17 06:42 Hemoglobin A1c % 5.9 % (4.0-6.0) 02/14/17 13:23 Whole Bld Lactic Acid 1.09 mmol/L (0.60-1.99) 02/14/17 13:23 Uric Acid 2.7 mg/dL (4.4-7.6) L 02/15/17 04:25 Calcium 8.4 mg/dL (8.6-10.3) L 02/19/17 05:25 Phosphorus 5.7 mg/dL (2.5-5.0) H 02/15/17 04:25 Magnesium 2.7 mg/dL (1.9-2.7) 02/15/17 04:25 Total Bilirubin 0.8 mg/dL (0.3-1.0) 02/19/17 05:25 Direct Bilirubin 0.05 mg/dL (0.0-0.2) 02/17/17 04:45 AST 69 U/L (13-39) H 02/19/17 05:25 ALT 143 U/L (7-52) H 02/19/17 05:25 Alkaline Phosphatase 83 U/L (34-104) 02/19/17 05:25 Ammonia 51 umol/L (16-53) 02/16/17 04:17 Lactate Dehydrogenase 210 U/L (140-271) 02/16/17 04:17 Troponin I 0.08 ng/mL (0.01-0.05) H* D 02/17/17 13:55 Total Protein 5.5 gm/dL (6.0-8.3) L 02/19/17 05:25 Albumin 2.9 gm/dL (4.2-5.5) L 02/19/17 05:25 Globulin 2.6 gm/dL 02/19/17 05:25 Albumin/Globulin Ratio 1.1 (1.0-1.8) 02/19/17 05:25 Vitamin B12 1893 pg/mL (211-946) H 02/18/17 05:35 Folic Acid 15.1 ng/mL (>3.0) 02/18/17 05:35 Free T4 0.89 ng/dL (0.82-1.77) 02/18/17 05:35 TSH 4.79 uIU/ml (0.34-5.60) 02/18/17 05:35 Urine Source CATH 02/14/17 14:10 Urine Color YELLOW 02/14/17 14:10 Urine Clarity CLEAR (CLEAR) 02/14/17 14:10 Urine pH 5.5 (4.6 - 8.0) 02/14/17 14:10 Ur Specific [place] 1.020 (1.005-1.030) 02/14/17 14:10 Urine Protein 100 mg/dL (NEGATIVE) H 02/14/17 14:10 Urine Glucose (UA) NEGATIVE mg/dL (NEGATIVE) 02/14/17 14:10 Urine Ketones NEGATIVE mg/dL (NEGATIVE) 02/14/17 14:10 Urine Blood MODERATE (NEGATIVE) H 02/14/17 14:10 Urine Nitrate NEGATIVE (NEGATIVE) 02/14/17 14:10 Urine Bilirubin NEGATIVE (NEGATIVE) 02/14/17 14:10 Urine Urobilinogen 0.2 E.U./dL (0.2 - 1.0) 02/14/17 14:10 Ur Leukocyte Esterase NEGATIVE (NEGATIVE) 02/14/17 14:10 Urine RBC 5-10 /hpf (0-5) H 02/14/17 14:10 Urine WBC 2-5 /hpf (0-5) H 02/14/17 14:10 Ur Epithelial Cells FEW /lpf (FEW) 02/14/17 14:10 Urine Bacteria FEW /hpf (NONE SEEN) 02/14/17 14:10 Urine Osmolality 434 mOsmol/kg 02/14/17 20:05 Ur Random Sodium 61 mmol/L 02/15/17 12:46 Urine Creatinine 93.0 mg/dl (39.0-259.0) 02/14/17 20:05 Urine Microalbumin 662.5 ug/mL (Not Estab.) 02/14/17 14:10 Microalb/Creat Ratio 851.5 mg/g creat (0.0-30.0) H 02/14/17 14:10 Stool Occult Blood POSITIVE (NEGATIVE) 02/15/17 18:35 Random Vancomycin 14.5 ug/mL (5.0-40.0) 02/16/17 04:17 Hepatitis A IgM Ab Negative (Negative) 02/16/17 04:17 Hep Bs Antigen Negative (Negative) 02/16/17 04:17 Hep B Core IgM Ab Negative (Negative) 02/16/17 04:17 Hepatitis C Antibody <0.1 s/co ratio (0.0-0.9) 02/16/17 04:17 Blood Type O POSITIVE 02/15/17 05:20 Antibody Screen NEGATIVE 02/15/17 05:20 Crossmatch See Detail 02/15/17 05:20 - Physical Exam Vitals and I&O: Vital Signs Temp 96.9 F 02/19/17 08:00 Pulse 62 02/19/17 08:05 Resp 18 02/19/17 08:05 BP 118/66 02/19/17 08:00 Pulse Ox 97 02/19/17 08:05 Intake & Output 02/18/17 02/19/17 02/19/17 18:59 06:59 18:59 Intake Total 1050 50 828.75 Output Total 1000 200 Balance 50 -150 828.75 Weight (lbs) 52.617 kg 54.148 kg Intake: Intake, IV Amount 1050 50 828.75 Dextrose 5% 1,000 ml @ 75 1000 778.75 mls/hr IV .[id number] [facility] Rx#:[id number] Piperacillin Sodium/ 50 50 50 Tazobact 2.25 gm In Sodium Chloride 0.9% 50 ml @ 100 mls/hr IV Q8HR [facility] Rx#:[id number] Oral 0 Output: Urine 1000 200 Other: # Bowel Movements 0 0 Active Medications: Current Medications Atropine Sulfate (Atropine Syringe) 1 mg IVP Q4HR PRN PRN Reason: LOW HEART RATE Stop: 04/18/17 13:37 Last Admin: 02/18/17 11:03 Dose: 1 mg Piperacillin Sod/Tazobactam (Sod 2.25 gm/ Sodium Chloride) 50 mls @ 100 mls/hr IV Q8HR [facility] Stop: 04/15/17 20:59 Last Admin: 02/19/17 14:26 Dose: 100 mls/hr Dextrose (D5w) 1,000 mls @ 75 mls/hr IV .[id number] [facility] Stop: 04/15/17 17:05 Last Infusion: 02/19/17 07:11 Dose: 75 mls/hr Miscellaneous (Probiotic Screen) 1 ea MC PRN PRN PRN Reason: PROTOCOL Stop: 04/16/17 14:13 Pantoprazole Sodium (Protonix) 40 mg IVP DAILY [facility] Stop: 04/19/17 08:59 Last Admin: 02/19/17 09:08 Dose: 40 mg General: No acute distress, Other (drowsy) HEENT: Atraumatic, Mucous membr. moist/pink Neck: Supple, +2 carotid pulse wo bruit Cardiovascular: Regular rate, Normal S1, Normal S2 Lungs: Other (few rhonchi) Abdomen: Soft, Other (diminished BS) Extremities: no Edema Neurological: Sensation intact Skin: no Rash Psych/Mental Status: Mood NL - Procedures Procedures: Procedures Procedure Code Date BLOOD TRANSFUSION SERVICE 51219 02/14/17 TRANSFUSE NONAUT RED BLOOD CELLS IN PERIPH VEIN, PERC 43300F9 02/14/17 Assessment/Plan - Problem List Patient Problems: All Active Problems WANDERS FROM FACILITY; ELOPEMENT RISK (Acute) - Assessment Assessment: RUEL on CKD Hypothermic NG Hyperchloremic Met Acid Hypernatremia Type 2 DM Hepatic Enceph Anemia acute on ckd Acute liver failure Hyperkalemia 2nd RUEL, DM, losartan bicytopenia - Plan Plan: Current Medications Piperacillin Sod/Tazobactam (Sod 2.25 gm/ Sodium Chloride) 50 mls @ 100 mls/hr IV Q8HR [facility] Stop: 04/15/17 20:59 Last Infusion: 02/15/17 05:15 Dose: Infused Dextrose (D5w) 1,000 mls @ 125 mls/hr IV .Q8H [facility] Stop: 04/15/17 17:05 Last Admin: 02/15/17 04:44 Dose: 125 mls/hr Miscellaneous (Vancomycin Iv Per Pharmacy) 1 ea MC PRN PRN PRN Reason: PROTOCOL Stop: 04/15/17 15:55 Pneumococcal Polyvalent Vaccine (Pneumovax) 0.5 ml IM .ONCE ONE Stop: 02/15/17 17:34 Na down to 143, continue D5W@ 75ml/hr acute anemia possible slow GI bleed (stool OB +) BUN/CR down to 55/3 Hgb/Hct now 9/26.6 Lab - Result Diagrams 02/19/17 05:25 02/19/17 05:25 Nutritional Asmnt/Malnutr-PDOC - Dietary Evaluation Malnutrition Findings (Please click <Entered> for more info): Nutritional Asmnt/Malnutrition Start: 02/16/17 13: 29 Text: Status: Complete Freq: Document 02/16/17 13:29 GSCHRISTIANNE (Rec: 02/16/17 13:57 YASEMIN [email or web address]) Nutritional Asmnt/Malnutrition Patient General Information Nutritional Screening High Risk Screening Diagnosis Septic shock, severe dehydration, 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 RD consult for elevated BG. NPO since adm, day 2. Spoke to RN Valencia, RN stated per family, pt noted with poor PO intake this past month. Pt was lethargic during visit, made eye contact , responded yes when asked if he was hungry. Limited physical assessment due to heavy blanket for low temp, observed moderate to severe muscle fat wasting to chest and clavicles, with BMI 16.5. RN ordered swallow eval, pending. Ngt in place, RN suggested enteral feeding if needed. Pt is edentulous with upper denture at bedside. Current Diet Order/ Nutrition Support NPO Pertinent Medications D5w, Vancomycin, Protonix Pertinent Labs 02/14: A1c 5.9 02/15: phosphorus 5.7H 02/16: BUN 67H, creatinine 2.9H , glucose 90 (trended down), AST 193H, alkaline phosphatase 129H, ALT 281H, calcium 8L Nutritional Hx/Data Height 1.68 m Height (Calculated Centimeters) 167.6 Current Weight (lbs) 46.312 kg Weight (Calculated Kilograms) 46.3 Weight (Calculated Grams) 84237.8 [place] Body Weight 142 Weight Status Underweight GI Symptoms Usual diet at home [place] [facility]: [facility] [place] soft, finely chopped, thin liquid Skin Integrity/Comment: Dwight 10. Right eye scab. Estimated Nutritional Goals Calories/Kcals/Kg IBW 142lb/64.5kg Kcals Calculated 1613-1935kcal (25-30kcal/kg) Protein Calculated 52-66g (0.8-1g/kg, monitor renal vs underweight) Fluid: ml Per MD Nutritional Problem 2. Problem Problem Impaired nutrient utilization related to Etiology RUEL on CKD aeb Signs/Symptoms: 02/16: BUN 67H, creatinine 2.9H , calcium 8L. 02/15: phosphorus 5.7H 1. Problem Problem (possible) difficulty chewing/ swallowing related to Etiology likely lethargy aeb Signs/Symptoms: swallow eval pending Malnutrition Alert Body Fat Depletion (Severe) Mod to Severe Depletion Muscle Mass (Severe) Mod to Severe Depletion Intervention/Recommendation Comments 1. 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 Diet texture per swallow eval (pending). Pt is edentulous with upper denture at bedside. 2. Recommend Novasource Renal TID, BMI 16.5 underweight, moderate to severe muscle fat wasting to chest and clavicles , family report poor PO intake for 1 month. 3. Ngt in place. If enteral nutrition suggested, recommend Novasource Renal 38ml/hr x 24hrs, providing 912ml total volume, 1824kcal, 83g protein. Expected Outcomes/Goals Expected Outcomes/Goals 1. Pt to resume oral diet and meet at least 75% of estimated nutritional needs.
[2017-02-20] MEDS: Dextrose 5% 1,000 ML IV SCH ×3 (01:48→20:50)
[2017-02-20 05:28] LABS: ANION GAP 8.7 (7.0-16.0); BUN - UREA NITROGEN 51 mg/dL (7-25); BUN/CREATININE RATIO 17.6; CALCIUM SERUM 8.4 mg/dL (8.6-10.3); CARBON DIOXIDE 24.9 mEq/L (21.0-31.0); CHLORIDE 116 mEq/L (98-107); CREATININE - SERUM 2.9 mg/dL (0.7-1.3); GLUCOSE 76 mg/dL (70-105); POTASSIUM SERUM 3.6 mEq/L (3.5-5.1); SODIUM SERUM 146 mEq/L (136-145)
[2017-02-20 06:16] LABS: % BASOPHILS 0.2 % (0.0-2.0); HEMOGLOBIN 8.6 gm/dL (12-16); MEAN PLATELET VOLUME 9.2 fl
[2017-02-20 06:20] LABS: % LYMPHOCYTES 7.6 % (20.0-50.0); % MONOCYTES 5.3 % (2.0-10.0); % NEUTROPHILS 72.9 % (40.0-80.0); MEAN CELL VOLUME 96.4 fl (80-99); MEAN CORPUSCULAR HEMOGLOBIN 32.9 pg (27.0-31.0); MEAN CORPUSCULAR HGB CONC 34.2 pg (28.0-36.0); NEUTROPHILE ABSOLUTE 3.3 Th/cmm (1.8-8.0); PLATELET COUNT 80 Th/cmm (150-400); RED CELL DISTRIBUTION WIDTH 14.4 % (11.5-20.0)
[2017-02-20 06:23] LABS: WHITE BLOOD COUNT 4.4 Th/cmm (4.8-10.8)
--- NOTE | 2017-02-20 08:23 | General Progress Note ---
Subjective - Review of Systems Events since last encounter: no distress Objective - Results Result Diagrams: 02/20/17 04:27 02/20/17 04:27 Recent Labs: Laboratory Last Values WBC 4.4 Th/cmm (4.8-10.8) L D 02/20/17 04:27 RBC 2.60 Mil/cmm (3.80-5.80) L 02/20/17 04:27 Hgb 8.6 gm/dL (12-16) L 02/20/17 04:27 Hct 25.0 % (41.0-60) L 02/20/17 04:27 MCV 96.4 fl (80-99) 02/20/17 04:27 MCH 32.9 pg (27.0-31.0) H 02/20/17 04:27 MCHC Differential 34.2 pg (28.0-36.0) 02/20/17 04:27 RDW 14.4 % (11.5-20.0) 02/20/17 04:27 Plt Count 80 Th/cmm (150-400) L 02/20/17 04:27 MPV 9.2 fl 02/20/17 04:27 Neutrophils % 72.9 % (40.0-80.0) 02/20/17 04:27 Band Neutrophils % 2 % (0-10) 02/18/17 05:35 Lymphocytes % 7.6 % (20.0-50.0) L 02/20/17 04:27 Monocytes % 5.3 % (2.0-10.0) 02/20/17 04:27 Eosinophils % 14.0 % (0.0-5.0) H 02/20/17 04:27 Basophils % 0.2 % (0.0-2.0) 02/20/17 04:27 Neutrophils (Manual) 78 % (40-80) 02/19/17 05:25 Lymphocytes 7 % (20-50) L 02/19/17 05:25 Monocytes 1 % (2-10) L 02/19/17 05:25 Eosinophils 14 % (0-5) H 02/19/17 05:25 Basophils 1 % (0-3) 02/14/17 13:23 Platelet Estimate DECREASED PLATELETS (NORMAL) 02/19/17 05:25 Platelet Morphology NORMAL (NORMAL) 02/15/17 06:30 Anisocytosis 1+ 02/15/17 06:30 RBC Morph Micro Appear ABNORMAL (NORMAL) 02/15/17 06:30 Total Retics Counted 0.4 % (0.5-1.5) L 02/19/17 05:25 Absolute Retic 10.8 Th/cmm 02/19/17 05:25 Corrected Retic Count 0.2 % (0.5-1.5) L 02/19/17 05:25 Eos Smear Source URINE 02/14/17 20:05 Eos Smear Total Cells NONE SEEN (NONE SEEN) 02/14/17 20:05 Plt Count 39 Th/cmm (150-750) L 02/16/17 04:17 PT 9.7 SECONDS (9.5-11.5) 02/16/17 04:17 INR 0.93 (0.5-1.4) 02/16/17 04:17 PTT (Actin FS) 35.1 SECONDS (26.0-38.0) 02/16/17 04:17 Fibrinogen 500.0 mg/dL (200.0-400.0) H 02/16/17 04:17 D-Dimer 745 ng/mL (100-400) H 02/16/17 04:17 Sodium 146 mEq/L (136-145) H 02/20/17 04:27 Potassium 3.6 mEq/L (3.5-5.1) 02/20/17 04:27 Chloride 116 mEq/L (98-107) H 02/20/17 04:27 Carbon Dioxide 24.9 mEq/L (21.0-31.0) 02/20/17 04:27 Anion Gap 8.7 (7.0-16.0) 02/20/17 04:27 BUN 51 mg/dL (7-25) H 02/20/17 04:27 Creatinine 2.9 mg/dL (0.7-1.3) H 02/20/17 04:27 Est GFR ( Amer) TNP 02/20/17 04:27 Est GFR (Non-Af Amer) TNP 02/20/17 04:27 BUN/Creatinine Ratio 17.6 02/20/17 04:27 Glucose 76 mg/dL (70-105) 02/20/17 04:27 POC Glucose 79 MG/DL (70 - 105) 02/20/17 06:13 Hemoglobin A1c % 5.9 % (4.0-6.0) 02/14/17 13:23 Whole Bld Lactic Acid 1.09 mmol/L (0.60-1.99) 02/14/17 13:23 Uric Acid 2.7 mg/dL (4.4-7.6) L 02/15/17 04:25 Calcium 8.4 mg/dL (8.6-10.3) L 02/20/17 04:27 Phosphorus 5.7 mg/dL (2.5-5.0) H 02/15/17 04:25 Magnesium 2.7 mg/dL (1.9-2.7) 02/15/17 04:25 Total Bilirubin 0.8 mg/dL (0.3-1.0) 02/19/17 05:25 Direct Bilirubin 0.05 mg/dL (0.0-0.2) 02/17/17 04:45 AST 69 U/L (13-39) H 02/19/17 05:25 ALT 143 U/L (7-52) H 02/19/17 05:25 Alkaline Phosphatase 83 U/L (34-104) 02/19/17 05:25 Ammonia 51 umol/L (16-53) 02/16/17 04:17 Lactate Dehydrogenase 210 U/L (140-271) 02/16/17 04:17 Troponin I 0.08 ng/mL (0.01-0.05) H* D 02/17/17 13:55 Total Protein 5.5 gm/dL (6.0-8.3) L 02/19/17 05:25 Albumin 2.9 gm/dL (4.2-5.5) L 02/19/17 05:25 Globulin 2.6 gm/dL 02/19/17 05:25 Albumin/Globulin Ratio 1.1 (1.0-1.8) 02/19/17 05:25 Vitamin B12 1893 pg/mL (211-946) H 02/18/17 05:35 Folic Acid 15.1 ng/mL (>3.0) 02/18/17 05:35 Free T4 0.89 ng/dL (0.82-1.77) 02/18/17 05:35 TSH 4.79 uIU/ml (0.34-5.60) 02/18/17 05:35 Urine Source CATH 02/14/17 14:10 Urine Color YELLOW 02/14/17 14:10 Urine Clarity CLEAR (CLEAR) 02/14/17 14:10 Urine pH 5.5 (4.6 - 8.0) 02/14/17 14:10 Ur Specific [place] 1.020 (1.005-1.030) 02/14/17 14:10 Urine Protein 100 mg/dL (NEGATIVE) H 02/14/17 14:10 Urine Glucose (UA) NEGATIVE mg/dL (NEGATIVE) 02/14/17 14:10 Urine Ketones NEGATIVE mg/dL (NEGATIVE) 02/14/17 14:10 Urine Blood MODERATE (NEGATIVE) H 02/14/17 14:10 Urine Nitrate NEGATIVE (NEGATIVE) 02/14/17 14:10 Urine Bilirubin NEGATIVE (NEGATIVE) 02/14/17 14:10 Urine Urobilinogen 0.2 E.U./dL (0.2 - 1.0) 02/14/17 14:10 Ur Leukocyte Esterase NEGATIVE (NEGATIVE) 02/14/17 14:10 Urine RBC 5-10 /hpf (0-5) H 02/14/17 14:10 Urine WBC 2-5 /hpf (0-5) H 02/14/17 14:10 Ur Epithelial Cells FEW /lpf (FEW) 02/14/17 14:10 Urine Bacteria FEW /hpf (NONE SEEN) 02/14/17 14:10 Urine Osmolality 434 mOsmol/kg 02/14/17 20:05 Ur Random Sodium 61 mmol/L 02/15/17 12:46 Urine Creatinine 93.0 mg/dl (39.0-259.0) 02/14/17 20:05 Urine Microalbumin 662.5 ug/mL (Not Estab.) 02/14/17 14:10 Microalb/Creat Ratio 851.5 mg/g creat (0.0-30.0) H 02/14/17 14:10 Stool Occult Blood POSITIVE (NEGATIVE) 02/15/17 18:35 Random Vancomycin 14.5 ug/mL (5.0-40.0) 02/16/17 04:17 Hepatitis A IgM Ab Negative (Negative) 02/16/17 04:17 Hep Bs Antigen Negative (Negative) 02/16/17 04:17 Hep B Core IgM Ab Negative (Negative) 02/16/17 04:17 Hepatitis C Antibody <0.1 s/co ratio (0.0-0.9) 02/16/17 04:17 Blood Type O POSITIVE 02/15/17 05:20 Antibody Screen NEGATIVE 02/15/17 05:20 Crossmatch See Detail 02/15/17 05:20 - Physical Exam Vitals and I&O: Vital Signs Temp 97.0 F 02/20/17 04:00 Pulse 72 02/20/17 07:32 Resp 18 02/20/17 07:32 BP 130/65 02/20/17 04:00 Pulse Ox 98 02/20/17 07:32 Intake & Output 02/19/17 02/20/17 02/20/17 18:59 06:59 18:59 Intake Total 1190.00 50 450 Output Total 900 1350 Balance 290.00 50 -900 Weight (lbs) 54.25 kg 54.522 kg 54.522 kg Intake: Intake, IV Amount 1100.00 50 450 Dextrose 5% 1,000 ml @ 75 1000.00 mls/hr IV .[id number] [facility] Rx#:[id number] Piperacillin Sodium/ 100 50 50 Tazobact 2.25 gm In Sodium Chloride 0.9% 50 ml @ 100 mls/hr IV Q8HR [facility] Rx#:[id number] Tube Feeding 90 Output: Urine 900 1350 Stool 0 Other: # Bowel Movements 0 Active Medications: Current Medications Atropine Sulfate (Atropine Syringe) 1 mg IVP Q4HR PRN PRN Reason: LOW HEART RATE Stop: 04/18/17 13:37 Last Admin: 02/18/17 11:03 Dose: 1 mg Piperacillin Sod/Tazobactam (Sod 2.25 gm/ Sodium Chloride) 50 mls @ 100 mls/hr IV Q8HR [facility] Stop: 04/15/17 20:59 Last Infusion: 02/20/17 07:08 Dose: Infused Dextrose (D5w) 1,000 mls @ 125 mls/hr IV .Q8H [facility] Stop: 04/21/17 03:24 Miscellaneous (Probiotic Screen) 1 ea MC PRN PRN PRN Reason: PROTOCOL Stop: 04/16/17 14:13 Pantoprazole Sodium (Protonix) 40 mg IVP DAILY [facility] Stop: 04/19/17 08:59 Last Admin: 02/19/17 09:08 Dose: 40 mg General: No acute distress, Other (drowsy) HEENT: Atraumatic, Mucous membr. moist/pink Neck: Supple, +2 carotid pulse wo bruit Cardiovascular: Regular rate, Normal S1, Normal S2 Lungs: Other (few rhonchi) Abdomen: Soft, Other (diminished BS) Extremities: no Edema Neurological: Sensation intact Skin: no Rash Psych/Mental Status: Mood NL - Procedures Procedures: Procedures Procedure Code Date BLOOD TRANSFUSION SERVICE 28470 02/14/17 TRANSFUSE NONAUT RED BLOOD CELLS IN PERIPH VEIN, PERC 72006P1 02/14/17 Assessment/Plan - Problem List Patient Problems: All Active Problems WANDERS FROM FACILITY; ELOPEMENT RISK (Acute) Nutritional Asmnt/Malnutr-PDOC - Dietary Evaluation Malnutrition Findings (Please click <Entered> for more info): Nutritional Asmnt/Malnutrition Start: 02/16/17 13: 29 Text: Status: Complete Freq: Document 02/16/17 13:29 GSUN (Rec: 02/16/17 13:57 GSUN [email or web address]) Nutritional Asmnt/Malnutrition Patient General Information Nutritional Screening High Risk Screening Diagnosis Septic shock, severe dehydration, 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 RD consult for elevated BG. NPO since adm, day 2. Spoke to RN Valencia RN stated per family, pt noted with poor PO intake this past month. Pt was lethargic during visit, made eye contact , responded yes when asked if he was hungry. Limited physical assessment due to heavy blanket for low temp, observed moderate to severe muscle fat wasting to chest and clavicles, with BMI 16.5. RN ordered swallow eval, pending. Ngt in place, RN suggested enteral feeding if needed. Pt is edentulous with upper denture at bedside. Current Diet Order/ Nutrition Support NPO Pertinent Medications D5w, Vancomycin, Protonix Pertinent Labs 02/14: A1c 5.9 02/15: phosphorus 5.7H 02/16: BUN 67H, creatinine 2.9H , glucose 90 (trended down), AST 193H, alkaline phosphatase 129H, ALT 281H, calcium 8L Nutritional Hx/Data Height 1.68 m Height (Calculated Centimeters) 167.6 Current Weight (lbs) 46.312 kg Weight (Calculated Kilograms) 46.3 Weight (Calculated Grams) 82459.8 [place] Body Weight 142 Weight Status Underweight GI Symptoms Usual diet at home [place] [facility]: [facility] soft, finely chopped, thin liquid Skin Integrity/Comment: Dwight 10. Right eye scab. Estimated Nutritional Goals Calories/Kcals/Kg IBW 142lb/64.5kg Kcals Calculated 1613-1935kcal (25-30kcal/kg) Protein Calculated 52-66g (0.8-1g/kg, monitor renal vs underweight) Fluid: ml Per MD Nutritional Problem 2. Problem Problem Impaired nutrient utilization related to Etiology RUEL on CKD aeb Signs/Symptoms: 02/16: BUN 67H, creatinine 2.9H , calcium 8L. 02/15: phosphorus 5.7H 1. Problem Problem (possible) difficulty chewing/ swallowing related to Etiology likely lethargy aeb Signs/Symptoms: swallow eval pending Malnutrition Alert Body Fat Depletion (Severe) Mod to Severe Depletion Muscle Mass (Severe) Mod to Severe Depletion Intervention/Recommendation Comments 1. 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 Diet texture per swallow eval (pending). Pt is edentulous with upper denture at bedside. 2. Recommend Novasource Renal TID, BMI 16.5 underweight, moderate to severe muscle fat wasting to chest and clavicles , family report poor PO intake for 1 month. 3. Ngt in place. If enteral nutrition suggested, recommend Novasource Renal 38ml/hr x 24hrs, providing 912ml total volume, 1824kcal, 83g protein. Expected Outcomes/Goals Expected Outcomes/Goals 1. Pt to resume oral diet and meet at least 75% of estimated nutritional needs.
--- NOTE | 2017-02-20 10:24 | Cardiology ---
02/19/[address] Sanabria. M-MODE ECHOCARDIOGRAM: Mitral valve, anterior leaflet of mitral valve shows normal excursion, EF velocity. Posterior leaflet of the mitral valve shows normal excursion. Left ventricular posterior wall shows increased thickness, normal excursion. Interventricular septum showed normal thickness and excursion. Ejection fraction 55%. Left atrium normal. Aortic root shows normal dimension, normal excursion of aortic leaflets. CONCLUSION: Minimal hypertrophy of the left ventricle, ejection fraction 55%. 2D ECHO: Long axis view showed normal sized left ventricle with minimal hypertrophy of the left ventricle. Left atrium normal. Aortic root shows normal dimension, normal excursion of aortic leaflets. Short axis view of mitral valve normal. Short axis view of aortic valve normal. Apical four chamber view showed normal sized left ventricle, left atrium, right ventricle, right atrium, tricuspid and mitral valve. CONCLUSION: Hypertrophy of the left ventricle, ejection fraction 55%. Doppler study shows mild to moderate tricuspid regurgitation, trace mitral regurgitation, right ventricular systolic pressure 42 mmHg. [facility]# [id number]
[2017-02-20 11:12] LABS: FERRITIN 1241 ng/mL (30-400); IRON SATURATION 74 % (15-55); TIBC (LCI) 186 ug/dL (250-450); UIBC 48 ug/dL (111-343)
--- NOTE | 2017-02-20 12:43 | GI Progress Note ---
Subjective - Review of Systems Service Date: 02/20/17 Subjective: Pt pulled NG tube, wants to eat Objective - Results Result Diagrams: 02/20/17 04:27 02/20/17 04:27 Recent Labs: Laboratory Last Values WBC 4.4 Th/cmm (4.8-10.8) L D 02/20/17 04:27 RBC 2.60 Mil/cmm (3.80-5.80) L 02/20/17 04:27 Hgb 8.6 gm/dL (12-16) L 02/20/17 04:27 Hct 25.0 % (41.0-60) L 02/20/17 04:27 MCV 96.4 fl (80-99) 02/20/17 04:27 MCH 32.9 pg (27.0-31.0) H 02/20/17 04:27 MCHC Differential 34.2 pg (28.0-36.0) 02/20/17 04:27 RDW 14.4 % (11.5-20.0) 02/20/17 04:27 Plt Count 80 Th/cmm (150-400) L 02/20/17 04:27 MPV 9.2 fl 02/20/17 04:27 Neutrophils % 72.9 % (40.0-80.0) 02/20/17 04:27 Band Neutrophils % 2 % (0-10) 02/18/17 05:35 Lymphocytes % 7.6 % (20.0-50.0) L 02/20/17 04:27 Monocytes % 5.3 % (2.0-10.0) 02/20/17 04:27 Eosinophils % 14.0 % (0.0-5.0) H 02/20/17 04:27 Basophils % 0.2 % (0.0-2.0) 02/20/17 04:27 Neutrophils (Manual) 78 % (40-80) 02/19/17 05:25 Lymphocytes 7 % (20-50) L 02/19/17 05:25 Monocytes 1 % (2-10) L 02/19/17 05:25 Eosinophils 14 % (0-5) H 02/19/17 05:25 Basophils 1 % (0-3) 02/14/17 13:23 Platelet Estimate DECREASED PLATELETS (NORMAL) 02/19/17 05:25 Platelet Morphology NORMAL (NORMAL) 02/15/17 06:30 Anisocytosis 1+ 02/15/17 06:30 RBC Morph Micro Appear ABNORMAL (NORMAL) 02/15/17 06:30 Total Retics Counted 0.4 % (0.5-1.5) L 02/19/17 05:25 Absolute Retic 10.8 Th/cmm 02/19/17 05:25 Corrected Retic Count 0.2 % (0.5-1.5) L 02/19/17 05:25 Eos Smear Source URINE 02/14/17 20:05 Eos Smear Total Cells NONE SEEN (NONE SEEN) 02/14/17 20:05 Plt Count 39 Th/cmm (150-750) L 02/16/17 04:17 PT 9.7 SECONDS (9.5-11.5) 02/16/17 04:17 INR 0.93 (0.5-1.4) 02/16/17 04:17 PTT (Actin FS) 35.1 SECONDS (26.0-38.0) 02/16/17 04:17 Fibrinogen 500.0 mg/dL (200.0-400.0) H 02/16/17 04:17 D-Dimer 745 ng/mL (100-400) H 02/16/17 04:17 Sodium 146 mEq/L (136-145) H 02/20/17 04:27 Potassium 3.6 mEq/L (3.5-5.1) 02/20/17 04:27 Chloride 116 mEq/L (98-107) H 02/20/17 04:27 Carbon Dioxide 24.9 mEq/L (21.0-31.0) 02/20/17 04:27 Anion Gap 8.7 (7.0-16.0) 02/20/17 04:27 BUN 51 mg/dL (7-25) H 02/20/17 04:27 Creatinine 2.9 mg/dL (0.7-1.3) H 02/20/17 04:27 Est GFR ( Amer) TNP 02/20/17 04:27 Est GFR (Non-Af Amer) TNP 02/20/17 04:27 BUN/Creatinine Ratio 17.6 02/20/17 04:27 Glucose 76 mg/dL (70-105) 02/20/17 04:27 POC Glucose 79 MG/DL (70 - 105) 02/20/17 06:13 Hemoglobin A1c % 5.9 % (4.0-6.0) 02/14/17 13:23 Whole Bld Lactic Acid 1.09 mmol/L (0.60-1.99) 02/14/17 13:23 Uric Acid 2.7 mg/dL (4.4-7.6) L 02/15/17 04:25 Calcium 8.4 mg/dL (8.6-10.3) L 02/20/17 04:27 Phosphorus 5.7 mg/dL (2.5-5.0) H 02/15/17 04:25 Magnesium 2.7 mg/dL (1.9-2.7) 02/15/17 04:25 Iron 138 ug/dL (38-169) 02/19/17 05:25 TIBC 186 ug/dL (250-450) L 02/19/17 05:25 Iron Saturation 74 % (15-55) H 02/19/17 05:25 Unsaturated IBC 48 ug/dL (111-343) L 02/19/17 05:25 Ferritin 1241 ng/mL (30-400) H 02/19/17 05:25 Total Bilirubin 0.8 mg/dL (0.3-1.0) 02/19/17 05:25 Direct Bilirubin 0.05 mg/dL (0.0-0.2) 02/17/17 04:45 AST 69 U/L (13-39) H 02/19/17 05:25 ALT 143 U/L (7-52) H 02/19/17 05:25 Alkaline Phosphatase 83 U/L (34-104) 02/19/17 05:25 Ammonia 51 umol/L (16-53) 02/16/17 04:17 Lactate Dehydrogenase 210 U/L (140-271) 02/16/17 04:17 Troponin I 0.08 ng/mL (0.01-0.05) H* D 02/17/17 13:55 Total Protein 5.5 gm/dL (6.0-8.3) L 02/19/17 05:25 Albumin 2.9 gm/dL (4.2-5.5) L 02/19/17 05:25 Globulin 2.6 gm/dL 02/19/17 05:25 Albumin/Globulin Ratio 1.1 (1.0-1.8) 02/19/17 05:25 Vitamin B12 1893 pg/mL (211-946) H 02/18/17 05:35 Folic Acid 15.1 ng/mL (>3.0) 02/18/17 05:35 Free T4 0.89 ng/dL (0.82-1.77) 02/18/17 05:35 TSH 4.79 uIU/ml (0.34-5.60) 02/18/17 05:35 Urine Source CATH 02/14/17 14:10 Urine Color YELLOW 02/14/17 14:10 Urine Clarity CLEAR (CLEAR) 02/14/17 14:10 Urine pH 5.5 (4.6 - 8.0) 02/14/17 14:10 Ur Specific [place] 1.020 (1.005-1.030) 02/14/17 14:10 Urine Protein 100 mg/dL (NEGATIVE) H 02/14/17 14:10 Urine Glucose (UA) NEGATIVE mg/dL (NEGATIVE) 02/14/17 14:10 Urine Ketones NEGATIVE mg/dL (NEGATIVE) 02/14/17 14:10 Urine Blood MODERATE (NEGATIVE) H 02/14/17 14:10 Urine Nitrate NEGATIVE (NEGATIVE) 02/14/17 14:10 Urine Bilirubin NEGATIVE (NEGATIVE) 02/14/17 14:10 Urine Urobilinogen 0.2 E.U./dL (0.2 - 1.0) 02/14/17 14:10 Ur Leukocyte Esterase NEGATIVE (NEGATIVE) 02/14/17 14:10 Urine RBC 5-10 /hpf (0-5) H 02/14/17 14:10 Urine WBC 2-5 /hpf (0-5) H 02/14/17 14:10 Ur Epithelial Cells FEW /lpf (FEW) 02/14/17 14:10 Urine Bacteria FEW /hpf (NONE SEEN) 02/14/17 14:10 Urine Osmolality 434 mOsmol/kg 02/14/17 20:05 Ur Random Sodium 61 mmol/L 02/15/17 12:46 Urine Creatinine 93.0 mg/dl (39.0-259.0) 02/14/17 20:05 Urine Microalbumin 662.5 ug/mL (Not Estab.) 02/14/17 14:10 Microalb/Creat Ratio 851.5 mg/g creat (0.0-30.0) H 02/14/17 14:10 Stool Occult Blood POSITIVE (NEGATIVE) 02/15/17 18:35 Random Vancomycin 14.5 ug/mL (5.0-40.0) 02/16/17 04:17 Hepatitis A IgM Ab Negative (Negative) 02/16/17 04:17 Hep Bs Antigen Negative (Negative) 02/16/17 04:17 Hep B Core IgM Ab Negative (Negative) 02/16/17 04:17 Hepatitis C Antibody <0.1 s/co ratio (0.0-0.9) 02/16/17 04:17 Blood Type O POSITIVE 02/15/17 05:20 Antibody Screen NEGATIVE 02/15/17 05:20 Crossmatch See Detail 02/15/17 05:20 - Physical Exam Vitals and I&O: Vital Signs Temp 97.0 F 02/20/17 04:00 Pulse 72 02/20/17 07:32 Resp 18 02/20/17 07:32 BP 130/65 02/20/17 04:00 Pulse Ox 98 02/20/17 07:32 Intake & Output 02/19/17 02/20/17 02/20/17 18:59 06:59 18:59 Intake Total 1190.00 50 450 Output Total 900 1350 Balance 290.00 50 -900 Weight (lbs) 54.25 kg 54.522 kg 54.522 kg Intake: Intake, IV Amount 1100.00 50 450 Dextrose 5% 1,000 ml @ 75 1000.00 mls/hr IV .[id number] [facility] Rx#:[id number] Piperacillin Sodium/ 100 50 50 Tazobact 2.25 gm In Sodium Chloride 0.9% 50 ml @ 100 mls/hr IV Q8HR [facility] Rx#:[id number] Tube Feeding 90 Output: Urine 900 1350 Stool 0 Other: # Bowel Movements 0 Active Medications: Current Medications Atropine Sulfate (Atropine Syringe) 1 mg IVP Q4HR PRN PRN Reason: LOW HEART RATE Stop: 04/18/17 13:37 Last Admin: 02/18/17 11:03 Dose: 1 mg Dextrose (D5w) 1,000 mls @ 125 mls/hr IV .Q8H [facility] Stop: 04/21/17 03:24 Last Admin: 02/20/17 11:19 Dose: 125 mls/hr Miscellaneous (Probiotic Screen) 1 ea MC PRN PRN PRN Reason: PROTOCOL Stop: 04/16/17 14:13 Pantoprazole Sodium (Protonix) 40 mg IVP DAILY [facility] Stop: 04/19/17 08:59 Last Admin: 02/20/17 08:54 Dose: 40 mg General: No acute distress, Other (drowsy) HEENT: Atraumatic, Mucous membr. moist/pink Neck: Supple, +2 carotid pulse wo bruit Cardiovascular: Regular rate, Normal S1, Normal S2 Lungs: Other (few rhonchi) Abdomen: Soft, Other (diminished BS) Extremities: no Edema Neurological: Sensation intact Skin: no Rash Psych/Mental Status: Mood NL - Procedures Procedures: Procedures Procedure Code Date BLOOD TRANSFUSION SERVICE 79081 02/14/17 TRANSFUSE NONAUT RED BLOOD CELLS IN PERIPH VEIN, PERC 35741T4 02/14/17 Assessment/Plan - Problem List Patient Problems: All Active Problems WANDERS FROM FACILITY; ELOPEMENT RISK (Acute) - Assessment Assessment: # Elevated liver function tests # UTI # Severe sepsis with hypothermia Suspect ischemic liver injury secondary to severe sepsis. This is supported by the fact his LFTs have quickly improved, and cont to improve. US negative for biliary obstruction or other obvious liver pathology. Viral hepatitis serologies negative. # Failed swallow evaluation Pt now much more awake, and would expect him to pass swallow eval. He pulled his NG tube x 3, and is able to speak with nursing staff in [facility]. PEG tube would be premature in this setting. Plan: - repeat swallow eval, diet if he passes based on results - cont supportive care and treatment of sepsis process - LFTs periodically to ensure resolution
--- NOTE | 2017-02-20 14:57 | General Progress Note ---
Subjective - Review of Systems Service Date: 02/20/17 Subjective: sleeping, arousable, comfortable Objective - Results Result Diagrams: 02/20/17 04:27 02/20/17 04:27 Recent Labs: Laboratory Last Values WBC 4.4 Th/cmm (4.8-10.8) L D 02/20/17 04:27 RBC 2.60 Mil/cmm (3.80-5.80) L 02/20/17 04:27 Hgb 8.6 gm/dL (12-16) L 02/20/17 04:27 Hct 25.0 % (41.0-60) L 02/20/17 04:27 MCV 96.4 fl (80-99) 02/20/17 04:27 MCH 32.9 pg (27.0-31.0) H 02/20/17 04:27 MCHC Differential 34.2 pg (28.0-36.0) 02/20/17 04:27 RDW 14.4 % (11.5-20.0) 02/20/17 04:27 Plt Count 80 Th/cmm (150-400) L 02/20/17 04:27 MPV 9.2 fl 02/20/17 04:27 Neutrophils % 72.9 % (40.0-80.0) 02/20/17 04:27 Band Neutrophils % 2 % (0-10) 02/18/17 05:35 Lymphocytes % 7.6 % (20.0-50.0) L 02/20/17 04:27 Monocytes % 5.3 % (2.0-10.0) 02/20/17 04:27 Eosinophils % 14.0 % (0.0-5.0) H 02/20/17 04:27 Basophils % 0.2 % (0.0-2.0) 02/20/17 04:27 Neutrophils (Manual) 78 % (40-80) 02/19/17 05:25 Lymphocytes 7 % (20-50) L 02/19/17 05:25 Monocytes 1 % (2-10) L 02/19/17 05:25 Eosinophils 14 % (0-5) H 02/19/17 05:25 Basophils 1 % (0-3) 02/14/17 13:23 Platelet Estimate DECREASED PLATELETS (NORMAL) 02/19/17 05:25 Platelet Morphology NORMAL (NORMAL) 02/15/17 06:30 Anisocytosis 1+ 02/15/17 06:30 RBC Morph Micro Appear ABNORMAL (NORMAL) 02/15/17 06:30 Total Retics Counted 0.4 % (0.5-1.5) L 02/19/17 05:25 Absolute Retic 10.8 Th/cmm 02/19/17 05:25 Corrected Retic Count 0.2 % (0.5-1.5) L 02/19/17 05:25 Eos Smear Source URINE 02/14/17 20:05 Eos Smear Total Cells NONE SEEN (NONE SEEN) 02/14/17 20:05 Plt Count 39 Th/cmm (150-750) L 02/16/17 04:17 PT 9.7 SECONDS (9.5-11.5) 02/16/17 04:17 INR 0.93 (0.5-1.4) 02/16/17 04:17 PTT (Actin FS) 35.1 SECONDS (26.0-38.0) 02/16/17 04:17 Fibrinogen 500.0 mg/dL (200.0-400.0) H 02/16/17 04:17 D-Dimer 745 ng/mL (100-400) H 02/16/17 04:17 Sodium 146 mEq/L (136-145) H 02/20/17 04:27 Potassium 3.6 mEq/L (3.5-5.1) 02/20/17 04:27 Chloride 116 mEq/L (98-107) H 02/20/17 04:27 Carbon Dioxide 24.9 mEq/L (21.0-31.0) 02/20/17 04:27 Anion Gap 8.7 (7.0-16.0) 02/20/17 04:27 BUN 51 mg/dL (7-25) H 02/20/17 04:27 Creatinine 2.9 mg/dL (0.7-1.3) H 02/20/17 04:27 Est GFR ( Amer) TNP 02/20/17 04:27 Est GFR (Non-Af Amer) TNP 02/20/17 04:27 BUN/Creatinine Ratio 17.6 02/20/17 04:27 Glucose 76 mg/dL (70-105) 02/20/17 04:27 POC Glucose 79 MG/DL (70 - 105) 02/20/17 06:13 Hemoglobin A1c % 5.9 % (4.0-6.0) 02/14/17 13:23 Whole Bld Lactic Acid 1.09 mmol/L (0.60-1.99) 02/14/17 13:23 Uric Acid 2.7 mg/dL (4.4-7.6) L 02/15/17 04:25 Calcium 8.4 mg/dL (8.6-10.3) L 02/20/17 04:27 Phosphorus 5.7 mg/dL (2.5-5.0) H 02/15/17 04:25 Magnesium 2.7 mg/dL (1.9-2.7) 02/15/17 04:25 Iron 138 ug/dL (38-169) 02/19/17 05:25 TIBC 186 ug/dL (250-450) L 02/19/17 05:25 Iron Saturation 74 % (15-55) H 02/19/17 05:25 Unsaturated IBC 48 ug/dL (111-343) L 02/19/17 05:25 Ferritin 1241 ng/mL (30-400) H 02/19/17 05:25 Total Bilirubin 0.8 mg/dL (0.3-1.0) 02/19/17 05:25 Direct Bilirubin 0.05 mg/dL (0.0-0.2) 02/17/17 04:45 AST 69 U/L (13-39) H 02/19/17 05:25 ALT 143 U/L (7-52) H 02/19/17 05:25 Alkaline Phosphatase 83 U/L (34-104) 02/19/17 05:25 Ammonia 51 umol/L (16-53) 02/16/17 04:17 Lactate Dehydrogenase 210 U/L (140-271) 02/16/17 04:17 Troponin I 0.08 ng/mL (0.01-0.05) H* D 02/17/17 13:55 Total Protein 5.5 gm/dL (6.0-8.3) L 02/19/17 05:25 Albumin 2.9 gm/dL (4.2-5.5) L 02/19/17 05:25 Globulin 2.6 gm/dL 02/19/17 05:25 Albumin/Globulin Ratio 1.1 (1.0-1.8) 02/19/17 05:25 Vitamin B12 1893 pg/mL (211-946) H 02/18/17 05:35 Folic Acid 15.1 ng/mL (>3.0) 02/18/17 05:35 Free T4 0.89 ng/dL (0.82-1.77) 02/18/17 05:35 TSH 4.79 uIU/ml (0.34-5.60) 02/18/17 05:35 Urine Source CATH 02/14/17 14:10 Urine Color YELLOW 02/14/17 14:10 Urine Clarity CLEAR (CLEAR) 02/14/17 14:10 Urine pH 5.5 (4.6 - 8.0) 02/14/17 14:10 Ur Specific [place] 1.020 (1.005-1.030) 02/14/17 14:10 Urine Protein 100 mg/dL (NEGATIVE) H 02/14/17 14:10 Urine Glucose (UA) NEGATIVE mg/dL (NEGATIVE) 02/14/17 14:10 Urine Ketones NEGATIVE mg/dL (NEGATIVE) 02/14/17 14:10 Urine Blood MODERATE (NEGATIVE) H 02/14/17 14:10 Urine Nitrate NEGATIVE (NEGATIVE) 02/14/17 14:10 Urine Bilirubin NEGATIVE (NEGATIVE) 02/14/17 14:10 Urine Urobilinogen 0.2 E.U./dL (0.2 - 1.0) 02/14/17 14:10 Ur Leukocyte Esterase NEGATIVE (NEGATIVE) 02/14/17 14:10 Urine RBC 5-10 /hpf (0-5) H 02/14/17 14:10 Urine WBC 2-5 /hpf (0-5) H 02/14/17 14:10 Ur Epithelial Cells FEW /lpf (FEW) 02/14/17 14:10 Urine Bacteria FEW /hpf (NONE SEEN) 02/14/17 14:10 Urine Osmolality 434 mOsmol/kg 02/14/17 20:05 Ur Random Sodium 61 mmol/L 02/15/17 12:46 Urine Creatinine 93.0 mg/dl (39.0-259.0) 02/14/17 20:05 Urine Microalbumin 662.5 ug/mL (Not Estab.) 02/14/17 14:10 Microalb/Creat Ratio 851.5 mg/g creat (0.0-30.0) H 02/14/17 14:10 Stool Occult Blood POSITIVE (NEGATIVE) 02/15/17 18:35 Random Vancomycin 14.5 ug/mL (5.0-40.0) 02/16/17 04:17 Hepatitis A IgM Ab Negative (Negative) 02/16/17 04:17 Hep Bs Antigen Negative (Negative) 02/16/17 04:17 Hep B Core IgM Ab Negative (Negative) 02/16/17 04:17 Hepatitis C Antibody <0.1 s/co ratio (0.0-0.9) 02/16/17 04:17 Blood Type O POSITIVE 02/15/17 05:20 Antibody Screen NEGATIVE 02/15/17 05:20 Crossmatch See Detail 02/15/17 05:20 - Physical Exam Vitals and I&O: Vital Signs Temp 97.0 F 02/20/17 04:00 Pulse 72 02/20/17 07:32 Resp 18 02/20/17 07:32 BP 130/65 02/20/17 04:00 Pulse Ox 98 02/20/17 07:32 Intake & Output 02/19/17 02/20/17 02/20/17 18:59 06:59 18:59 Intake Total 1190.00 50 450 Output Total 900 1350 Balance 290.00 50 -900 Weight (lbs) 54.25 kg 54.522 kg 54.522 kg Intake: Intake, IV Amount 1100.00 50 450 Dextrose 5% 1,000 ml @ 75 1000.00 mls/hr IV .[id number] [facility] Rx#:[id number] Piperacillin Sodium/ 100 50 50 Tazobact 2.25 gm In Sodium Chloride 0.9% 50 ml @ 100 mls/hr IV Q8HR [facility] Rx#:[id number] Tube Feeding 90 Output: Urine 900 1350 Stool 0 Other: # Bowel Movements 0 Active Medications: Current Medications Atropine Sulfate (Atropine Syringe) 1 mg IVP Q4HR PRN PRN Reason: LOW HEART RATE Stop: 04/18/17 13:37 Last Admin: 02/18/17 11:03 Dose: 1 mg Dextrose (D5w) 1,000 mls @ 125 mls/hr IV .Q8H [facility] Stop: 04/21/17 03:24 Last Admin: 02/20/17 11:19 Dose: 125 mls/hr Miscellaneous (Probiotic Screen) 1 nadia PRN PRN PRN Reason: PROTOCOL Stop: 04/16/17 14:13 Pantoprazole Sodium (Protonix) 40 mg IVP DAILY [facility] Stop: 04/19/17 08:59 Last Admin: 02/20/17 08:54 Dose: 40 mg General: No acute distress, Other (drowsy) HEENT: Atraumatic, Mucous membr. moist/pink Neck: Supple, +2 carotid pulse wo bruit Cardiovascular: Regular rate, Normal S1, Normal S2 Lungs: Other (few rhonchi) Abdomen: Soft, Other (diminished BS) Extremities: no Edema Neurological: Sensation intact Skin: no Rash Psych/Mental Status: Mood NL - Procedures Procedures: Procedures Procedure Code Date BLOOD TRANSFUSION SERVICE 67723 02/14/17 TRANSFUSE NONAUT RED BLOOD CELLS IN PERIPH VEIN, PERC 74591X1 02/14/17 Assessment/Plan - Problem List Patient Problems: All Active Problems WANDERS FROM FACILITY; ELOPEMENT RISK (Acute) - Assessment Assessment: RUEL on CKD Hypothermic NG Hyperchloremic Met Acid Hypernatremia Type 2 DM Hepatic Enceph Anemia acute on ckd Acute liver failure Hyperkalemia 2nd RUEL, DM, losartan bicytopenia - Plan Plan: Current Medications Piperacillin Sod/Tazobactam (Sod 2.25 gm/ Sodium Chloride) 50 mls @ 100 mls/hr IV Q8HR [facility] Stop: 04/15/17 20:59 Last Infusion: 02/15/17 05:15 Dose: Infused Dextrose (D5w) 1,000 mls @ 125 mls/hr IV .Q8H [facility] Stop: 04/15/17 17:05 Last Admin: 02/15/17 04:44 Dose: 125 mls/hr Miscellaneous (Vancomycin Iv Per Pharmacy) 1 nadia DANG PRN PRN PRN Reason: PROTOCOL Stop: 04/15/17 15:55 Pneumococcal Polyvalent Vaccine (Pneumovax) 0.5 ml IM .ONCE ONE Stop: 02/15/17 17:34 Na up to 146, increased D5W@ 75ml/hr acute anemia possible slow GI bleed (stool OB +) kidney fnc basically the same w/ BUN/CR of 51/2.9 Lab - Result Diagrams 02/20/17 04:27 02/20/17 04:27 Nutritional Asmnt/Malnutr-PDOC - Dietary Evaluation Malnutrition Findings (Please click <Entered> for more info): Nutritional Asmnt/Malnutrition Start: 02/16/17 13: 29 Text: Status: Complete Freq: Document 02/16/17 13:29 GSUN (Rec: 02/16/17 13:57 [id number] [email or web address]) Nutritional Asmnt/Malnutrition Patient General Information Nutritional Screening High Risk Screening Diagnosis Septic shock, severe dehydration, 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 RD consult for elevated BG. NPO since adm, day 2. Spoke to RN MARYAM [place] stated per family, pt noted with poor PO intake this past month. Pt was lethargic during visit, made eye contact , responded yes when asked if he was hungry. Limited physical assessment due to heavy blanket for low temp, observed moderate to severe muscle fat wasting to chest and clavicles, with BMI 16.5. RN ordered swallow eval, pending. Ngt in place, RN suggested enteral feeding if needed. Pt is edentulous with upper denture at bedside. Current Diet Order/ Nutrition Support NPO Pertinent Medications D5w, Vancomycin, Protonix Pertinent Labs 02/14: A1c 5.9 02/15: phosphorus 5.7H 02/16: BUN 67H, creatinine 2.9H , glucose 90 (trended down), AST 193H, alkaline phosphatase 129H, ALT 281H, calcium 8L Nutritional Hx/Data Height 1.68 m Height (Calculated Centimeters) 167.6 Current Weight (lbs) 46.312 kg Weight (Calculated Kilograms) 46.3 Weight (Calculated Grams) 91264.8 [place] Body Weight 142 Weight Status Underweight GI Symptoms Usual diet at home [facility]: [facility] soft, finely chopped, thin liquid Skin Integrity/Comment: Dwight 10. Right eye scab. Estimated Nutritional Goals Calories/Kcals/Kg IBW 142lb/64.5kg Kcals Calculated 1613-1935kcal (25-30kcal/kg) Protein Calculated 52-66g (0.8-1g/kg, monitor renal vs underweight) Fluid: ml Per MD Nutritional Problem 2. Problem Problem Impaired nutrient utilization related to Etiology RUEL on CKD aeb Signs/Symptoms: 02/16: BUN 67H, creatinine 2.9H , calcium 8L. 02/15: phosphorus 5.7H 1. Problem Problem (possible) difficulty chewing/ swallowing related to Etiology likely lethargy aeb Signs/Symptoms: swallow eval pending Malnutrition Alert Body Fat Depletion (Severe) Mod to Severe Depletion Muscle Mass (Severe) Mod to Severe Depletion Intervention/Recommendation Comments 1. 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 Diet texture per swallow eval (pending). Pt is edentulous with upper denture at bedside. 2. Recommend Novasource Renal TID, BMI 16.5 underweight, moderate to severe muscle fat wasting to chest and clavicles , family report poor PO intake for 1 month[address] 3[address] Ngt in [address]. If enteral nutrition suggested, recommend Novasource Renal 38ml/hr x 24hrs, providing 912ml total volume, 1824kcal, 83g protein. Expected Outcomes/Goals Expected Outcomes/Goals 1. Pt to resume oral diet and meet at least 75% of estimated nutritional needs.
[2017-02-21 05:54] LABS: % BASOPHILS 0.4 % (0.0-2.0); % EOSINOPHILS 14.6 % (0.0-5.0); % LYMPHOCYTES 8.4 % (20.0-50.0); % MONOCYTES 5.8 % (2.0-10.0); % NEUTROPHILS 70.8 % (40.0-80.0); HEMATOCRIT 25.1 % (41.0-60); HEMOGLOBIN 8.5 gm/dL (12-16); MEAN CELL VOLUME 97.5 fl (80-99); MEAN CORPUSCULAR HEMOGLOBIN 33.3 pg (27.0-31.0); MEAN CORPUSCULAR HGB CONC 34.1 pg (28.0-36.0); MEAN PLATELET VOLUME 8.9 fl; NEUTROPHILE ABSOLUTE 2.6 Th/cmm (1.8-8.0); PLATELET COUNT 71 Th/cmm (150-400); RED BLOOD COUNT 2.57 Mil/cmm (3.80-5.80); RED CELL DISTRIBUTION WIDTH 14.5 % (11.5-20.0)
[2017-02-21] MEDS: Dextrose 5% 1,000 ML IV SCH ×2 (05:58→17:36)
[2017-02-21 06:14] LABS: WHITE BLOOD COUNT 3.6 Th/cmm (4.8-10.8)
[2017-02-21 07:08] LABS: ANION GAP 8.5 (7.0-16.0); BUN - UREA NITROGEN 43 mg/dL (7-25); BUN/CREATININE RATIO 16.5; CALCIUM SERUM 8.3 mg/dL (8.6-10.3); CARBON DIOXIDE 25.3 mEq/L (21.0-31.0); CHLORIDE 112 mEq/L (98-107); CREATININE - SERUM 2.6 mg/dL (0.7-1.3); GLUCOSE 70 mg/dL (70-105); POTASSIUM SERUM 3.8 mEq/L (3.5-5.1); SODIUM SERUM 142 mEq/L (136-145)
--- NOTE | 2017-02-21 10:19 | GI Progress Note ---
Subjective - Review of Systems Subjective: Passed swallow eval, eating pureed diet Objective - Results Result Diagrams: 02/21/17 05:26 02/21/17 05:26 Recent Labs: Laboratory Last Values WBC 3.6 Th/cmm (4.8-10.8) L 02/21/17 05:26 RBC 2.57 Mil/cmm (3.80-5.80) L 02/21/17 05:26 Hgb 8.5 gm/dL (12-16) L 02/21/17 05:26 Hct 25.1 % (41.0-60) L 02/21/17 05:26 MCV 97.5 fl (80-99) 02/21/17 05:26 MCH 33.3 pg (27.0-31.0) H 02/21/17 05:26 MCHC Differential 34.1 pg (28.0-36.0) 02/21/17 05:26 RDW 14.5 % (11.5-20.0) 02/21/17 05:26 Plt Count 71 Th/cmm (150-400) L 02/21/17 05:26 MPV 8.9 fl 02/21/17 05:26 Neutrophils % 70.8 % (40.0-80.0) 02/21/17 05:26 Band Neutrophils % 2 % (0-10) 02/18/17 05:35 Lymphocytes % 8.4 % (20.0-50.0) L 02/21/17 05:26 Monocytes % 5.8 % (2.0-10.0) 02/21/17 05:26 Eosinophils % 14.6 % (0.0-5.0) H 02/21/17 05:26 Basophils % 0.4 % (0.0-2.0) 02/21/17 05:26 Neutrophils (Manual) 78 % (40-80) 02/19/17 05:25 Lymphocytes 7 % (20-50) L 02/19/17 05:25 Monocytes 1 % (2-10) L 02/19/17 05:25 Eosinophils 14 % (0-5) H 02/19/17 05:25 Basophils 1 % (0-3) 02/14/17 13:23 Platelet Estimate DECREASED PLATELETS (NORMAL) 02/19/17 05:25 Platelet Morphology NORMAL (NORMAL) 02/15/17 06:30 Anisocytosis 1+ 02/15/17 06:30 RBC Morph Micro Appear ABNORMAL (NORMAL) 02/15/17 06:30 Total Retics Counted 0.4 % (0.5-1.5) L 02/19/17 05:25 Absolute Retic 10.8 Th/cmm 02/19/17 05:25 Corrected Retic Count 0.2 % (0.5-1.5) L 02/19/17 05:25 Eos Smear Source URINE 02/14/17 20:05 Eos Smear Total Cells NONE SEEN (NONE SEEN) 02/14/17 20:05 Plt Count 39 Th/cmm (150-750) L 02/16/17 04:17 PT 9.7 SECONDS (9.5-11.5) 02/16/17 04:17 INR 0.93 (0.5-1.4) 02/16/17 04:17 PTT (Actin FS) 35.1 SECONDS (26.0-38.0) 02/16/17 04:17 Fibrinogen 500.0 mg/dL (200.0-400.0) H 02/16/17 04:17 D-Dimer 745 ng/mL (100-400) H 02/16/17 04:17 Sodium 142 mEq/L (136-145) 02/21/17 05:26 Potassium 3.8 mEq/L (3.5-5.1) 02/21/17 05:26 Chloride 112 mEq/L (98-107) H 02/21/17 05:26 Carbon Dioxide 25.3 mEq/L (21.0-31.0) 02/21/17 05:26 Anion Gap 8.5 (7.0-16.0) 02/21/17 05:26 BUN 43 mg/dL (7-25) H 02/21/17 05:26 Creatinine 2.6 mg/dL (0.7-1.3) H 02/21/17 05:26 Est GFR ( Amer) TNP 02/21/17 05:26 Est GFR (Non-Af Amer) TNP 02/21/17 05:26 BUN/Creatinine Ratio 16.5 02/21/17 05:26 Glucose 70 mg/dL (70-105) 02/21/17 05:26 POC Glucose 79 MG/DL (70 - 105) 02/20/17 06:13 Hemoglobin A1c % 5.9 % (4.0-6.0) 02/14/17 13:23 Whole Bld Lactic Acid 1.09 mmol/L (0.60-1.99) 02/14/17 13:23 Uric Acid 2.7 mg/dL (4.4-7.6) L 02/15/17 04:25 Calcium 8.3 mg/dL (8.6-10.3) L 02/21/17 05:26 Phosphorus 5.7 mg/dL (2.5-5.0) H 02/15/17 04:25 Magnesium 2.7 mg/dL (1.9-2.7) 02/15/17 04:25 Iron 138 ug/dL (38-169) 02/19/17 05:25 TIBC 186 ug/dL (250-450) L 02/19/17 05:25 Iron Saturation 74 % (15-55) H 02/19/17 05:25 Unsaturated IBC 48 ug/dL (111-343) L 02/19/17 05:25 Ferritin 1241 ng/mL (30-400) H 02/19/17 05:25 Total Bilirubin 0.8 mg/dL (0.3-1.0) 02/19/17 05:25 Direct Bilirubin 0.05 mg/dL (0.0-0.2) 02/17/17 04:45 AST 69 U/L (13-39) H 02/19/17 05:25 ALT 143 U/L (7-52) H 02/19/17 05:25 Alkaline Phosphatase 83 U/L (34-104) 02/19/17 05:25 Ammonia 51 umol/L (16-53) 02/16/17 04:17 Lactate Dehydrogenase 210 U/L (140-271) 02/16/17 04:17 Troponin I 0.08 ng/mL (0.01-0.05) H* D 02/17/17 13:55 Total Protein 5.5 gm/dL (6.0-8.3) L 02/19/17 05:25 Albumin 2.9 gm/dL (4.2-5.5) L 02/19/17 05:25 Globulin 2.6 gm/dL 02/19/17 05:25 Albumin/Globulin Ratio 1.1 (1.0-1.8) 02/19/17 05:25 Vitamin B12 1893 pg/mL (211-946) H 02/18/17 05:35 Folic Acid 15.1 ng/mL (>3.0) 02/18/17 05:35 Free T4 0.89 ng/dL (0.82-1.77) 02/18/17 05:35 TSH 4.79 uIU/ml (0.34-5.60) 02/18/17 05:35 Urine Source CATH 02/14/17 14:10 Urine Color YELLOW 02/14/17 14:10 Urine Clarity CLEAR (CLEAR) 02/14/17 14:10 Urine pH 5.5 (4.6 - 8.0) 02/14/17 14:10 Ur Specific [place] 1.020 (1.005-1.030) 02/14/17 14:10 Urine Protein 100 mg/dL (NEGATIVE) H 02/14/17 14:10 Urine Glucose (UA) NEGATIVE mg/dL (NEGATIVE) 02/14/17 14:10 Urine Ketones NEGATIVE mg/dL (NEGATIVE) 02/14/17 14:10 Urine Blood MODERATE (NEGATIVE) H 02/14/17 14:10 Urine Nitrate NEGATIVE (NEGATIVE) 02/14/17 14:10 Urine Bilirubin NEGATIVE (NEGATIVE) 02/14/17 14:10 Urine Urobilinogen 0.2 E.U./dL (0.2 - 1.0) 02/14/17 14:10 Ur Leukocyte Esterase NEGATIVE (NEGATIVE) 02/14/17 14:10 Urine RBC 5-10 /hpf (0-5) H 02/14/17 14:10 Urine WBC 2-5 /hpf (0-5) H 02/14/17 14:10 Ur Epithelial Cells FEW /lpf (FEW) 02/14/17 14:10 Urine Bacteria FEW /hpf (NONE SEEN) 02/14/17 14:10 Urine Osmolality 434 mOsmol/kg 02/14/17 20:05 Ur Random Sodium 61 mmol/L 02/15/17 12:46 Urine Creatinine 93.0 mg/dl (39.0-259.0) 02/14/17 20:05 Urine Microalbumin 662.5 ug/mL (Not Estab.) 02/14/17 14:10 Microalb/Creat Ratio 851.5 mg/g creat (0.0-30.0) H 02/14/17 14:10 Stool Occult Blood POSITIVE (NEGATIVE) 02/15/17 18:35 Random Vancomycin 14.5 ug/mL (5.0-40.0) 02/16/17 04:17 Hepatitis A IgM Ab Negative (Negative) 02/16/17 04:17 Hep Bs Antigen Negative (Negative) 02/16/17 04:17 Hep B Core IgM Ab Negative (Negative) 02/16/17 04:17 Hepatitis C Antibody <0.1 s/co ratio (0.0-0.9) 02/16/17 04:17 Blood Type O POSITIVE 02/15/17 05:20 Antibody Screen NEGATIVE 02/15/17 05:20 Crossmatch See Detail 02/15/17 05:20 - Physical Exam Vitals and I&O: Vital Signs Temp 96.8 F 02/21/17 08:00 Pulse 71 02/21/17 08:00 Resp 18 02/21/17 09:02 BP 137/74 02/21/17 08:00 Pulse Ox 94 02/21/17 08:00 Intake & Output 02/20/17 02/21/17 02/21/17 18:59 06:59 18:59 Intake Total 550 2120 Output Total 2400 1000 Balance -1850 1120 Weight (lbs) 54.522 kg 50.576 kg Intake: Intake, IV Amount 450 2000 Dextrose 5% 1,000 ml @ 2000 125 mls/hr IV .Q8H [facility] Rx #:[id number] Piperacillin Sodium/ 50 Tazobact 2.25 gm In Sodium Chloride 0.9% 50 ml @ 100 mls/hr IV Q8HR [facility] Rx#:[id number] Oral 100 120 Output: Urine 2400 1000 Stool 0 Other: # Bowel Movements 4 1 Active Medications: Current Medications Atropine Sulfate (Atropine Syringe) 1 mg IVP Q4HR PRN PRN Reason: LOW HEART RATE Stop: 04/18/17 13:37 Last Admin: 02/18/17 11:03 Dose: 1 mg Dextrose (D5w) 1,000 mls @ 125 mls/hr IV .Q8H [facility] Stop: 04/21/17 03:24 Last Admin: 02/21/17 05:58 Dose: 125 mls/hr Miscellaneous (Probiotic Screen) 1 ea MC PRN PRN PRN Reason: PROTOCOL Stop: 04/16/17 14:13 Pantoprazole Sodium (Protonix) 40 mg IVP DAILY [facility] Stop: 04/19/17 08:59 Last Admin: 02/21/17 08:20 Dose: 40 mg General: No acute distress, Other (drowsy) HEENT: Atraumatic, Mucous membr. moist/pink Neck: Supple, +2 carotid pulse wo bruit Cardiovascular: Regular rate, Normal S1, Normal S2 Lungs: Other (few rhonchi) Abdomen: Soft, Other (diminished BS) Extremities: no Edema Neurological: Sensation intact Skin: no Rash Psych/Mental Status: Mood NL - Procedures Procedures: Procedures Procedure Code Date BLOOD TRANSFUSION SERVICE 89474 02/14/17 TRANSFUSE NONAUT RED BLOOD CELLS IN PERIPH VEIN, PERC 97388A4 02/14/17 Assessment/Plan - Problem List Patient Problems: All Active Problems WANDERS FROM FACILITY; ELOPEMENT RISK (Acute) - Assessment Assessment: # Elevated liver function tests # UTI # Severe sepsis with hypothermia Suspect ischemic liver injury secondary to severe sepsis. This is supported by the fact his LFTs have quickly improved, and cont to improve. US negative for biliary obstruction or other obvious liver pathology. Viral hepatitis serologies negative. # Failed swallow evaluation Now resolved, and tolerating pureed diet. Plan: - continue diet - cont supportive care and treatment of sepsis process - LFTs periodically to ensure resolution GI to see as needed, please call with any further questions.
--- NOTE | 2017-02-21 11:06 | Progress Notes ---
DATE: 02/21/2017 SUBJECTIVE: Chart reviewed and the patient interviewed. Also, discussed the patient's condition with the staff and reviewed records and labs. The patient seems to be calmer than before and seems to be less irritable and less agitated. The patient also is still silent and does not talk much. The patient also is slightly easier to redirect him. He also is compliant, was taking his medications and no side effects of medications. ASSESSMENT: The patient is less agitated and less irritable. TREATMENT PLAN: We will continue monitoring his behavior and continue current psychotropic medications and we will continue to follow up. JOB# [id number]
--- NOTE | 2017-02-21 12:27 | General Progress Note ---
Subjective - Review of Systems Service Date: 02/21/17 Subjective: sleeping, arousable, comfortable Objective - Results Result Diagrams: 02/21/17 05:26 02/21/17 05:26 Recent Labs: Laboratory Last Values WBC 3.6 Th/cmm (4.8-10.8) L 02/21/17 05:26 RBC 2.57 Mil/cmm (3.80-5.80) L 02/21/17 05:26 Hgb 8.5 gm/dL (12-16) L 02/21/17 05:26 Hct 25.1 % (41.0-60) L 02/21/17 05:26 MCV 97.5 fl (80-99) 02/21/17 05:26 MCH 33.3 pg (27.0-31.0) H 02/21/17 05:26 MCHC Differential 34.1 pg (28.0-36.0) 02/21/17 05:26 RDW 14.5 % (11.5-20.0) 02/21/17 05:26 Plt Count 71 Th/cmm (150-400) L 02/21/17 05:26 MPV 8.9 fl 02/21/17 05:26 Neutrophils % 70.8 % (40.0-80.0) 02/21/17 05:26 Band Neutrophils % 2 % (0-10) 02/18/17 05:35 Lymphocytes % 8.4 % (20.0-50.0) L 02/21/17 05:26 Monocytes % 5.8 % (2.0-10.0) 02/21/17 05:26 Eosinophils % 14.6 % (0.0-5.0) H 02/21/17 05:26 Basophils % 0.4 % (0.0-2.0) 02/21/17 05:26 Neutrophils (Manual) 78 % (40-80) 02/19/17 05:25 Lymphocytes 7 % (20-50) L 02/19/17 05:25 Monocytes 1 % (2-10) L 02/19/17 05:25 Eosinophils 14 % (0-5) H 02/19/17 05:25 Basophils 1 % (0-3) 02/14/17 13:23 Platelet Estimate DECREASED PLATELETS (NORMAL) 02/19/17 05:25 Platelet Morphology NORMAL (NORMAL) 02/15/17 06:30 Anisocytosis 1+ 02/15/17 06:30 RBC Morph Micro Appear ABNORMAL (NORMAL) 02/15/17 06:30 Total Retics Counted 0.4 % (0.5-1.5) L 02/19/17 05:25 Absolute Retic 10.8 Th/cmm 02/19/17 05:25 Corrected Retic Count 0.2 % (0.5-1.5) L 02/19/17 05:25 Eos Smear Source URINE 02/14/17 20:05 Eos Smear Total Cells NONE SEEN (NONE SEEN) 02/14/17 20:05 Plt Count 39 Th/cmm (150-750) L 02/16/17 04:17 PT 9.7 SECONDS (9.5-11.5) 02/16/17 04:17 INR 0.93 (0.5-1.4) 02/16/17 04:17 PTT (Actin FS) 35.1 SECONDS (26.0-38.0) 02/16/17 04:17 Fibrinogen 500.0 mg/dL (200.0-400.0) H 02/16/17 04:17 D-Dimer 745 ng/mL (100-400) H 02/16/17 04:17 Sodium 142 mEq/L (136-145) 02/21/17 05:26 Potassium 3.8 mEq/L (3.5-5.1) 02/21/17 05:26 Chloride 112 mEq/L (98-107) H 02/21/17 05:26 Carbon Dioxide 25.3 mEq/L (21.0-31.0) 02/21/17 05:26 Anion Gap 8.5 (7.0-16.0) 02/21/17 05:26 BUN 43 mg/dL (7-25) H 02/21/17 05:26 Creatinine 2.6 mg/dL (0.7-1.3) H 02/21/17 05:26 Est GFR ( Amer) TNP 02/21/17 05:26 Est GFR (Non-Af Amer) TNP 02/21/17 05:26 BUN/Creatinine Ratio 16.5 02/21/17 05:26 Glucose 70 mg/dL (70-105) 02/21/17 05:26 POC Glucose 79 MG/DL (70 - 105) 02/20/17 06:13 Hemoglobin A1c % 5.9 % (4.0-6.0) 02/14/17 13:23 Whole Bld Lactic Acid 1.09 mmol/L (0.60-1.99) 02/14/17 13:23 Uric Acid 2.7 mg/dL (4.4-7.6) L 02/15/17 04:25 Calcium 8.3 mg/dL (8.6-10.3) L 02/21/17 05:26 Phosphorus 5.7 mg/dL (2.5-5.0) H 02/15/17 04:25 Magnesium 2.7 mg/dL (1.9-2.7) 02/15/17 04:25 Iron 138 ug/dL (38-169) 02/19/17 05:25 TIBC 186 ug/dL (250-450) L 02/19/17 05:25 Iron Saturation 74 % (15-55) H 02/19/17 05:25 Unsaturated IBC 48 ug/dL (111-343) L 02/19/17 05:25 Ferritin 1241 ng/mL (30-400) H 02/19/17 05:25 Total Bilirubin 0.8 mg/dL (0.3-1.0) 02/19/17 05:25 Direct Bilirubin 0.05 mg/dL (0.0-0.2) 02/17/17 04:45 AST 69 U/L (13-39) H 02/19/17 05:25 ALT 143 U/L (7-52) H 02/19/17 05:25 Alkaline Phosphatase 83 U/L (34-104) 02/19/17 05:25 Ammonia 51 umol/L (16-53) 02/16/17 04:17 Lactate Dehydrogenase 210 U/L (140-271) 02/16/17 04:17 Troponin I 0.08 ng/mL (0.01-0.05) H* D 02/17/17 13:55 Total Protein 5.5 gm/dL (6.0-8.3) L 02/19/17 05:25 Albumin 2.9 gm/dL (4.2-5.5) L 02/19/17 05:25 Globulin 2.6 gm/dL 02/19/17 05:25 Albumin/Globulin Ratio 1.1 (1.0-1.8) 02/19/17 05:25 Vitamin B12 1893 pg/mL (211-946) H 02/18/17 05:35 Folic Acid 15.1 ng/mL (>3.0) 02/18/17 05:35 Free T4 0.89 ng/dL (0.82-1.77) 02/18/17 05:35 TSH 4.79 uIU/ml (0.34-5.60) 02/18/17 05:35 Urine Source CATH 02/14/17 14:10 Urine Color YELLOW 02/14/17 14:10 Urine Clarity CLEAR (CLEAR) 02/14/17 14:10 Urine pH 5.5 (4.6 - 8.0) 02/14/17 14:10 Ur Specific [place] 1.020 (1.005-1.030) 02/14/17 14:10 Urine Protein 100 mg/dL (NEGATIVE) H 02/14/17 14:10 Urine Glucose (UA) NEGATIVE mg/dL (NEGATIVE) 02/14/17 14:10 Urine Ketones NEGATIVE mg/dL (NEGATIVE) 02/14/17 14:10 Urine Blood MODERATE (NEGATIVE) H 02/14/17 14:10 Urine Nitrate NEGATIVE (NEGATIVE) 02/14/17 14:10 Urine Bilirubin NEGATIVE (NEGATIVE) 02/14/17 14:10 Urine Urobilinogen 0.2 E.U./dL (0.2 - 1.0) 02/14/17 14:10 Ur Leukocyte Esterase NEGATIVE (NEGATIVE) 02/14/17 14:10 Urine RBC 5-10 /hpf (0-5) H 02/14/17 14:10 Urine WBC 2-5 /hpf (0-5) H 02/14/17 14:10 Ur Epithelial Cells FEW /lpf (FEW) 02/14/17 14:10 Urine Bacteria FEW /hpf (NONE SEEN) 02/14/17 14:10 Urine Osmolality 434 mOsmol/kg 02/14/17 20:05 Ur Random Sodium 61 mmol/L 02/15/17 12:46 Urine Creatinine 93.0 mg/dl (39.0-259.0) 02/14/17 20:05 Urine Microalbumin 662.5 ug/mL (Not Estab.) 02/14/17 14:10 Microalb/Creat Ratio 851.5 mg/g creat (0.0-30.0) H 02/14/17 14:10 Stool Occult Blood POSITIVE (NEGATIVE) 02/15/17 18:35 Random Vancomycin 14.5 ug/mL (5.0-40.0) 02/16/17 04:17 Hepatitis A IgM Ab Negative (Negative) 02/16/17 04:17 Hep Bs Antigen Negative (Negative) 02/16/17 04:17 Hep B Core IgM Ab Negative (Negative) 02/16/17 04:17 Hepatitis C Antibody <0.1 s/co ratio (0.0-0.9) 02/16/17 04:17 Blood Type O POSITIVE 02/15/17 05:20 Antibody Screen NEGATIVE 02/15/17 05:20 Crossmatch See Detail 02/15/17 05:20 - Physical Exam Vitals and I&O: Vital Signs Temp 96.8 F 02/21/17 08:00 Pulse 71 02/21/17 08:00 Resp 18 02/21/17 09:02 BP 137/74 02/21/17 08:00 Pulse Ox 94 02/21/17 08:00 Intake & Output 02/20/17 02/21/17 02/21/17 18:59 06:59 18:59 Intake Total 550 2120 Output Total 2400 1000 Balance -1850 1120 Weight (lbs) 54.522 kg 50.576 kg Intake: Intake, IV Amount 450 2000 Dextrose 5% 1,000 ml @ 2000 125 mls/hr IV .Q8H [facility] Rx #:[id number] Piperacillin Sodium/ 50 Tazobact 2.25 gm In Sodium Chloride 0.9% 50 ml @ 100 mls/hr IV Q8HR [facility] Rx#:[id number] Oral 100 120 Output: Urine 2400 1000 Stool 0 Other: # Bowel Movements 4 1 Active Medications: Current Medications Atropine Sulfate (Atropine Syringe) 1 mg IVP Q4HR PRN PRN Reason: LOW HEART RATE Stop: 04/18/17 13:37 Last Admin: 02/18/17 11:03 Dose: 1 mg Dextrose (D5w) 1,000 mls @ 125 mls/hr IV .Q8H [facility] Stop: 04/21/17 03:24 Last Admin: 02/21/17 05:58 Dose: 125 mls/hr Lorazepam (Ativan) 1 mg IVP Q8HR PRN; Protocol PRN Reason: Agitation Stop: 04/22/17 10:42 Last Admin: 02/21/17 11:16 Dose: 1 mg Miscellaneous (Probiotic Screen) 1 ea PRN PRN PRN Reason: PROTOCOL Stop: 04/16/17 14:13 Pantoprazole Sodium (Protonix) 40 mg IVP DAILY [facility] Stop: 04/19/17 08:59 Last Admin: 02/21/17 08:20 Dose: 40 mg General: Alert, No acute distress, Other (drowsy) HEENT: Atraumatic, Mucous membr. moist/pink Neck: Supple, +2 carotid pulse wo bruit Cardiovascular: Regular rate, Normal S1, Normal S2 Lungs: Other (few rhonchi) Abdomen: Soft, Other (diminished BS) Extremities: no Edema Neurological: Sensation intact Skin: no Rash Psych/Mental Status: Mood NL - Procedures Procedures: Procedures Procedure Code Date BLOOD TRANSFUSION SERVICE 95674 02/14/17 TRANSFUSE NONAUT RED BLOOD CELLS IN PERIPH VEIN, PERC 82423U5 02/14/17 Assessment/Plan - Problem List Patient Problems: All Active Problems WANDERS FROM FACILITY; ELOPEMENT RISK (Acute) - Assessment Assessment: RUEL on CKD Hypothermic NG Hyperchloremic Met Acid Hypernatremia Type 2 DM Hepatic Enceph Anemia acute on ckd Acute liver failure Hyperkalemia 2nd RUEL, DM, losartan bicytopenia - Plan Plan: Current Medications Piperacillin Sod/Tazobactam (Sod 2.25 gm/ Sodium Chloride) 50 mls @ 100 mls/hr IV Q8HR [facility] Stop: 04/15/17 20:59 Last Infusion: 02/15/17 05:15 Dose: Infused Dextrose (D5w) 1,000 mls @ 125 mls/hr IV .Q8H [facility] Stop: 04/15/17 17:05 Last Admin: 02/15/17 04:44 Dose: 125 mls/hr Miscellaneous (Vancomycin Iv Per Pharmacy) 1 ea [facility] PRN PRN PRN Reason: PROTOCOL Stop: 04/15/17 15:55 Pneumococcal Polyvalent Vaccine (Pneumovax) 0.5 ml IM .ONCE ONE Stop: 02/15/17 17:34 Na down to 142, increased D5W@ 75ml/hr acute anemia possible slow GI bleed (stool OB +) kidney fnc improved w/ BUN/CR of 43/2.6 Lab - Result Diagrams 02/21/17 05:26 02/21/17 05:26 Nutritional Asmnt/Malnutr-PDOC - Dietary Evaluation Malnutrition Findings (Please click <Entered> for more info): Nutritional Asmnt/Malnutrition Start: 02/16/17 13: 29 Text: Status: Complete Freq: Document 02/16/17 13:29 GSUN (Rec: 02/16/17 13:57 [id number] [email or web address]) Nutritional Asmnt/Malnutrition Patient General Information Nutritional Screening High Risk Screening Diagnosis Septic shock, severe dehydration, 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 RD consult for elevated BG. NPO since adm, day 2. Spoke to RN [place] RN stated per family, pt noted with poor PO intake this past month. Pt was lethargic during visit, made eye contact , responded yes when asked if he was hungry. Limited physical assessment due to heavy blanket for low temp, observed moderate to severe muscle fat wasting to chest and clavicles, with BMI 16.5. RN ordered swallow eval, pending. Ngt in place, RN suggested enteral feeding if needed. Pt is edentulous with upper denture at bedside. Current Diet Order/ Nutrition Support NPO Pertinent Medications D5w, Vancomycin, Protonix Pertinent Labs 02/14: A1c 5.9 02/15: phosphorus 5.7H 02/16: BUN 67H, creatinine 2.9H , glucose 90 (trended down), AST 193H, alkaline phosphatase 129H, ALT 281H, calcium 8L Nutritional Hx/Data Height 1.68 m Height (Calculated Centimeters) 167.6 Current Weight (lbs) 46.312 kg Weight (Calculated Kilograms) 46.3 Weight (Calculated Grams) 37123.8 [place] Body Weight 142 Weight Status Underweight GI Symptoms Usual diet at home [facility]: mec soft, finely chopped, thin liquid Skin Integrity/Comment: [place] 10. Right eye scab. Estimated Nutritional Goals Calories/Kcals/Kg IBW 142lb/64.5kg Kcals Calculated 1613-1935kcal (25-30kcal/kg) Protein Calculated 52-66g (0.8-1g/kg, monitor renal vs underweight) Fluid: ml Per MD Nutritional Problem 2. Problem Problem Impaired nutrient utilization related to Etiology RUEL on CKD aeb Signs/Symptoms: 02/16: BUN 67H, creatinine 2.9H , calcium 8L. 02/15: phosphorus 5.7H 1. Problem Problem (possible) difficulty chewing/ swallowing related to Etiology likely lethargy aeb Signs/Symptoms: swallow eval pending Malnutrition Alert Body Fat Depletion (Severe) Mod to Severe Depletion Muscle Mass (Severe) Mod to Severe Depletion Intervention/Recommendation Comments 1. 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 Diet texture per swallow eval (pending). Pt is edentulous with upper denture at bedside. 2. Recommend Novasource Renal TID, BMI 16.5 underweight, moderate to severe muscle fat wasting to chest and clavicles , family report poor PO intake for 1 month[address] 3[address] Ngt in [address]. If enteral nutrition suggested, recommend Novasource Renal 38ml/hr x 24hrs, providing 912ml total volume, 1824kcal, 83g protein. Expected Outcomes/Goals Expected Outcomes/Goals 1. Pt to resume oral diet and meet at least 75% of estimated nutritional needs.
--- NOTE | 2017-02-21 17:44 | Infectious Disease Prog Note ---
Infectious Disease Subjective - Review of Systems Service Date: 02/21/17 Subjective: doing better, no fever. patient's HR went down to 30, and 40's. Otherwise there is no new change, he is not on any oral meds/ NPO. Infectious Disease Objective - Results Result Diagrams: 02/21/17 05:26 02/21/17 05:26 Recent Labs: Laboratory Last Values WBC 3.6 Th/cmm (4.8-10.8) L 02/21/17 05:26 RBC 2.57 Mil/cmm (3.80-5.80) L 02/21/17 05:26 Hgb 8.5 gm/dL (12-16) L 02/21/17 05:26 Hct 25.1 % (41.0-60) L 02/21/17 05:26 MCV 97.5 fl (80-99) 02/21/17 05:26 MCH 33.3 pg (27.0-31.0) H 02/21/17 05:26 MCHC Differential 34.1 pg (28.0-36.0) 02/21/17 05:26 RDW 14.5 % (11.5-20.0) 02/21/17 05:26 Plt Count 71 Th/cmm (150-400) L 02/21/17 05:26 MPV 8.9 fl 02/21/17 05:26 Neutrophils % 70.8 % (40.0-80.0) 02/21/17 05:26 Band Neutrophils % 2 % (0-10) 02/18/17 05:35 Lymphocytes % 8.4 % (20.0-50.0) L 02/21/17 05:26 Monocytes % 5.8 % (2.0-10.0) 02/21/17 05:26 Eosinophils % 14.6 % (0.0-5.0) H 02/21/17 05:26 Basophils % 0.4 % (0.0-2.0) 02/21/17 05:26 Neutrophils (Manual) 78 % (40-80) 02/19/17 05:25 Lymphocytes 7 % (20-50) L 02/19/17 05:25 Monocytes 1 % (2-10) L 02/19/17 05:25 Eosinophils 14 % (0-5) H 02/19/17 05:25 Basophils 1 % (0-3) 02/14/17 13:23 Platelet Estimate DECREASED PLATELETS (NORMAL) 02/19/17 05:25 Platelet Morphology NORMAL (NORMAL) 02/15/17 06:30 Anisocytosis 1+ 02/15/17 06:30 RBC Morph Micro Appear ABNORMAL (NORMAL) 02/15/17 06:30 Total Retics Counted 0.4 % (0.5-1.5) L 02/19/17 05:25 Absolute Retic 10.8 Th/cmm 02/19/17 05:25 Corrected Retic Count 0.2 % (0.5-1.5) L 02/19/17 05:25 Eos Smear Source URINE 02/14/17 20:05 Eos Smear Total Cells NONE SEEN (NONE SEEN) 02/14/17 20:05 Plt Count 39 Th/cmm (150-750) L 02/16/17 04:17 PT 9.7 SECONDS (9.5-11.5) 02/16/17 04:17 INR 0.93 (0.5-1.4) 02/16/17 04:17 PTT (Actin FS) 35.1 SECONDS (26.0-38.0) 02/16/17 04:17 Fibrinogen 500.0 mg/dL (200.0-400.0) H 02/16/17 04:17 D-Dimer 745 ng/mL (100-400) H 02/16/17 04:17 Sodium 142 mEq/L (136-145) 02/21/17 05:26 Potassium 3.8 mEq/L (3.5-5.1) 02/21/17 05:26 Chloride 112 mEq/L (98-107) H 02/21/17 05:26 Carbon Dioxide 25.3 mEq/L (21.0-31.0) 02/21/17 05:26 Anion Gap 8.5 (7.0-16.0) 02/21/17 05:26 BUN 43 mg/dL (7-25) H 02/21/17 05:26 Creatinine 2.6 mg/dL (0.7-1.3) H 02/21/17 05:26 Est GFR ( Amer) TNP 02/21/17 05:26 Est GFR (Non-Af Amer) TNP 02/21/17 05:26 BUN/Creatinine Ratio 16.5 02/21/17 05:26 Glucose 70 mg/dL (70-105) 02/21/17 05:26 POC Glucose 79 MG/DL (70 - 105) 02/20/17 06:13 Hemoglobin A1c % 5.9 % (4.0-6.0) 02/14/17 13:23 Whole Bld Lactic Acid 1.09 mmol/L (0.60-1.99) 02/14/17 13:23 Uric Acid 2.7 mg/dL (4.4-7.6) L 02/15/17 04:25 Calcium 8.3 mg/dL (8.6-10.3) L 02/21/17 05:26 Phosphorus 5.7 mg/dL (2.5-5.0) H 02/15/17 04:25 Magnesium 2.7 mg/dL (1.9-2.7) 02/15/17 04:25 Iron 138 ug/dL (38-169) 02/19/17 05:25 TIBC 186 ug/dL (250-450) L 02/19/17 05:25 Iron Saturation 74 % (15-55) H 02/19/17 05:25 Unsaturated IBC 48 ug/dL (111-343) L 02/19/17 05:25 Ferritin 1241 ng/mL (30-400) H 02/19/17 05:25 Total Bilirubin 0.8 mg/dL (0.3-1.0) 02/19/17 05:25 Direct Bilirubin 0.05 mg/dL (0.0-0.2) 02/17/17 04:45 AST 69 U/L (13-39) H 02/19/17 05:25 ALT 143 U/L (7-52) H 02/19/17 05:25 Alkaline Phosphatase 83 U/L (34-104) 02/19/17 05:25 Ammonia 51 umol/L (16-53) 02/16/17 04:17 Lactate Dehydrogenase 210 U/L (140-271) 02/16/17 04:17 Troponin I 0.08 ng/mL (0.01-0.05) H* D 02/17/17 13:55 Total Protein 5.5 gm/dL (6.0-8.3) L 02/19/17 05:25 Albumin 2.9 gm/dL (4.2-5.5) L 02/19/17 05:25 Globulin 2.6 gm/dL 02/19/17 05:25 Albumin/Globulin Ratio 1.1 (1.0-1.8) 02/19/17 05:25 Vitamin B12 1893 pg/mL (211-946) H 02/18/17 05:35 Folic Acid 15.1 ng/mL (>3.0) 02/18/17 05:35 Free T4 0.89 ng/dL (0.82-1.77) 02/18/17 05:35 TSH 4.79 uIU/ml (0.34-5.60) 02/18/17 05:35 Urine Source CATH 02/14/17 14:10 Urine Color YELLOW 02/14/17 14:10 Urine Clarity CLEAR (CLEAR) 02/14/17 14:10 Urine pH 5.5 (4.6 - 8.0) 02/14/17 14:10 Ur Specific [place] 1.020 (1.005-1.030) 02/14/17 14:10 Urine Protein 100 mg/dL (NEGATIVE) H 02/14/17 14:10 Urine Glucose (UA) NEGATIVE mg/dL (NEGATIVE) 02/14/17 14:10 Urine Ketones NEGATIVE mg/dL (NEGATIVE) 02/14/17 14:10 Urine Blood MODERATE (NEGATIVE) H 02/14/17 14:10 Urine Nitrate NEGATIVE (NEGATIVE) 02/14/17 14:10 Urine Bilirubin NEGATIVE (NEGATIVE) 02/14/17 14:10 Urine Urobilinogen 0.2 E.U./dL (0.2 - 1.0) 02/14/17 14:10 Ur Leukocyte Esterase NEGATIVE (NEGATIVE) 02/14/17 14:10 Urine RBC 5-10 /hpf (0-5) H 02/14/17 14:10 Urine WBC 2-5 /hpf (0-5) H 02/14/17 14:10 Ur Epithelial Cells FEW /lpf (FEW) 02/14/17 14:10 Urine Bacteria FEW /hpf (NONE SEEN) 02/14/17 14:10 Urine Osmolality 434 mOsmol/kg 02/14/17 20:05 Ur Random Sodium 61 mmol/L 02/15/17 12:46 Urine Creatinine 93.0 mg/dl (39.0-259.0) 02/14/17 20:05 Urine Microalbumin 662.5 ug/mL (Not Estab.) 02/14/17 14:10 Microalb/Creat Ratio 851.5 mg/g creat (0.0-30.0) H 02/14/17 14:10 Stool Occult Blood POSITIVE (NEGATIVE) 02/15/17 18:35 Random Vancomycin 14.5 ug/mL (5.0-40.0) 02/16/17 04:17 Hepatitis A IgM Ab Negative (Negative) 02/16/17 04:17 Hep Bs Antigen Negative (Negative) 02/16/17 04:17 Hep B Core IgM Ab Negative (Negative) 02/16/17 04:17 Hepatitis C Antibody <0.1 s/co ratio (0.0-0.9) 02/16/17 04:17 Blood Type O POSITIVE 02/15/17 05:20 Antibody Screen NEGATIVE 02/15/17 05:20 Crossmatch See Detail 02/15/17 05:20 - Physical Exam Vitals and I&O: Vital Signs Temp 97.1 F 02/21/17 16:00 Pulse 76 02/21/17 16:00 Resp 18 02/21/17 17:00 BP 131/71 02/21/17 16:00 Pulse Ox 95 02/21/17 16:00 Intake & Output 02/20/17 02/21/17 02/21/17 18:59 06:59 18:59 Intake Total 550 2120 1000 Output Total 2400 1000 Balance -1850 1120 1000 Weight (lbs) 54.522 kg 50.576 kg Intake: Intake, IV Amount 450 2000 1000 Dextrose 5% 1,000 ml @ 2000 1000 125 mls/hr IV .Q8H [facility] Rx #:[id number] Piperacillin Sodium/ 50 Tazobact 2.25 gm In Sodium Chloride 0.9% 50 ml @ 100 mls/hr IV Q8HR [facility] Rx#:[id number] Oral 100 120 Output: Urine 2400 1000 Stool 0 Other: # Bowel Movements 4 1 Active Medications: Current Medications Atropine Sulfate (Atropine Syringe) 1 mg IVP Q4HR PRN PRN Reason: LOW HEART RATE Stop: 04/18/17 13:37 Last Admin: 02/18/17 11:03 Dose: 1 mg Dextrose (D5w) 1,000 mls @ 125 mls/hr IV .Q8H [facility] Stop: 04/21/17 03:24 Last Admin: 02/21/17 17:36 Dose: 125 mls/hr Lorazepam (Ativan) 1 mg IVP Q8HR PRN; Protocol PRN Reason: Agitation Stop: 04/22/17 10:42 Last Admin: 02/21/17 11:16 Dose: 1 mg Miscellaneous (Probiotic Screen) 1 ea MC PRN PRN PRN Reason: PROTOCOL Stop: 04/16/17 14:13 Pantoprazole Sodium (Protonix) 40 mg IVP DAILY [facility] Stop: 04/19/17 08:59 Last Admin: 02/21/17 08:20 Dose: 40 mg General: no acute distress, well developed, well nourished HEENT: atraumatic, normocephalic, PERRLA, EOMI Neck: supple, no thyromegaly Cardiovascular: S1S2, regular Lungs: clear to auscultation bilaterally, clear to percussion Abdomen: soft, no tender, no distended Extremities: no cyanosis, no clubbing Neurological: awake, alert - Procedures Procedures: Procedures Procedure Code Date BLOOD TRANSFUSION SERVICE 83237 02/14/17 TRANSFUSE NONAUT RED BLOOD CELLS IN PERIPH VEIN, PERC 88337T0 02/14/17 Infectious Disease Assmt/Plan - Problem List Patient Problems: All Active Problems WANDERS FROM FACILITY; ELOPEMENT RISK (Acute) - Assessment Assessment: 1. Hypothermia suspect sepsis, resolved. 2. UTI. 3. Hypertension. 4. Hyperlipidemia. 5. Protein calorie malnutrition. 6. CKD. 7. Dementia. 8. Bradycardia. - Plan Plan: Continue Zosyn and dc vancomycin. Nutritional Asmnt/Malnutr-PDOC - Dietary Evaluation Malnutrition Findings (Please click <Entered> for more info): Nutritional Asmnt/Malnutrition Start: 02/16/17 13: 29 Text: Status: Complete Freq: Document 02/16/17 13:29 GSUN (Rec: 02/16/17 13:57 [email or web address] [email or web address]) Nutritional Asmnt/Malnutrition Patient General Information Nutritional Screening High Risk Screening Diagnosis Septic shock, severe dehydration, 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 RD consult for elevated BG. NPO since adm, day 2. Spoke to RN [place], RN stated per family, pt noted with poor PO intake this past month. Pt was lethargic during visit, made eye contact , responded yes when asked if he was hungry. Limited physical assessment due to heavy blanket for low temp, observed moderate to severe muscle fat wasting to chest and clavicles, with BMI 16.5. RN ordered swallow eval, pending. Ngt in place, RN suggested enteral feeding if needed. Pt is edentulous with upper denture at bedside. Current Diet Order/ Nutrition Support NPO Pertinent Medications D5w, Vancomycin, Protonix Pertinent Labs 02/14: A1c 5.9 02/15: phosphorus 5.7H 02/16: BUN 67H, creatinine 2.9H , glucose 90 (trended down), AST 193H, alkaline phosphatase 129H, ALT 281H, calcium 8L Nutritional Hx/Data Height 1.68 m Height (Calculated Centimeters) 167.6 Current Weight (lbs) 46.312 kg Weight (Calculated Kilograms) 46.3 Weight (Calculated Grams) 11483.8 [place] Body Weight 142 Weight Status Underweight GI Symptoms Usual diet at home [facility]: [facility] soft, finely chopped, thin liquid Skin Integrity/Comment: Dwight 10. Right eye scab. Estimated Nutritional Goals Calories/Kcals/Kg IBW 142lb/64.5kg Kcals Calculated 1613-1935kcal (25-30kcal/kg) Protein Calculated 52-66g (0.8-1g/kg, monitor renal vs underweight) Fluid: ml Per MD Nutritional Problem 2. Problem Problem Impaired nutrient utilization related to Etiology RUEL on CKD aeb Signs/Symptoms: 02/16: BUN 67H, creatinine 2.9H , calcium 8L. 02/15: phosphorus 5.7H 1. Problem Problem (possible) difficulty chewing/ swallowing related to Etiology likely lethargy aeb Signs/Symptoms: swallow eval pending Malnutrition Alert Body Fat Depletion (Severe) Mod to Severe Depletion Muscle Mass (Severe) Mod to Severe Depletion Intervention/Recommendation Comments 1. 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 Diet texture per swallow eval (pending). Pt is edentulous with upper denture at bedside. 2. Recommend Novasource Renal TID, BMI 16.5 underweight, moderate to severe muscle fat wasting to chest and clavicles , family report poor PO intake for 1 month. 3. Ngt in place. If enteral nutrition suggested, recommend Novasource Renal 38ml/hr x 24hrs, providing 912ml total volume, 1824kcal, 83g protein. Expected Outcomes/Goals Expected Outcomes/Goals 1. Pt to resume oral diet and meet at least 75% of estimated nutritional needs.
[2017-02-22] MEDS: Dextrose 5% 1,000 ML IV SCH (04:01)
[2017-02-22 05:42] LABS: HEMATOCRIT 25.8 % (41.0-60); RED CELL DISTRIBUTION WIDTH 14.4 % (11.5-20.0)
[2017-02-22 05:49] LABS: HEMOGLOBIN 8.6 gm/dL (12-16); MEAN CELL VOLUME 97.2 fl (80-99); MEAN CORPUSCULAR HEMOGLOBIN 32.6 pg (27.0-31.0); MEAN CORPUSCULAR HGB CONC 33.5 pg (28.0-36.0); MEAN PLATELET VOLUME 8.8 fl; PLATELET COUNT 69 Th/cmm (150-400); RED BLOOD COUNT 2.65 Mil/cmm (3.80-5.80)
[2017-02-22 06:00] LABS: WHITE BLOOD COUNT 3.1 Th/cmm (4.8-10.8)
[2017-02-22 07:01] LABS: TOTAL CELLS COUNTED 100
[2017-02-22 07:08] LABS: EOSINOPHIL 20 % (0-5); NEUTROPHILS 61 % (40-80)
[2017-02-22 07:12] LABS: PLATELET ESTIMATE DECREASED PLATELETS (NORMAL)
--- NOTE | 2017-02-22 11:25 | General Progress Note ---
Subjective - Review of Systems Events since last encounter: patient doing better no fever Objective - Results Result Diagrams: 02/22/17 05:15 02/21/17 05:26 Recent Labs: Laboratory Last Values WBC 3.1 Th/cmm (4.8-10.8) L 02/22/17 05:15 RBC 2.65 Mil/cmm (3.80-5.80) L 02/22/17 05:15 Hgb 8.6 gm/dL (12-16) L 02/22/17 05:15 Hct 25.8 % (41.0-60) L 02/22/17 05:15 MCV 97.2 fl (80-99) 02/22/17 05:15 MCH 32.6 pg (27.0-31.0) H 02/22/17 05:15 MCHC Differential 33.5 pg (28.0-36.0) 02/22/17 05:15 RDW 14.4 % (11.5-20.0) 02/22/17 05:15 Plt Count 69 Th/cmm (150-400) L 02/22/17 05:15 MPV 8.8 fl 02/22/17 05:15 Neutrophils % 70.8 % (40.0-80.0) 02/21/17 05:26 Band Neutrophils % 2 % (0-10) 02/18/17 05:35 Lymphocytes % 8.4 % (20.0-50.0) L 02/21/17 05:26 Monocytes % 5.8 % (2.0-10.0) 02/21/17 05:26 Eosinophils % 14.6 % (0.0-5.0) H 02/21/17 05:26 Basophils % 0.4 % (0.0-2.0) 02/21/17 05:26 Neutrophils (Manual) 61 % (40-80) 02/22/17 05:15 Lymphocytes 15 % (20-50) L 02/22/17 05:15 Monocytes 4 % (2-10) 02/22/17 05:15 Eosinophils 20 % (0-5) H 02/22/17 05:15 Basophils 1 % (0-3) 02/14/17 13:23 Platelet Estimate DECREASED PLATELETS (NORMAL) 02/22/17 05:15 Platelet Morphology NORMAL (NORMAL) 02/15/17 06:30 Anisocytosis 1+ 02/15/17 06:30 RBC Morph Micro Appear ABNORMAL (NORMAL) 02/15/17 06:30 Total Retics Counted 0.4 % (0.5-1.5) L 02/19/17 05:25 Absolute Retic 10.8 Th/cmm 02/19/17 05:25 Corrected Retic Count 0.2 % (0.5-1.5) L 02/19/17 05:25 Eos Smear Source URINE 02/14/17 20:05 Eos Smear Total Cells NONE SEEN (NONE SEEN) 02/14/17 20:05 Plt Count 39 Th/cmm (150-750) L 02/16/17 04:17 PT 9.7 SECONDS (9.5-11.5) 02/16/17 04:17 INR 0.93 (0.5-1.4) 02/16/17 04:17 PTT (Actin FS) 35.1 SECONDS (26.0-38.0) 02/16/17 04:17 Fibrinogen 500.0 mg/dL (200.0-400.0) H 02/16/17 04:17 D-Dimer 745 ng/mL (100-400) H 02/16/17 04:17 Sodium 142 mEq/L (136-145) 02/21/17 05:26 Potassium 3.8 mEq/L (3.5-5.1) 02/21/17 05:26 Chloride 112 mEq/L (98-107) H 02/21/17 05:26 Carbon Dioxide 25.3 mEq/L (21.0-31.0) 02/21/17 05:26 Anion Gap 8.5 (7.0-16.0) 02/21/17 05:26 BUN 43 mg/dL (7-25) H 02/21/17 05:26 Creatinine 2.6 mg/dL (0.7-1.3) H 02/21/17 05:26 Est GFR ( Amer) TNP 02/21/17 05:26 Est GFR (Non-Af Amer) TNP 02/21/17 05:26 BUN/Creatinine Ratio 16.5 02/21/17 05:26 Glucose 70 mg/dL (70-105) 02/21/17 05:26 POC Glucose 79 MG/DL (70 - 105) 02/20/17 06:13 Hemoglobin A1c % 5.9 % (4.0-6.0) 02/14/17 13:23 Whole Bld Lactic Acid 1.09 mmol/L (0.60-1.99) 02/14/17 13:23 Uric Acid 2.7 mg/dL (4.4-7.6) L 02/15/17 04:25 Calcium 8.3 mg/dL (8.6-10.3) L 02/21/17 05:26 Phosphorus 5.7 mg/dL (2.5-5.0) H 02/15/17 04:25 Magnesium 2.7 mg/dL (1.9-2.7) 02/15/17 04:25 Iron 138 ug/dL (38-169) 02/19/17 05:25 TIBC 186 ug/dL (250-450) L 02/19/17 05:25 Iron Saturation 74 % (15-55) H 02/19/17 05:25 Unsaturated IBC 48 ug/dL (111-343) L 02/19/17 05:25 Ferritin 1241 ng/mL (30-400) H 02/19/17 05:25 Total Bilirubin 0.8 mg/dL (0.3-1.0) 02/19/17 05:25 Direct Bilirubin 0.05 mg/dL (0.0-0.2) 02/17/17 04:45 AST 69 U/L (13-39) H 02/19/17 05:25 ALT 143 U/L (7-52) H 02/19/17 05:25 Alkaline Phosphatase 83 U/L (34-104) 02/19/17 05:25 Ammonia 51 umol/L (16-53) 02/16/17 04:17 Lactate Dehydrogenase 210 U/L (140-271) 02/16/17 04:17 Troponin I 0.08 ng/mL (0.01-0.05) H* D 02/17/17 13:55 Total Protein 5.5 gm/dL (6.0-8.3) L 02/19/17 05:25 Albumin 2.9 gm/dL (4.2-5.5) L 02/19/17 05:25 Globulin 2.6 gm/dL 02/19/17 05:25 Albumin/Globulin Ratio 1.1 (1.0-1.8) 02/19/17 05:25 Vitamin B12 1893 pg/mL (211-946) H 02/18/17 05:35 Folic Acid 15.1 ng/mL (>3.0) 02/18/17 05:35 Free T4 0.89 ng/dL (0.82-1.77) 02/18/17 05:35 TSH 4.79 uIU/ml (0.34-5.60) 02/18/17 05:35 Urine Source CATH 02/14/17 14:10 Urine Color YELLOW 02/14/17 14:10 Urine Clarity CLEAR (CLEAR) 02/14/17 14:10 Urine pH 5.5 (4.6 - 8.0) 02/14/17 14:10 Ur Specific [place] 1.020 (1.005-1.030) 02/14/17 14:10 Urine Protein 100 mg/dL (NEGATIVE) H 02/14/17 14:10 Urine Glucose (UA) NEGATIVE mg/dL (NEGATIVE) 02/14/17 14:10 Urine Ketones NEGATIVE mg/dL (NEGATIVE) 02/14/17 14:10 Urine Blood MODERATE (NEGATIVE) H 02/14/17 14:10 Urine Nitrate NEGATIVE (NEGATIVE) 02/14/17 14:10 Urine Bilirubin NEGATIVE (NEGATIVE) 02/14/17 14:10 Urine Urobilinogen 0.2 E.U./dL (0.2 - 1.0) 02/14/17 14:10 Ur Leukocyte Esterase NEGATIVE (NEGATIVE) 02/14/17 14:10 Urine RBC 5-10 /hpf (0-5) H 02/14/17 14:10 Urine WBC 2-5 /hpf (0-5) H 02/14/17 14:10 Ur Epithelial Cells FEW /lpf (FEW) 02/14/17 14:10 Urine Bacteria FEW /hpf (NONE SEEN) 02/14/17 14:10 Urine Osmolality 434 mOsmol/kg 02/14/17 20:05 Ur Random Sodium 61 mmol/L 02/15/17 12:46 Urine Creatinine 93.0 mg/dl (39.0-259.0) 02/14/17 20:05 Urine Microalbumin 662.5 ug/mL (Not Estab.) 02/14/17 14:10 Microalb/Creat Ratio 851.5 mg/g creat (0.0-30.0) H 02/14/17 14:10 Stool Occult Blood POSITIVE (NEGATIVE) 02/15/17 18:35 Random Vancomycin 14.5 ug/mL (5.0-40.0) 02/16/17 04:17 Hepatitis A IgM Ab Negative (Negative) 02/16/17 04:17 Hep Bs Antigen Negative (Negative) 02/16/17 04:17 Hep B Core IgM Ab Negative (Negative) 02/16/17 04:17 Hepatitis C Antibody <0.1 s/co ratio (0.0-0.9) 02/16/17 04:17 Blood Type O POSITIVE 02/15/17 05:20 Antibody Screen NEGATIVE 02/15/17 05:20 Crossmatch See Detail 02/15/17 05:20 - Physical Exam Vitals and I&O: Vital Signs Temp 97 F 02/22/17 08:00 Pulse 62 02/22/17 08:00 Resp 18 02/22/17 08:00 BP 159/78 02/22/17 08:00 Pulse Ox 93 02/22/17 08:00 Intake & Output 02/21/17 02/22/17 02/22/17 18:59 06:59 18:59 Intake Total 1000 1000 Output Total 201 Balance 1000 799 Weight (lbs) 50.349 kg Intake: Intake, IV Amount 1000 1000 Dextrose 5% 1,000 ml @ 1000 1000 125 mls/hr IV .Q8H [facility] Rx #:[id number] Output: Urine 200 Stool 1 Other: # Bowel Movements 1 Active Medications: Current Medications Atropine Sulfate (Atropine Syringe) 1 mg IVP Q4HR PRN PRN Reason: LOW HEART RATE Stop: 04/18/17 13:37 Last Admin: 02/18/17 11:03 Dose: 1 mg Dextrose (D5w) 1,000 mls @ 125 mls/hr IV .Q8H [facility] Stop: 04/21/17 03:24 Last Admin: 02/22/17 04:01 Dose: 125 mls/hr Lorazepam (Ativan) 1 mg IVP Q8HR PRN; Protocol PRN Reason: Agitation Stop: 04/22/17 10:42 Last Admin: 02/21/17 11:16 Dose: 1 mg Miscellaneous (Probiotic Screen) 1 ea MC PRN PRN PRN Reason: PROTOCOL Stop: 04/16/17 14:13 Pantoprazole Sodium (Protonix) 40 mg IVP DAILY [facility] Stop: 04/19/17 08:59 Last Admin: 02/22/17 08:47 Dose: 40 mg General: Alert, No acute distress, Other (drowsy) HEENT: Atraumatic, Mucous membr. moist/pink Neck: Supple, +2 carotid pulse wo bruit Cardiovascular: Regular rate, Normal S1, Normal S2 Lungs: Other (few rhonchi) Abdomen: Soft, Other (diminished BS) Extremities: no Edema Neurological: Sensation intact Skin: no Rash Psych/Mental Status: Mood NL - Procedures Procedures: Procedures Procedure Code Date BLOOD TRANSFUSION SERVICE 84887 02/14/17 TRANSFUSE NONAUT RED BLOOD CELLS IN PERIPH VEIN, PERC 69791F2 02/14/17 Assessment/Plan - Problem List Patient Problems: All Active Problems WANDERS FROM FACILITY; ELOPEMENT RISK (Acute) Nutritional Asmnt/Malnutr-PDOC - Dietary Evaluation Malnutrition Findings (Please click <Entered> for more info): Nutritional Asmnt/Malnutrition Start: 02/16/17 13: 29 Text: Status: Complete Freq: Document 02/16/17 13:29 GSUN (Rec: 02/16/17 13:57 [email or web address] [email or web address]) Nutritional Asmnt/Malnutrition Patient General Information Nutritional Screening High Risk Screening Diagnosis Septic shock, severe dehydration, 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 RD consult for elevated BG. NPO since adm, day 2. Spoke to RN MARYAM [place] stated per family, pt noted with poor PO intake this past month. Pt was lethargic during visit, made eye contact , responded yes when asked if he was hungry. Limited physical assessment due to heavy blanket for low temp, observed moderate to severe muscle fat wasting to chest and clavicles, with BMI 16.5. RN ordered swallow eval, pending. Ngt in place, RN suggested enteral feeding if needed. Pt is edentulous with upper denture at bedside. Current Diet Order/ Nutrition Support NPO Pertinent Medications D5w, Vancomycin, Protonix Pertinent Labs 02/14: A1c 5.9 02/15: phosphorus 5.7H 02/16: BUN 67H, creatinine 2.9H , glucose 90 (trended down), AST 193H, alkaline phosphatase 129H, ALT 281H, calcium 8L Nutritional Hx/Data Height 1.68 m Height (Calculated Centimeters) 167.6 Current Weight (lbs) 46.312 kg Weight (Calculated Kilograms) 46.3 Weight (Calculated Grams) 40014.8 [place] Body Weight 142 Weight Status Underweight GI Symptoms Usual diet at home [facility]: [facility] soft, finely chopped, thin liquid Skin Integrity/Comment: Dw[place] 10. Right eye scab. Estimated Nutritional Goals Calories/Kcals/Kg IBW 142lb/64.5kg Kcals Calculated 1613-1935kcal (25-30kcal/kg) Protein Calculated 52-66g (0.8-1g/kg, monitor renal vs underweight) Fluid: ml Per MD Nutritional Problem 2. Problem Problem Impaired nutrient utilization related to Etiology RUEL on CKD aeb Signs/Symptoms: 02/16: BUN 67H, creatinine 2.9H , calcium 8L. 02/15: phosphorus 5.7H 1. Problem Problem (possible) difficulty chewing/ swallowing related to Etiology likely lethargy aeb Signs/Symptoms: swallow eval pending Malnutrition Alert Body Fat Depletion (Severe) Mod to Severe Depletion Muscle Mass (Severe) Mod to Severe Depletion Intervention/Recommendation Comments 1. 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 Diet texture per swallow eval (pending). Pt is edentulous with upper denture at bedside. 2. Recommend Novasource Renal TID, BMI 16.5 underweight, moderate to severe muscle fat wasting to chest and clavicles , family report poor PO intake for 1 month. 3. Ngt in place. If enteral nutrition suggested, recommend Novasource Renal 38ml/hr x 24hrs, providing 912ml total volume, 1824kcal, 83g protein. Expected Outcomes/Goals Expected Outcomes/Goals 1. Pt to resume oral diet and meet at least 75% of estimated nutritional needs.
--- NOTE | 2017-02-22 13:42 | General Progress Note ---
Subjective - Review of Systems Service Date: 02/22/17 Subjective: sleeping, arousable, comfortable Objective - Results Result Diagrams: 02/22/17 05:15 02/21/17 05:26 Recent Labs: Laboratory Last Values WBC 3.1 Th/cmm (4.8-10.8) L 02/22/17 05:15 RBC 2.65 Mil/cmm (3.80-5.80) L 02/22/17 05:15 Hgb 8.6 gm/dL (12-16) L 02/22/17 05:15 Hct 25.8 % (41.0-60) L 02/22/17 05:15 MCV 97.2 fl (80-99) 02/22/17 05:15 MCH 32.6 pg (27.0-31.0) H 02/22/17 05:15 MCHC Differential 33.5 pg (28.0-36.0) 02/22/17 05:15 RDW 14.4 % (11.5-20.0) 02/22/17 05:15 Plt Count 69 Th/cmm (150-400) L 02/22/17 05:15 MPV 8.8 fl 02/22/17 05:15 Neutrophils % 70.8 % (40.0-80.0) 02/21/17 05:26 Band Neutrophils % 2 % (0-10) 02/18/17 05:35 Lymphocytes % 8.4 % (20.0-50.0) L 02/21/17 05:26 Monocytes % 5.8 % (2.0-10.0) 02/21/17 05:26 Eosinophils % 14.6 % (0.0-5.0) H 02/21/17 05:26 Basophils % 0.4 % (0.0-2.0) 02/21/17 05:26 Neutrophils (Manual) 61 % (40-80) 02/22/17 05:15 Lymphocytes 15 % (20-50) L 02/22/17 05:15 Monocytes 4 % (2-10) 02/22/17 05:15 Eosinophils 20 % (0-5) H 02/22/17 05:15 Basophils 1 % (0-3) 02/14/17 13:23 Platelet Estimate DECREASED PLATELETS (NORMAL) 02/22/17 05:15 Platelet Morphology NORMAL (NORMAL) 02/15/17 06:30 Anisocytosis 1+ 02/15/17 06:30 RBC Morph Micro Appear ABNORMAL (NORMAL) 02/15/17 06:30 Total Retics Counted 0.4 % (0.5-1.5) L 02/19/17 05:25 Absolute Retic 10.8 Th/cmm 02/19/17 05:25 Corrected Retic Count 0.2 % (0.5-1.5) L 02/19/17 05:25 Eos Smear Source URINE 02/14/17 20:05 Eos Smear Total Cells NONE SEEN (NONE SEEN) 02/14/17 20:05 Plt Count 39 Th/cmm (150-750) L 02/16/17 04:17 PT 9.7 SECONDS (9.5-11.5) 02/16/17 04:17 INR 0.93 (0.5-1.4) 02/16/17 04:17 PTT (Actin FS) 35.1 SECONDS (26.0-38.0) 02/16/17 04:17 Fibrinogen 500.0 mg/dL (200.0-400.0) H 02/16/17 04:17 D-Dimer 745 ng/mL (100-400) H 02/16/17 04:17 Sodium 142 mEq/L (136-145) 02/21/17 05:26 Potassium 3.8 mEq/L (3.5-5.1) 02/21/17 05:26 Chloride 112 mEq/L (98-107) H 02/21/17 05:26 Carbon Dioxide 25.3 mEq/L (21.0-31.0) 02/21/17 05:26 Anion Gap 8.5 (7.0-16.0) 02/21/17 05:26 BUN 43 mg/dL (7-25) H 02/21/17 05:26 Creatinine 2.6 mg/dL (0.7-1.3) H 02/21/17 05:26 Est GFR ( Amer) TNP 02/21/17 05:26 Est GFR (Non-Af Amer) TNP 02/21/17 05:26 BUN/Creatinine Ratio 16.5 02/21/17 05:26 Glucose 70 mg/dL (70-105) 02/21/17 05:26 POC Glucose 79 MG/DL (70 - 105) 02/20/17 06:13 Hemoglobin A1c % 5.9 % (4.0-6.0) 02/14/17 13:23 Whole Bld Lactic Acid 1.09 mmol/L (0.60-1.99) 02/14/17 13:23 Uric Acid 2.7 mg/dL (4.4-7.6) L 02/15/17 04:25 Calcium 8.3 mg/dL (8.6-10.3) L 02/21/17 05:26 Phosphorus 5.7 mg/dL (2.5-5.0) H 02/15/17 04:25 Magnesium 2.7 mg/dL (1.9-2.7) 02/15/17 04:25 Iron 138 ug/dL (38-169) 02/19/17 05:25 TIBC 186 ug/dL (250-450) L 02/19/17 05:25 Iron Saturation 74 % (15-55) H 02/19/17 05:25 Unsaturated IBC 48 ug/dL (111-343) L 02/19/17 05:25 Ferritin 1241 ng/mL (30-400) H 02/19/17 05:25 Total Bilirubin 0.8 mg/dL (0.3-1.0) 02/19/17 05:25 Direct Bilirubin 0.05 mg/dL (0.0-0.2) 02/17/17 04:45 AST 69 U/L (13-39) H 02/19/17 05:25 ALT 143 U/L (7-52) H 02/19/17 05:25 Alkaline Phosphatase 83 U/L (34-104) 02/19/17 05:25 Ammonia 51 umol/L (16-53) 02/16/17 04:17 Lactate Dehydrogenase 210 U/L (140-271) 02/16/17 04:17 Troponin I 0.08 ng/mL (0.01-0.05) H* D 02/17/17 13:55 Total Protein 5.5 gm/dL (6.0-8.3) L 02/19/17 05:25 Albumin 2.9 gm/dL (4.2-5.5) L 02/19/17 05:25 Globulin 2.6 gm/dL 02/19/17 05:25 Albumin/Globulin Ratio 1.1 (1.0-1.8) 02/19/17 05:25 Vitamin B12 1893 pg/mL (211-946) H 02/18/17 05:35 Folic Acid 15.1 ng/mL (>3.0) 02/18/17 05:35 Free T4 0.89 ng/dL (0.82-1.77) 02/18/17 05:35 TSH 4.79 uIU/ml (0.34-5.60) 02/18/17 05:35 Urine Source CATH 02/14/17 14:10 Urine Color YELLOW 02/14/17 14:10 Urine Clarity CLEAR (CLEAR) 02/14/17 14:10 Urine pH 5.5 (4.6 - 8.0) 02/14/17 14:10 Ur Specific [place] 1.020 (1.005-1.030) 02/14/17 14:10 Urine Protein 100 mg/dL (NEGATIVE) H 02/14/17 14:10 Urine Glucose (UA) NEGATIVE mg/dL (NEGATIVE) 02/14/17 14:10 Urine Ketones NEGATIVE mg/dL (NEGATIVE) 02/14/17 14:10 Urine Blood MODERATE (NEGATIVE) H 02/14/17 14:10 Urine Nitrate NEGATIVE (NEGATIVE) 02/14/17 14:10 Urine Bilirubin NEGATIVE (NEGATIVE) 02/14/17 14:10 Urine Urobilinogen 0.2 E.U./dL (0.2 - 1.0) 02/14/17 14:10 Ur Leukocyte Esterase NEGATIVE (NEGATIVE) 02/14/17 14:10 Urine RBC 5-10 /hpf (0-5) H 02/14/17 14:10 Urine WBC 2-5 /hpf (0-5) H 02/14/17 14:10 Ur Epithelial Cells FEW /lpf (FEW) 02/14/17 14:10 Urine Bacteria FEW /hpf (NONE SEEN) 02/14/17 14:10 Urine Osmolality 434 mOsmol/kg 02/14/17 20:05 Ur Random Sodium 61 mmol/L 02/15/17 12:46 Urine Creatinine 93.0 mg/dl (39.0-259.0) 02/14/17 20:05 Urine Microalbumin 662.5 ug/mL (Not Estab.) 02/14/17 14:10 Microalb/Creat Ratio 851.5 mg/g creat (0.0-30.0) H 02/14/17 14:10 Stool Occult Blood POSITIVE (NEGATIVE) 02/15/17 18:35 Random Vancomycin 14.5 ug/mL (5.0-40.0) 02/16/17 04:17 Hepatitis A IgM Ab Negative (Negative) 02/16/17 04:17 Hep Bs Antigen Negative (Negative) 02/16/17 04:17 Hep B Core IgM Ab Negative (Negative) 02/16/17 04:17 Hepatitis C Antibody <0.1 s/co ratio (0.0-0.9) 02/16/17 04:17 Blood Type O POSITIVE 02/15/17 05:20 Antibody Screen NEGATIVE 02/15/17 05:20 Crossmatch See Detail 02/15/17 05:20 - Physical Exam Vitals and I&O: Vital Signs Temp 96.8 F 02/22/17 11:37 Pulse 60 02/22/17 11:37 Resp 18 02/22/17 11:37 BP 140/64 02/22/17 11:37 Pulse Ox 96 02/22/17 11:37 Intake & Output 02/21/17 02/22/17 02/22/17 18:59 06:59 18:59 Intake Total 1000 1000 Output Total 201 Balance 1000 799 Weight (lbs) 50.349 kg Intake: Intake, IV Amount 1000 1000 Dextrose 5% 1,000 ml @ 1000 1000 125 mls/hr IV .Q8H [facility] Rx #:[id number] Output: Urine 200 Stool 1 Other: # Bowel Movements 1 Active Medications: Current Medications Atropine Sulfate (Atropine Syringe) 1 mg IVP Q4HR PRN PRN Reason: LOW HEART RATE Stop: 04/18/17 13:37 Last Admin: 02/18/17 11:03 Dose: 1 mg Dextrose (D5w) 1,000 mls @ 125 mls/hr IV .Q8H [facility] Stop: 04/21/17 03:24 Last Admin: 02/22/17 04:01 Dose: 125 mls/hr Lorazepam (Ativan) 1 mg IVP Q8HR PRN; Protocol PRN Reason: Agitation Stop: 04/22/17 10:42 Last Admin: 02/21/17 11:16 Dose: 1 mg Miscellaneous (Probiotic Screen) 1 ea MC PRN PRN PRN Reason: PROTOCOL Stop: 04/16/17 14:13 Pantoprazole Sodium (Protonix) 40 mg IVP DAILY [facility] Stop: 04/19/17 08:59 Last Admin: 02/22/17 08:47 Dose: 40 mg General: Alert, No acute distress, Other (drowsy) HEENT: Atraumatic, Mucous membr. moist/pink Neck: Supple, +2 carotid pulse wo bruit Cardiovascular: Regular rate, Normal S1, Normal S2 Lungs: Other (few rhonchi) Abdomen: Soft, Other (diminished BS) Extremities: no Edema Neurological: Sensation intact Skin: no Rash Psych/Mental Status: Mood NL - Procedures Procedures: Procedures Procedure Code Date BLOOD TRANSFUSION SERVICE 73962 02/14/17 TRANSFUSE NONAUT RED BLOOD CELLS IN PERIPH VEIN, PERC 90206U5 02/14/17 Assessment/Plan - Problem List Patient Problems: All Active Problems WANDERS FROM FACILITY; ELOPEMENT RISK (Acute) - Assessment Assessment: RUEL on CKD Hypothermic NG Hyperchloremic Met Acid Hypernatremia Type 2 DM Hepatic Enceph Anemia acute on ckd Acute liver failure Hyperkalemia 2nd RUEL, DM, losartan bicytopenia - Plan Plan: Current Medications Piperacillin Sod/Tazobactam (Sod 2.25 gm/ Sodium Chloride) 50 mls @ 100 mls/hr IV Q8HR [facility] Stop: 04/15/17 20:59 Last Infusion: 02/15/17 05:15 Dose: Infused Dextrose (D5w) 1,000 mls @ 125 mls/hr IV .Q8H [facility] Stop: 04/15/17 17:05 Last Admin: 02/15/17 04:44 Dose: 125 mls/hr Miscellaneous (Vancomycin Iv Per Pharmacy) 1 ea MC PRN PRN PRN Reason: PROTOCOL Stop: 04/15/17 15:55 Pneumococcal Polyvalent Vaccine (Pneumovax) 0.5 ml IM .ONCE ONE Stop: 02/15/17 17:34 Na down to 142, increased D5W@ 75ml/hr acute anemia possible slow GI bleed (stool OB +) kidney fnc improved w/ BUN/CR of 43/2.6 f/u cbc, electrolytes Lab - Result Diagrams 02/22/17 05:15 02/21/17 05:26 Nutritional Asmnt/Malnutr-PDOC - Dietary Evaluation Malnutrition Findings (Please click <Entered> for more info): Nutritional Asmnt/Malnutrition Start: 02/16/17 13: 29 Text: Status: Complete Freq: Document 02/16/17 13:29 YASEMIN (Rec: 02/16/17 13:57 [email or web address] [email or web address]) Nutritional Asmnt/Malnutrition Patient General Information Nutritional Screening High Risk Screening Diagnosis Septic shock, severe dehydration, 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 RD consult for elevated BG. NPO since adm, day 2. Spoke to RN MARYAM [place] stated per family, pt noted with poor PO intake this past month. Pt was lethargic during visit, made eye contact , responded yes when asked if he was hungry. Limited physical assessment due to heavy blanket for low temp, observed moderate to severe muscle fat wasting to chest and clavicles, with BMI 16.5. RN ordered swallow eval, pending. Ngt in place, RN suggested enteral feeding if needed. Pt is edentulous with upper denture at bedside. Current Diet Order/ Nutrition Support NPO Pertinent Medications D5w, Vancomycin, Protonix Pertinent Labs 02/14: A1c 5.9 02/15: phosphorus 5.7H 02/16: BUN 67H, creatinine 2.9H , glucose 90 (trended down), AST 193H, alkaline phosphatase 129H, ALT 281H, calcium 8L Nutritional Hx/Data Height 1.68 m Height (Calculated Centimeters) 167.6 Current Weight (lbs) 46.312 kg Weight (Calculated Kilograms) 46.3 Weight (Calculated Grams) 85606.8 [place] Body Weight 142 Weight Status Underweight GI Symptoms Usual diet at home [place] [facility]: [facility] soft, finely chopped, thin liquid Skin Integrity/Comment: Dwight 10. Right eye scab. Estimated Nutritional Goals Calories/Kcals/Kg IBW 142lb/64.5kg Kcals Calculated 1613-1935kcal (25-30kcal/kg) Protein Calculated 52-66g (0.8-1g/kg, monitor renal vs underweight) Fluid: ml Per MD Nutritional Problem 2. Problem Problem Impaired nutrient utilization related to Etiology RUEL on CKD aeb Signs/Symptoms: 02/16: BUN 67H, creatinine 2.9H , calcium 8L. 02/15: phosphorus 5.7H 1. Problem Problem (possible) difficulty chewing/ swallowing related to Etiology likely lethargy aeb Signs/Symptoms: swallow eval pending Malnutrition Alert Body Fat Depletion (Severe) Mod to Severe Depletion Muscle Mass (Severe) Mod to Severe Depletion Intervention/Recommendation Comments 1. 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 Diet texture per swallow eval (pending). Pt is edentulous with upper denture at bedside. 2. Recommend Novasource Renal TID, BMI 16.5 underweight, moderate to severe muscle fat wasting to chest and clavicles , family report poor PO intake for 1 month. 3[address] Ngt in [address]. If enteral nutrition suggested, recommend Novasource Renal 38ml/hr x 24hrs, providing 912ml total volume, 1824kcal, 83g protein. Expected Outcomes/Goals Expected Outcomes/Goals 1. Pt to resume oral diet and meet at least 75% of estimated nutritional needs.
--- NOTE | 2017-02-22 21:45 | Progress Notes ---
DATE: 02/22/2017 SUBJECTIVE: Chart reviewed and the patient interviewed. Also discussed the patient's condition with the staff and reviewed the records and labs. The patient's affect is brighter, the patient is calm, and he is interacting appropriately with his peers and with others. The patient also is less irritable and less agitated. He also is easier to follow directions. No major behavioral issues at the time with the patient. ASSESSMENT: The patient is less irritable and less agitated. TREATMENT PLAN: We will continue monitoring his behavior without psychotropic medications except Ativan on a p.r.n. basis and we will continue to follow up. JOB# [id number]
--- NOTE | 2017-02-22 23:53 | Infectious Disease Prog Note ---
Infectious Disease Subjective - Review of Systems Service Date: 02/22/17 Subjective: doing better, no fever. Infectious Disease Objective - Results Result Diagrams: 02/22/17 05:15 02/21/17 05:26 Recent Labs: Laboratory Last Values WBC 3.1 Th/cmm (4.8-10.8) L 02/22/17 05:15 RBC 2.65 Mil/cmm (3.80-5.80) L 02/22/17 05:15 Hgb 8.6 gm/dL (12-16) L 02/22/17 05:15 Hct 25.8 % (41.0-60) L 02/22/17 05:15 MCV 97.2 fl (80-99) 02/22/17 05:15 MCH 32.6 pg (27.0-31.0) H 02/22/17 05:15 MCHC Differential 33.5 pg (28.0-36.0) 02/22/17 05:15 RDW 14.4 % (11.5-20.0) 02/22/17 05:15 Plt Count 69 Th/cmm (150-400) L 02/22/17 05:15 MPV 8.8 fl 02/22/17 05:15 Neutrophils % 70.8 % (40.0-80.0) 02/21/17 05:26 Band Neutrophils % 2 % (0-10) 02/18/17 05:35 Lymphocytes % 8.4 % (20.0-50.0) L 02/21/17 05:26 Monocytes % 5.8 % (2.0-10.0) 02/21/17 05:26 Eosinophils % 14.6 % (0.0-5.0) H 02/21/17 05:26 Basophils % 0.4 % (0.0-2.0) 02/21/17 05:26 Neutrophils (Manual) 61 % (40-80) 02/22/17 05:15 Lymphocytes 15 % (20-50) L 02/22/17 05:15 Monocytes 4 % (2-10) 02/22/17 05:15 Eosinophils 20 % (0-5) H 02/22/17 05:15 Basophils 1 % (0-3) 02/14/17 13:23 Platelet Estimate DECREASED PLATELETS (NORMAL) 02/22/17 05:15 Platelet Morphology NORMAL (NORMAL) 02/15/17 06:30 Anisocytosis 1+ 02/15/17 06:30 RBC Morph Micro Appear ABNORMAL (NORMAL) 02/15/17 06:30 Total Retics Counted 0.4 % (0.5-1.5) L 02/19/17 05:25 Absolute Retic 10.8 Th/cmm 02/19/17 05:25 Corrected Retic Count 0.2 % (0.5-1.5) L 02/19/17 05:25 Eos Smear Source URINE 02/14/17 20:05 Eos Smear Total Cells NONE SEEN (NONE SEEN) 02/14/17 20:05 Plt Count 39 Th/cmm (150-750) L 02/16/17 04:17 PT 9.7 SECONDS (9.5-11.5) 02/16/17 04:17 INR 0.93 (0.5-1.4) 02/16/17 04:17 PTT (Actin FS) 35.1 SECONDS (26.0-38.0) 02/16/17 04:17 Fibrinogen 500.0 mg/dL (200.0-400.0) H 02/16/17 04:17 D-Dimer 745 ng/mL (100-400) H 02/16/17 04:17 Sodium 142 mEq/L (136-145) 02/21/17 05:26 Potassium 3.8 mEq/L (3.5-5.1) 02/21/17 05:26 Chloride 112 mEq/L (98-107) H 02/21/17 05:26 Carbon Dioxide 25.3 mEq/L (21.0-31.0) 02/21/17 05:26 Anion Gap 8.5 (7.0-16.0) 02/21/17 05:26 BUN 43 mg/dL (7-25) H 02/21/17 05:26 Creatinine 2.6 mg/dL (0.7-1.3) H 02/21/17 05:26 Est GFR ( Amer) TNP 02/21/17 05:26 Est GFR (Non-Af Amer) TNP 02/21/17 05:26 BUN/Creatinine Ratio 16.5 02/21/17 05:26 Glucose 70 mg/dL (70-105) 02/21/17 05:26 POC Glucose 79 MG/DL (70 - 105) 02/20/17 06:13 Hemoglobin A1c % 5.9 % (4.0-6.0) 02/14/17 13:23 Whole Bld Lactic Acid 1.09 mmol/L (0.60-1.99) 02/14/17 13:23 Uric Acid 2.7 mg/dL (4.4-7.6) L 02/15/17 04:25 Calcium 8.3 mg/dL (8.6-10.3) L 02/21/17 05:26 Phosphorus 5.7 mg/dL (2.5-5.0) H 02/15/17 04:25 Magnesium 2.7 mg/dL (1.9-2.7) 02/15/17 04:25 Iron 138 ug/dL (38-169) 02/19/17 05:25 TIBC 186 ug/dL (250-450) L 02/19/17 05:25 Iron Saturation 74 % (15-55) H 02/19/17 05:25 Unsaturated IBC 48 ug/dL (111-343) L 02/19/17 05:25 Ferritin 1241 ng/mL (30-400) H 02/19/17 05:25 Total Bilirubin 0.8 mg/dL (0.3-1.0) 02/19/17 05:25 Direct Bilirubin 0.05 mg/dL (0.0-0.2) 02/17/17 04:45 AST 69 U/L (13-39) H 02/19/17 05:25 ALT 143 U/L (7-52) H 02/19/17 05:25 Alkaline Phosphatase 83 U/L (34-104) 02/19/17 05:25 Ammonia 51 umol/L (16-53) 02/16/17 04:17 Lactate Dehydrogenase 210 U/L (140-271) 02/16/17 04:17 Troponin I 0.08 ng/mL (0.01-0.05) H* D 02/17/17 13:55 Total Protein 5.5 gm/dL (6.0-8.3) L 02/19/17 05:25 Albumin 2.9 gm/dL (4.2-5.5) L 02/19/17 05:25 Globulin 2.6 gm/dL 02/19/17 05:25 Albumin/Globulin Ratio 1.1 (1.0-1.8) 02/19/17 05:25 Vitamin B12 1893 pg/mL (211-946) H 02/18/17 05:35 Folic Acid 15.1 ng/mL (>3.0) 02/18/17 05:35 Free T4 0.89 ng/dL (0.82-1.77) 02/18/17 05:35 TSH 4.79 uIU/ml (0.34-5.60) 02/18/17 05:35 Urine Source CATH 02/14/17 14:10 Urine Color YELLOW 02/14/17 14:10 Urine Clarity CLEAR (CLEAR) 02/14/17 14:10 Urine pH 5.5 (4.6 - 8.0) 02/14/17 14:10 Ur Specific [place] 1.020 (1.005-1.030) 02/14/17 14:10 Urine Protein 100 mg/dL (NEGATIVE) H 02/14/17 14:10 Urine Glucose (UA) NEGATIVE mg/dL (NEGATIVE) 02/14/17 14:10 Urine Ketones NEGATIVE mg/dL (NEGATIVE) 02/14/17 14:10 Urine Blood MODERATE (NEGATIVE) H 02/14/17 14:10 Urine Nitrate NEGATIVE (NEGATIVE) 02/14/17 14:10 Urine Bilirubin NEGATIVE (NEGATIVE) 02/14/17 14:10 Urine Urobilinogen 0.2 E.U./dL (0.2 - 1.0) 02/14/17 14:10 Ur Leukocyte Esterase NEGATIVE (NEGATIVE) 02/14/17 14:10 Urine RBC 5-10 /hpf (0-5) H 02/14/17 14:10 Urine WBC 2-5 /hpf (0-5) H 02/14/17 14:10 Ur Epithelial Cells FEW /lpf (FEW) 02/14/17 14:10 Urine Bacteria FEW /hpf (NONE SEEN) 02/14/17 14:10 Urine Osmolality 434 mOsmol/kg 02/14/17 20:05 Ur Random Sodium 61 mmol/L 02/15/17 12:46 Urine Creatinine 93.0 mg/dl (39.0-259.0) 02/14/17 20:05 Urine Microalbumin 662.5 ug/mL (Not Estab.) 02/14/17 14:10 Microalb/Creat Ratio 851.5 mg/g creat (0.0-30.0) H 02/14/17 14:10 Stool Occult Blood POSITIVE (NEGATIVE) 02/15/17 18:35 Random Vancomycin 14.5 ug/mL (5.0-40.0) 02/16/17 04:17 Hepatitis A IgM Ab Negative (Negative) 02/16/17 04:17 Hep Bs Antigen Negative (Negative) 02/16/17 04:17 Hep B Core IgM Ab Negative (Negative) 02/16/17 04:17 Hepatitis C Antibody <0.1 s/co ratio (0.0-0.9) 02/16/17 04:17 Blood Type O POSITIVE 02/15/17 05:20 Antibody Screen NEGATIVE 02/15/17 05:20 Crossmatch See Detail 02/15/17 05:20 - Physical Exam Vitals and I&O: Vital Signs Temp 97.2 F 02/22/17 20:00 Pulse 57 02/22/17 20:00 Resp 18 02/22/17 20:00 BP 127/62 02/22/17 20:00 Pulse Ox 96 02/22/17 20:00 Intake & Output 02/22/17 02/22/17 02/23/17 06:59 18:59 06:59 Intake Total 1000 120 Output Total 201 1400 Balance 799 -1280 Weight (lbs) 50.349 kg 50.349 kg Intake: Intake, IV Amount 1000 Dextrose 5% 1,000 ml @ 1000 125 mls/hr IV .Q8H [facility] Rx #:[id number] Oral 120 Output: Urine 200 1400 Stool 1 Other: # Bowel Movements 1 Active Medications: Current Medications Atropine Sulfate (Atropine Syringe) 1 mg IVP Q4HR PRN PRN Reason: LOW HEART RATE Stop: 04/18/17 13:37 Last Admin: 02/18/17 11:03 Dose: 1 mg Epoetin Jung (Epogen) 6,000 units SUBQ MWF [facility] Stop: 04/24/17 08:59 Famotidine (Pepcid) 20 mg PO DAILY [facility] Stop: 04/24/17 08:59 Dextrose (D5w) 1,000 mls @ 125 mls/hr IV .Q8H [facility] Stop: 04/21/17 03:24 Last Admin: 02/22/17 04:01 Dose: 125 mls/hr Lorazepam (Ativan) 1 mg IVP Q8HR PRN; Protocol PRN Reason: Agitation Stop: 04/22/17 10:42 Last Admin: 02/21/17 11:16 Dose: 1 mg Miscellaneous (Probiotic Screen) 1 ea MC PRN PRN PRN Reason: PROTOCOL Stop: 04/16/17 14:13 General: no acute distress, cachectic HEENT: atraumatic, normocephalic, PERRLA, EOMI, moist mucous membrane Neck: supple, no thyromegaly Cardiovascular: S1S2, regular Lungs: clear to auscultation bilaterally, clear to percussion Abdomen: soft, no tender, no distended Extremities: no cyanosis, no clubbing, no edema Neurological: awake, alert - Procedures Procedures: Procedures Procedure Code Date BLOOD TRANSFUSION SERVICE 03918 02/14/17 TRANSFUSE NONAUT RED BLOOD CELLS IN PERIPH VEIN, PERC 98329T4 02/14/17 Infectious Disease Assmt/Plan - Problem List Patient Problems: All Active Problems WANDERS FROM FACILITY; ELOPEMENT RISK (Acute) - Assessment Assessment: 1. Hypothermia suspect sepsis, resolved. 2. UTI. 3. Hypertension. 4. Hyperlipidemia. 5. Protein calorie malnutrition. 6. CKD. 7. Dementia. 8. Bradycardia. - Plan Plan: Goldie capps'ed.. Nutritional Asmnt/Malnutr-PDOC - Dietary Evaluation Malnutrition Findings (Please click <Entered> for more info): Nutritional Asmnt/Malnutrition Start: 02/16/17 13: 29 Text: Status: Complete Freq: Document 02/16/17 13:29 GSUN (Rec: 02/16/17 13:57 GSUN [email or web address]) Nutritional Asmnt/Malnutrition Patient General Information Nutritional Screening High Risk Screening Diagnosis Septic shock, severe dehydration, 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 RD consult for elevated BG. NPO since adm, day 2. Spoke to RN [place], RN stated per family, pt noted with poor PO intake this past month. Pt was lethargic during visit, made eye contact , responded yes when asked if he was hungry. Limited physical assessment due to heavy blanket for low temp, observed moderate to severe muscle fat wasting to chest and clavicles, with BMI 16.5. RN ordered swallow eval, pending. Ngt in place, RN suggested enteral feeding if needed. Pt is edentulous with upper denture at bedside. Current Diet Order/ Nutrition Support NPO Pertinent Medications D5w, Vancomycin, Protonix Pertinent Labs 02/14: A1c 5.9 02/15: phosphorus 5.7H 02/16: BUN 67H, creatinine 2.9H , glucose 90 (trended down), AST 193H, alkaline phosphatase 129H, ALT 281H, calcium 8L Nutritional Hx/Data Height 1.68 m Height (Calculated Centimeters) 167.6 Current Weight (lbs) 46.312 kg Weight (Calculated Kilograms) 46.3 Weight (Calculated Grams) 77069.8 [place] Body Weight 142 Weight Status Underweight GI Symptoms Usual diet at home [place] [facility]: [facility] soft, finely chopped, thin liquid Skin Integrity/Comment: Dwight 10. Right eye scab. Estimated Nutritional Goals Calories/Kcals/Kg IBW 142lb/64.5kg Kcals Calculated 1613-1935kcal (25-30kcal/kg) Protein Calculated 52-66g (0.8-1g/kg, monitor renal vs underweight) Fluid: ml Per MD Nutritional Problem 2. Problem Problem Impaired nutrient utilization related to Etiology RUEL on CKD aeb Signs/Symptoms: 02/16: BUN 67H, creatinine 2.9H , calcium 8L. 02/15: phosphorus 5.7H 1. Problem Problem (possible) difficulty chewing/ swallowing related to Etiology likely lethargy aeb Signs/Symptoms: swallow eval pending Malnutrition Alert Body Fat Depletion (Severe) Mod to Severe Depletion Muscle Mass (Severe) Mod to Severe Depletion Intervention/Recommendation Comments 1. 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 Diet texture per swallow eval (pending). Pt is edentulous with upper denture at bedside. 2. Recommend Novasource Renal TID, BMI 16.5 underweight, moderate to severe muscle fat wasting to chest and clavicles , family report poor PO intake for [address] N[address] in [address]. If enteral nutrition suggested, recommend Novasource Renal 38ml/hr x 24hrs, providing 912ml total volume, 1824kcal, 83g protein. Expected Outcomes/Goals Expected Outcomes/Goals 1. Pt to resume oral diet and meet at least 75% of estimated nutritional needs.
--- NOTE | 2017-02-22 23:55 | Infectious Disease Prog Note ---
Infectious Disease Subjective - Review of Systems Service Date: 02/22/17 Subjective: doing better, no fever. Infectious Disease Objective - Results Result Diagrams: 02/22/17 05:15 02/21/17 05:26 Recent Labs: Laboratory Last Values WBC 3.1 Th/cmm (4.8-10.8) L 02/22/17 05:15 RBC 2.65 Mil/cmm (3.80-5.80) L 02/22/17 05:15 Hgb 8.6 gm/dL (12-16) L 02/22/17 05:15 Hct 25.8 % (41.0-60) L 02/22/17 05:15 MCV 97.2 fl (80-99) 02/22/17 05:15 MCH 32.6 pg (27.0-31.0) H 02/22/17 05:15 MCHC Differential 33.5 pg (28.0-36.0) 02/22/17 05:15 RDW 14.4 % (11.5-20.0) 02/22/17 05:15 Plt Count 69 Th/cmm (150-400) L 02/22/17 05:15 MPV 8.8 fl 02/22/17 05:15 Neutrophils % 70.8 % (40.0-80.0) 02/21/17 05:26 Band Neutrophils % 2 % (0-10) 02/18/17 05:35 Lymphocytes % 8.4 % (20.0-50.0) L 02/21/17 05:26 Monocytes % 5.8 % (2.0-10.0) 02/21/17 05:26 Eosinophils % 14.6 % (0.0-5.0) H 02/21/17 05:26 Basophils % 0.4 % (0.0-2.0) 02/21/17 05:26 Neutrophils (Manual) 61 % (40-80) 02/22/17 05:15 Lymphocytes 15 % (20-50) L 02/22/17 05:15 Monocytes 4 % (2-10) 02/22/17 05:15 Eosinophils 20 % (0-5) H 02/22/17 05:15 Basophils 1 % (0-3) 02/14/17 13:23 Platelet Estimate DECREASED PLATELETS (NORMAL) 02/22/17 05:15 Platelet Morphology NORMAL (NORMAL) 02/15/17 06:30 Anisocytosis 1+ 02/15/17 06:30 RBC Morph Micro Appear ABNORMAL (NORMAL) 02/15/17 06:30 Total Retics Counted 0.4 % (0.5-1.5) L 02/19/17 05:25 Absolute Retic 10.8 Th/cmm 02/19/17 05:25 Corrected Retic Count 0.2 % (0.5-1.5) L 02/19/17 05:25 Eos Smear Source URINE 02/14/17 20:05 Eos Smear Total Cells NONE SEEN (NONE SEEN) 02/14/17 20:05 Plt Count 39 Th/cmm (150-750) L 02/16/17 04:17 PT 9.7 SECONDS (9.5-11.5) 02/16/17 04:17 INR 0.93 (0.5-1.4) 02/16/17 04:17 PTT (Actin FS) 35.1 SECONDS (26.0-38.0) 02/16/17 04:17 Fibrinogen 500.0 mg/dL (200.0-400.0) H 02/16/17 04:17 D-Dimer 745 ng/mL (100-400) H 02/16/17 04:17 Sodium 142 mEq/L (136-145) 02/21/17 05:26 Potassium 3.8 mEq/L (3.5-5.1) 02/21/17 05:26 Chloride 112 mEq/L (98-107) H 02/21/17 05:26 Carbon Dioxide 25.3 mEq/L (21.0-31.0) 02/21/17 05:26 Anion Gap 8.5 (7.0-16.0) 02/21/17 05:26 BUN 43 mg/dL (7-25) H 02/21/17 05:26 Creatinine 2.6 mg/dL (0.7-1.3) H 02/21/17 05:26 Est GFR ( Amer) TNP 02/21/17 05:26 Est GFR (Non-Af Amer) TNP 02/21/17 05:26 BUN/Creatinine Ratio 16.5 02/21/17 05:26 Glucose 70 mg/dL (70-105) 02/21/17 05:26 POC Glucose 79 MG/DL (70 - 105) 02/20/17 06:13 Hemoglobin A1c % 5.9 % (4.0-6.0) 02/14/17 13:23 Whole Bld Lactic Acid 1.09 mmol/L (0.60-1.99) 02/14/17 13:23 Uric Acid 2.7 mg/dL (4.4-7.6) L 02/15/17 04:25 Calcium 8.3 mg/dL (8.6-10.3) L 02/21/17 05:26 Phosphorus 5.7 mg/dL (2.5-5.0) H 02/15/17 04:25 Magnesium 2.7 mg/dL (1.9-2.7) 02/15/17 04:25 Iron 138 ug/dL (38-169) 02/19/17 05:25 TIBC 186 ug/dL (250-450) L 02/19/17 05:25 Iron Saturation 74 % (15-55) H 02/19/17 05:25 Unsaturated IBC 48 ug/dL (111-343) L 02/19/17 05:25 Ferritin 1241 ng/mL (30-400) H 02/19/17 05:25 Total Bilirubin 0.8 mg/dL (0.3-1.0) 02/19/17 05:25 Direct Bilirubin 0.05 mg/dL (0.0-0.2) 02/17/17 04:45 AST 69 U/L (13-39) H 02/19/17 05:25 ALT 143 U/L (7-52) H 02/19/17 05:25 Alkaline Phosphatase 83 U/L (34-104) 02/19/17 05:25 Ammonia 51 umol/L (16-53) 02/16/17 04:17 Lactate Dehydrogenase 210 U/L (140-271) 02/16/17 04:17 Troponin I 0.08 ng/mL (0.01-0.05) H* D 02/17/17 13:55 Total Protein 5.5 gm/dL (6.0-8.3) L 02/19/17 05:25 Albumin 2.9 gm/dL (4.2-5.5) L 02/19/17 05:25 Globulin 2.6 gm/dL 02/19/17 05:25 Albumin/Globulin Ratio 1.1 (1.0-1.8) 02/19/17 05:25 Vitamin B12 1893 pg/mL (211-946) H 02/18/17 05:35 Folic Acid 15.1 ng/mL (>3.0) 02/18/17 05:35 Free T4 0.89 ng/dL (0.82-1.77) 02/18/17 05:35 TSH 4.79 uIU/ml (0.34-5.60) 02/18/17 05:35 Urine Source CATH 02/14/17 14:10 Urine Color YELLOW 02/14/17 14:10 Urine Clarity CLEAR (CLEAR) 02/14/17 14:10 Urine pH 5.5 (4.6 - 8.0) 02/14/17 14:10 Ur Specific [place] 1.020 (1.005-1.030) 02/14/17 14:10 Urine Protein 100 mg/dL (NEGATIVE) H 02/14/17 14:10 Urine Glucose (UA) NEGATIVE mg/dL (NEGATIVE) 02/14/17 14:10 Urine Ketones NEGATIVE mg/dL (NEGATIVE) 02/14/17 14:10 Urine Blood MODERATE (NEGATIVE) H 02/14/17 14:10 Urine Nitrate NEGATIVE (NEGATIVE) 02/14/17 14:10 Urine Bilirubin NEGATIVE (NEGATIVE) 02/14/17 14:10 Urine Urobilinogen 0.2 E.U./dL (0.2 - 1.0) 02/14/17 14:10 Ur Leukocyte Esterase NEGATIVE (NEGATIVE) 02/14/17 14:10 Urine RBC 5-10 /hpf (0-5) H 02/14/17 14:10 Urine WBC 2-5 /hpf (0-5) H 02/14/17 14:10 Ur Epithelial Cells FEW /lpf (FEW) 02/14/17 14:10 Urine Bacteria FEW /hpf (NONE SEEN) 02/14/17 14:10 Urine Osmolality 434 mOsmol/kg 02/14/17 20:05 Ur Random Sodium 61 mmol/L 02/15/17 12:46 Urine Creatinine 93.0 mg/dl (39.0-259.0) 02/14/17 20:05 Urine Microalbumin 662.5 ug/mL (Not Estab.) 02/14/17 14:10 Microalb/Creat Ratio 851.5 mg/g creat (0.0-30.0) H 02/14/17 14:10 Stool Occult Blood POSITIVE (NEGATIVE) 02/15/17 18:35 Random Vancomycin 14.5 ug/mL (5.0-40.0) 02/16/17 04:17 Hepatitis A IgM Ab Negative (Negative) 02/16/17 04:17 Hep Bs Antigen Negative (Negative) 02/16/17 04:17 Hep B Core IgM Ab Negative (Negative) 02/16/17 04:17 Hepatitis C Antibody <0.1 s/co ratio (0.0-0.9) 02/16/17 04:17 Blood Type O POSITIVE 02/15/17 05:20 Antibody Screen NEGATIVE 02/15/17 05:20 Crossmatch See Detail 02/15/17 05:20 - Physical Exam Vitals and I&O: Vital Signs Temp 97.2 F 02/22/17 20:00 Pulse 57 02/22/17 20:00 Resp 18 02/22/17 20:00 BP 127/62 02/22/17 20:00 Pulse Ox 96 02/22/17 20:00 Intake & Output 02/22/17 02/22/17 02/23/17 06:59 18:59 06:59 Intake Total 1000 120 Output Total 201 1400 Balance 799 -1280 Weight (lbs) 50.349 kg 50.349 kg Intake: Intake, IV Amount 1000 Dextrose 5% 1,000 ml @ 1000 125 mls/hr IV .Q8H [facility] Rx #:[id number] Oral 120 Output: Urine 200 1400 Stool 1 Other: # Bowel Movements 1 Active Medications: Current Medications Atropine Sulfate (Atropine Syringe) 1 mg IVP Q4HR PRN PRN Reason: LOW HEART RATE Stop: 04/18/17 13:37 Last Admin: 02/18/17 11:03 Dose: 1 mg Epoetin Jung (Epogen) 6,000 units SUBQ MWF [facility] Stop: 04/24/17 08:59 Famotidine (Pepcid) 20 mg PO DAILY [facility] Stop: 04/24/17 08:59 Dextrose (D5w) 1,000 mls @ 125 mls/hr IV .Q8H [facility] Stop: 04/21/17 03:24 Last Admin: 02/22/17 04:01 Dose: 125 mls/hr Lorazepam (Ativan) 1 mg IVP Q8HR PRN; Protocol PRN Reason: Agitation Stop: 04/22/17 10:42 Last Admin: 02/21/17 11:16 Dose: 1 mg Miscellaneous (Probiotic Screen) 1 ea MC PRN PRN PRN Reason: PROTOCOL Stop: 04/16/17 14:13 General: no acute distress, well developed HEENT: atraumatic, normocephalic, PERRLA, EOMI, moist mucous membrane Neck: supple, no thyromegaly, no lymphadenopathy, no rigid Cardiovascular: S1S2, regular Lungs: clear to auscultation bilaterally, clear to percussion Abdomen: soft, no tender, no distended Extremities: no cyanosis, no clubbing, no edema Neurological: awake, alert Skin: intact - Procedures Procedures: Procedures Procedure Code Date BLOOD TRANSFUSION SERVICE 80046 02/14/17 TRANSFUSE NONAUT RED BLOOD CELLS IN PERIPH VEIN, PERC 62293M9 02/14/17 Infectious Disease Assmt/Plan - Problem List Patient Problems: All Active Problems WANDERS FROM FACILITY; ELOPEMENT RISK (Acute) - Assessment Assessment: 1. Hypothermia suspect sepsis, resolved. 2. UTI. 3. Hypertension. 4. Hyperlipidemia. 5. Protein calorie malnutrition. 6. CKD. 7. Dementia. 8. Bradycardia. - Plan Plan: Off antibiotics. Nutritional Asmnt/Malnutr-PDOC - Dietary Evaluation Malnutrition Findings (Please click <Entered> for more info): Nutritional Asmnt/Malnutrition Start: 02/16/17 13: 29 Text: Status: Complete Freq: Document 02/16/17 13:29 GSUN (Rec: 02/16/17 13:57 [email or web address] [email or web address]) Nutritional Asmnt/Malnutrition Patient General Information Nutritional Screening High Risk Screening Diagnosis Septic shock, severe dehydration, 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 RD consult for elevated BG. NPO since adm, day 2. Spoke to RN MARYAM [place] stated per family, pt noted with poor PO intake this past month. Pt was lethargic during visit, made eye contact , responded yes when asked if he was hungry. Limited physical assessment due to heavy blanket for low temp, observed moderate to severe muscle fat wasting to chest and clavicles, with BMI 16.5. RN ordered swallow eval, pending. Ngt in place, RN suggested enteral feeding if needed. Pt is edentulous with upper denture at bedside. Current Diet Order/ Nutrition Support NPO Pertinent Medications D5w, Vancomycin, Protonix Pertinent Labs 02/14: A1c 5.9 02/15: phosphorus 5.7H 02/16: BUN 67H, creatinine 2.9H , glucose 90 (trended down), AST 193H, alkaline phosphatase 129H, ALT 281H, calcium 8L Nutritional Hx/Data Height 1.68 m Height (Calculated Centimeters) 167.6 Current Weight (lbs) 46.312 kg Weight (Calculated Kilograms) 46.3 Weight (Calculated Grams) 32218.8 [place] Body Weight 142 Weight Status Underweight GI Symptoms Usual diet at home [place] [facility]: [facility] soft, finely chopped, thin liquid Skin Integrity/Comment: Dwight 10. Right eye scab. Estimated Nutritional Goals Calories/Kcals/Kg IBW 142lb/64.5kg Kcals Calculated 1613-1935kcal (25-30kcal/kg) Protein Calculated 52-66g (0.8-1g/kg, monitor renal vs underweight) Fluid: ml Per MD Nutritional Problem 2. Problem Problem Impaired nutrient utilization related to Etiology RUEL on CKD aeb Signs/Symptoms: 02/16: BUN 67H, creatinine 2.9H , calcium 8L. 02/15: phosphorus 5.7H 1. Problem Problem (possible) difficulty chewing/ swallowing related to Etiology likely lethargy aeb Signs/Symptoms: swallow eval pending Malnutrition Alert Body Fat Depletion (Severe) Mod to Severe Depletion Muscle Mass (Severe) Mod to Severe Depletion Intervention/Recommendation Comments 1. 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 Diet texture per swallow eval (pending). Pt is edentulous with upper denture at bedside. 2. Recommend Novasource Renal TID, BMI 16.5 underweight, moderate to severe muscle fat wasting to chest and clavicles , family report poor PO intake for 1 month. 3. Ngt in place. If enteral nutrition suggested, recommend Novasource Renal 38ml/hr x 24hrs, providing 912ml total volume, 1824kcal, 83g protein. Expected Outcomes/Goals Expected Outcomes/Goals 1. Pt to resume oral diet and meet at least 75% of estimated nutritional needs.
[2017-02-23] MEDS: Dextrose 5% 1,000 ML IV SCH (00:36)
[2017-02-23 05:36] LABS: ALB/GLOB RATIO 1.1 (1.0-1.8); ALKALINE PHOSPHATASE 106 U/L (34-104); ANION GAP 7.2 (7.0-16.0); BILIRUBIN,TOTAL 0.5 mg/dL (0.3-1.0); BUN - UREA NITROGEN 32 mg/dL (7-25); BUN/CREATININE RATIO 14.5; CALCIUM SERUM 8.4 mg/dL (8.6-10.3); CARBON DIOXIDE 26.5 mEq/L (21.0-31.0); CHLORIDE 107 mEq/L (98-107); CREATININE - SERUM 2.2 mg/dL (0.7-1.3); GLUCOSE 97 mg/dL (70-105); LDH = LACTIC DEHYDROGENASE 163 U/L (140-271); POTASSIUM SERUM 3.7 mEq/L (3.5-5.1); SGOT 70 U/L (13-39); SGPT/ALT 133 U/L (7-52); SODIUM SERUM 137 mEq/L (136-145)
[2017-02-23 06:12] LABS: HEMOGLOBIN 9.1 gm/dL (12-16); RED BLOOD COUNT 2.76 Mil/cmm (3.80-5.80); WHITE BLOOD COUNT 3.7 Th/cmm (4.8-10.8)
[2017-02-23 06:13] LABS: HEMATOCRIT 26.7 % (41.0-60); MEAN CELL VOLUME 96.5 fl (80-99); MEAN CORPUSCULAR HEMOGLOBIN 32.8 pg (27.0-31.0); MEAN PLATELET VOLUME 8.5 fl; PLATELET COUNT 67 Th/cmm (150-400); RED CELL DISTRIBUTION WIDTH 13.8 % (11.5-20.0)
[2017-02-23 06:14] LABS: BAND NEUTROPHILE 2 % (0-10); EOSINOPHIL 18 % (0-5); NEUTROPHILS 71 % (40-80); TOTAL CELLS COUNTED 100
[2017-02-23 06:16] LABS: PLATELET ESTIMATE DECREASED PLATELETS (NORMAL)
--- NOTE | 2017-02-23 08:38 | General Progress Note ---
Subjective - Review of Systems Events since last encounter: awake, afebrile, nad Objective - Results Result Diagrams: 02/23/17 04:55 02/23/17 04:55 Recent Labs: Laboratory Last Values WBC 3.7 Th/cmm (4.8-10.8) L 02/23/17 04:55 RBC 2.76 Mil/cmm (3.80-5.80) L 02/23/17 04:55 Hgb 9.1 gm/dL (12-16) L 02/23/17 04:55 Hct 26.7 % (41.0-60) L 02/23/17 04:55 MCV 96.5 fl (80-99) 02/23/17 04:55 MCH 32.8 pg (27.0-31.0) H 02/23/17 04:55 MCHC Differential 34.0 pg (28.0-36.0) 02/23/17 04:55 RDW 13.8 % (11.5-20.0) 02/23/17 04:55 Plt Count 67 Th/cmm (150-400) L 02/23/17 04:55 MPV 8.5 fl 02/23/17 04:55 Neutrophils % 70.8 % (40.0-80.0) 02/21/17 05:26 Band Neutrophils % 2 % (0-10) 02/23/17 04:55 Lymphocytes % 8.4 % (20.0-50.0) L 02/21/17 05:26 Monocytes % 5.8 % (2.0-10.0) 02/21/17 05:26 Eosinophils % 14.6 % (0.0-5.0) H 02/21/17 05:26 Basophils % 0.4 % (0.0-2.0) 02/21/17 05:26 Neutrophils (Manual) 71 % (40-80) 02/23/17 04:55 Lymphocytes 8 % (20-50) L 02/23/17 04:55 Monocytes 1 % (2-10) L 02/23/17 04:55 Eosinophils 18 % (0-5) H 02/23/17 04:55 Basophils 1 % (0-3) 02/14/17 13:23 Platelet Estimate DECREASED PLATELETS (NORMAL) 02/23/17 04:55 Platelet Morphology NORMAL (NORMAL) 02/15/17 06:30 Anisocytosis 1+ 02/15/17 06:30 RBC Morph Micro Appear ABNORMAL (NORMAL) 02/15/17 06:30 Total Retics Counted 0.4 % (0.5-1.5) L 02/19/17 05:25 Absolute Retic 10.8 Th/cmm 02/19/17 05:25 Corrected Retic Count 0.2 % (0.5-1.5) L 02/19/17 05:25 Eos Smear Source URINE 02/14/17 20:05 Eos Smear Total Cells NONE SEEN (NONE SEEN) 02/14/17 20:05 Plt Count 39 Th/cmm (150-750) L 02/16/17 04:17 PT 9.7 SECONDS (9.5-11.5) 02/16/17 04:17 INR 0.93 (0.5-1.4) 02/16/17 04:17 PTT (Actin FS) 35.1 SECONDS (26.0-38.0) 02/16/17 04:17 Fibrinogen 500.0 mg/dL (200.0-400.0) H 02/16/17 04:17 D-Dimer 745 ng/mL (100-400) H 02/16/17 04:17 Sodium 137 mEq/L (136-145) 02/23/17 04:55 Potassium 3.7 mEq/L (3.5-5.1) 02/23/17 04:55 Chloride 107 mEq/L (98-107) 02/23/17 04:55 Carbon Dioxide 26.5 mEq/L (21.0-31.0) 02/23/17 04:55 Anion Gap 7.2 (7.0-16.0) 02/23/17 04:55 BUN 32 mg/dL (7-25) H 02/23/17 04:55 Creatinine 2.2 mg/dL (0.7-1.3) H 02/23/17 04:55 Est GFR ( Amer) TNP 02/23/17 04:55 Est GFR (Non-Af Amer) TNP 02/23/17 04:55 BUN/Creatinine Ratio 14.5 02/23/17 04:55 Glucose 97 mg/dL (70-105) 02/23/17 04:55 POC Glucose 79 MG/DL (70 - 105) 02/20/17 06:13 Hemoglobin A1c % 5.9 % (4.0-6.0) 02/14/17 13:23 Whole Bld Lactic Acid 1.09 mmol/L (0.60-1.99) 02/14/17 13:23 Uric Acid 2.7 mg/dL (4.4-7.6) L 02/15/17 04:25 Calcium 8.4 mg/dL (8.6-10.3) L 02/23/17 04:55 Phosphorus 5.7 mg/dL (2.5-5.0) H 02/15/17 04:25 Magnesium 2.7 mg/dL (1.9-2.7) 02/15/17 04:25 Iron 138 ug/dL (38-169) 02/19/17 05:25 TIBC 186 ug/dL (250-450) L 02/19/17 05:25 Iron Saturation 74 % (15-55) H 02/19/17 05:25 Unsaturated IBC 48 ug/dL (111-343) L 02/19/17 05:25 Ferritin 1241 ng/mL (30-400) H 02/19/17 05:25 Total Bilirubin 0.5 mg/dL (0.3-1.0) 02/23/17 04:55 Direct Bilirubin 0.05 mg/dL (0.0-0.2) 02/17/17 04:45 AST 70 U/L (13-39) H 02/23/17 04:55 ALT 133 U/L (7-52) H 02/23/17 04:55 Alkaline Phosphatase 106 U/L (34-104) H 02/23/17 04:55 Ammonia 39 umol/L (16-53) 02/23/17 04:55 Lactate Dehydrogenase 163 U/L (140-271) 02/23/17 04:55 Troponin I 0.08 ng/mL (0.01-0.05) H* D 02/17/17 13:55 Total Protein 5.6 gm/dL (6.0-8.3) L 02/23/17 04:55 Albumin 2.9 gm/dL (4.2-5.5) L 02/23/17 04:55 Globulin 2.7 gm/dL 02/23/17 04:55 Albumin/Globulin Ratio 1.1 (1.0-1.8) 02/23/17 04:55 Vitamin B12 1893 pg/mL (211-946) H 02/18/17 05:35 Folic Acid 15.1 ng/mL (>3.0) 02/18/17 05:35 Free T4 0.89 ng/dL (0.82-1.77) 02/18/17 05:35 TSH 4.79 uIU/ml (0.34-5.60) 02/18/17 05:35 Urine Source CATH 02/14/17 14:10 Urine Color YELLOW 02/14/17 14:10 Urine Clarity CLEAR (CLEAR) 02/14/17 14:10 Urine pH 5.5 (4.6 - 8.0) 02/14/17 14:10 Ur Specific [place] 1.020 (1.005-1.030) 02/14/17 14:10 Urine Protein 100 mg/dL (NEGATIVE) H 02/14/17 14:10 Urine Glucose (UA) NEGATIVE mg/dL (NEGATIVE) 02/14/17 14:10 Urine Ketones NEGATIVE mg/dL (NEGATIVE) 02/14/17 14:10 Urine Blood MODERATE (NEGATIVE) H 02/14/17 14:10 Urine Nitrate NEGATIVE (NEGATIVE) 02/14/17 14:10 Urine Bilirubin NEGATIVE (NEGATIVE) 02/14/17 14:10 Urine Urobilinogen 0.2 E.U./dL (0.2 - 1.0) 02/14/17 14:10 Ur Leukocyte Esterase NEGATIVE (NEGATIVE) 02/14/17 14:10 Urine RBC 5-10 /hpf (0-5) H 02/14/17 14:10 Urine WBC 2-5 /hpf (0-5) H 02/14/17 14:10 Ur Epithelial Cells FEW /lpf (FEW) 02/14/17 14:10 Urine Bacteria FEW /hpf (NONE SEEN) 02/14/17 14:10 Urine Osmolality 434 mOsmol/kg 02/14/17 20:05 Ur Random Sodium 61 mmol/L 02/15/17 12:46 Urine Creatinine 93.0 mg/dl (39.0-259.0) 02/14/17 20:05 Urine Microalbumin 662.5 ug/mL (Not Estab.) 02/14/17 14:10 Microalb/Creat Ratio 851.5 mg/g creat (0.0-30.0) H 02/14/17 14:10 Stool Occult Blood POSITIVE (NEGATIVE) 02/15/17 18:35 Random Vancomycin 14.5 ug/mL (5.0-40.0) 02/16/17 04:17 Hepatitis A IgM Ab Negative (Negative) 02/16/17 04:17 Hep Bs Antigen Negative (Negative) 02/16/17 04:17 Hep B Core IgM Ab Negative (Negative) 02/16/17 04:17 Hepatitis C Antibody <0.1 s/co ratio (0.0-0.9) 02/16/17 04:17 Blood Type O POSITIVE 02/15/17 05:20 Antibody Screen NEGATIVE 02/15/17 05:20 Crossmatch See Detail 02/15/17 05:20 - Physical Exam Vitals and I&O: Vital Signs Temp 97 F 02/23/17 04:00 Pulse 71 02/23/17 07:57 Resp 18 02/23/17 07:57 BP 139/67 02/23/17 04:00 Pulse Ox 95 02/23/17 07:57 Intake & Output 02/22/17 02/23/17 02/23/17 18:59 06:59 18:59 Intake Total 1120 Output Total 1400 800 Balance -280 -800 Weight (lbs) 50.349 kg 50.576 kg Intake: Intake, IV Amount 1000 Dextrose 5% 1,000 ml @ 1000 125 mls/hr IV .Q8H [facility] Rx #:[id number] Oral 120 Output: Urine 1400 800 Active Medications: Current Medications Atropine Sulfate (Atropine Syringe) 1 mg IVP Q4HR PRN PRN Reason: LOW HEART RATE Stop: 04/18/17 13:37 Last Admin: 02/18/17 11:03 Dose: 1 mg Epoetin Jung (Epogen) 6,000 units SUBQ MWF [facility] Stop: 04/24/17 08:59 Famotidine (Pepcid) 20 mg PO DAILY [facility] Stop: 04/24/17 08:59 Dextrose (D5w) 1,000 mls @ 125 mls/hr IV .Q8H [facility] Stop: 04/21/17 03:24 Last Admin: 02/23/17 00:36 Dose: 125 mls/hr Lorazepam (Ativan) 1 mg IVP Q8HR PRN; Protocol PRN Reason: Agitation Stop: 04/22/17 10:42 Last Admin: 02/21/17 11:16 Dose: 1 mg Miscellaneous (Probiotic Screen) 1 ea MC PRN PRN PRN Reason: PROTOCOL Stop: 04/16/17 14:13 General: Alert, No acute distress, Other (drowsy) HEENT: Atraumatic, Mucous membr. moist/pink Neck: Supple, +2 carotid pulse wo bruit Cardiovascular: Regular rate, Normal S1, Normal S2 Lungs: Other (few rhonchi) Abdomen: Soft, Other (diminished BS) Extremities: no Edema Neurological: Sensation intact Skin: no Rash Psych/Mental Status: Mood NL - Procedures Procedures: Procedures Procedure Code Date BLOOD TRANSFUSION SERVICE 63389 02/14/17 TRANSFUSE NONAUT RED BLOOD CELLS IN PERIPH VEIN, PERC 14908L2 02/14/17 Assessment/Plan - Problem List Patient Problems: All Active Problems WANDERS FROM FACILITY; ELOPEMENT RISK (Acute) - Plan Plan: cpm Nutritional Asmnt/Malnutr-PDOC - Dietary Evaluation Malnutrition Findings (Please click <Entered> for more info): Nutritional Asmnt/Malnutrition Start: 02/16/17 13: 29 Text: Status: Complete Freq: Document 02/16/17 13:29 GSUN (Rec: 02/16/17 13:57 [email or web address] [email or web address]) Nutritional Asmnt/Malnutrition Patient General Information Nutritional Screening High Risk Screening Diagnosis Septic shock, severe dehydration, 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 RD consult for elevated BG. NPO since adm, day 2. Spoke to RN [place] RN stated per family, pt noted with poor PO intake this past month. Pt was lethargic during visit, made eye contact , responded yes when asked if he was hungry. Limited physical assessment due to heavy blanket for low temp, observed moderate to severe muscle fat wasting to chest and clavicles, with BMI 16.5. RN ordered swallow eval, pending. Ngt in place, RN suggested enteral feeding if needed. Pt is edentulous with upper denture at bedside. Current Diet Order/ Nutrition Support NPO Pertinent Medications D5w, Vancomycin, Protonix Pertinent Labs 02/14: A1c 5.9 02/15: phosphorus 5.7H 02/16: BUN 67H, creatinine 2.9H , glucose 90 (trended down), AST 193H, alkaline phosphatase 129H, ALT 281H, calcium 8L Nutritional Hx/Data Height 1.68 m Height (Calculated Centimeters) 167.6 Current Weight (lbs) 46.312 kg Weight (Calculated Kilograms) 46.3 Weight (Calculated Grams) 35846.8 [place] Body Weight 142 Weight Status Underweight GI Symptoms Usual diet at home [place] [facility]: [facility] soft, finely chopped, thin liquid Skin Integrity/Comment: Dwight 10. Right eye scab. Estimated Nutritional Goals Calories/Kcals/Kg IBW 142lb/64.5kg Kcals Calculated 1613-1935kcal (25-30kcal/kg) Protein Calculated 52-66g (0.8-1g/kg, monitor renal vs underweight) Fluid: ml Per MD Nutritional Problem 2. Problem Problem Impaired nutrient utilization related to Etiology RUEL on CKD aeb Signs/Symptoms: 02/16: BUN 67H, creatinine 2.9H , calcium 8L. 02/15: phosphorus 5.7H 1. Problem Problem (possible) difficulty chewing/ swallowing related to Etiology likely lethargy aeb Signs/Symptoms: swallow eval pending Malnutrition Alert Body Fat Depletion (Severe) Mod to Severe Depletion Muscle Mass (Severe) Mod to Severe Depletion Intervention/Recommendation Comments 1. 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 Diet texture per swallow eval (pending). Pt is edentulous with upper denture at bedside. 2. Recommend Novasource Renal TID, BMI 16.5 underweight, moderate to severe muscle fat wasting to chest and clavicles , family report poor PO intake for 1 month. 3[address] Ngt in place. If enteral nutrition suggested, recommend Novasource Renal 38ml/hr x 24hrs, providing 912ml total volume, 1824kcal, 83g protein. Expected Outcomes/Goals Expected Outcomes/Goals 1. Pt to resume oral diet and meet at least 75% of estimated nutritional needs.
[2017-02-23] MEDS ORDERED: Epoetin Alfa 20000 Units/mL Vial SUBQ SCH (09:00)
--- NOTE | 2017-02-23 11:12 | Infectious Disease Prog Note ---
Infectious Disease Subjective - Review of Systems Service Date: 02/23/17 Subjective: doing better, no fever. Very alert and communicating well. He has started ambulating little bit with help of PT team. Infectious Disease Objective - Results Result Diagrams: 02/23/17 04:55 02/23/17 04:55 Recent Labs: Laboratory Last Values WBC 3.7 Th/cmm (4.8-10.8) L 02/23/17 04:55 RBC 2.76 Mil/cmm (3.80-5.80) L 02/23/17 04:55 Hgb 9.1 gm/dL (12-16) L 02/23/17 04:55 Hct 26.7 % (41.0-60) L 02/23/17 04:55 MCV 96.5 fl (80-99) 02/23/17 04:55 MCH 32.8 pg (27.0-31.0) H 02/23/17 04:55 MCHC Differential 34.0 pg (28.0-36.0) 02/23/17 04:55 RDW 13.8 % (11.5-20.0) 02/23/17 04:55 Plt Count 67 Th/cmm (150-400) L 02/23/17 04:55 MPV 8.5 fl 02/23/17 04:55 Neutrophils % 70.8 % (40.0-80.0) 02/21/17 05:26 Band Neutrophils % 2 % (0-10) 02/23/17 04:55 Lymphocytes % 8.4 % (20.0-50.0) L 02/21/17 05:26 Monocytes % 5.8 % (2.0-10.0) 02/21/17 05:26 Eosinophils % 14.6 % (0.0-5.0) H 02/21/17 05:26 Basophils % 0.4 % (0.0-2.0) 02/21/17 05:26 Neutrophils (Manual) 71 % (40-80) 02/23/17 04:55 Lymphocytes 8 % (20-50) L 02/23/17 04:55 Monocytes 1 % (2-10) L 02/23/17 04:55 Eosinophils 18 % (0-5) H 02/23/17 04:55 Basophils 1 % (0-3) 02/14/17 13:23 Platelet Estimate DECREASED PLATELETS (NORMAL) 02/23/17 04:55 Platelet Morphology NORMAL (NORMAL) 02/15/17 06:30 Anisocytosis 1+ 02/15/17 06:30 RBC Morph Micro Appear ABNORMAL (NORMAL) 02/15/17 06:30 Total Retics Counted 0.4 % (0.5-1.5) L 02/19/17 05:25 Absolute Retic 10.8 Th/cmm 02/19/17 05:25 Corrected Retic Count 0.2 % (0.5-1.5) L 02/19/17 05:25 Eos Smear Source URINE 02/14/17 20:05 Eos Smear Total Cells NONE SEEN (NONE SEEN) 02/14/17 20:05 Plt Count 39 Th/cmm (150-750) L 02/16/17 04:17 PT 9.7 SECONDS (9.5-11.5) 02/16/17 04:17 INR 0.93 (0.5-1.4) 02/16/17 04:17 PTT (Actin FS) 35.1 SECONDS (26.0-38.0) 02/16/17 04:17 Fibrinogen 500.0 mg/dL (200.0-400.0) H 02/16/17 04:17 D-Dimer 745 ng/mL (100-400) H 02/16/17 04:17 Sodium 137 mEq/L (136-145) 02/23/17 04:55 Potassium 3.7 mEq/L (3.5-5.1) 02/23/17 04:55 Chloride 107 mEq/L (98-107) 02/23/17 04:55 Carbon Dioxide 26.5 mEq/L (21.0-31.0) 02/23/17 04:55 Anion Gap 7.2 (7.0-16.0) 02/23/17 04:55 BUN 32 mg/dL (7-25) H 02/23/17 04:55 Creatinine 2.2 mg/dL (0.7-1.3) H 02/23/17 04:55 Est GFR ( Amer) TNP 02/23/17 04:55 Est GFR (Non-Af Amer) TNP 02/23/17 04:55 BUN/Creatinine Ratio 14.5 02/23/17 04:55 Glucose 97 mg/dL (70-105) 02/23/17 04:55 POC Glucose 79 MG/DL (70 - 105) 02/20/17 06:13 Hemoglobin A1c % 5.9 % (4.0-6.0) 02/14/17 13:23 Whole Bld Lactic Acid 1.09 mmol/L (0.60-1.99) 02/14/17 13:23 Uric Acid 2.7 mg/dL (4.4-7.6) L 02/15/17 04:25 Calcium 8.4 mg/dL (8.6-10.3) L 02/23/17 04:55 Phosphorus 5.7 mg/dL (2.5-5.0) H 02/15/17 04:25 Magnesium 2.7 mg/dL (1.9-2.7) 02/15/17 04:25 Iron 138 ug/dL (38-169) 02/19/17 05:25 TIBC 186 ug/dL (250-450) L 02/19/17 05:25 Iron Saturation 74 % (15-55) H 02/19/17 05:25 Unsaturated IBC 48 ug/dL (111-343) L 02/19/17 05:25 Ferritin 1241 ng/mL (30-400) H 02/19/17 05:25 Total Bilirubin 0.5 mg/dL (0.3-1.0) 02/23/17 04:55 Direct Bilirubin 0.05 mg/dL (0.0-0.2) 02/17/17 04:45 AST 70 U/L (13-39) H 02/23/17 04:55 ALT 133 U/L (7-52) H 02/23/17 04:55 Alkaline Phosphatase 106 U/L (34-104) H 02/23/17 04:55 Ammonia 39 umol/L (16-53) 02/23/17 04:55 Lactate Dehydrogenase 163 U/L (140-271) 02/23/17 04:55 Troponin I 0.08 ng/mL (0.01-0.05) H* D 02/17/17 13:55 Total Protein 5.6 gm/dL (6.0-8.3) L 02/23/17 04:55 Albumin 2.9 gm/dL (4.2-5.5) L 02/23/17 04:55 Globulin 2.7 gm/dL 02/23/17 04:55 Albumin/Globulin Ratio 1.1 (1.0-1.8) 02/23/17 04:55 Vitamin B12 1893 pg/mL (211-946) H 02/18/17 05:35 Folic Acid 15.1 ng/mL (>3.0) 02/18/17 05:35 Free T4 0.89 ng/dL (0.82-1.77) 02/18/17 05:35 TSH 4.79 uIU/ml (0.34-5.60) 02/18/17 05:35 Urine Source CATH 02/14/17 14:10 Urine Color YELLOW 02/14/17 14:10 Urine Clarity CLEAR (CLEAR) 02/14/17 14:10 Urine pH 5.5 (4.6 - 8.0) 02/14/17 14:10 Ur Specific [place] 1.020 (1.005-1.030) 02/14/17 14:10 Urine Protein 100 mg/dL (NEGATIVE) H 02/14/17 14:10 Urine Glucose (UA) NEGATIVE mg/dL (NEGATIVE) 02/14/17 14:10 Urine Ketones NEGATIVE mg/dL (NEGATIVE) 02/14/17 14:10 Urine Blood MODERATE (NEGATIVE) H 02/14/17 14:10 Urine Nitrate NEGATIVE (NEGATIVE) 02/14/17 14:10 Urine Bilirubin NEGATIVE (NEGATIVE) 02/14/17 14:10 Urine Urobilinogen 0.2 E.U./dL (0.2 - 1.0) 02/14/17 14:10 Ur Leukocyte Esterase NEGATIVE (NEGATIVE) 02/14/17 14:10 Urine RBC 5-10 /hpf (0-5) H 02/14/17 14:10 Urine WBC 2-5 /hpf (0-5) H 02/14/17 14:10 Ur Epithelial Cells FEW /lpf (FEW) 02/14/17 14:10 Urine Bacteria FEW /hpf (NONE SEEN) 02/14/17 14:10 Urine Osmolality 434 mOsmol/kg 02/14/17 20:05 Ur Random Sodium 61 mmol/L 02/15/17 12:46 Urine Creatinine 93.0 mg/dl (39.0-259.0) 02/14/17 20:05 Urine Microalbumin 662.5 ug/mL (Not Estab.) 02/14/17 14:10 Microalb/Creat Ratio 851.5 mg/g creat (0.0-30.0) H 02/14/17 14:10 Stool Occult Blood POSITIVE (NEGATIVE) 02/15/17 18:35 Random Vancomycin 14.5 ug/mL (5.0-40.0) 02/16/17 04:17 Hepatitis A IgM Ab Negative (Negative) 02/16/17 04:17 Hep Bs Antigen Negative (Negative) 02/16/17 04:17 Hep B Core IgM Ab Negative (Negative) 02/16/17 04:17 Hepatitis C Antibody <0.1 s/co ratio (0.0-0.9) 02/16/17 04:17 Blood Type O POSITIVE 02/15/17 05:20 Antibody Screen NEGATIVE 02/15/17 05:20 NATALIE, IgG Interpret NEGATIVE 02/23/17 04:55 Crossmatch See Detail 02/15/17 05:20 - Physical Exam Vitals and I&O: Vital Signs Temp 97 F 02/23/17 04:00 Pulse 71 02/23/17 07:57 Resp 18 02/23/17 07:57 BP 139/67 02/23/17 04:00 Pulse Ox 95 02/23/17 07:57 Intake & Output 02/22/17 02/23/17 02/23/17 18:59 06:59 18:59 Intake Total 1120 Output Total 1400 800 Balance -280 -800 Weight (lbs) 50.349 kg 50.576 kg Intake: Intake, IV Amount 1000 Dextrose 5% 1,000 ml @ 1000 125 mls/hr IV .Q8H [facility] Rx #:[id number] Oral 120 Output: Urine 1400 800 Active Medications: Current Medications Atropine Sulfate (Atropine Syringe) 1 mg IVP Q4HR PRN PRN Reason: LOW HEART RATE Stop: 04/18/17 13:37 Last Admin: 02/18/17 11:03 Dose: 1 mg Epoetin Jung (Epogen) 6,000 units SUBQ MWF [facility] Stop: 04/24/17 08:59 Famotidine (Pepcid) 20 mg PO DAILY [facility] Stop: 04/24/17 08:59 Last Admin: 09/18/17 09:17 Dose: 20 mg Dextrose (D5w) 1,000 mls @ 125 mls/hr IV .Q8H [facility] Stop: 04/21/17 03:24 Last Admin: 02/23/17 00:36 Dose: 125 mls/hr Lorazepam (Ativan) 1 mg IVP Q8HR PRN; Protocol PRN Reason: Agitation Stop: 04/22/17 10:42 Last Admin: 02/21/17 11:16 Dose: 1 mg Miscellaneous (Probiotic Screen) 1 ea MC PRN PRN PRN Reason: PROTOCOL Stop: 04/16/17 14:13 General: no acute distress, cachectic HEENT: atraumatic, normocephalic, PERRLA, EOMI, moist mucous membrane Neck: supple, no thyromegaly Cardiovascular: S1S2, regular Lungs: clear to auscultation bilaterally, clear to percussion Abdomen: soft, no tender, no distended Extremities: no cyanosis, no clubbing Neurological: awake, alert, oriented Skin: intact - Procedures Procedures: Procedures Procedure Code Date BLOOD TRANSFUSION SERVICE 55737 02/14/17 TRANSFUSE NONAUT RED BLOOD CELLS IN PERIPH VEIN, PERC 35101G0 02/14/17 Infectious Disease Assmt/Plan - Problem List Patient Problems: All Active Problems WANDERS FROM FACILITY; ELOPEMENT RISK (Acute) - Assessment Assessment: 1. Hypothermia suspect sepsis, resolved. 2. UTI. 3. Hypertension. 4. Hyperlipidemia. 5. Protein calorie malnutrition. 6. CKD. 7. Dementia. 8. Bradycardia. - Plan Plan: Continue Zosyn and dc vancomycin. Nutritional Asmnt/Malnutr-PDOC - Dietary Evaluation Malnutrition Findings (Please click <Entered> for more info): Nutritional Asmnt/Malnutrition Start: 02/16/17 13: 29 Text: Status: Complete Freq: Document 02/16/17 13:29 GSUN (Rec: 02/16/17 13:57 [email or web address]) Nutritional Asmnt/Malnutrition Patient General Information Nutritional Screening High Risk Screening Diagnosis Septic shock, severe dehydration, 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 RD consult for elevated BG. NPO since adm, day 2. Spoke to RN [place], RN stated per family, pt noted with poor PO intake this past month. Pt was lethargic during visit, made eye contact , responded yes when asked if he was hungry. Limited physical assessment due to heavy blanket for low temp, observed moderate to severe muscle fat wasting to chest and clavicles, with BMI 16.5. RN ordered swallow eval, pending. Ngt in place, RN suggested enteral feeding if needed. Pt is edentulous with upper denture at bedside. Current Diet Order/ Nutrition Support NPO Pertinent Medications D5w, Vancomycin, Protonix Pertinent Labs 02/14: A1c 5.9 02/15: phosphorus 5.7H 02/16: BUN 67H, creatinine 2.9H , glucose 90 (trended down), AST 193H, alkaline phosphatase 129H, ALT 281H, calcium 8L Nutritional Hx/Data Height 1.68 m Height (Calculated Centimeters) 167.6 Current Weight (lbs) 46.312 kg Weight (Calculated Kilograms) 46.3 Weight (Calculated Grams) [address]02.8 [place] Body Weight 142 Weight Status Underweight GI Symptoms Usual diet at home [place] SNF: [facility] soft, finely chopped, thin liquid Skin Integrity/Comment: Dwight 10. Right eye scab. Estimated Nutritional Goals Calories/Kcals/Kg IBW 142lb/64.5kg Kcals Calculated 1613-1935kcal (25-30kcal/kg) Protein Calculated 52-66g (0.8-1g/kg, monitor renal vs underweight) Fluid: ml Per MD Nutritional Problem 2. Problem Problem Impaired nutrient utilization related to Etiology RUEL on CKD aeb Signs/Symptoms: 02/16: BUN 67H, creatinine 2.9H , calcium 8L. 02/15: phosphorus 5.7H 1. Problem Problem (possible) difficulty chewing/ swallowing related to Etiology likely lethargy aeb Signs/Symptoms: swallow eval pending Malnutrition Alert Body Fat Depletion (Severe) Mod to Severe Depletion Muscle Mass (Severe) Mod to Severe Depletion Intervention/Recommendation Comments 1. 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 Diet texture per swallow eval (pending). Pt is edentulous with upper denture at bedside. 2. Recommend Novasource Renal TID, BMI 16.5 underweight, moderate to severe muscle fat wasting to chest and clavicles , family report poor PO intake for 1 month. 3. Ngt in place. If enteral nutrition suggested, recommend Novasource Renal 38ml/hr x 24hrs, providing 912ml total volume, 1824kcal, 83g protein. Expected Outcomes/Goals Expected Outcomes/Goals 1. Pt to resume oral diet and meet at least 75% of estimated nutritional needs.
[2017-02-23] MEDS ORDERED: Dextrose 5% 1,000 ML IV SCH (13:49)
--- NOTE | 2017-02-23 13:51 | General Progress Note ---
Subjective - Review of Systems Service Date: 02/23/17 Subjective: more awake, ambulating, comfortable Objective - Results Result Diagrams: 02/23/17 04:55 02/23/17 04:55 Recent Labs: Laboratory Last Values WBC 3.7 Th/cmm (4.8-10.8) L 02/23/17 04:55 RBC 2.76 Mil/cmm (3.80-5.80) L 02/23/17 04:55 Hgb 9.1 gm/dL (12-16) L 02/23/17 04:55 Hct 26.7 % (41.0-60) L 02/23/17 04:55 MCV 96.5 fl (80-99) 02/23/17 04:55 MCH 32.8 pg (27.0-31.0) H 02/23/17 04:55 MCHC Differential 34.0 pg (28.0-36.0) 02/23/17 04:55 RDW 13.8 % (11.5-20.0) 02/23/17 04:55 Plt Count 67 Th/cmm (150-400) L 02/23/17 04:55 MPV 8.5 fl 02/23/17 04:55 Neutrophils % 70.8 % (40.0-80.0) 02/21/17 05:26 Band Neutrophils % 2 % (0-10) 02/23/17 04:55 Lymphocytes % 8.4 % (20.0-50.0) L 02/21/17 05:26 Monocytes % 5.8 % (2.0-10.0) 02/21/17 05:26 Eosinophils % 14.6 % (0.0-5.0) H 02/21/17 05:26 Basophils % 0.4 % (0.0-2.0) 02/21/17 05:26 Neutrophils (Manual) 71 % (40-80) 02/23/17 04:55 Lymphocytes 8 % (20-50) L 02/23/17 04:55 Monocytes 1 % (2-10) L 02/23/17 04:55 Eosinophils 18 % (0-5) H 02/23/17 04:55 Basophils 1 % (0-3) 02/14/17 13:23 Platelet Estimate DECREASED PLATELETS (NORMAL) 02/23/17 04:55 Platelet Morphology NORMAL (NORMAL) 02/15/17 06:30 Anisocytosis 1+ 02/15/17 06:30 RBC Morph Micro Appear ABNORMAL (NORMAL) 02/15/17 06:30 Total Retics Counted 0.4 % (0.5-1.5) L 02/19/17 05:25 Absolute Retic 10.8 Th/cmm 02/19/17 05:25 Corrected Retic Count 0.2 % (0.5-1.5) L 02/19/17 05:25 Eos Smear Source URINE 02/14/17 20:05 Eos Smear Total Cells NONE SEEN (NONE SEEN) 02/14/17 20:05 Plt Count 39 Th/cmm (150-750) L 02/16/17 04:17 PT 9.7 SECONDS (9.5-11.5) 02/16/17 04:17 INR 0.93 (0.5-1.4) 02/16/17 04:17 PTT (Actin FS) 35.1 SECONDS (26.0-38.0) 02/16/17 04:17 Fibrinogen 500.0 mg/dL (200.0-400.0) H 02/16/17 04:17 D-Dimer 745 ng/mL (100-400) H 02/16/17 04:17 Sodium 137 mEq/L (136-145) 02/23/17 04:55 Potassium 3.7 mEq/L (3.5-5.1) 02/23/17 04:55 Chloride 107 mEq/L (98-107) 02/23/17 04:55 Carbon Dioxide 26.5 mEq/L (21.0-31.0) 02/23/17 04:55 Anion Gap 7.2 (7.0-16.0) 02/23/17 04:55 BUN 32 mg/dL (7-25) H 02/23/17 04:55 Creatinine 2.2 mg/dL (0.7-1.3) H 02/23/17 04:55 Est GFR ( Amer) TNP 02/23/17 04:55 Est GFR (Non-Af Amer) TNP 02/23/17 04:55 BUN/Creatinine Ratio 14.5 02/23/17 04:55 Glucose 97 mg/dL (70-105) 02/23/17 04:55 POC Glucose 79 MG/DL (70 - 105) 02/20/17 06:13 Hemoglobin A1c % 5.9 % (4.0-6.0) 02/14/17 13:23 Whole Bld Lactic Acid 1.09 mmol/L (0.60-1.99) 02/14/17 13:23 Uric Acid 2.7 mg/dL (4.4-7.6) L 02/15/17 04:25 Calcium 8.4 mg/dL (8.6-10.3) L 02/23/17 04:55 Phosphorus 5.7 mg/dL (2.5-5.0) H 02/15/17 04:25 Magnesium 2.7 mg/dL (1.9-2.7) 02/15/17 04:25 Iron 138 ug/dL (38-169) 02/19/17 05:25 TIBC 186 ug/dL (250-450) L 02/19/17 05:25 Iron Saturation 74 % (15-55) H 02/19/17 05:25 Unsaturated IBC 48 ug/dL (111-343) L 02/19/17 05:25 Ferritin 1241 ng/mL (30-400) H 02/19/17 05:25 Total Bilirubin 0.5 mg/dL (0.3-1.0) 02/23/17 04:55 Direct Bilirubin 0.05 mg/dL (0.0-0.2) 02/17/17 04:45 AST 70 U/L (13-39) H 02/23/17 04:55 ALT 133 U/L (7-52) H 02/23/17 04:55 Alkaline Phosphatase 106 U/L (34-104) H 02/23/17 04:55 Ammonia 39 umol/L (16-53) 02/23/17 04:55 Lactate Dehydrogenase 163 U/L (140-271) 02/23/17 04:55 Troponin I 0.08 ng/mL (0.01-0.05) H* D 02/17/17 13:55 Total Protein 5.6 gm/dL (6.0-8.3) L 02/23/17 04:55 Albumin 2.9 gm/dL (4.2-5.5) L 02/23/17 04:55 Globulin 2.7 gm/dL 02/23/17 04:55 Albumin/Globulin Ratio 1.1 (1.0-1.8) 02/23/17 04:55 Vitamin B12 1893 pg/mL (211-946) H 02/18/17 05:35 Folic Acid 15.1 ng/mL (>3.0) 02/18/17 05:35 Free T4 0.89 ng/dL (0.82-1.77) 02/18/17 05:35 TSH 4.79 uIU/ml (0.34-5.60) 02/18/17 05:35 Urine Source CATH 02/14/17 14:10 Urine Color YELLOW 02/14/17 14:10 Urine Clarity CLEAR (CLEAR) 02/14/17 14:10 Urine pH 5.5 (4.6 - 8.0) 02/14/17 14:10 Ur Specific [place] 1.020 (1.005-1.030) 02/14/17 14:10 Urine Protein 100 mg/dL (NEGATIVE) H 02/14/17 14:10 Urine Glucose (UA) NEGATIVE mg/dL (NEGATIVE) 02/14/17 14:10 Urine Ketones NEGATIVE mg/dL (NEGATIVE) 02/14/17 14:10 Urine Blood MODERATE (NEGATIVE) H 02/14/17 14:10 Urine Nitrate NEGATIVE (NEGATIVE) 02/14/17 14:10 Urine Bilirubin NEGATIVE (NEGATIVE) 02/14/17 14:10 Urine Urobilinogen 0.2 E.U./dL (0.2 - 1.0) 02/14/17 14:10 Ur Leukocyte Esterase NEGATIVE (NEGATIVE) 02/14/17 14:10 Urine RBC 5-10 /hpf (0-5) H 02/14/17 14:10 Urine WBC 2-5 /hpf (0-5) H 02/14/17 14:10 Ur Epithelial Cells FEW /lpf (FEW) 02/14/17 14:10 Urine Bacteria FEW /hpf (NONE SEEN) 02/14/17 14:10 Urine Osmolality 434 mOsmol/kg 02/14/17 20:05 Ur Random Sodium 61 mmol/L 02/15/17 12:46 Urine Creatinine 93.0 mg/dl (39.0-259.0) 02/14/17 20:05 Urine Microalbumin 662.5 ug/mL (Not Estab.) 02/14/17 14:10 Microalb/Creat Ratio 851.5 mg/g creat (0.0-30.0) H 02/14/17 14:10 Stool Occult Blood POSITIVE (NEGATIVE) 02/15/17 18:35 Random Vancomycin 14.5 ug/mL (5.0-40.0) 02/16/17 04:17 Hepatitis A IgM Ab Negative (Negative) 02/16/17 04:17 Hep Bs Antigen Negative (Negative) 02/16/17 04:17 Hep B Core IgM Ab Negative (Negative) 02/16/17 04:17 Hepatitis C Antibody <0.1 s/co ratio (0.0-0.9) 02/16/17 04:17 Blood Type O POSITIVE 02/15/17 05:20 Antibody Screen NEGATIVE 02/15/17 05:20 NATALIE, IgG Interpret NEGATIVE 02/23/17 04:55 Crossmatch See Detail 02/15/17 05:20 - Physical Exam Vitals and I&O: Vital Signs Temp 97.2 F 02/23/17 13:09 Pulse 57 02/23/17 13:09 Resp 18 02/23/17 13:09 BP 127/62 02/23/17 13:09 Pulse Ox 96 02/23/17 13:09 Intake & Output 02/22/17 02/23/17 02/23/17 18:59 06:59 18:59 Intake Total 1120 Output Total 1400 800 Balance -280 -800 Weight (lbs) 50.349 kg 50.576 kg 50.859 kg Intake: Intake, IV Amount 1000 Dextrose 5% 1,000 ml @ 1000 125 mls/hr IV .Q8H [facility] Rx #:[id number] Oral 120 Output: Urine 1400 800 Active Medications: Current Medications Atropine Sulfate (Atropine Syringe) 1 mg IVP Q4HR PRN PRN Reason: LOW HEART RATE Stop: 04/18/17 13:37 Last Admin: 02/18/17 11:03 Dose: 1 mg Epoetin Jung (Epogen) 6,000 units SUBQ MWF [facility] Stop: 04/24/17 08:59 Last Admin: 02/23/17 11:21 Dose: 6,000 units Famotidine (Pepcid) 20 mg PO DAILY [facility] Stop: 04/24/17 08:59 Last Admin: 02/23/17 09:17 Dose: 20 mg Dextrose (D5w) 1,000 mls @ 125 mls/hr IV .Q8H [facility] Stop: 04/21/17 03:24 Last Admin: 02/23/17 00:36 Dose: 125 mls/hr Lorazepam (Ativan) 1 mg IVP Q8HR PRN; Protocol PRN Reason: Agitation Stop: 04/22/17 10:42 Last Admin: 02/21/17 11:16 Dose: 1 mg Miscellaneous (Probiotic Screen) 1 ea PRN PRN PRN Reason: PROTOCOL Stop: 04/16/17 14:13 General: Alert, No acute distress, Other (drowsy) HEENT: Atraumatic, Mucous membr. moist/pink Neck: Supple, +2 carotid pulse wo bruit Cardiovascular: Regular rate, Normal S1, Normal S2 Lungs: Other (few rhonchi) Abdomen: Soft, Other (diminished BS) Extremities: no Edema Neurological: Sensation intact Skin: no Rash Psych/Mental Status: Mood NL - Procedures Procedures: Procedures Procedure Code Date BLOOD TRANSFUSION SERVICE 15623 02/14/17 TRANSFUSE NONAUT RED BLOOD CELLS IN PERIPH VEIN, PERC 72843W9 02/14/17 Assessment/Plan - Problem List Patient Problems: All Active Problems WANDERS FROM FACILITY; ELOPEMENT RISK (Acute) - Assessment Assessment: RUEL on CKD Hypothermic NG Hyperchloremic Met Acid Hypernatremia Type 2 DM Hepatic Enceph Anemia acute on ckd Acute liver failure Hyperkalemia 2nd RUEL, DM, losartan bicytopenia - Plan Plan: Current Medications Piperacillin Sod/Tazobactam (Sod 2.25 gm/ Sodium Chloride) 50 mls @ 100 mls/hr IV Q8HR [facility] Stop: 04/15/17 20:59 Last Infusion: 02/15/17 05:15 Dose: Infused Dextrose (D5w) 1,000 mls @ 125 mls/hr IV .Q8H [facility] Stop: 04/15/17 17:05 Last Admin: 02/15/17 04:44 Dose: 125 mls/hr Miscellaneous (Vancomycin Iv Per Pharmacy) 1 ea PRN PRN PRN Reason: PROTOCOL Stop: 04/15/17 15:55 Pneumococcal Polyvalent Vaccine (Pneumovax) 0.5 ml IM .ONCE ONE Stop: 02/15/17 17:34 Na down to 137, decresed D5W@ 70ml/hr acute anemia possible slow GI bleed (stool OB +) kidney fnc continues to improve w/ BUN/CR of 32/2.2 f/u cbc, electrolytes Lab - Result Diagrams 02/23/17 04:55 02/23/17 04:55 Nutritional Asmnt/Malnutr-PDOC - Dietary Evaluation Malnutrition Findings (Please click <Entered> for more info): Nutritional Asmnt/Malnutrition Start: 02/16/17 13: 29 Text: Status: Complete Freq: Document 02/16/17 13:29 GSUN (Rec: 02/16/17 13:57 [email or web address] [email or web address]) Nutritional Asmnt/Malnutrition Patient General Information Nutritional Screening High Risk Screening Diagnosis Septic shock, severe dehydration, 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 RD consult for elevated BG. NPO since adm, day 2. Spoke to RN MARYAM [place] stated per family, pt noted with poor PO intake this past month. Pt was lethargic during visit, made eye contact , responded yes when asked if he was hungry. Limited physical assessment due to heavy blanket for low temp, observed moderate to severe muscle fat wasting to chest and clavicles, with BMI 16.5. RN ordered swallow eval, pending. Ngt in place, RN suggested enteral feeding if needed. Pt is edentulous with upper denture at bedside. Current Diet Order/ Nutrition Support NPO Pertinent Medications D5w, Vancomycin, Protonix Pertinent Labs 02/14: A1c 5.9 02/15: phosphorus 5.7H 02/16: BUN 67H, creatinine 2.9H , glucose 90 (trended down), AST 193H, alkaline phosphatase 129H, ALT 281H, calcium 8L Nutritional Hx/Data Height 1.68 m Height (Calculated Centimeters) 167.6 Current Weight (lbs) 46.312 kg Weight (Calculated Kilograms) 46.3 Weight (Calculated Grams) 79825.8 [place] Body Weight 142 Weight Status Underweight GI Symptoms Usual diet at home [place] SNF: [facility] soft, finely chopped, thin liquid Skin Integrity/Comment: Dwight 10. Right eye scab. Estimated Nutritional Goals Calories/Kcals/Kg IBW 142lb/64.5kg Kcals Calculated 1613-1935kcal (25-30kcal/kg) Protein Calculated 52-66g (0.8-1g/kg, monitor renal vs underweight) Fluid: ml Per MD Nutritional Problem 2. Problem Problem Impaired nutrient utilization related to Etiology RUEL on CKD aeb Signs/Symptoms: 02/16: BUN 67H, creatinine 2.9H , calcium 8L. 02/15: phosphorus 5.7H 1. Problem Problem (possible) difficulty chewing/ swallowing related to Etiology likely lethargy aeb Signs/Symptoms: swallow eval pending Malnutrition Alert Body Fat Depletion (Severe) Mod to Severe Depletion Muscle Mass (Severe) Mod to Severe Depletion Intervention/Recommendation Comments 1. Recommend renal diet, dx RUEL on CKD, elevated BUN soap chipper phos. Diet texture per swallow eval (pending). Pt is edentulous with upper denture at bedside. 2. Recommend Novasource Renal TID, BMI 16.5 underweight, moderate to severe muscle fat wasting to chest and clavicles , family report poor PO intake for [address] Ngt in [address]. If enteral nutrition suggested, recommend Novasource Renal 38ml/hr x 24hrs, providing 912ml total volume, 1824kcal, 83g protein. Expected Outcomes/Goals Expected Outcomes/Goals 1. Pt to resume oral diet and meet at least 75% of estimated nutritional needs.
--- NOTE | 2017-02-23 15:51 | Progress Notes ---
DATE: 02/23/2017 SUBJECTIVE: Chart reviewed and the patient interviewed. Also discussed the patient's condition with the staff and reviewed records and labs. The patient is still severely depressed and is still anxious. The patient also is still having difficulty following directions. The patient also is still guarded and withdrawn. Otherwise, the patient is compliant with taking his medications with no side effects of medications. ASSESSMENT: The patient still needs close monitoring. TREATMENT PLAN: Continue monitoring his behavior and his condition closely. Also, continue adjusting psychotropic medications and follow up. [facility]# [id number]
--- NOTE | 2017-02-23 16:10 | Progress Notes ---
DATE: SUBJECTIVE: The patient was seen in his room, lying in the bed. The patient appears to be confused. Per nurse, the patient appears to be more agitated at this time, but otherwise doing okay, able to pass swallow eval and already started on puree diet. Otherwise, the patient appears in no acute distress and appears to be comfortable. OBJECTIVE: VITAL SIGNS: Temperature 98.6, heart rate of 71, blood pressure 137/74, respirations of 18, 94% on 2 L nasal cannula. HEENT: Head: Atraumatic and normocephalic. Eyes: Bilateral conjunctivae are clear. Bilateral pupils are equally round and reactive. NECK: Supple. No JVD. CARDIOVASCULAR: S1 and S2, without murmur. PULMONARY: Mild inspiratory wheezing noted. GASTROINTESTINAL: Soft and nontender without guarding. Positive bowel sounds. MUSCULOSKELETAL: No clubbing, no cyanosis noted. ASSESSMENT: 1. Urinary tract infection. 2. Dysphagia, improving. 3. Gastroesophageal reflux disease. 4. Osteoarthritis. 5. Muscle weakness. PLAN: We will order lorazepam 1 mg every 8 hours as needed for severe agitation. We will continue the rest of the current treatment. Treatments plans were discussed with Dr. Sanabria. Treatment plans were discussed with the patient's nurse. JOB# [id number]
--- NOTE | 2017-03-09 23:13 | Discharge Summary ---
DATE OF DISCHARGE: 02/23/2017 HOSPITAL COURSE: The patient was admitted on 02/14/2017 and the patient was discharged on 02/23/2017 to [facility], came from [place]. Initial diagnosis of septic shock, dehydration, hyperkalemia, hyponatremia, hyperchloremia, history of hypothermia, dementia, history of hypertension, diabetes, anemia, and the patient was treated for all of that. The patient initially was in the ICU and was treated with medications and also potassium saw the patient. The patient still was refusing to eat, which gradually improved and the patient was discharged back to [place] on 02/23/2017, where I will be following the patient. PROGNOSIS: Guarded. FINAL DIAGNOSES: Failure to thrive, status post sepsis, septic shock, history of dementia, history of hypertension, history of underlying psychiatric disorder. JOB# [id number]
== END 2017-02-23 17:30 | disposition home or self-care (01) | DRG 871 ==
LOC: ER 13:10 → ICU 15:44 → TELE 02-17 00:20
PROVIDERS: ADMIT Internal Medicine; ATTEND Internal Medicine
PROC: 30233N1 Transfusion of Nonautologous Red Blood Cells into Peripheral Vein, Percutaneous Approach (ICD-10-PCS; principal; 2017-02-15)
PROC: 30233R1 Transfusion of Nonautologous Platelets into Peripheral Vein, Percutaneous Approach (ICD-10-PCS; 2017-02-16)
DX: A41.9 Sepsis, unspecified organism (principal); R65.21 Severe sepsis with septic shock; K72.00 Acute and subacute hepatic failure without coma; G93.40 Encephalopathy, unspecified; N17.9 Acute kidney failure, unspecified; K92.2 Gastrointestinal hemorrhage, unspecified; E87.0 Hyperosmolality and hypernatremia; N39.0 Urinary tract infection, site not specified; F03.91 Unspecified dementia, unspecified severity, with behavioral disturbance; E46 Unspecified protein-calorie malnutrition; Z68.1 Body mass index [BMI] 19.9 or less, adult; B19.9 Unspecified viral hepatitis without hepatic coma; E86.0 Dehydration; E87.5 Hyperkalemia; E87.8 Other disorders of electrolyte and fluid balance, not elsewhere classified; T68.XXXA Hypothermia, initial encounter; I12.9 Hypertensive chronic kidney disease with stage 1 through stage 4 chronic kidney disease, or unspecified chronic kidney disease; E11.22 Type 2 diabetes mellitus with diabetic chronic kidney disease; N18.9 Chronic kidney disease, unspecified; M10.9 Gout, unspecified; H40.9 Unspecified glaucoma; F29 Unspecified psychosis not due to a substance or known physiological condition; F41.9 Anxiety disorder, unspecified; D63.1 Anemia in chronic kidney disease; E78.5 Hyperlipidemia, unspecified; D50.9 Iron deficiency anemia, unspecified; D75.9 Disease of blood and blood-forming organs, unspecified; M62.81 Muscle weakness (generalized); R00.1 Bradycardia, unspecified; R13.10 Dysphagia, unspecified; M19.90 Unspecified osteoarthritis, unspecified site; Z91.012 Allergy to eggs; Z91.011 Allergy to milk products; Z91.018 Allergy to other foods; Z79.82 Long term (current) use of aspirin
CPT/HCPCS: 36415-UA; 70450-TC; 71010-TC; 74000-TC; 76700-TC; 76770-TC; 80048-TC; 80053-TC; 80074-90; 80076-TC; 80202-TC; 81001-TC; 81015-TC; 82043-90; 82140-TC; 82270-TC; 82570-TC; 82607-90; 82728-90; 82746-90; 82948-90; 83036-90; 83540-90; 83550-90; 83605; 83615-TC; 83735-TC; 83935-90; 84100-TC; 84300-TC; 84439-90; 84443-TC; 84484-TC; 84550-TC; 85007-TC; 85014-TC; 85018-TC; 85025-TC; 85027-TC; 85044-TC; 85049-TC; 85379-TC; 85384-TC; 85610-TC; 85730-TC; 86850-TC; 86880-TC; 86900-TC; 86901-TC; 86922-TC; 87086-90; 93005; 94640; 94760; 96374; C9113; J0461; J0885; J1815; J2060; J2543; J3370; J7030; J7070; J7613; J7799; P9016; P9035; X3401; X3904; X4304; Z7502; Z7610